=== PATIENT | male | born 1985 | race Caucasian/White ===

== ENCOUNTER 2020-10-11 13:57 | Outpatient (REF) | payer OTHER, SELFPAY ==
[2020-10-11 17:24] LABS: Alanine Aminotransferase 103 U/L (0-40); Albumin Level 4.8 g/dL (3.5-5.0); Alkaline Phosphatase 68 U/L (39-117); Anion Gap 14 (12-20); Aspartate Amino Transferase 51 U/L (5-37); Bilirubin Total 0.5 mg/dL (0.0-1.0); Blood Urea Nitrogen 13 mg/dL (9-16); Calcium 9.7 mg/dL (8.4-10.2); Carbon Dioxide 26 mmol/L (22-29); Chloride 103 mmol/L (96-108); Cholesterol 244 mg/dL; Estimated Glomerular Filt Rate > 60; Glucose Fasting 75 mg/dL (60-99); HDL Cholesterol 33 mg/dL; LDL Cholesterol Calculated 171 mg/dl; Potassium 4.4 mmol/l (3.3-5.1); Sodium 139 mmol/L (135-145); Total Protein 7.4 g/dL (6.5-8.0); Triglycerides 202 mg/dL
[2020-10-11 17:44] LABS: TSH reflex Free T4 0.74 mIU/mL (0.32-4.0)
[2020-10-12 08:07] LABS: HIV AB/AG Nonreactive (Nonreactive); HIV Num 1 0.36 S/CO (0.00-0.99)
== END 2020-10-11 13:58 | disposition home or self-care (01) ==
LOC: HO.HMGCLDS 13:57
PROVIDERS: PCP Nurse Practitioner Family; Visit Provider Nurse Practitioner Family
DX: Z00.00 Encounter for general adult medical examination without abnormal findings (principal); Z11.4 Encounter for screening for human immunodeficiency virus [HIV]; Z13.220 Encounter for screening for lipoid disorders; Z13.29 Encounter for screening for other suspected endocrine disorder; Z23 Encounter for immunization
CPT/HCPCS: 80053; 80061; 84443; 87389

== ENCOUNTER 2020-10-25 09:43 | Outpatient (REF) | payer OTHER, SELFPAY ==
[2020-10-25 11:08] LABS: MANUAL DIFF FLAG NO
[2020-10-25 11:31] LABS: Basophils Absolute Auto 0.1 X10*3/uL (0.0-0.2); Basophils Percent Auto 1.7 % (0-2); Eosinophils Absolute Auto 0.3 X10*3/uL (0.0-0.4); Eosinophils Percent Auto 6.6 % (0-4); Hematocrit 50.7 % (42-52); Hemoglobin 17.2 g/dl (14.0-18.0); Imm Gran Abs Auto 0.02 X10*3/uL (0.00-0.03); Imm Gran Pct Auto 0.4 % (0.0-0.4); Lymphocytes Absolute Auto 1.6 X10*3/uL (1.2-4.9); Mean Corpuscular HGB Conc 33.9 g/dl (31.0-36.0); Mean Corpuscular Hemoglobin 31.5 pg (27.0-33.0); Mean Corpuscular Volume 92.9 fL (80-98); Mean Platelet Volume 11.7 fL (9.4-12.4); Monocytes Absolute Auto 0.4 X10*3/uL (0.1-1.2); Monocytes Percent Auto 7.9 % (2-11); Neutrophils Absolute Auto 2.7 X10*3/uL (2.0-8.3); Neutrophils Percent Auto 52.4 % (45-73); Platelet Count 227 X10*3/uL (160-400); Red Blood Count 5.46 X10*6/uL (4.60-5.80); White Blood Count 5.2 X10*3/uL (4.8-10.8)
[2020-10-25 11:52] LABS: Alanine Aminotransferase 65 U/L (0-40); Albumin Level 4.6 g/dL (3.5-5.0); Alkaline Phosphatase 66 U/L (39-117); Aspartate Amino Transferase 31 U/L (5-37); Bilirubin Direct 0.2 mg/dL (0.0-0.5); Bilirubin Total 0.7 mg/dL (0.0-1.0)
[2020-10-25 12:02] LABS: Ferritin 107 ng/mL (20-250)
[2020-10-26 09:27] LABS: HBsAGNum1 0.19 S/CO (0.00-0.99); Hepatitis A Antibody IgM 0.12 Index (0-0.79); Hepatitis B Surface Antigen Negative (Negative); ~HepC Num1 0.31 S/CO (0.00-0.79); ~Hepatitis A Antibody IgM Nonreactive (Nonreactive); ~Hepatitis C Antibody Nonreactive (Nonreactive)
[2020-10-26 09:31] LABS: HBS Num1 3.53 mIU/mL (0-7.99); Hepatitis B Core Antibody Nonreactive (Nonreactive); ~Hepatitis B Surface Antibody NONREACTIVE (Nonreactive)
[2020-11-01 03:22] LABS: Lipoprotein A 23 nmol/L (<75)
== END 2020-10-25 09:44 | disposition home or self-care (01) ==
LOC: HO.HMGCLDS 09:43
PROVIDERS: PCP Nurse Practitioner Family; Visit Provider Nurse Practitioner Family
DX: R74.8 Abnormal levels of other serum enzymes (principal)
CPT/HCPCS: 36415; 80076; 82728; 83695; 85025; 86704; 86706; 86709; 86803; 87340

== ENCOUNTER 2021-10-11 06:03 | Outpatient (REF) | payer OTHER, SELFPAY ==
[2021-10-11 11:24] LABS: Appearance Urine CLEAR; Color Urine STRAW; Glucose Urine UA NEG (NEG); Leukocyte Esterase Urine NEG (NEG); Nitrite Urine NEG (NEG); PH 7.5 (5.0-8.0); Urine Blood NEG (NEG); Urine Ketones NEG (NEG); Urine Protein NEG (NEG-TRACE)
[2021-10-11 11:53] LABS: Alanine Aminotransferase 89 U/L (0-40); Albumin Level 4.5 g/dL (3.5-5.0); Alkaline Phosphatase 75 U/L (39-117); Anion Gap 13 (12-20); Aspartate Amino Transferase 37 U/L (5-37); Bilirubin Total 0.7 mg/dL (0.0-1.0); Blood Urea Nitrogen 12 mg/dL (9-16); Calcium 9.9 mg/dL (8.4-10.2); Carbon Dioxide 26 mmol/L (22-29); Chloride 107 mmol/L (96-108); Cholesterol 272 mg/dL; Estimated Glomerular Filt Rate > 60; Glucose Fasting 89 mg/dL (60-99); HDL Cholesterol 37 mg/dL; LDL Cholesterol Calculated 185 mg/dl; Potassium 4.4 mmol/L (3.3-5.1); Sodium 142 mmol/L (135-145); Total Protein 7.1 g/dL (6.5-8.0); Triglycerides 253 mg/dL
[2021-10-11 12:15] LABS: TSH reflex Free T4 1.79 uIU/mL (0.32-4.0)
== END 2021-10-11 06:04 | disposition home or self-care (01) ==
LOC: HO.HMGCLDS 06:03
PROVIDERS: PCP Nurse Practitioner Family; Visit Provider Nurse Practitioner Family
DX: Z00.00 Encounter for general adult medical examination without abnormal findings (principal)
CPT/HCPCS: 36415; 80053; 80061; 81003; 84443

== ENCOUNTER 2021-11-08 14:14 | Outpatient (REF) | payer OTHER, SELFPAY ==
[2021-11-08 15:09] LABS: Influenza A PCR NEGATIVE (Negative); Influenza B PCR NEGATIVE (Negative); Resp Syncy Virus RNA Qual PCR NEGATIVE (Negative); SARS COV2 PCR INHOUSE NEGATIVE (Negative)
== END 2021-11-08 14:15 | disposition home or self-care (01) ==
LOC: HO.LNP 14:14
PROVIDERS: Visit Provider Nurse Practitioner Family
DX: Z20.822 Contact with and (suspected) exposure to COVID-19 (principal)
CPT/HCPCS: 0241U

== ENCOUNTER 2022-08-13 07:15 | Outpatient (REF) | payer OTHER, SELFPAY ==
--- NOTE | ~2022-08-13 | XR_ITS ---
EXAMINATION: XR CHEST CLINICAL INFORMATION: Post Covid condition COMPARISON: None TECHNIQUE: 2 views of the chest were obtained. FINDINGS: No significant abnormality is noted involving the heart, lungs, mediastinum, bony thorax or soft tissues. XR/XR chest 2V IMPRESSION: Unremarkable examination.
[2022-08-13 11:16] LABS: MANUAL DIFF FLAG NO
[2022-08-13 11:26] LABS: Appearance Urine Clear; Color Urine Yellow; Glucose Urine UA Negative (Negative); Leukocyte Esterase Urine Negative (Negative); Nitrite Urine Negative (Negative); PH 6.5 (5.0-9.0); Specific Gravity - Urine <= 1.005 (1.005-1.025); Urine Blood Negative (Negative); Urine Ketones Negative (Negative); Urine Protein Negative (Neg-Trace)
[2022-08-13 11:26] LABS: Basophils Absolute Auto 0.1 X10*3/uL (0.0-0.2); Basophils Percent Auto 1.2 % (0-2); Eosinophils Absolute Auto 0.3 X10*3/uL (0.0-0.4); Eosinophils Percent Auto 4.5 % (0-4); Hematocrit 49.2 % (42.0-52.0); Imm Gran Abs Auto 0.02 X10*3/uL (0.00-0.03); Imm Gran Pct Auto 0.3 % (0.0-0.4); Lymphocytes Absolute Auto 1.9 X10*3/uL (1.2-4.9); Lymphocytes Percent Auto 32.1 % (20-40); Mean Corpuscular HGB Conc 34.6 g/dl (31.0-36.0); Mean Corpuscular Hemoglobin 31.8 pg (27.0-33.0); Mean Corpuscular Volume 92.1 fL (80.0-98.0); Mean Platelet Volume 11.5 fL (9.4-12.4); Monocytes Absolute Auto 0.6 X10*3/uL (0.1-1.2); Monocytes Percent Auto 10.2 % (2-11); Neutrophils Absolute Auto 3.1 x10*3/uL (2.0-8.3); Neutrophils Percent Auto 51.7 % (45-73); Platelet Count 287 X10*3/uL (160-400); Red Blood Count 5.34 X10*6/uL (4.60-5.80); Red Cell Distribution Width 12.2 % (11.0-16.0)
[2022-08-13 11:38] LABS: Alanine Aminotransferase 93 U/L (0-40); Albumin Level 4.6 g/dL (3.5-5.0); Alkaline Phosphatase 80 U/L (39-117); Anion Gap 15 (12-20); Aspartate Amino Transferase 45 U/L (5-37); Bilirubin Total 0.8 mg/dL (0.0-1.0); Blood Urea Nitrogen 13 mg/dL (9-16); Carbon Dioxide 29 mmol/L (22-29); Chloride 102 mmol/L (96-108); Cholesterol 265 mg/dL; Estimated Glomerular Filt Rate > 60; Glucose Fasting 95 mg/dL (60-99); HDL Cholesterol 36 mg/dL; Potassium 4.6 mmol/L (3.3-5.1); Sodium 141 mmol/L (135-145); Total Protein 7.1 g/dL (6.5-8.0); Triglycerides 463 mg/dL
[2022-08-13 11:59] LABS: TSH reflex Free T4 1.92 uIU/mL (0.32-4.0)
== END 2022-08-13 07:16 | disposition home or self-care (01) ==
LOC: HO.HMGCX 07:15
PROVIDERS: PCP Nurse Practitioner Family; Visit Provider Nurse Practitioner Family
DX: U09.9 Post COVID-19 condition, unspecified (principal); E78.5 Hyperlipidemia, unspecified
CPT/HCPCS: 36415; 71046; 80053; 80061; 81003; 84443; 85025

== ENCOUNTER 2022-10-10 08:20 | Outpatient (REF) | payer OTHER, SELFPAY ==
[2022-10-10 12:39] LABS: Alanine Aminotransferase 90 U/L (0-40); Albumin Level 4.5 g/dL (3.5-5.0); Alkaline Phosphatase 73 U/L (39-117); Anion Gap 10 (12-20); Aspartate Amino Transferase 40 U/L (5-37); Bilirubin Total 0.6 mg/dL (0.0-1.0); Blood Urea Nitrogen 13 mg/dL (9-16); Calcium 9.5 mg/dL (8.4-10.2); Carbon Dioxide 29 mmol/L (22-29); Chloride 106 mmol/L (96-108); Cholesterol 250 mg/dL; Estimated Glomerular Filt Rate > 60; Glucose Fasting 93 mg/dL (60-99); HDL Cholesterol 36 mg/dL; LDL Cholesterol Calculated 150 mg/dl; Potassium 4.7 mmol/L (3.3-5.1); Sodium 140 mmol/L (135-145); Total Protein 6.7 g/dL (6.5-8.0); Triglycerides 324 mg/dL
[2022-10-10 12:41] LABS: HIV AB/AG Nonreactive (Nonreactive); HIV Num 1 0.06 S/CO (0.00-0.99)
== END 2022-10-10 08:21 | disposition home or self-care (01) ==
LOC: HO.HMGCLDS 08:20
PROVIDERS: PCP Nurse Practitioner Family; Visit Provider Nurse Practitioner Family
DX: E78.5 Hyperlipidemia, unspecified (principal); Z11.4 Encounter for screening for human immunodeficiency virus [HIV]
CPT/HCPCS: 36415; 80053; 80061; 87389

== ENCOUNTER 2023-04-02 11:49 | Outpatient (REF) | payer OTHER, SELFPAY ==
--- NOTE | ~2023-04-02 | XR_ITS ---
EXAMINATION: XR CERVICAL SPINE CLINICAL INFORMATION: Cervical radiculopathy COMPARISON: None available. TECHNIQUE: AP and lateral views FINDINGS: There is straightening of cervical lordosis with well aligned vertebral bodies well maintained intervertebral disc spaces. Pedicles are preserved. There is no fracture or subluxation. Soft tissues are unremarkable. XR/XR cervical spine 2V IMPRESSION: Straightening of cervical lordosis may be result of muscle spasm.
== END 2023-04-02 11:50 | disposition home or self-care (01) ==
LOC: HO.HMGCX 11:49
PROVIDERS: PCP Nurse Practitioner Family; Visit Provider Nurse Practitioner Family
DX: M54.12 Radiculopathy, cervical region (principal)
CPT/HCPCS: 72040

== ENCOUNTER 2023-04-30 09:02 | Outpatient (REF) | payer OTHER, SELFPAY ==
[2023-04-30 11:27] LABS: MANUAL DIFF FLAG NO
[2023-04-30 11:36] LABS: Appearance Urine Clear; Basophils Absolute Auto 0.1 X10*3/uL (0.0-0.2); Basophils Percent Auto 1.1 % (0-2); Color Urine Yellow; Eosinophils Absolute Auto 0.2 X10*3/uL (0.0-0.4); Eosinophils Percent Auto 4.3 % (0-4); Glucose Urine UA Negative (Negative); Hematocrit 47.5 % (42.0-52.0); Hemoglobin 16.5 g/dl (14.0-18.0); Imm Gran Abs Auto 0.01 X10*3/uL (0.00-0.03); Imm Gran Pct Auto 0.2 % (0.0-0.4); Leukocyte Esterase Urine Negative (Negative); Lymphocytes Absolute Auto 1.7 X10*3/uL (1.2-4.9); Lymphocytes Percent Auto 31.2 % (20-40); Mean Corpuscular HGB Conc 34.7 g/dl (31.0-36.0); Mean Corpuscular Hemoglobin 32.4 pg (27.0-33.0); Mean Corpuscular Volume 93.1 fL (80.0-98.0); Mean Platelet Volume 11.4 fL (9.4-12.4); Monocytes Absolute Auto 0.5 X10*3/uL (0.1-1.2); Monocytes Percent Auto 8.7 % (2-11); Neutrophils Absolute Auto 2.9 x10*3/uL (2.0-8.3); Neutrophils Percent Auto 54.5 % (45-73); Nitrite Urine Negative (Negative); PH 6.5 (5.0-9.0); Platelet Count 260 X10*3/uL (160-400); Urine Blood Negative (Negative); Urine Ketones Negative (Negative); Urine Protein Negative (Neg-Trace); White Blood Count 5.3 X10*3/uL (4.8-10.8)
[2023-04-30 12:26] LABS: Alanine Aminotransferase 96 U/L (0-40); Albumin Level 4.5 g/dL (3.5-5.0); Alkaline Phosphatase 84 U/L (39-117); Anion Gap 14 (12-20); Aspartate Amino Transferase 41 U/L (5-37); Bilirubin Total 0.7 mg/dL (0.0-1.0); Blood Urea Nitrogen 13 mg/dL (9-16); Calcium 10.2 mg/dL (8.4-10.2); Carbon Dioxide 28 mmol/L (22-29); Chloride 104 mmol/L (96-108); Cholesterol 256 mg/dL; Estimated Glomerular Filt Rate > 60; Glucose Fasting 98 mg/dL (60-99); HDL Cholesterol 43 mg/dL; LDL Cholesterol Calculated 159 mg/dl; Sodium 142 mmol/L (135-145); Triglycerides 273 mg/dL
[2023-04-30 12:28] LABS: TSH reflex Free T4 1.56 uIU/mL (0.32-4.0)
== END 2023-04-30 09:03 | disposition home or self-care (01) ==
LOC: HO.HMGCLDS 09:02
PROVIDERS: PCP Nurse Practitioner Family; Visit Provider Nurse Practitioner Family
DX: Z00.00 Encounter for general adult medical examination without abnormal findings (principal); E78.5 Hyperlipidemia, unspecified; Z13.29 Encounter for screening for other suspected endocrine disorder
CPT/HCPCS: 36415; 80053; 80061; 81003; 84443; 85025

== ENCOUNTER 2023-05-11 14:08 | Outpatient (REF) | payer OTHER, SELFPAY ==
--- NOTE | ~2023-05-11 | MR_ITS ---
EXAMINATION: MR CERVICAL SPINE WITHOUT CONTRAST CLINICAL INFORMATION: Radiculopathy COMPARISON: Cervical spine radiographs 04/02/2023 TECHNIQUE: MRI of the cervical spine was obtained using routine sequences without contrast. FINDINGS: The craniocervical junction is intact. Straightening of the normal cervical lordosis. There is no significant spondylolisthesis. Vertebral body heights are normal without acute compression fracture. No suspicious osseous lesion. Multilevel disc desiccation with mild disc height loss. There are multilevel degenerative changes with level by level detail as follows: C2-C3: No spinal canal or neural foraminal stenosis. C3-C4: Bilateral uncovertebral spurring. No spinal canal or left neural foraminal stenosis. Minimal right neural foraminal encroachment. C4-C5: Shallow annular disc bulge with minor bilateral uncovertebral spurring. No spinal canal or neural foraminal stenosis. C5-C6: Disc osteophyte complex with right greater than left uncovertebral spurring. No spinal canal stenosis. Mild right without left neural foraminal narrowing. C6-C7: Annular disc bulge with paracentral annular fissure and bilateral uncovertebral spurring. No spinal canal stenosis. Mild bilateral neural foraminal narrowing. C7-T1: No spinal canal or neural foraminal stenosis. Short segment intramedullary T2 hyperintensity within the ventral cord at C1 measuring 1.7 mm in AP dimension (image 8, series 3) may reflect focal dilatation of the central canal, though excluded from the [id number] in the axial plane. No epidural fluid collection, mass, or hematoma. No significant abnormalities of the paraspinal musculature. The flow voids of the major cervical vessels are maintained. The visualized intracranial structures are normal. No demonstrated abnormalities in the visualized neck. MR/MR cervical spine wo con IMPRESSION: 1. Mild multilevel cervical spondylosis without significant spinal canal stenosis or high-grade neural foraminal stenosis. Mild right C5-C6 and bilateral C6-C7 neural foraminal narrowing. 2. Short segment intramedullary T2 hyperintensity within the ventral cord at C1 is excluded from the [id number] in the axial plane and may reflect focal prominence of the central canal without overt syrinx formation.
== END 2023-05-11 14:09 | disposition home or self-care (01) ==
LOC: HO.MRI 14:08
PROVIDERS: PCP Nurse Practitioner Family; Visit Provider Nurse Practitioner Family
DX: M54.12 Radiculopathy, cervical region (principal)
CPT/HCPCS: 72141

== ENCOUNTER 2023-05-30 08:03 | Outpatient (REF) | payer OTHER, SELFPAY ==
--- NOTE | 2023-05-30 08:06 | EMG_ITS ---
Left median and ulnar motor and sensory studies were performed. Left radial sensory study was performed. Left median and lateral antecubital sensory studies were performed and paraspinal muscles were tested with a needle. IMPRESSION: Mild left ulnar neuropathy across cubital tunnel. MD MATHIEU Woodall/MICHAEL / [phone]
== END 2023-05-30 08:04 | disposition home or self-care (01) ==
LOC: HO.NEURO 08:03
PROVIDERS: PCP Nurse Practitioner Family; Visit Provider Nurse Practitioner Family
DX: R20.0 Anesthesia of skin (principal)
CPT/HCPCS: 95886; 95910

== ENCOUNTER 2023-06-28 14:00 | Outpatient (RCR) | payer OTHER, SELFPAY ==
--- NOTE | 2023-05-20 11:25 | MHC.PT.EP ---
[facility] [place] Office [place] Office [place] Office [address] [phone] F: [phone] F: [phone] F: [phone] F: [phone] Physical Therapy Plan of Care Date of Evaluation: Date of Surgery: Diagnosis: Cervical Radiculopathy. Assessment: Pt is a 47 y/o RHD male referred to PT for eval and treat of L sided cervical radiculopathy resulting in decreased tolerance for driving, concentrating, lifting objects of weight from the floor, as well as performing recreational and fitness activities such as golf secondary to mild decreased cervical ROM, pain with end range cervical L rotation and flexion, mild decreased L UE strength, as well as L shoulder and arm pain. Pt is deemed an appropriate candidate to receive skilled PT services to address their physical impairments in order to improve their functional ability. Frequency and Duration: The patient will be seen 2 x/ wk x 4 wks. Short Term Goals: Initiate HEP. L shoulder referred ache abolished. L hand n/t improved 50%. Senior Systems Programmer Goals: I with home program. Cervical ROM full and painless. NDI improved by at least 9 points. B symmetrical MMT UE muscle testing. Treatment Plan: Modalities to reduce pain, spasms and effusion. Manual therapy to restore motion and function. Therapeutic exercise to improve strength and flexibility. Neuromuscular re-education for posture and balance. Therapeutic activities to return to functional activities of daily living. Electronically signed by: Umair Melgar PT. Please sign and return to therapist. Thank you for your referral.
--- NOTE | 2023-07-01 13:16 | MHC.PT.DC ---
[facility] [place] Office [place] Office [place] Office [address] [phone] F: [phone] F: [phone] F: [phone] F: [phone] Physical Therapy Discharge Report Diagnosis: Cervical Radiculopathy. Date of Surgery: Date of Evaluation: 05/20/23 Date of Discharge: 07/01/23 Treatments to Date: 7 Cancellations to Date: No Shows to Date: Discharge Status: Achieved Goals Improved Function Independent with HEP Discharge Summary: Lloyd has been an active participant in their therapy with good home program compliance. We are in agreement with DC today as he has met most of their therapeutic goals, are improved of his initial symptoms, and is independent with his home program for self management. Pt had a trip coming up and chose to discontinue care early. Electronically signed by: Umair Melgar PT Please sign and return to therapist. Thank you for your referral.
--- NOTE | 2023-08-19 14:50 | MHC.PT.DC ---
[facility] [place] Office [place] Office [place] Office [address] [phone] F: [phone] F: [phone] F: [phone] F: [phone] Physical Therapy Discharge Report Diagnosis: Cervical Radiculopathy. Date of Surgery: Date of Evaluation: 05/20/23 Date of Discharge: 07/01/23 Treatments to Date: 7 Cancellations to Date: No Shows to Date: Discharge Status: Achieved Goals Improved Function Independent with HEP Discharge Summary: Lloyd has been an active participant in their therapy with good home program compliance. We are in agreement with DC today as he has met most of their therapeutic goals, are improved of his initial symptoms, and is independent with his home program for self management. Pt had a trip coming up and chose to discontinue care early. Electronically signed by: Umair Melgar PT Please sign and return to therapist. Thank you for your referral.
== END 2023-08-19 14:48 | disposition home or self-care (01) ==
LOC: HO.PTCHIC 14:00
PROVIDERS: PCP Nurse Practitioner Family; Visit Provider Nurse Practitioner Family
DX: M54.12 Radiculopathy, cervical region (principal)
CPT/HCPCS: 97110; 97112; 97140; 97161

== ENCOUNTER 2023-07-05 10:42 | Outpatient (AMB) | payer OTHER, SELFPAY ==
--- NOTE | 2023-07-05 10:57 | A.SPINEOV_ITS ---
Intake Intake Visit Reasons: Neck pain Intake Note: Mr. Mendez is here today c/o neck pain. [place] [facility] [place] Required: No Allergies No Known Allergies Allergy (Verified 04/30/23 09:44) Assessment & Plan Assessment & Plan (1) Abnormal MRI, cervical spine: Code(s): R93.7 - Abnormal findings on diagnostic imaging of other parts of musculoskeletal system (2) Numbness of left hand: Code(s): R20.0 - Anesthesia of skin Plan Dear Rayray, Thank you for referring Mr Mendez to our office today. 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 He has said the symptoms started in his cervical spine about 4 months ago. The symptoms just slowly come on and start in his left subscapular area down across the top of his shoulder into his left arm ending at about the elbow. He will also get tingling of his fingertips at times. He will usually start the 4th and 5th digits and then encompass the whole hand. 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 Denies any problems with myelopathic symptoms such as gait imbalance, diffuse weakness, bladder incontinence etc.. He has an MRI showing some mild degenerative disc disease as well as and T2 signal change inside the spinal cord, and was sent today for evaluation. He also had an EMG showing a mild ulnar neuropathy as well. More recently had a trip to [place] were experienced pain in the middle of his back but that seems to be going away with some gentle conservative treatment. PMH: He is otherwise healthy, he had an ankle surgery, high cholesterol, shoulder repair, wisdom tooth surgery Social hx: He smokes about half a pack a day Medications: Pravastatin, cyclobenzaprine and Aleve Allergies: None Physical exam: Pleasant no acute distress, nerve examination reveals full strength bilateral upper extremities, reflexes normal, no Taryn sign, no c lonus, gait is normal. Positive Tinel sign in the left hand. Imaging review: Cervical MRI done at [place] shows mild degenerative disc disease at C5-6 and C6-7. There is some subtle foraminal narrowing but nothing significant. There is a hyperintense T2 signal and the upper cervical cord, no edema associated with it, no compression of the cord in this area. It does not seem to track down further into the cervical canal. There is no Chiari malformation associated with it. 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 He has some mild disc degeneration but nothing profound. 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 He can continue with physical therapy as long as he is tolerating an doing okay. With regard to the T2 cord signal change, this is a nonspecific finding is not associated with any specific other abnormality or compression. He has no symptoms of myelopathy nor any exam finding. He could be just an anatomical variant of the central canal the spinal cord. It does not appear to have any edema inside of it to suggest that it is an active MS lesion or tumor etc.. I will get a follow-up study in 6 months just as a precaution but I do not expect it to change at all. We also discussed that he has a mild ulnar neuropathy and although the EMG does not reported I suspect he also has carpal tunnel on the left hand given the positive Tinel sign in the tingling of the thumb index and middle finger as well. Again I reassured him that as long as things are not disabling, they are not dangerous and do not require surgery. If his symptoms change at all he will contact me. Thank you for allowing us to care for your patient. The total time spent with this visit with this patient was 45 minutes reviewing history, physical exam, cervical spine and EMG imaging review, and implementation of treatment plan or further diagnostic testing Xavi Christian MD,PhD [facility] Orders: Orders MR cervical spine wo/w con 6 Months R93.7 - Abnormal findings on diagnostic imaging of other parts of musculoskeletal system Coding Level of Care Code New Pt Level 4 (02738) Diagnoses Abnormal MRI, cervical spine R93.7 Numbness of left hand R20.0
== END 2023-07-05 11:50 | disposition home or self-care (01) ==
PROVIDERS: PCP Nurse Practitioner Family; Referring Provider Nurse Practitioner Family; Visit Provider Physician Assistant
DX: R93.7 Abnormal findings on diagnostic imaging of other parts of musculoskeletal system (principal); R20.0 Anesthesia of skin
CPT/HCPCS: 99204

== ENCOUNTER → 2023-07-05 10:42 | Outpatient (BNVA) | payer OTHER, SELFPAY | PROVIDERS: PCP Nurse Practitioner Family; Visit Provider Physician Assistant | DX: R93.7 Abnormal findings on diagnostic imaging of other parts of musculoskeletal system (principal); R20.0 Anesthesia of skin | CPT/HCPCS: 99202 ==

== ENCOUNTER 2023-08-07 14:31 | Outpatient (AMB) | payer OTHER, SELFPAY ==
--- NOTE | 2023-08-07 14:35 | MHC.OFFVIS ---
Intake Vital Signs 08/07/23 14:36 Height 6 ft 6 in Weight 218 lb 4.122 oz BMI 25.2 BP 123/87 Blood Pressure Location Lt brachial Position Sitting Pulse 95 Intake Visit Reasons: Fatty Liver, Elevated LFTs Intake Note: Lloyd presents in the office as a new patient for fatty liver and elevated lfts. CC: He states that he has elevated LFTs. He has irregular bowel movements - he states he takes imodium once a week. He states that he eats fairly healthy. Allergies No Known Allergies Allergy (Verified 08/07/23 14:37) HPI HPI Comments History of Present Illness Details This is a 37y.o M with PMH of HLD, etOH use disorder, and elevated LFTs who is here to establish care. Pt has had elevated LFTs since at least 2017 per chart review. Last US in 2018 showed liver steatosis. Hepatitis serologies from 2020 negative. Does not report any abd pain, N,V, changes in bowel habits, blood in stool. No fam hx of liver disease. Pt himself drinks 6 pack of beers 4-5 times a week x 20 years. During pandemic year in 2019 also switched to whiskey on a daily basis but quit hard liquor after a year. Also smokes 0.5 PPD. Takes NSAIDs 2-3 times a week due to pain in L ankle after an injury. No DM but does have hyperlipidemia and cholesterol control remains suboptimal with total cholesterol above 200 and LDL above 100 consistently since at least 2020. [facility] Medical History Cubital tunnel syndrome on left Fatty liver Dyslipidemia Surgical History History of ankle surgery History of wisdom tooth extraction History of shoulder surgery Family History Father Unknown family medical history Mother No problems noted. Paternal Uncle No problems noted. Social History Housing: House Alcohol intake: current Alcohol intake frequency: a few times a month Patient Tobacco Use Status: Current everyday Tobacco user Cigarettes Per Day: 10 Years Smoked: 15 years e-Cigarette/Vaping Use: Currently Using Second Hand Smoke Exposure: Yes service: Yes Current occupational status: employed Cognitive needs: No Hearing needs: No Vision needs: No Review of Systems Const All systems reviewed & are unremarkable except as noted in HPI and below Physical Exam Vital Signs: Last Vital Signs Pulse 95 08/07/23 14:36 BP 123/87 08/07/23 14:36 BMI result Body Mass Index 25.2 Gen appear: NAD HEENT: nonicteric, no cervical lymphadenopathy Chest: CTA CVS: Regular S1/S2 Abd: soft, nontender, nondistended, bowel sounds + Ext: no peripheral edema Neuro: A/Ox3, noted to move all extremities spontaneously Psych: interacting appropriately Assessment & Plan Assessment & Plan (1) Elevated LFTs: Code(s): R79.89 - Other specified abnormal findings of blood chemistry (2) Fatty liver: Code(s): K76.0 - Fatty (change of) liver, not elsewhere classified (3) Dyslipidemia: Code(s): E78.5 - Hyperlipidemia, unspecified (4) Alcohol use: Code(s): Z78.9 - Other specified health status Plan Elevated LFTs and steatosis of liver likely a combination and etOH and non-etOH fatty liver. He was counseled on strict abstinence from etOH as well as better control of hyperlipidemia. Will also complete work up for other causes of chronic liver disease as below. We will also complete non-invasive testing for liver fibrosis with Fib 4 and US abd. If Fib 4 high, low threshold to proceed with elastography. Plan: - Strict abstinence from etOH - Optimize lipid control with aim to keep total cholesterol 200 or less - Labs and US ordered as below - He was also advised to avoid NSAIDs. Tylenol is ok to take for pain control up to 2g/day - Follow up in 4 weeks Orders: Orders Liver Kidney Microsomal Ab Today - Other specified abnormal findings of blood chemistry IRON PROFILE Today - Other specified abnormal findings of blood chemistry Immunoglobulin A Today - Other specified abnormal findings of blood chemistry Ceruloplasmin Today - Other specified abnormal findings of blood chemistry Alpha 1 Anti-trypsin Today - Other specified abnormal findings of blood chemistry Mitochondrial Antibody Today . - Other specified abnormal findings of blood chemistry Smooth Muscle Antibody Today . - Other specified abnormal findings of blood chemistry Transglutaminase IgA Today - Other specified abnormal findings of blood chemistry Hepatitis B Surface Antigen Today - Other specified abnormal findings of blood chemistry Hepatitis C Antibody Today R7. - Other specified abnormal findings of blood chemistry Prothrombin Time INR Today R79.89 - Other specified abnormal findings of blood chemistry Ferritin Today R79. - Other specified abnormal findings of blood chemistry Immunoglobulin G Today R79. - Other specified abnormal findings of blood chemistry Lipid Panel Today R7. - Other specified abnormal findings of blood chemistry JEANA Reflex Titer and Pattern Today R7. - Other specified abnormal findings of blood chemistry Gamma Glutamyl Transpeptidase Today R79. - Other specified abnormal findings of blood chemistry Liver Panel Today R79. - Other specified abnormal findings of blood chemistry Phosphatidylethanol, Blood Today R79. - Other specified abnormal findings of blood chemistry Hepatitis A IgG Today R79. - Other specified abnormal findings of blood chemistry Hepatitis B Core Antibody Today R79. - Other specified abnormal findings of blood chemistry Hepatitis B Surface Antibody Today R79. - Other specified abnormal findings of blood chemistry US abdomen complete Today R79. - Other specified abnormal findings of blood chemistry Complete Blood Count no Diff Today R7 - Other specified abnormal findings of blood chemistry Coding Level of Care Code New Pt Level 4 (90203) Diagnoses Elevated LFTs Fatty liver K76.0 Dyslipidemia E78.5 Alcohol use Z78.9
[2023-08-07 14:36] VITALS: BP 123/87; PULSE 95; BMI 25.2
== END 2023-08-07 15:28 | disposition home or self-care (01) ==
PROVIDERS: PCP Nurse Practitioner Family; Visit Provider Internal Medicine
DX: R79.89 Other specified abnormal findings of blood chemistry (principal); K76.0 Fatty (change of) liver, not elsewhere classified; E78.5 Hyperlipidemia, unspecified; Z78.9 Other specified health status
CPT/HCPCS: 99204

== ENCOUNTER → 2023-08-07 14:31 | Outpatient (BNVA) | payer OTHER, SELFPAY | PROVIDERS: PCP Nurse Practitioner Family; Visit Provider Internal Medicine ==

== ENCOUNTER 2023-08-12 08:14 | Outpatient (REF) | payer OTHER, SELFPAY ==
[2023-08-12 11:37] LABS: Alanine Aminotransferase 111 U/L (0-40); Albumin Level 4.7 g/dL (3.5-5.0); Alkaline Phosphatase 76 U/L (39-117); Anion Gap 17 (12-20); Aspartate Amino Transferase 45 U/L (5-37); Bilirubin Direct 0.1 mg/dL (0.0-0.5); Bilirubin Total 0.5 mg/dL (0.0-1.0); Blood Urea Nitrogen 16 mg/dL (9-16); Calcium 10.2 mg/dL (8.4-10.2); Carbon Dioxide 21 mmol/L (22-29); Chloride 106 mmol/L (96-108); Cholesterol 342 mg/dL (<200); Estimated Glomerular Filt Rate > 60; Glucose Fasting 100 mg/dL (60-99); HDL Cholesterol 46 mg/dL (>40); Iron 111 mcg/dL (45-160); LDL Cholesterol Calculated 235 mg/dL (<100); Percent Iron Saturation 33 % (15-50); Potassium 4.4 mmol/L (3.3-5.1); Sodium 140 mmol/L (135-145); Total Iron Binding Capacity 336 mcg/dL (228-428); Total Protein 7.6 g/dL (6.5-8.0); Triglycerides 306 mg/dL (<150); Unsaturated Iron Binding 225 ug/dL
[2023-08-13 14:12] LABS: Transglutaminase IgA <1.0 U/mL
[2023-08-13 14:19] LABS: Alpha 1 Anti-trypsin 129 mg/dL (83-199); Ceruloplasmin 25 mg/dL (18-36); Immunoglobulin A 133 mg/dL (47-310); Immunoglobulin G 740 mg/dL (600-1640)
[2023-08-14 11:25] LABS: Mitochondrial Antibodies NEGATIVE (NEGATIVE)
[2023-08-16 23:19] LABS: Liver Kidney Microsomal Ab <=20.0 U (<=20.0)
[2023-08-17 12:13] LABS: Smooth Muscle Antibody <20 U (<20)
== END 2023-08-12 08:15 | disposition home or self-care (01) ==
LOC: HO.HMGCLDS 08:14
PROVIDERS: Absent Provider Internal Medicine; PCP Nurse Practitioner Family; Visit Provider Nurse Practitioner Family
DX: R79.89 Other specified abnormal findings of blood chemistry (principal); E78.5 Hyperlipidemia, unspecified
CPT/HCPCS: 36415; 80053; 80061; 80076; 80321; 82103; 82248; 82390; 82728; 82784; 82977; 83540; 85027; 85610; 86015; 86038; 86364; 86376; 86381; 86704; 86706; 86708; 86803; 87340

== ENCOUNTER 2023-08-21 08:26 | Outpatient (REF) | payer OTHER, SELFPAY ==
--- NOTE | ~2023-08-21 | US_ITS ---
EXAMINATION: US ABDOMEN COMPLETE CLINICAL INFORMATION: Other specified abnormal findings of blood chemistry. COMPARISON: Ultrasound abdomen 08/19/2018 and 03/18/2017. TECHNIQUE: Real-time imaging of the abdominal viscera. FINDINGS: PANCREAS: Normal. ABDOMINAL AORTA: The proximal, mid, and distal segments are normal in caliber. INFERIOR VENA CAVA: Visualized portions are normal. LIVER: The liver is normal in size. The liver contour is normal. There is diffuse increased liver parenchymal echogenicity. Within the anterior segment of the right hepatic lobe, a 2.3 cm maximal diameter simple cyst is redemonstrated, which requires no imaging follow-up. There is no intrahepatic biliary duct dilatation seen. GALLBLADDER: Normal. The gallbladder is physiologically distended without evidence of stones, sludge, polyps, wall thickening or pericholecystic fluid. COMMON BILE DUCT: Normal in caliber measuring 0.3 cm in diameter. RIGHT KIDNEY: Normal. No hydronephrosis. No renal calculi or focal parenchymal lesions. The kidney measures 11.4 cm in maximum dimension. LEFT KIDNEY: Normal. No hydronephrosis. No renal calculi or focal parenchymal lesions. The kidney measures 11.7 cm in maximum dimension. SPLEEN: Normal. The spleen measures 12.5 cm in maximum dimension. FREE FLUID: None. US/US abdomen complete IMPRESSION: There is generalized increase in hepatic echotexture, consistent with fatty infiltration or hepatocellular disease. Please correlate clinically. No focal hepatic mass or intrahepatic biliary dilatation is seen.
== END 2023-08-21 08:27 | disposition home or self-care (01) ==
LOC: HO.HMGCX 08:26
PROVIDERS: PCP Nurse Practitioner Family; Visit Provider Internal Medicine
DX: R79.89 Other specified abnormal findings of blood chemistry (principal)
CPT/HCPCS: 76700

== ENCOUNTER 2023-09-02 08:37 | Outpatient (REF) | payer OTHER, SELFPAY ==
--- NOTE | ~2023-09-02 | XR_ITS ---
EXAMINATION: XR HAND, RIGHT CLINICAL INFORMATION: Injury COMPARISON: None available. TECHNIQUE: PA, lateral, and oblique views of the right hand. FINDINGS: Mild soft tissue swelling distal fifth digit. No displaced fracture is seen. Distal tuft cortical lucency on lateral view at the level of the nailbed. XR/XR hand RT 2V IMPRESSION: No displaced fracture. Tiny nondisplaced fracture fifth distal tuft versus artifact from adjacent nailbed.
== END 2023-09-02 08:38 | disposition home or self-care (01) ==
LOC: HO.HMGCX 08:37
PROVIDERS: PCP Nurse Practitioner Family; Visit Provider Nurse Practitioner Family
DX: S69.91XA Unspecified injury of right wrist, hand and finger(s), initial encounter (principal); X58.XXXA Exposure to other specified factors, initial encounter; Y93.9 Activity, unspecified; Y92.9 Unspecified place or not applicable; Y99.9 Unspecified external cause status
CPT/HCPCS: 73120

== ENCOUNTER 2023-09-04 14:29 | Outpatient (AMB) | payer OTHER, SELFPAY ==
--- NOTE | 2023-09-04 14:34 | A.OFFVIS_ITS ---
Intake Vital Signs 09/04/23 14:35 Height 6 ft 6 in Weight 218 lb 4.122 oz BMI 25.2 BP 145/85 H Blood Pressure Location Lt brachial Position Sitting Pulse 77 Intake Visit Reasons: 4 week follow up Intake Note: Lloyd presents in the office as a 4 week follow up. CC: No concerns today! Allergies No Known Allergies Allergy (Verified 09/04/23 14:35) HPI HPI Comments History of Present Illness Details This is a 37y.o M with PMH of HLD, etOH use disorder, and elevated LFTs who is here for follow up. 08/07/23: Pt has had elevated LFTs since at least 2017 per chart review. Last US in 2018 showed liver steatosis. Hepatitis serologies from 2020 negative. Does not report any abd pain, N,V, changes in bowel habits, blood in stool. No fam hx of liver disease. Pt himself drinks 6 pack of beers 4-5 times a week x 20 years. During pandemic year in 2019 also switched to whiskey on a daily basis but quit hard liquor after a year. Also smokes 0.5 PPD. Takes NSAIDs 2-3 times a week due to pain in L ankle after an injury. No DM but does have hyperlipidemia and cholesterol control remains suboptimal with total cholesterol above 200 and LDL above 100 consistently since at least 2020. 09/04/23: Here for follow up after work up done for chronic liver disease. Labs and US results reviewed with the pt. Essentially has both SHASHANK and ADAMSON based on results. Remaining work up including chronic infectious hep, AIH, iron overload, wilsons, A1AT, biliary disease negative. He was also noted to have uncontrolled hyperlipidemia as well as possible prediabetes (FBG 100). BP also noted to be high today. [facility] Medical History Finger fracture, right Cubital tunnel syndrome on left Fatty liver Dyslipidemia Surgical History History of ankle surgery History of wisdom tooth extraction History of shoulder surgery Family History Father Unknown family medical history Mother No problems noted. Paternal Uncle No problems noted. Social History (Reviewed 09/04/23 @ 14:35 by RAYMOND Pineda Housing: House Alcohol intake: current Alcohol intake frequency: a few times a month Patient Tobacco Use Status: Current everyday Tobacco user Cigarettes Per Day: 10 Years Smoked: 15 years e-Cigarette/Vaping Use: Currently Using Second Hand Smoke Exposure: Yes service: Yes Current occupational status: employed Cognitive needs: No Hearing needs: No Vision needs: No Review of Systems Const All systems reviewed & are unremarkable except as noted in HPI and below Physical Exam Vital Signs: Last Vital Signs Pulse 77 09/04/23 14:35 BP 145/85 H 09/04/23 14:35 BMI result Body Mass Index 25.2 Gen appear: NAD HEENT: nonicteric, no cervical lymphadenopathy Chest: CTA CVS: Regular S1/S2 Abd: soft, nontender, nondistended, bowel sounds + Ext: Recently fractured 5th finger on R hand which is NOT in splint, no peripheral edema Neuro: A/Ox3, noted to move all extremities spontaneously Psych: interacting appropriately Assessment & Plan Assessment & Plan (1) Elevated LFTs: Code(s): R79.89 - Other specified abnormal findings of blood chemistry (2) Fatty liver: Code(s): K76.0 - Fatty (change of) liver, not elsewhere classified (3) Dyslipidemia: Code(s): E78.5 - Hyperlipidemia, unspecified (4) Alcohol use: Code(s): Z78.9 - Other specified health status Plan Reviewed with the pt that suspected clinically, work up remains suggestive of steatosis of liver likely a combination and etOH and non-etOH fatty liver. Based on NIT, no evidence of advanced fibrosis at this time which is reassuring. Fib 4 0.8. He was counseled on strict abstinence from etOH as well as better control of hyperlipidemia. Reports being on low dose of pravastatin 20 x 1 year which is very low dose for this level of dyslipidemia. He was encouraged to discuss an alternative therapy with his PCP, sent as well. Also should discuss ? prediabetes. Plan: - Strict abstinence from etOH. Pt admits will be challenging but also declines a comprehensive care referral at this time. - Optimize lipid control with aim to keep total cholesterol 200 or less. Consider high intensity statin such as Rosuvastatin. - Moderate intensity exercise of 150 mins/week - He was also advised to avoid NSAIDs. Tylenol is ok to take for pain control up to 2g/day - Follow up in 6 months. Will need labs before, which have been ordered. Orders: Orders Prothrombin Time INR 6 Months R7 - Other specified abnormal findings of blood chemistry Phosphatidylethanol, Blood 6 Months R7 - Other specified abnormal findings of blood chemistry Lipid Panel 6 Months R7. - Other specified abnormal findings of blood chemistry Complete Blood Count no Diff 6 Months . - Other specified abnormal findings of blood chemistry Liver Panel 6 Months . - Other specified abnormal findings of blood chemistry Hemoglobin A1c 6 Months R7. - Other specified abnormal findings of blood chemistry Coding Level of Care Code Est Pt Level 4 (49363) Diagnoses Elevated LFTs R7 Fatty liver K76.0 Dyslipidemia E78.5 Alcohol use Z78.9
[2023-09-04 14:35] VITALS: BP 145/85; PULSE 77; BMI 25.2
== END 2023-09-04 15:19 | disposition home or self-care (01) ==
PROVIDERS: PCP Nurse Practitioner Family; Visit Provider Internal Medicine
DX: R79.89 Other specified abnormal findings of blood chemistry (principal); K76.0 Fatty (change of) liver, not elsewhere classified; E78.5 Hyperlipidemia, unspecified; Z78.9 Other specified health status
CPT/HCPCS: 99214

== ENCOUNTER → 2023-09-04 14:29 | Outpatient (BNVA) | payer OTHER, SELFPAY | PROVIDERS: PCP Nurse Practitioner Family; Visit Provider Internal Medicine | DX: R79.89 Other specified abnormal findings of blood chemistry (principal); K76.0 Fatty (change of) liver, not elsewhere classified; E78.5 Hyperlipidemia, unspecified; F10.90 Alcohol use, unspecified, uncomplicated | CPT/HCPCS: 99212 ==

== ENCOUNTER 2023-09-12 08:55 | Outpatient (AMB) | payer OTHER, SELFPAY ==
--- NOTE | 2023-09-12 08:59 | MHC.OFFVIS ---
Intake Vital Signs 09/12/23 09:08 Height 6 ft 6 in Weight 218 lb BMI 25.2 Intake Visit Reasons: FC- FX unspecified phalanx of unspecified finger Intake Note: Lloyd a 38 year old right hand dominant male presents today as a new patient for a right fifth digit injury, DOI 08/29/23. Patient reports dropping a leave spring from a trailer on his hand. His PCP ordered xrays and patient was instructed to wear a finger splint until he follows up with orthopedics. Currently he has mild pain with pressure. Denies numbness or tingling. Allergies No Known Allergies Allergy (Verified 09/04/23 14:35) HPI FC- FX unspecified phalanx of unspecified finger HPI Details 38-year-old right hand dominant male who presents to the office today for right 5th metacarpal injury s/p dropping a leaf spring from a trailer on his hand, 08/29/23. He was seen by his PCP where x-rays were performed and he was instructed to wear a finger splint until his visit to our office. He currently states he has mild pain in his finger with pressure. He denies any numbness or tingling. [facility] Medical History Finger fracture, right Cubital tunnel syndrome on left Fatty liver Dyslipidemia Surgical History History of ankle surgery History of wisdom tooth extraction History of shoulder surgery Family History Father Unknown family medical history Mother No problems noted. Paternal Uncle No problems noted. Social History Housing: House Alcohol intake: current Alcohol intake frequency: a few times a month Patient Tobacco Use Status: Current everyday Tobacco user Cigarettes Per Day: 10 Years Smoked: 15 years e-Cigarette/Vaping Use: Currently Using Second Hand Smoke Exposure: Yes service: Yes Current occupational status: employed Current occupation: right hand dominant Cognitive needs: No Hearing needs: No Vision needs: No Review of Systems Const All systems reviewed & are unremarkable except as noted in HPI and below Physical Exam Vital Signs: BMI result Body Mass Index 25.2 Const General: cooperative, healthy appearing, comfortable, no acute distress, well developed and alert Orientation/consciousness: patient oriented x3 HEENT Head: Yes normal to inspection, Yes normocephalic and Yes atraumatic Eyes General: appearance normal, both eyes and all related structures Resp Effort & Inspection: normal respiratory effort and able to speak in complete sentences Cardio Rate: regular rate Peripheral pulses: Peripheral pulses 2+ throughout GI Palpation (GI): Soft to palpation Skin Lesions: no lesions Rashes: no rashes Neuro General: patient oriented x3 Extrem Other: Right small finger: Normal to inspection. No swelling, no bruising. There is no tenderness to palpation over distal aspect of the finger. He has full ROM and full extension. NVI. Office Procedures Fracture Care Fracture Billing Code: Fracture Billing Code Results Reviewed Results Reviewed: X-rays of the right hand obtained in the ED on September 02 show subtle lucency at the tuft of small finger which may represent a fracture. Assessment & Plan Assessment & Plan (1) Finger fracture, right: Code(s): S62.609A - Fracture of unspecified phalanx of unspecified finger, initial encounter for closed fracture Qualifiers: Encounter type: initial encounter Finger: little finger Fracture type: closed Phalanx: distal Fracture alignment: nondisplaced Qualified Code(s): S62.666A - Nondisplaced fracture of distal phalanx of right little finger, initial encounter for closed fracture Plan In the absence of pain, he will increase activity as tolerated. He has no limitations, If symptoms persist or worsens, patient will contact the office, otherwise follow-up as needed. Patient Instructions: Scribed for Jd Can PA-C, by Vladimir Cat medical insurance claims specialist, on 09/12/2023 at 9:15 AM EST. IJd PA-C, have personally reviewed and agree with the information entered by the scribe. Coding Level of Care Code New Pt Level 3 (00356) Diagnoses Closed nondisplaced fracture of distal phalanx of right little finger, initial encounter S62.666A Encounter type: initial encounter Finger: little finger Fracture type: closed Phalanx: distal Fracture alignment: nondisplaced CPT Codes Fracture Care - Fracture Billing Code: Fracture Billing Code ([id number])
[2023-09-12 09:08] VITALS: BMI 25.2
== END 2023-09-12 09:57 | disposition home or self-care (01) ==
PROVIDERS: PCP Nurse Practitioner Family; Visit Provider Physician Assistant
DX: S62.666A Nondisplaced fracture of distal phalanx of right little finger, initial encounter for closed fracture (principal)
CPT/HCPCS: 99203

== ENCOUNTER → 2023-09-12 08:55 | Outpatient (BNVA) | payer OTHER, SELFPAY | PROVIDERS: PCP Nurse Practitioner Family; Visit Provider Physician Assistant | DX: S62.666A Nondisplaced fracture of distal phalanx of right little finger, initial encounter for closed fracture (principal); W20.8XXA Other cause of strike by thrown, projected or falling object, initial encounter; Y93.89 Activity, other specified; Y92.89 Other specified places as the place of occurrence of the external cause; Y99.8 Other external cause status; G56.22 Lesion of ulnar nerve, left upper limb; Z56.82 Military deployment status | CPT/HCPCS: 99202 ==

== ENCOUNTER 2023-10-14 15:46 | Outpatient (AMB) | payer OTHER, SELFPAY ==
--- NOTE | 2023-10-14 16:08 | A.OFFPC_ITS ---
Vital Signs 10/14/23 16:09 Height 6 ft 6 in Weight 218 lb BMI 25.2 BP 124/80 Blood Pressure Location Rt brachial Position Sitting Pulse 78 Pulse Source Pulse Oximeter Pulse Oximetry (%) 98 Oxygen Delivery Method Room Air Intake Visit Reasons: Numbness Intake Note: Patient here for numbness in left arm, he states it starts in the neck and slowly goes down the arm and has pain in the elbow area and goes down to the finger tips. Allergies No Known Allergies Allergy (Verified 10/14/23 16:11) Tobacco use date assessed: 04/30/23 Dental Screening Dental Screen Date: 10/14/23 Did you have a dental visit in the last 12 months?: Yes Did you have a dental problem in the last 6 months where you did not have access to dental care?: No Was dental information given to patient?: Patient has dentist HPI Numbness HPI Details Pt reports ongoing tightness of his left cervical neck with numbness down his LUE. See MRI results. Pt reports that PT was helping but is no longer helping. He has an appointment with neurosurgery in a few months, will reach out to them. Will send gabapentin. Denies fever, chills, and dizziness. I do recommend pt not participate in physical fitness until further evaluated by neuro-spine [facility] Medical History Finger fracture, right Cubital tunnel syndrome on left Fatty liver Dyslipidemia Surgical History History of ankle surgery History of wisdom tooth extraction History of shoulder surgery Family History Father Unknown family medical history Mother No problems noted. Paternal Uncle No problems noted. Social History Housing: House Alcohol intake: current Alcohol intake frequency: a few times a month Patient Tobacco Use Status: Current everyday Tobacco user Cigarettes Per Day: 10 Years Smoked: 15 years Packs per year/per ci.00 e-Cigarette/Vaping Use: Currently Using Second Hand Smoke Exposure: Yes service: Yes Current occupational status: employed Current occupation: right hand dominant Cognitive needs: No Hearing needs: No Vision needs: No Questionnaire Thrive Questionnaire Date Thrive assessed: 10/12/21 BECCA-7 AMB Questionnaire BECCA-7 Date BECCA - 7 assessed: 10/12/21 Source: Developed by Drs. Rafael Kerr, Cassie Romano, Jass Haas and colleagues, with an educational trenton from [employer]. Review of Systems Const Reports as per HPI Physical exam (Primary Care) Vital Signs: Last Vital Signs Pulse 78 10/14/23 16:09 BP 124/80 10/14/23 16:09 Pulse Ox 98 10/14/23 16:09 Oxygen Delivery Method Room Air 10/14/23 16:09 BMI result Body Mass Index 25.2 Tobacco/Smoking Status: Tobacco use Status Tobacco use date assessed 04/30/23 10/14/23 16:13 Patient Tobacco Use Status Current everyday Tobacco 10/14/23 16:13 e-Cigarette/Vaping Use Currently Using 10/14/23 16:13 Thrive Assessment: Date of Thrive Assessment Date Thrive assessed 10/12/21 10/14/23 16:13 Const General: cooperative Orientation/consciousness: patient oriented x3 Resp Effort & Inspection: normal respiratory effort Auscultation: clear to auscultation bilaterally Cardio Rate: regular rate Rhythm: regular rhythm Heart sounds: S1 normal heart sound present and S2 normal heart sound present Neuro General: patient oriented x3 Psych Appearance: grossly normal Mental Status: mental status grossly normal Speech and movement: Normal speech and movement present Affect: normal affect Attitude: cooperative Thought process: Normal thought process present Thought content: Normal thought content present Insight: Good insight present (Psych) Judgement: Good judgement present (Psych) Office Procedures Flu Questionnaire Does the patient have a severe egg allergy?: No Does the patient have severe life threatening allergies?: No Does the patient have a fever or illness today?: No Has the patient ever had Guillain-Mellette Syndrome?: No Has the patient ever had any past reaction to a flu shot?: No Immunizations flu vacc [id number] 6mos up(PF) 60 mcg(15 mcgx4)/0.5 mL IM syringe Performing Provider: RILEY Dobbins Performing Location: [facility] Administered by: MELANIE Castro on 10/14/23 16:45 Dose Route Admin Location Dispensed Lot Number Expiration Date NDC [employer] Installer 0.5 mL IM Right Deltoid 0.5 mL [id number] 05/03/24 [id number] [employer] VIS Given Date VIS Provided VIS Publication Date 10/14/23 Single Vaccine 21 Eligibility Eligibility Date Funding Source Not [facility] Eligible 10/14/23 Private Assessment and Plan Assessment & Plan (1) Cervical radiculopathy: Code(s): M54.12 - Radiculopathy, cervical region Plan The patient agreed to the use of a medical care administrator for this encounter. Scribed for RILEY Diaz by Lenore Cifuentes medical care administrator, on 10/14/2023 at 16:20 EST. Orders: Orders Influenza [id number] Immunization Today Z23 - Encounter for immunization Medications: New gabapentin 100 mg PO TID 90 caps 0RF 30 days Coding Level of Care Code Est Pt Level 3 (86055) Diagnoses Cervical radiculopathy M54.12
[2023-10-14 16:09] VITALS: BP 124/80; PULSE 78; O2SAT 98; BMI 25.2
== END 2023-10-14 16:47 | disposition home or self-care (01) ==
PROVIDERS: PCP Nurse Practitioner Family; Visit Provider Nurse Practitioner Family
DX: Z23 Encounter for immunization (principal); M54.12 Radiculopathy, cervical region
CPT/HCPCS: 90471; 90686; 99213

== ENCOUNTER 2023-10-18 08:47 | Outpatient (AMB) | payer OTHER, SELFPAY ==
--- NOTE | 2023-10-18 09:11 | HO.SPINEOV ---
Intake Intake Visit Reasons: neck pain Intake Note: Mr. Mendez is here today c/o neck pain. Flight Service Specialist Required: No Allergies No Known Allergies Allergy (Verified 10/14/23 16:11) Assessment & Plan Assessment & Plan (1) Entrapment of left ulnar nerve at elbow: Code(s): G56.22 - Lesion of ulnar nerve, left upper limb Plan Lloyd is a 38-year-old male who comes in today for a follow-up appointment. He was previously seen in July by TINA Ray for cervical radiculopathy/ulnar nerve entrapment. He had previously complained of some radicular symptoms down his left deltoid, shooting across the left cubital tunnel. He also had numbness in his left 3rd-5th phalanges. He reports that his numbness in the left 3rd-5th phalanges has increased, and reports shooting/tingling pains originating on the lateral side of his wrist up to his elbow. He states that his finger numbness and shooting pains up to the elbow or significantly more noticeable / uncomfortable now, and reports only minimal discomfort in his left shoulder/deltoid. TINA Ray and I did review the patient's MRI of the cervical spine which TINA Ray had previously reviewed in office with Lloyd. The patient does have us signal change abnormality at C1/C2, which is longstanding. He has no evidence of anything surgical in the cervical spine at this time, however his last MRI was in May. On examination today the patient has full strength of his upper and lower extremities. His only sensational deficits are in the 3rd-5th phalanges on left side. His reflexes are 2+ and intact. He has a positive Tinel's at the elbow on the left side, and a weakly positive Tinel's at the wrist on left side. Tinel's negative on the right. Phalen's on the left is negative but does produce a burning pain over the lateral dorsal surface of his wrist. Phalen's negative on the right. (-) Lynn's, (-) clonus. He ambulates well and rises from seated position without difficulty. Lloyd has worsening symptoms of left-sided phalanx numbness in a classic a ulnar nerve distribution. He has a positive Tinel's at the elbow on the left side with shooting tingling/burning pains radiating from his elbow down to his left lateral wrist/ 4th-5th phalanges. He states that he has no new symptoms, and that all of his symptoms are the same but have just worsened. His EMG completed in May is significant for mild left ulnar neuropathy across cubital tunnel. I suspect that this has worsened over the last few months. We discussed the pros and cons of having surgery to alleviate the symptoms, and extensively discussed ulnar nerve entrapment. The patient has been tentatively scheduled for left-sided cubital tunnel release on 02/06/2024. We may or may not have his repeat cervical MRI completed before this date as it will be roughly 6 months out from when TINA Ray recommended a repeat cervical MRI to follow his cord signal change for any progression. I will discuss this case with Dr. Christian to see if he has any other recommendations / considerations / concerns. Ultimately he will make a final decision how to proceed. Total amount of time spent in this visit was 45 minutes in discussion of symptoms, MRI imaging results and subsequent plan of care Torres Christian MD,PhD [facility] Coding Level of Care Code Est Pt Level 5 (83267) Diagnoses Entrapment of left ulnar nerve at elbow G56.22
== END 2023-10-18 10:24 | disposition home or self-care (01) ==
PROVIDERS: PCP Nurse Practitioner Family; Visit Provider Physician Assistant
DX: G56.22 Lesion of ulnar nerve, left upper limb (principal)
CPT/HCPCS: 99215

== ENCOUNTER → 2023-10-18 08:47 | Outpatient (BNVA) | payer OTHER, SELFPAY | PROVIDERS: PCP Nurse Practitioner Family; Visit Provider Physician Assistant | DX: G56.22 Lesion of ulnar nerve, left upper limb (principal) | CPT/HCPCS: 99212 ==

== ENCOUNTER 2023-12-31 08:01 | Outpatient (REF) | payer OTHER, SELFPAY ==
--- NOTE | ~2023-12-31 | MR_ITS ---
EXAMINATION: MR CERVICAL SPINE WITHOUT AND WITH CONTRAST CLINICAL INFORMATION: Abnormal findings on diagnostic imaging of other parts of musculature. COMPARISON: MRI lumbar spine on 05/11/2023. TECHNIQUE: MRI of the cervical spine was obtained using routine sequences with and without contrast. Intravenous contrast: Gadavist 10 mL. FINDINGS: The visualized posterior fossa is unremarkable. Slight straightening of the normal cervical lordosis. Trace retrolisthesis at C6-C7. No acute bone marrow abnormality or abnormal enhancement. The vertebral body heights are preserved. Multilevel disc desiccation without significant disc height loss. The spinal cord is normal in caliber. There is a short T2 hyperintense linearity involving the ventral aspect of the cord at the level of C1 (dens), only seen on the sagittal sequences. This is unchanged from prior. No associated enhancement. No other site of abnormal cord signal or enhancement. C2-C3: No significant spinal canal or neural foraminal narrowing. C3-C4: No significant spinal canal or neural foraminal narrowing. C4-C5: Small disc osteophyte complex. No significant spinal canal or neural foraminal narrowing. C5-C6: Small disc osteophyte complex and bilateral uncovertebral hypertrophy. Mild right neural foraminal narrowing, unchanged. C6-C7: Disc osteophyte complex and bilateral uncovertebral hypertrophy. No significant spinal canal stenosis. Mild bilateral neural foraminal narrowing, unchanged. C7-T1: No significant spinal canal or neural foraminal narrowing. The paravertebral soft tissues are unremarkable. The visualized lung apices are clear. MR/MR cervical spine wo/w con IMPRESSION: -Unchanged short segment T2 hyperintense signal involving the ventral cord at the level of C1 without associated enhancement. -Mild cervical spondylosis without significant spinal canal stenosis or high-grade neural foraminal narrowing, unchanged compared to MRI from 05/11/2023.
[2023-12-31] MEDS: gadobutroL 10 ML VIAL IVPUSH (08:57)
== END 2023-12-31 08:02 | disposition home or self-care (01) ==
LOC: HO.MRI 08:01
PROVIDERS: PCP Nurse Practitioner Family; Visit Provider Physician Assistant
DX: R93.7 Abnormal findings on diagnostic imaging of other parts of musculoskeletal system (principal)
CPT/HCPCS: 72156; A9585

== ENCOUNTER 2024-02-06 08:43 | Day surgery (SDC) | payer OTHER, SELFPAY ==
[2024-02-04 08:25] VITALS: BMI 25.2
--- NOTE | 2024-02-04 14:13 | P.CONAN_ITS ---
Documented by User: Katya Adhikari NP 02/04/24 14:15 HPI - Anesthesia Eval Consult details Narrative: 38yo M for Left Ulna Nerve Decompression (Left Cubital release) [facility] Active Problems Active Problems: All Active Problems (Updated 02/04/24 @ 08:23 by Jeni Lacy RN) Entrapment of left ulnar nerve at elbow (Acute) Hand trauma (Acute) Alcohol use (Acute) Elevated LFTs (Acute) Abnormal MRI, cervical spine (Acute) Numbness of left hand (Acute) Cervical radiculopathy (Acute) Right foot injury (Acute) Sleep apnea (Acute) Post-COVID syndrome (Acute) Cellulitis (Acute) Encounter for screening for COVID-19 (Acute) Screening for viral disease (Acute) Physical exam (Acute) Insect bite (Acute) Right forearm injury (Acute) Elevated liver enzymes (Acute) Screening for HIV (human immunodeficiency virus) (Acute) Physical exam (Acute) Finger fracture, right (Acute) Fatty liver (Acute) Dyslipidemia (Acute) Past Medical History Medical History Sleep apnea Finger fracture, right Cubital tunnel syndrome on left Fatty liver Dyslipidemia Family History Family History Father Unknown family medical history Mother No problems noted. Paternal Uncle No problems noted. Surgical History Surgical History History of ankle surgery History of wisdom tooth extraction History of shoulder surgery Social History Social History Housing: House Alcohol intake: current Alcohol intake frequency: a few times a month Patient Tobacco Use Status: Current everyday Tobacco user Tobacco use type: Cigarette Cigarettes Per Day: 10 Years Smoked: 15 years e-Cigarette/Vaping Use: Currently Using Date Education Initiated: 02/06/24 Second Hand Smoke Exposure: Yes Use of substances other than those prescribed or required for medical reasons: No Are you DNR?: No Advance Directives: No Advance Directives Information Provided: Yes service: Yes Current occupational status: employed Current occupation: right hand dominant Cognitive needs: No Hearing needs: No Vision needs: No Meds Allergies Allergy/AdvReac Type Severity Reaction Status Date / Time No Known Allergies Allergy Verified 10/14/23 16:11 Exam Height,Weight and Vital Signs: Height 6 ft 6 in Weight 98.883 kg Pertinent Lab Results Pertinent Lab Results: Laboratory Tests 08/12/23 08:20 WBC 5.8 Hgb 18.0 Hct 52.5 H Plt Count 203 Sodium 140 Potassium 4.4 Chloride 106 Carbon Dioxide 21 L BUN 16 Creatinine 0.99 Assessment and Plan Assessment Anesthesia Assessment: Chart Reviewed Documented by User: Sri Magdaleno MD 02/06/24 11:29 [facility] Past Medical History Medical History Sleep apnea Finger fracture, right Cubital tunnel syndrome on left Fatty liver Dyslipidemia Functional capacity: independent ambulation Family History Family History Father Unknown family medical history Mother No problems noted. Paternal Uncle No problems noted. Surgical History Surgical History History of ankle surgery History of wisdom tooth extraction History of shoulder surgery History of Problems with Anesthesia: No Social History Social History Housing: House Alcohol intake: current Alcohol intake frequency: a few times a month Patient Tobacco Use Status: Current everyday Tobacco user Tobacco use type: Cigarette Cigarettes Per Day: 10 Years Smoked: 15 years e-Cigarette/Vaping Use: Currently Using Date Education Initiated: 02/06/24 Second Hand Smoke Exposure: Yes Use of substances other than those prescribed or required for medical reasons: No Are you DNR?: No Advance Directives: No Advance Directives Information Provided: Yes service: Yes Current occupational status: employed Current occupation: right hand dominant Cognitive needs: No Hearing needs: No Vision needs: No Meds Allergies Allergy/AdvReac Type Severity Reaction Status Date / Time No Known Allergies Allergy Verified 10/14/23 16:11 Exam Airway Mallampati Class: III TM Dist: >3cm Neck ROM: Full Loose/Missing/Broken Teeth: No Heart: RRR Lungs: CTA Assessment and Plan Assessment Anesthesia Assessment: Anesthesia Plan Discussed Final Anesthetic Review History of Problems with Anesthesia: No NPO: Yes ASA Class: II Final Preanesthetic Review: Meds/Allgs Chart Reviewed, Consent Obtained/Reviewed and Anes Risks/Benef Reviewed Patient Risk: Low Procedure Risk: Low Anesthetic Plan Anesthetic Plan: MAC: Disposition: Standard PACU
--- NOTE | 2024-02-06 07:07 | MHC.SHP ---
Pre-Procedural Eval Section A - 24 Hr Update-Section A only Date of Service: 02/06/24 The patient is an INPATIENT: No Changes since office visit: No Cold of Flu in the past 2 weeks, No New Medical Problems, No Changes in Medication and No Patient answered all questions The patient has been examined within 24 hours of the surgical procedure. The History & Physical has been completed within 30 days and I have reviewed it.: No Section B - Complete if H&P > 30 days Chief Complaint: Lesion of ulnar nerve, left upper limb Allergies: Allergies Allergy/AdvReac Type Severity Reaction Status Date / Time No Known Allergies Allergy Verified 10/14/23 16:11 Review of Systems Sugical H&P ROS: Negative: Constitution, Cardiovascular, Respiratory, Neurological, Psychiatric, Hem-Onc, Allergic/Immunologic, Gastrointestinal, Genitourinary, Musculoskeletal, Integumentary, Endocrine and Eyes/Ears/Nose/Throat Exam Surgical H&P Exam: Not Evaluated: HEENT, Not Evaluated: Heart, Not Evaluated: Lungs, Not Evaluated: Extremities, Not Evaluated: Abdomen, Not Evaluated: Skin and Not Evaluated: Neurological Plan Diagnosis/Plan: Unchanged left ulnar nerve release Time Spent With Patient Time: Total time managing care of this patient today __5__ minutes.
[2024-02-06 09:50] VITALS: BMI 25.4
[2024-02-06 09:55] VITALS: BP 120/72; PULSE 82; RESP 18; TEMP 36.3; O2SAT 98
--- NOTE | 2024-02-06 10:20 | PM.DS ---
DS: Providers Provider Date of Service: 02/06/24 Date of discharge: 02/06/24 Primary care physician: RILEY Lagunas Admitting clinician: Rebel Christian DS: Diagnosis Discharge Diagnosis (1) Entrapment of left ulnar nerve at elbow: Status: Acute DS: Summary Time Attestation Discharge Coordination Time (in mins): 7 Quality: Safe Use of Opioids Does Pt have an Active Cancer Diagnosis on the Problem List?: No Quality: Stroke Does the patient have a stroke diagnosis?: No Physical Exam Vital Signs: Vital Signs: Last Vital Signs Temp 97.3 F 02/06/24 09:55 Pulse 82 02/06/24 09:55 Resp 18 02/06/24 09:55 Pulse Ox 98 02/06/24 09:55 BMI result Body Mass Index 25.4 Discharge Plan Discharge Patient Disposition: Home, Self-Care Referrals: Rayray Luciano FNP-BC [Primary Care Provider] - 1 Week Discharge Medications: New tramadol 50 mg tablet 50 mg PO Q6H PRN (Reason: severe pain (scale score 7-10)) Qty: 30 0RF Continued rosuvastatin 20 mg tablet 20 mg PO DAILY Qty: 90 0RF gabapentin 100 mg capsule 100 mg PO TID 30 Days Qty: 90 0RF Discharge Orders: Discharge Order (Routine); Ordered 02/06/24 Ordered By: Torres Larry Diet: Advance to usual diet Activity on Discharge: As tolerated Activity Restrictions/Additional Instructions: After your cubital tunnel release: You may remove your cliff wrap on post op day 3, as well as the dressing underneath it Your wound is closed with internal stitches and glue on the outside. Please call the office to arrange this visit, You can use your hand as much as you like, however, please avoid straining or heavy lifting It will help swelling in your arm to keep it elevated when you are not using it. You can shower on post op day 1, but please keep wound dry You can drive when you feel comfortable and are off narcotics If you experience any signs of infection such as fever, chills or redness/discharge from your wound,please call office right away Print Language: Portuguese Discharge Date/Time: 02/06/24 13:40
[2024-02-06] MEDS: Lactated Ringers 1,000 ML 100 ML IVCONT (10:26)
[2024-02-06] MEDS: methocarbamoL 750 MG TABLET PO (10:36)
[2024-02-06] MEDS: Gabapentin 300 MG CAPSULE PO (10:36)
[2024-02-06 10:45] VITALS: BMI 26.1
--- NOTE | 2024-02-06 12:37 | P.DS_ITS ---
DS: Providers Provider Date of Service: 02/28/24 Primary care physician: RILEY Lagunas DS: Diagnosis Discharge Diagnosis (1) Entrapment of left ulnar nerve at elbow: Status: Acute DS: Summary Time Attestation Discharge Coordination Time (in mins): 14 Quality: Safe Use of Opioids Does Pt have an Active Cancer Diagnosis on the Problem List?: No Quality: Stroke Does the patient have a stroke diagnosis?: No Physical Exam Vital Signs: Vital Signs: Last Vital Signs Temp 97.3 F 02/06/24 09:55 Pulse 82 02/06/24 09:55 Resp 18 02/06/24 09:55 BP 120/72 02/06/24 09:55 Pulse Ox 98 02/06/24 09:55 BMI result Body Mass Index 26.1 Discharge Plan Discharge Patient Disposition: Home, Self-Care Referrals: Rayray Luciano FNP-BC [Primary Care Provider] - 1 Week Discharge Medications: New tramadol 50 mg tablet 50 mg PO Q6H PRN (Reason: severe pain (scale score 7-10)) Qty: 30 0RF Continued rosuvastatin 20 mg tablet 20 mg PO DAILY Qty: 90 0RF gabapentin 100 mg capsule 100 mg PO TID 30 Days Qty: 90 0RF Discharge Orders: Discharge Order (Routine); Ordered 02/06/24 Ordered By: Torres Larry Diet: Advance to usual diet Activity on Discharge: As tolerated Activity Restrictions/Additional Instructions: After your cubital tunnel release: You may remove your cliff wrap on post op day 3, as well as the dressing underneath it Your wound is closed with internal stitches and glue on the outside. Please call the office to arrange this visit, You can use your hand as much as you like, however, please avoid straining or heavy lifting It will help swelling in your arm to keep it elevated when you are not using it. You can shower on post op day 1, but please keep wound dry You can drive when you feel comfortable and are off narcotics If you experience any signs of infection such as fever, chills or redness/discharge from your wound,please call office right away Print Language: Jordanian Discharge Date/Time: 02/06/24 13:40
--- NOTE | 2024-02-06 12:49 | W.PM.OPN ---
Operative Note Operative Note Date of Service: 02/06/24 Narrative: Diagnosis: Left ulnar nerve compression Procedure: Left ulnar nerve release Surgeon: Rebel Christian MD PhD Description procedure: This patient is suffering from a left ulnar neuropathy.. The patient was offered a decompression of the ulnar nerve. The procedure complications were explained. The patient was consented. He was brought to the operating room, where moderate sedation was applied. Prepping and draping was done followed by time-out. Marcaine was injected. Semi circular incision was made in between the olecranon epicondylis medialis. The ligamentum bridging the ulnar nerve was was sharply until the ulnar nerve nerve became visible. A Metzenbaum scissor was used to decompress the ulnar nerve proximally and distally over its trajectory. Significant compression was present. Hemostasis was done. The incision was closed with 3 interrupted sutures. A compressive LIZZ wrap was used for hemostasis. All sponge and needle counts were correct. Patient was transported to the recovery room. Anesthesia: Moderate sedation and local anesthetic Blood loss: Minimal Complications: None Disposition: Discharge home
[2024-02-06 12:55] VITALS: BP 102/61; PULSE 78; RESP 16; TEMP 36.6; O2SAT 93
[2024-02-06 13:10] VITALS: BP 115/73; PULSE 65; RESP 16; TEMP 36.6; O2SAT 95
--- NOTE | 2024-02-06 13:47 | HO.ANESPROP2 ---
[facility] Active Problems Active Problems: All Active Problems Entrapment of left ulnar nerve at elbow (Acute) Hand trauma (Acute) Alcohol use (Acute) Elevated LFTs (Acute) Abnormal MRI, cervical spine (Acute) Numbness of left hand (Acute) Cervical radiculopathy (Acute) Right foot injury (Acute) Sleep apnea (Acute) Post-COVID syndrome (Acute) Cellulitis (Acute) Encounter for screening for COVID-19 (Acute) Screening for viral disease (Acute) Physical exam (Acute) Insect bite (Acute) Right forearm injury (Acute) Elevated liver enzymes (Acute) Screening for HIV (human immunodeficiency virus) (Acute) Physical exam (Acute) Finger fracture, right (Acute) Fatty liver (Acute) Dyslipidemia (Acute) Past Medical History Medical History Sleep apnea Finger fracture, right Cubital tunnel syndrome on left Fatty liver Dyslipidemia Functional capacity: independent ambulation Family History Family History Father Unknown family medical history Mother No problems noted. Paternal Uncle No problems noted. Surgical History Surgical History History of ankle surgery History of wisdom tooth extraction History of shoulder surgery History of Problems with Anesthesia: No Social History Social History Housing: House Alcohol intake: current Alcohol intake frequency: a few times a month Patient Tobacco Use Status: Current everyday Tobacco user Tobacco use type: Cigarette Cigarettes Per Day: 10 Years Smoked: 15 years e-Cigarette/Vaping Use: Currently Using Second Hand Smoke Exposure: Yes service: Yes Current occupational status: employed Current occupation: right hand dominant Cognitive needs: No Hearing needs: No Vision needs: No Meds Allergies Allergy/AdvReac Type Severity Reaction Status Date / Time No Known Allergies Allergy Verified 10/14/23 16:11 Active Medications: Current Medications Acetaminophen (Acetaminophen 325 Mg Tablet) 650 mg PO ONCE PRN PRN Reason: Pain, Mild (Pain Scale 1-3) Stop: 02/06/24 17:29 Albuterol Sulfate (Albuterol Sulfate (0.083%) 2.5 Mg/3 Ml Vial.Neb) 2.5 mg INHALE ONCE PRN PRN Reason: Wheezing Stop: 02/06/24 17:29 Fentanyl (Fentanyl Citrate/Pf 100 Mcg/2 Ml Vial) 25 mcg IVPUSH Q5M PRN; Protocol PRN Reason: Pain, Moderate(Pain Scale 4-6) Stop: 02/06/24 17:29 Lactated Ringer's (Lr) 1,000 mls @ 100 mls/hr IVCONT .Q10H EDMUND Last Admin: 02/06/24 10:26 Dose: 100 mls/hr Ondansetron HCl (Ondansetron Hcl 4 Mg/2 Ml Vial) 4 mg IVPUSH ONCE PRN PRN Reason: Nausea and Vomiting Stop: 02/06/24 17:29 Oxycodone HCl (Oxycodone Hcl Immed Release 5 Mg Tablet) 5 mg PO ONCE PRN PRN Reason: Pain, Severe (Pain Scale 7-10) Stop: 02/06/24 17:29 Exam Height,Weight and Vital Signs: Height 6 ft 6 in Weight 102.512 kg Last Vital Signs Temp 98 F 02/06/24 13:10 Pulse 65 02/06/24 13:10 Resp 16 02/06/24 13:10 BP 115/73 02/06/24 13:10 Pulse Ox 95 02/06/24 13:10 O2 Del Method Room Air 02/06/24 13:10 Airway Mallampati Class: III (protruding central incisors) TM Dist: >3cm Neck ROM: Full Loose/Missing/Broken Teeth: No Heart: RRR Lungs: CTA Assessment and Plan Assessment Anesthesia Assessment: Anesthesia Plan Discussed and Chart Reviewed Final Anesthetic Review History of Problems with Anesthesia: No NPO: Yes
== END 2024-02-06 13:40 | disposition home or self-care (01) ==
PROVIDERS: PCP Nurse Practitioner Family; Visit Provider Neurological Surgery
PROC: (CPT 64718; principal; 2024-02-06 11:30)
DX: G56.22 Lesion of ulnar nerve, left upper limb (principal); R20.0 Anesthesia of skin; R20.2 Paresthesia of skin
CPT/HCPCS: 64718; J0131; J0690; J2250; J2704; J3010

== ENCOUNTER → 2024-02-06 08:43 | Outpatient (BNV) | payer OTHER, SELFPAY | PROVIDERS: PCP Nurse Practitioner Family; Visit Provider Neurological Surgery | DX: G56.22 Lesion of ulnar nerve, left upper limb (principal) | CPT/HCPCS: 64718; 99499 ==

== ENCOUNTER 2024-02-26 09:07 | Outpatient (AMB) | payer OTHER, SELFPAY ==
--- NOTE | 2024-02-26 09:42 | HO.SPINEOV ---
Intake Visit Reasons: 1st post op Intake Note: Mr. Mendez is here today for his 1st post-op appointment. 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 He reports he is very satisfied with the surgery and feels much better than he did pre-operatively. The patient reports he is completing the majority of his ADLs. He reports that he no longer suffers from his left-sided elbow / forearm numbness and pain. Thus far he reports complete resolution of pain in his left arm. No new neurological deficits. Patient has 5/5 strength in his bilateral upper extremities. Incision site is closed, well healing, with no signs of drainage. We will follow-up with the patient in 6 weeks for his 2nd postoperative visit. Torres Christian MD,PhD [facility] Coding Level of Care Code Global (71618) Diagnoses S/P cubital tunnel release Z98.890
== END 2024-02-26 09:49 | disposition home or self-care (01) ==
PROVIDERS: PCP Nurse Practitioner Family; Visit Provider Physician Assistant
DX: Z98.890 Other specified postprocedural states (principal)
CPT/HCPCS: 99024

== ENCOUNTER → 2024-02-26 09:07 | Outpatient (BNVA) | payer OTHER, SELFPAY | PROVIDERS: PCP Nurse Practitioner Family; Visit Provider Physician Assistant | DX: Z48.89 Encounter for other specified surgical aftercare (principal); Z98.890 Other specified postprocedural states | CPT/HCPCS: 99212 ==

== ENCOUNTER 2024-02-27 08:09 | Outpatient (REF) | payer OTHER, SELFPAY ==
[2024-02-27 10:41] LABS: INTERNATIONAL NORM RATIO 0.9 (0.9-1.1); Prothrombin Time 11.5 SEC (11.1-13.3)
[2024-02-27 10:45] LABS: Estimated Average Glucose 100 mg/dL; Hemoglobin A1c % 5.1 % (<6.0)
[2024-02-27 10:47] LABS: Alanine Aminotransferase 190 U/L (0-40); Albumin Level 4.4 g/dL (3.5-5.0); Alkaline Phosphatase 80 U/L (39-117); Aspartate Amino Transferase 99 U/L (5-37); Bilirubin Direct 0.3 mg/dL (0.0-0.5); Bilirubin Total 0.9 mg/dL (0.0-1.0); Cholesterol 277 mg/dL (<200); HDL Cholesterol 35 mg/dL (>40); LDL Cholesterol Calculated 191 mg/dL (<100); Triglycerides 258 mg/dL (<150)
[2024-02-27 10:51] LABS: Hematocrit 49.2 % (42.0-52.0); Hemoglobin 17.4 g/dl (14.0-18.0); Mean Corpuscular HGB Conc 35.4 g/dl (31.0-36.0); Mean Corpuscular Hemoglobin 32.5 pg (27.0-33.0); Mean Platelet Volume 11.4 fL (9.4-12.4); Platelet Count 220 X10*3/uL (160-400); Red Blood Count 5.35 X10*6/uL (4.60-5.80); Red Cell Distribution Width 12.4 % (11.0-16.0); White Blood Count 5.5 X10*3/uL (4.8-10.8)
[2024-03-03 10:13] LABS: Phosphatidylethanol 16:0-18:1 123 (H)
== END 2024-02-27 08:10 | disposition home or self-care (01) ==
LOC: HO.HMGCLDS 08:09
PROVIDERS: PCP Nurse Practitioner Family; Visit Provider Internal Medicine
DX: R79.89 Other specified abnormal findings of blood chemistry (principal)
CPT/HCPCS: 36415; 80061; 80076; 80321; 83036; 85027; 85610

== ENCOUNTER 2024-03-04 08:33 | Outpatient (AMB) | payer OTHER, SELFPAY ==
--- NOTE | 2024-03-04 08:41 | A.OFFVIS_ITS ---
Vital Signs 03/04/24 08:43 Height 6 ft 6 in Weight 224 lb 6.889 oz BMI 25.9 BP 127/82 Blood Pressure Location Lt brachial Position Sitting Pulse 74 Intake Visit Reasons: 6 month follow up Elevated LFT Intake Note: Lloyd presents in the office as a 6 month follow up for elevated LFTs. CC: He states that he is not having any concerns at this time just a follow up. 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 08/07/23: Pt has had elevated LFTs since at least 2017 per chart review. Last US in 2018 showed liver steatosis. Hepatitis serologies from 2019 negative. Does not report any abd pain, N,V, changes in bowel habits, blood in stool. No fam hx of liver disease. Pt himself drinks 6 pack of beers 4-5 times a week x 20 years. During pandemic year in 2019 also switched to whiskey on a daily basis but quit hard liquor after a year. Also smokes 0.5 PPD. Takes NSAIDs 2-3 times a week due to pain in L ankle after an injury. No DM but does have hyperlipidemia and cholesterol control remains suboptimal with total cholesterol above 200 and LDL above 100 consistently since at least 2020. 09/04/23: Here for follow up after work up done for chronic liver disease. Labs and US results reviewed with the pt. Essentially has both SHASHANK and ADAMSON based on results. Remaining work up including chronic infectious hep, AIH, iron overload, wilsons, A1AT, biliary disease negative. He was also noted to have uncontrolled hyperlipidemia as well as possible prediabetes (FBG 100). BP also noted to be high today. 03/04/24: Here for 6 month follow up for metALD. Reports starting Rosuvastatin around 6 months ago but experienced significant abd discomfort and bowel changes and tehrefore self discontinued. Did increase activity levels over the winter - went skiing >20 times. Alc use decreased but persistent. Drink 4 times a week with 5 drinks per session. Labs reviewed. Elevated cholesterol and PETH. Not diabetic. Fib 4 1.25. [facility] Medical History Sleep apnea Finger fracture, right Cubital tunnel syndrome on left Fatty liver Dyslipidemia Surgical History S/P cubital tunnel release History of ankle surgery History of wisdom tooth extraction History of shoulder surgery Family History Father Unknown family medical history Mother No problems noted. Paternal Uncle No problems noted. Social History Housing: House Alcohol intake: current Alcohol intake frequency: a few times a month Patient Tobacco Use Status: Current everyday Tobacco user Tobacco use type: Cigarette Cigarettes Per Day: 10 Years Smoked: 15 years e-Cigarette/Vaping Use: Currently Using Second Hand Smoke Exposure: Yes service: Yes Current occupational status: employed Current occupation: right hand dominant Cognitive needs: No Hearing needs: No Vision needs: No Review of Systems Const All systems reviewed & are unremarkable except as noted in HPI and below Physical Exam Vital Signs: Last Vital Signs Pulse 74 03/04/24 08:43 BP 127/82 03/04/24 08:43 BMI result Body Mass Index 25.9 Gen appear: NAD HEENT: nonicteric, Chest: CTA Abd: soft, nondistended, bowel sounds + Ext: no peripheral edema Neuro: A/Ox3, noted to move all extremities spontaneously Psych: interacting appropriately Assessment & Plan Assessment & Plan (1) Elevated LFTs: Code(s): R79.89 - Other specified abnormal findings of blood chemistry Category: Medical (2) Fatty liver: Code(s): K76.0 - Fatty (change of) liver, not elsewhere classified Category: Medical (3) Dyslipidemia: Code(s): E78.5 - Hyperlipidemia, unspecified Category: Medical (4) Alcohol use: Code(s): Z78.9 - Other specified health status Category: Social Hx Plan Pt with metALD - reviewed with the pt that steatosis of liver likely a combination and etOH and non-etOH fatty liver. Based on NIT, no evidence of advanced fibrosis at this time which is reassuring but Fib 4 has PROGRESSED frm 0.8 to 1.25. He was counseled on strict abstinence from etOH as well as better control of hyperlipidemia. Was unable to tolerate crestor 20 - but willing to try crestor 10. Plan: - Strict abstinence from etOH. Pt admits will be challenging but also declines a comprehensive care referral at this time. - Optimize lipid control with aim to keep total cholesterol 200 or less. Crestor 10mg sent to pharmacy. Recheck lipids in 6 months. - Moderate intensity exercise of 150 mins/week - He was also advised to avoid NSAIDs. Tylenol is ok to take for pain control up to 2g/day - Follow up in 6 months. Will need labs before, which have been ordered. Orders: Orders Lipid Panel 6 Months R7 - Other specified abnormal findings of blood chemistry Complete Blood Count no Diff 6 Months R7 - Other specified abnormal findings of blood chemistry Liver Panel 6 Months R7. - Other specified abnormal findings of blood chemistry Phosphatidylethanol, Blood 6 Months R7. - Other specified abnormal findings of blood chemistry Medications: New rosuvastatin (Crestor) 10 mg PO DAILY 90 tabs 1RF Coding Level of Care Code Est Pt Level 4 (45938) Diagnoses Elevated LFTs R7. Fatty liver K76.0 Dyslipidemia E78.5 Alcohol use Z78.9
[2024-03-04 08:43] VITALS: BP 127/82; PULSE 74; BMI 25.9
== END 2024-03-04 09:13 | disposition home or self-care (01) ==
PROVIDERS: PCP Nurse Practitioner Family; Visit Provider Internal Medicine
DX: R79.89 Other specified abnormal findings of blood chemistry (principal); K76.0 Fatty (change of) liver, not elsewhere classified; E78.5 Hyperlipidemia, unspecified; Z78.9 Other specified health status
CPT/HCPCS: 99214

== ENCOUNTER → 2024-03-04 08:33 | Outpatient (BNVA) | payer OTHER, SELFPAY | PROVIDERS: PCP Nurse Practitioner Family; Visit Provider Internal Medicine | DX: R79.89 Other specified abnormal findings of blood chemistry (principal); K76.0 Fatty (change of) liver, not elsewhere classified; E78.5 Hyperlipidemia, unspecified; Z78.9 Other specified health status; Z56.82 Military deployment status | CPT/HCPCS: 99212 ==

== ENCOUNTER 2024-03-05 07:52 | Outpatient (AMB) | payer OTHER, SELFPAY ==
--- NOTE | 2024-03-05 08:00 | A.OFFPC_ITS ---
Vital Signs 03/05/24 08:02 Weight 225 lb BP 118/70 Blood Pressure Location Rt brachial Position Sitting Pulse 63 Pulse Source Pulse Oximeter Pulse Oximetry (%) 93 Oxygen Delivery Method Room Air Intake Visit Reasons: PE Intake Note: Patient here for physical exam. Allergies No Known Allergies Allergy (Verified 03/05/24 08:55) Medication List - Last Reconciled 03/05/24 by RILEY Dobbins rosuvastatin (Crestor) 10 mg PO DAILY tramadol 50 mg PO Q6H PRN Tobacco use date assessed: 03/05/24 Dental Screening Dental Screen Date: 03/05/24 Did you have a dental visit in the last 12 months?: Yes Did you have a dental problem in the last 6 months where you did not have access to dental care?: No Was dental information given to patient?: Patient has dentist HPI PE HPI Details Pt is here for a PE. Will order labs. Pt follows up with GI for elevated liver enzymes [facility] Medical History Sleep apnea Finger fracture, right Cubital tunnel syndrome on left Fatty liver Dyslipidemia Surgical History S/P cubital tunnel release History of ankle surgery History of wisdom tooth extraction History of shoulder surgery Family History Father Unknown family medical history Mother No problems noted. Paternal Uncle No problems noted. Social History Housing: House Alcohol intake: current Alcohol intake frequency: a few times a month Patient Tobacco Use Status: Current everyday Tobacco user Tobacco use type: Cigarette Cigarettes Per Day: 10 Years Smoked: 15 years e-Cigarette/Vaping Use: Currently Using Second Hand Smoke Exposure: Yes service: Yes Current occupational status: employed Current occupation: right hand dominant Cognitive needs: No Hearing needs: No Vision needs: No Questionnaire Thrive Questionnaire Date Thrive assessed: 10/12/21 BECCA-7 AMB Questionnaire BECCA-7 Date BECCA - 7 assessed: 03/05/24 Source: Developed by Drs. Rafael Kerr, Cassie Romano, Jass Haas and colleagues, with an educational trenton from [employer]. Review of Systems Const Denies chills and Denies fever(s) Eyes Denies blurry vision ENT Denies vertigo, Denies dizziness and Denies sore throat Card Denies chest pain at rest, Denies chest pain with activity, Denies diaphoresis, Denies dyspnea and Denies dyspnea on exertion Resp Denies cough, Denies dyspnea, Denies dyspnea on exertion and Denies wheezing GI Denies abdominal pain, Denies melena, Denies hematochezia, Denies constipation, Denies diarrhea and Denies loose stools Denies hematuria Musc Denies numbness and Denies tingling Skin/Breast Denies lesions Neuro Denies vertigo, Denies dizziness, Denies numbness and Denies tingling Psych Denies anxiety, Denies depression, Denies homicidal ideation, Denies suicidal ideation and Denies other (substance abuse) Aller/Immun Denies wheezing Physical exam (Primary Care) Vital Signs: Last Vital Signs Pulse 63 03/05/24 08:02 BP 118/70 03/05/24 08:02 Pulse Ox 93 03/05/24 08:02 Oxygen Delivery Method Room Air 03/05/24 08:02 Tobacco/Smoking Status: Tobacco use Status Tobacco use date assessed 03/05/24 03/05/24 08:05 Patient Tobacco Use Status Current everyday Tobacco 03/05/24 08:02 Tobacco use type Cigarette 03/05/24 08:02 e-Cigarette/Vaping Use Currently Using 03/05/24 08:02 Thrive Assessment: Date of Thrive Assessment Date Thrive assessed 10/12/21 03/05/24 08:02 Const General: cooperative Nutritional Appearance: well nourished Orientation/consciousness: patient oriented x3 HENMT Head: Yes normal to inspection, Yes normocephalic and Yes atraumatic Ears: TM's normal bilaterally Eyes General: appearance normal, both eyes and all related structures Alignment and Position: alignment normal and position normal Neck Neck: Yes normal visual inspection and Yes no lymphadenopathy Thyroid: Thyroid normal Resp Effort & Inspection: normal respiratory effort Auscultation: clear to auscultation bilaterally Cardio Rate: regular rate Rhythm: regular rhythm Heart sounds: S1 normal heart sound present, S2 normal heart sound present and no murmurs GI Palpation (GI): Soft to palpation and nontender Auscultation: normal bowel sounds Skin Other: left elbow medial aspect with well approximated incision, no signs of infection Rashes: no rashes Neuro General: patient oriented x3, moves all extremities, no focal motor deficits and deep tendon reflexes 2+ bilaterally Romberg Test: Negative Psych Appearance: grossly normal Mental Status: mental status grossly normal Speech and movement: Normal speech and movement present Affect: normal affect Attitude: cooperative Thought process: Normal thought process present Thought content: Normal thought content present Insight: Good insight present (Psych) Judgement: Good judgement present (Psych) Assessment and Plan Assessment & Plan (1) Physical exam: Code(s): Z00.00 - Encounter for general adult medical examination without abnormal findings Plan: Labs ordered Plan The patient agreed to the use of a medical records manager for this encounter. Scribed for RILEY Diaz by Lenore Cifuentes medical records manager, on 03/05/2024 at 08:05 EST. Orders: Orders Comprehensive [place]. Panel Fast Today Z00.00 - Encounter for general adult medical examination without abnormal findings TSH reflex Free T4 Today Z00.00 - Encounter for general adult medical examination without abnormal findings Complete Blood Count Auto Diff Today Z00.00 - Encounter for general adult medical examination without abnormal findings UA CC w/rflx Micro + Cult Today Z00.00 - Encounter for general adult medical examination without abnormal findings HIV Ab/Ag Today Coding Level of Care Code Est Pt Prev Care 18-39y(04366) Diagnoses Physical exam Z00.00
[2024-03-05 08:02] VITALS: BP 118/70; PULSE 63; O2SAT 93
== END 2024-03-05 09:13 | disposition home or self-care (01) ==
PROVIDERS: PCP Nurse Practitioner Family; Visit Provider Nurse Practitioner Family
DX: Z00.00 Encounter for general adult medical examination without abnormal findings (principal)
CPT/HCPCS: 99395

== ENCOUNTER 2024-04-06 08:46 | Outpatient (AMB) | payer OTHER, SELFPAY ==
--- NOTE | 2024-04-06 08:53 | HO.SPINEOV ---
Intake Visit Reasons: 2nd post op Intake Note: Mr. Mendez is here today for a 2nd post-op. Allergies No Known Allergies Allergy (Verified 04/06/24 08:53) Assessment & Plan Assessment & Plan (1) S/P cubital tunnel release: Code(s): Z98.890 - Other specified postprocedural states Category: Surgical Plan Lloyd comes in today for a subsequent follow-up visit after having a left ulnar nerve release completed. He states that he has felt very good since his surgery and has had full articulation of his left upper extremity. He does still report some superficial hypoesthesia near the incision site, but he was reassured this should resolve with time. He reports that most recently he has learned how to wake board and was extensively using his left arm with zero issues or complaints. No reported issues with heavy lifting or prolonged use. No new neurological deficits. The patient continues to have good articulation and movement with his left upper extremity. Incision site is fully healed and closed. There is no need for continued routine follow-up with Lloyd. He may be discharged as a patient. He is always welcome to make a follow-up appointment if needed to discuss any new neurological deficits. Torres Christian MD,PhD [facility] Coding Level of Care Code Global (13063) Diagnoses S/P cubital tunnel release Z98.890
== END 2024-04-06 09:13 | disposition home or self-care (01) ==
PROVIDERS: PCP Nurse Practitioner Family; Visit Provider Physician Assistant
DX: Z98.890 Other specified postprocedural states (principal)
CPT/HCPCS: 99024

== ENCOUNTER → 2024-04-06 08:46 | Outpatient (BNVA) | payer OTHER, SELFPAY | PROVIDERS: PCP Nurse Practitioner Family; Visit Provider Physician Assistant | DX: Z98.890 Other specified postprocedural states (principal) | CPT/HCPCS: 99212 ==

== ENCOUNTER 2024-04-06 11:20 | Outpatient (REF) | payer OTHER, SELFPAY ==
[2024-04-06 13:13] LABS: Appearance Urine Clear; Color Urine Yellow; Glucose Urine UA Negative (Negative); Leukocyte Esterase Urine Negative (Negative); Nitrite Urine Negative (Negative); Urine Blood Negative (Negative); Urine Ketones Negative (Negative); Urine Protein Negative (Neg-Trace)
[2024-04-06 13:27] LABS: MANUAL DIFF FLAG NO
[2024-04-06 13:47] LABS: Basophils Absolute Auto 0.1 X10*3/uL (0.0-0.2); Eosinophils Absolute Auto 0.3 X10*3/uL (0.0-0.4); Eosinophils Percent Auto 4.8 % (0-4); Hematocrit 48.2 % (42.0-52.0); Imm Gran Abs Auto 0.03 X10*3/uL (0.00-0.03); Imm Gran Pct Auto 0.5 % (0.0-0.4); Lymphocytes Absolute Auto 1.5 X10*3/uL (1.2-4.9); Lymphocytes Percent Auto 25.8 % (20-40); Mean Corpuscular HGB Conc 35.3 g/dl (31.0-36.0); Mean Corpuscular Hemoglobin 33.1 pg (27.0-33.0); Mean Corpuscular Volume 93.8 fL (80.0-98.0); Mean Platelet Volume 11.9 fL (9.4-12.4); Monocytes Absolute Auto 0.5 X10*3/uL (0.1-1.2); Neutrophils Absolute Auto 3.5 x10*3/uL (2.0-8.3); Neutrophils Percent Auto 59.9 % (45-73); Platelet Count 203 X10*3/uL (160-400); Red Blood Count 5.14 X10*6/uL (4.60-5.80); Red Cell Distribution Width 12.5 % (11.0-16.0); White Blood Count 5.9 X10*3/uL (4.8-10.8)
[2024-04-06 14:09] LABS: Alanine Aminotransferase 143 U/L (0-40); Albumin Level 4.5 g/dL (3.5-5.0); Alkaline Phosphatase 77 U/L (39-117); Anion Gap 13 (12-20); Aspartate Amino Transferase 63 U/L (5-37); Bilirubin Total 0.5 mg/dL (0.0-1.0); Blood Urea Nitrogen 14 mg/dL (9-16); Calcium 9.9 mg/dL (8.4-10.2); Carbon Dioxide 23 mmol/L (22-29); Chloride 109 mmol/L (96-108); Estimated Glomerular Filt Rate > 60; Glucose Fasting 98 mg/dL (60-99); Potassium 4.7 mmol/L (3.3-5.1); Sodium 140 mmol/L (135-145); Total Protein 7.1 g/dL (6.5-8.0)
[2024-04-06 14:27] LABS: TSH reflex Free T4 0.76 uIU/mL (0.32-4.0)
[2024-04-07 05:16] LABS: HIV AB/AG Nonreactive (Nonreactive); HIV Num 1 0.05 S/CO (0.00-0.99)
== END 2024-04-06 11:21 | disposition home or self-care (01) ==
LOC: HO.HMGCLDS 11:20
PROVIDERS: PCP Nurse Practitioner Family; Visit Provider Nurse Practitioner Family
DX: Z00.00 Encounter for general adult medical examination without abnormal findings (principal)
CPT/HCPCS: 36415; 80053; 81003; 84443; 85025; 87389

== ENCOUNTER 2024-06-04 09:11 | Outpatient (AMB) | payer OTHER, SELFPAY ==
--- NOTE | 2024-06-04 09:17 | MHC.PC.OV ---
Vital Signs 06/04/24 09:23 Height 6 ft 6 in Weight 222 lb BMI 25.7 BP 118/80 Blood Pressure Location Rt brachial Position Sitting Pulse 64 Pulse Source Pulse Oximeter Pulse Oximetry (%) 98 Oxygen Delivery Method Room Air Intake Visit Reasons: Fracture Intake Note: Patient here for 2nd great toe fracture, pt would also like to talk about left elbow procedure he had done. Allergies No Known Allergies Allergy (Verified 04/06/24 08:53) Tobacco use date assessed: 03/05/24 Dental Screening Dental Screen Date: 03/05/24 HPI Fracture HPI Details Pt reports stubbing his right 2nd toe last weekend. He reports pain to the toe and difficulty moving it. Will order XR. Pt also c/o right heel pain, with tightness to distal Achilles region. Will order XR. Denies fever, chills, and dizziness. PFS Medical History Sleep apnea Finger fracture, right Cubital tunnel syndrome on left Fatty liver Dyslipidemia Surgical History S/P cubital tunnel release History of ankle surgery History of wisdom tooth extraction History of shoulder surgery Family History Father Unknown family medical history Mother No problems noted. Paternal Uncle No problems noted. Social History Housing: House Alcohol intake: current Alcohol intake frequency: a few times a month Patient Tobacco Use Status: Current everyday Tobacco user Tobacco use type: Cigarette Cigarettes Per Day: 10 Years Smoked: 15 years e-Cigarette/Vaping Use: Currently Using Second Hand Smoke Exposure: Yes service: Yes Current occupational status: employed Current occupation: right hand dominant Cognitive needs: No Hearing needs: No Vision needs: No Questionnaire PHQ-9 Over the last 2 weeks, how often have you been bothered by any of the following problems? 1. Little interest or pleasure in doing things: not at all 2. Feeling down, depressed, or hopeless: not at all 3. Trouble falling or staying asleep, or sleeping too much: not at all 4. Feeling tired or having little energy: not at all 5. Poor appetite or overeating: not at all 6. Feeling bad about yourself - or that you are a failure or have let yourself or your family down: not at all 7. Trouble concentrating on things, such as reading the newspaper or watching television: not at all 8. Moving or speaking so slowly that other people could have noticed. Or the opposite - being so fidgety or restless that you have been moving around a lot more than usual: not at all 9. Thoughts that you would be better off or of hurting yourself in some way: not at all Total score: 0 Depression Screening Interpretation: Negative Depression Screening Done: Yes 42155 - PHQ-9 Billing: Yes Source: Developed by Drs. Rafael Kerr, Cassie Romano, Jass Haas and colleagues, with an educational trenton from [employer]. Thrive Questionnaire Date Thrive assessed: 06/04/24 I am a: Patient What is your living situation today?: I have a steady place to live Within the past 12 months, did the food you bought not last and you didn't have the money to get more?: Never true Within the past 12 months, did you worry whether your food would run out before you got money to buy more?: Never true Do you have trouble paying for medicines?: No Do you have trouble getting transportation to medical appointments?: No Do you have trouble paying your heating and electricity bill?: No Do you have trouble taking care of your child, family member or friend?: No Do you have trouble with day-to-day activities such as bathing, preparing meals, shopping, managing finances, etc.?: No Are you currently unemployed and looking for a job?: No Are you interested in more education?: No Please select the resources that you would like help with: Housing/Fdc Currently or been in a relationship where the following occur: No concerns reported THRIVE Score: 0 AUDIT C Alcohol Use Questionnaire (AUDIT-C) 1. How often do you have a drink containing alcohol?: Monthly or less 2. How many drinks containing alcohol do you have on a typical day when you are drinking?: 1 or 2 3. How often do you have six or more drinks on one occasion?: Never Total Score: 1 BECCA-7 AMB Questionnaire BECCA-7 Date BECCA - 7 assessed: 06/04/24 Feeling nervous, anxious, or on edge: 0 = Not at all Not being able to stop or control worryin = Not at all Worrying too much about different things: 0 = Not at all Trouble relaxin = Not at all Being so restless that it is hard to sit still: 0 = Not at all Becoming easily annoyed or irritable: 0 = Not at all Feeling afraid as if something awful might happen: 0 = Not at all Total BECCA-7 score (0-4 normal; 5-9 mild; 10-14 moderate; 15-21 severe): 0 Source: Developed by Drs. Rafael Kerr, Cassie Romano, Jass Haas and colleagues, with an educational trenton from [employer]. BECCA-7 Assessment Billing BECCA-7 Assessment Tool: BECCA-7 Assessment 22189 Review of Systems Const Reports as per HPI Physical exam (Primary Care) Vital Signs: Last Vital Signs Pulse 64 06/04/24 09:23 BP 118/80 06/04/24 09:23 Pulse Ox 98 06/04/24 09:23 Oxygen Delivery Method Room Air 06/04/24 09:23 BMI result Body Mass Index 25.7 Tobacco/Smoking Status: Tobacco use Status Tobacco use date assessed 03/05/24 06/04/24 09:18 Patient Tobacco Use Status Current everyday Tobacco 06/04/24 09:18 Tobacco use type Cigarette 06/04/24 09:18 e-Cigarette/Vaping Use Currently Using 06/04/24 09:18 PHQ-9: PHQ-9 Score PHQ-9: Total score 0 06/04/24 09:35 Depression Screening Interpretation: Negative Thrive Assessment: Date of Thrive Assessment Date Thrive assessed 06/04/24 06/04/24 09:25 Currently or been in a relationship where the following occur: No concerns reported Const General: cooperative Orientation/consciousness: patient oriented x3 Resp Effort & Inspection: normal respiratory effort Auscultation: clear to auscultation bilaterally Cardio Rate: regular rate Rhythm: regular rhythm Heart sounds: S1 normal heart sound present and S2 normal heart sound present Neuro General: patient oriented x3 Extrem Other: right 2nd toe with ecchymosis to distal aspect, tenderness with palpation of distal aspect, + dorsalis pedis pulse, + CMS, tenderness noted to distal achilles heel with dorsi flexion of right toes and palpation of heel Psych Appearance: grossly normal Mental Status: mental status grossly normal Speech and movement: Normal speech and movement present Affect: normal affect Attitude: cooperative Thought process: Normal thought process present Thought content: Normal thought content present Insight: Good insight present (Psych) Judgement: Good judgement present (Psych) Assessment and Plan Assessment & Plan (1) Toe pain, right: Code(s): M79.674 - Pain in right toe(s) Plan: XR ordered (2) Heel pain: Code(s): M79.673 - Pain in unspecified foot Plan: XR ordered (3) Achilles tendinitis: Code(s): M76.60 - Achilles tendinitis, unspecified leg Plan: XR ordered Plan The patient agreed to the use of a medical sales representative for this encounter. Scribed for RILEY Diaz by Lenore Cifuentes medical sales representative, on 06/04/2024 at 09:40 EST. Orders: Orders XR toe RT min 2V Today M79.674 - Pain in right toe(s) XR foot RT 2V Today M76.60 - Achilles tendinitis, unspecified leg, M79.673 - Pain in unspecified foot Coding Level of Care Code Est Pt Level 3 (62748) Diagnoses Toe pain, right M79.674 Heel pain M79.673 Achilles tendinitis M76.60 Additional Codes BECCA-7 Assessment Billing - BECCA-7 Assessment Tool: BECCA-7 Assessment 04151 ([id number])
[2024-06-04 09:23] VITALS: BP 118/80; PULSE 64; O2SAT 98; BMI 25.7
== END 2024-06-04 11:16 | disposition home or self-care (01) ==
PROVIDERS: PCP Nurse Practitioner Family; Visit Provider Nurse Practitioner Family
DX: M79.674 Pain in right toe(s) (principal); M79.671 Pain in right foot; M76.61 Achilles tendinitis, right leg
CPT/HCPCS: 99213

== ENCOUNTER 2024-06-04 09:48 | Outpatient (REF) | payer OTHER, SELFPAY ==
--- NOTE | ~2024-06-04 | XR_ITS ---
EXAMINATION: XR FOOT, RIGHT CLINICAL INFORMATION: Unspecified foot pain. COMPARISON: None available. TECHNIQUE: AP, lateral, and oblique views of the right foot. FINDINGS: Alignment is anatomic. Joint spaces are maintained. No displaced fracture or dislocation. No bony erosions. Small plantar calcaneal spur. XR/XR foot RT min 3V IMPRESSION: No acute abnormality.
== END 2024-06-04 09:49 | disposition home or self-care (01) ==
LOC: HO.HMGCX 09:48
PROVIDERS: PCP Nurse Practitioner Family; Visit Provider Nurse Practitioner Family
DX: M79.671 Pain in right foot (principal)
CPT/HCPCS: 73630

== ENCOUNTER 2024-07-21 08:01 | Outpatient (AMB) | payer OTHER, SELFPAY ==
[2024-07-21 08:02] VITALS: BP 116/68; PULSE 69; TEMP 36.8; O2SAT 98; BMI 26.2
--- NOTE | 2024-07-21 08:02 | MHC.OFFWIV ---
Intake Vital Signs 07/21/24 08:02 Height 6 ft 6 in Weight 227 lb BMI 26.2 BP 116/68 Blood Pressure Location Rt brachial Position Sitting Pulse 69 Pulse Source Pulse Oximeter Temp 98.2 F Temp Source Oral Pulse Oximetry (%) 98 Oxygen Delivery Method Room Air Intake Visit Reasons: EP Wasp sting on ear Intake Note: pt c/o wasp sting on RT ear. Happened Saturday Patient Tobacco Use Status: Current everyday Tobacco user Allergies No Known Allergies Allergy (Verified 07/21/24 08:03) Do you need a note to return to daycare/school/sports/work: No HPI HPI Comments History of Present Illness Details This is a 30-year-old male with past medical history of hyperlipidemia presenting for evaluation of pain and swelling on his right external ear following a bee sting on Saturday. Patient states he has use Tylenol and Benadryl both last night and this morning with only minimal relief of his symptoms. Patient denies any swelling of his tongue, lips, shortness of breath, cough or syncope. Patient also reports somewhat decreased hearing in his right ear. [facility] Medical History Sleep apnea Finger fracture, right Cubital tunnel syndrome on left Fatty liver Dyslipidemia Surgical History S/P cubital tunnel release History of ankle surgery History of wisdom tooth extraction History of shoulder surgery Family History Father Unknown family medical history Mother No problems noted. Paternal Uncle No problems noted. Social History Housing: House Alcohol intake: current Alcohol intake frequency: a few times a month Patient Tobacco Use Status: Current everyday Tobacco user Tobacco use type: Cigarette Cigarettes Per Day: 10 Years Smoked: 15 years e-Cigarette/Vaping Use: Currently Using Second Hand Smoke Exposure: Yes service: Yes Current occupational status: employed Current occupation: right hand dominant Cognitive needs: No Hearing needs: No Vision needs: No Review of Systems Const All systems reviewed & are unremarkable except as noted in HPI and below Reports no additional complaints, Denies chills and Denies fever(s) ENT Reports otalgia (right external ear) Card Denies dyspnea Resp Denies cough, Denies dyspnea, Denies stridor and Denies wheezing Musc Reports no additional complaints Skin/Breast Reports other (right external ear edema) Neuro Reports no additional complaints Psych Reports no additional complaints Aller/Immun Denies wheezing Physical Exam Vital Signs: BMI result Body Mass Index 26.2 Const General: cooperative, healthy appearing, comfortable, no acute distress, well developed, alert and awake Nutritional Appearance: average body habitus Orientation/consciousness: patient oriented x3 Limitations: no limitations HEENT Head: Yes normocephalic and Yes atraumatic Ears: hearing grossly normal bilaterally, external ears abnormal (Mild edema of the helix right ear with tenderness to touch; no erythema), TM's normal bilaterally and EAC's not normal (Mild edema of the right ear canal without exudates or erythema) General nose exam: Normal external nose present Face and sinus: No face symmetric (mild edema right restorationism, no fluctuance, no tenderness to palpation) Mouth: Normal oral and palatal mucosa present, lip normal and tongue normal Eyes General: appearance normal, both eyes and all related structures Alignment and Position: alignment normal Periorbital: periorbital findings normal Eyelids: Yes eyelids normal Conjunctivae: conjunctivae normal Pupils: Equal, round and reactive pupils present EOM: EOMs intact bilaterally Resp Effort & Inspection: normal respiratory effort, able to speak in complete sentences, no audible wheezes and no cough Auscultation: clear to auscultation bilaterally Skin General skin exam: no rashes or lesions noted Lesions: no lesions Rashes: no rashes Wounds: no wounds Neuro General: patient oriented x3 Cranial nerves: Yes Equal, round and reactive pupils present Psych Appearance: grossly normal Mental Status: mental status grossly normal Insight: Good insight present (Psych) Judgement: Good judgement present (Psych) Assessment & Plan Assessment & Plan (1) Bee sting reaction: Comment: There is no evidence of anaphylaxis or localized cellulitis. Patient will be managed with prednisone orally x5 days. Code(s): T63.441A - Toxic effect of venom of bees, accidental (unintentional), initial encounter Qualifiers: Encounter type: initial encounter Injury intent: accidental or unintentional Qualified Code(s): T63.441A - Toxic effect of venom of bees, accidental (unintentional), initial encounter Plan: Prednisone 40 mg daily x 5 days. Patient is instructed to follow up with his primary care provider if there is no improvement after 3 days. Patient will also continue taking Benadryl 25mg q8 hours throughout the day today. Medications: New prednisone 40 mg (2 x 20 mg) PO DAILY 10 tabs 0RF Coding Level of Care Code Est Pt Level 3 (81132) Diagnoses Bee sting reaction, accidental or unintentional, initial encounter T63.441A Encounter type: initial encounter Injury intent: accidental or unintentional Time Spent (min) 20
== END 2024-07-21 08:37 | disposition home or self-care (01) ==
PROVIDERS: PCP Nurse Practitioner Family; Visit Provider Physician Assistant
DX: T63.441A Toxic effect of venom of bees, accidental (unintentional), initial encounter (principal)

== ENCOUNTER → 2024-07-21 08:01 | Outpatient (BNVA) | payer OTHER, SELFPAY | PROVIDERS: PCP Nurse Practitioner Family | DX: T63.441A Toxic effect of venom of bees, accidental (unintentional), initial encounter (principal) | CPT/HCPCS: 99212 ==

== ENCOUNTER 2024-12-30 09:05 | Outpatient (AMB) | payer OTHER, SELFPAY ==
[2024-12-30 09:06] VITALS: BP 118/76; PULSE 60; RESP 18; TEMP 36.6; O2SAT 98; BMI 27.3
--- NOTE | 2024-12-30 09:06 | A.OFFPC_ITS ---
Vital Signs 12/30/24 09:06 Height 6 ft 6 in Weight 236 lb BMI 27.3 BP 118/76 Blood Pressure Location Rt brachial Position Sitting Respiration 18 Pulse 60 Pulse Source Pulse Oximeter Temp 98 F Temp Source Oral Pulse Oximetry (%) 98 Oxygen Delivery Method Room Air Intake Visit Reasons: profile paperwork Allergies No Known Allergies Allergy (Verified 12/30/24 09:49) Medication List - Last Reconciled 12/30/24 by WARNER Dobbins- meloxicam 15 mg PO DAILY PRN 30 days Tobacco use date assessed: 12/30/24 Dental Screening Dental Screen Date: 12/30/24 Did you have a dental visit in the last 12 months?: Yes Did you have a dental problem in the last 6 months where you did not have access to dental care?: No Was dental information given to patient?: Patient has dentist HPI profile paperwork HPI Details Chief Complaint The patient reports worsening bilateral foot pain and new left shoulder pain. History of Present Illness The patient is a 39-year-old male presenting with progressively worsening bilateral plantar foot pain, lasting for one year, alongside a new occurrence of left anterior shoulder pain. The foot pain has escalated in severity, described as soreness with intermittent sharp episodes, responsive to pressure with hypersensitivity noted on monofilament testing. The patient requires padded footwear for alleviation and reports the pain intensifies by the end of the day. The patient also has a history of extensive left ankle surgery with ongoing medial ankle discomfort. Additionally, he reports his left shoulder pain emerged after shoveling snow, indicating possible rotator cuff injury as suggested by a positive Matty's test. Social History - No social determinants discussed. Health Maintenance Review of Systems - Musculoskeletal: Reports worsening pino ateral plantar foot pain and new onset left shoulder pain. Physical Exam General: Cooperative, healthy appearing, comfortable, no acute distress and well developed Orientation: Patient oriented x3 Limitations: No limitations Head: Normal to inspection Ears: Hearing grossly normal bilaterally Nose: Normal external nose present Face and sinus: Normal facial exam Eyes: Appearance normal, both eyes and all related structures Neck: Normal visual inspection and Yes full ROM Respiratory: Normal respiratory effort and able to speak in complete sentences. Clear to auscultation bilaterally Cardiovascular: Regular rate and rhythm. Normal S1 and S2 GI: Normal to inspection. Soft to palpation and nontender Skin: No rashes or lesions noted Neuro: Patient oriented x3 Extremities: Hypersensitive bilateral plantar aspect with tenderness noted with monofilament. With dorsiflexion of toes and palpation of bilateral heels tenderness noted. Dorsalis pedis pulse somewhat difficult to find but present bilaterally. History of extensive left ankle surgery with ongoing left medial ankle pain. Reports left shoulder pain, anterior aspect, with negative Hylton, negative neers, and positive Jobes test. Results Plan The patient exhibits symptoms indicative of potential nerve involvement affecting the feet; thus, x-rays are necessary for comprehensive assessment. The left shoulder pain, with a positive Matty's test suggesting possible rotator cuff tendonitis, will be managed with a shoulder x-ray and physical therapy referral. Meloxicam is prescribed for symptomatic relief. Discussion Notes I discussed with the patient the potential for nerve involvement concerning his bilateral foot pain and the importance of obtaining x-rays for further evaluation. For the left shoulder pain, the positive Matty's test result pointed towards possible rotator cuff tendonitis, and I recommended commencing physical therapy alongside obtaining a shoulder x-ray for further insight into the condition. The patient was informed about starting meloxicam to mitigate pain and inflammation and agreed to the proposed management strategies. Follow-up was advised based on diagnostic outcomes. Patient Instructions - Wear prescribed padded shoes to help a lleviate foot pain. - Start taking meloxicam as prescribed t o manage pain and inflammation. - Attend physical therapy sessions as di roselyn for shoulder rehabilitation. - Schedule x-rays for both feet and left shoulder. - Follow up for further evaluation after x-ray results are available. -EMG/nerve conduction testing ordered [facility] Medical History Sleep apnea Finger fracture, right Cubital tunnel syndrome on left Fatty liver Dyslipidemia Surgical History S/P cubital tunnel release History of ankle surgery History of wisdom tooth extraction History of shoulder surgery Family History Father Unknown family medical history Mother No problems noted. Paternal Uncle No problems noted. Social History Housing: House Alcohol intake: current Alcohol intake frequency: a few times a month Patient Tobacco Use Status: Current everyday Tobacco user Tobacco use type: Cigarette Cigarettes Per Day: 10 Years Smoked: 15 years e-Cigarette/Vaping Use: Currently Using Second Hand Smoke Exposure: Yes service: Yes Current occupational status: employed Current occupation: right hand dominant Cognitive needs: No Hearing needs: No Vision needs: No Questionnaire PHQ-9 Over the last 2 weeks, how often have you been bothered by any of the following problems? 1. Little interest or pleasure in doing things: not at all 2. Feeling down, depressed, or hopeless: not at all 3. Trouble falling or staying asleep, or sleeping too much: not at all 4. Feeling tired or having little energy: not at all 5. Poor appetite or overeating: not at all 6. Feeling bad about yourself - or that you are a failure or have let yourself or your family down: not at all 7. Trouble concentrating on things, such as reading the newspaper or watching television: not at all 8. Moving or speaking so slowly that other people could have noticed. Or the opposite - being so fidgety or restless that you have been moving around a lot more than usual: not at all 9. Thoughts that you would be better off or of hurting yourself in some way: not at all Total score: 0 Depression Screening Interpretation: Negative Depression Screening Done: Yes 22044 - PHQ-9 Billing: Yes Source: Developed by Drs. Rafael Kerr, Cassie Romano, Jass Haas and colleagues, with an educational trenton from [employer]. Thrive Questionnaire Date Thrive assessed: 12/30/24 I am a: Patient What is your living situation today?: I have a steady place to live Within the past 12 months, did the food you bought not last and you didn't have the money to get more?: Never true Within the past 12 months, did you worry whether your food would run out before you got money to buy more?: Never true Do you have trouble paying for medicines?: No Do you have trouble getting transportation to medical appointments?: No Do you have trouble paying your heating and electricity bill?: No Do you have trouble taking care of your child, family member or friend?: No Do you have trouble with day-to-day activities such as bathing, preparing meals, shopping, managing finances, etc.?: No Are you currently unemployed and looking for a job?: No Are you interested in more education?: No Please select the resources that you would like help with: None Currently or been in a relationship where the following occur: No concerns reported THRIVE Score: 0 AUDIT C Alcohol Use Questionnaire (AUDIT-C) 1. How often do you have a drink containing alcohol?: Monthly or less 2. How many drinks containing alcohol do you have on a typical day when you are drinking?: 1 or 2 3. How often do you have six or more drinks on one occasion?: Never Total Score: 1 Score Reviewed/Action Taken: Yes BECCA-7 AMB Questionnaire BECCA-7 Date BECCA - 7 assessed: 12/30/24 Feeling nervous, anxious, or on edge: 0 = Not at all Not being able to stop or control worryin = Not at all Worrying too much about different things: 0 = Not at all Trouble relaxin = Not at all Being so restless that it is hard to sit still: 0 = Not at all Becoming easily annoyed or irritable: 0 = Not at all Feeling afraid as if something awful might happen: 0 = Not at all Total BECCA-7 score (0-4 normal; 5-9 mild; 10-14 moderate; 15-21 severe): 0 Source: Developed by Drs. Rafael Kerr, Cassie Romano, Jass Haas and colleagues, with an educational trenton from [employer]. BECCA-7 Assessment Billing BECCA-7 Assessment Tool: BECCA-7 Assessment 39709 Physical exam (Primary Care) Vital Signs: Last Vital Signs Temp 98 F 12/30/24 09:06 Pulse 60 12/30/24 09:06 Resp 18 12/30/24 09:06 BP 118/76 12/30/24 09:06 Pulse Ox 98 12/30/24 09:06 Oxygen Delivery Method Room Air 12/30/24 09:06 BMI result Body Mass Index 27.3 Tobacco/Smoking Status: Tobacco use Status Tobacco use date assessed 12/30/24 12/30/24 09:10 Patient Tobacco Use Status Current everyday Tobacco 12/30/24 09:10 Tobacco use type Cigarette 12/30/24 09:10 e-Cigarette/Vaping Use Currently Using 12/30/24 09:10 PHQ-9: PHQ-9 Score PHQ-9: Total score 0 12/30/24 09:50 Depression Screening Interpretation: Negative Thrive Assessment: Date of Thrive Assessment Date Thrive assessed 12/30/24 12/30/24 09:10 Currently or been in a relationship where the following occur: No concerns reported Coding Level of Care Code Est Pt Level 3 (91185) Diagnoses Left ankle pain M25.572 Bilateral foot pain M79.671; M79.672 Left shoulder pain M25.512 Screening for HIV (human immunodeficiency virus) Z11.4 Additional Codes BECCA-7 Assessment Billing - BECCA-7 Assessment Tool: BECCA-7 Assessment 67989 ([id number]) PHQ-9 - 82036 - PHQ-9 Billing: Yes ([id number]) Assessment & Plan Assessment & Plan (1) Left ankle pain: Code(s): M25.572 - Pain in left ankle and joints of left foot Category: Medical (2) Bilateral foot pain: Code(s): M79.671 - Pain in right foot; M79.672 - Pain in left foot Category: Medical (3) Left shoulder pain: Code(s): M25.512 - Pain in left shoulder Category: Medical (4) Screening for HIV (human immunodeficiency virus): Code(s): Z11.4 - Encounter for screening for human immunodeficiency virus [HIV] Category: Medical Plan . Orders: Orders XR foot RT 2V Today M25.572 - Pain in left ankle and joints of left foot, M79.671 - Pain in right foot, M79.672 - Pain in left foot NE nerve conduction velocity Today M79.671 - Pain in right foot, M79.672 - Pain in left foot HIV Ab/Ag Today Z11.4 - Encounter for screening for human immunodeficiency virus [HIV] XR ankle LT 2V Today M25.572 - Pain in left ankle and joints of left foot XR foot LT 2V Today M25.572 - Pain in left ankle and joints of left foot, M79.671 - Pain in right foot, M79.672 - Pain in left foot NE electromyogram (EMG) Today M79.671 - Pain in right foot, M79.672 - Pain in left foot PT Evaluation and Treatment Today M25.512 - Pain in left shoulder Referrals Podiatry Referral M25.572 - Pain in left ankle and joints of left foot, M79.671 - Pain in right foot, M79.672 - Pain in left foot Medications: New meloxicam 15 mg PO DAILY PRN 30 tabs 2RF pain 30 days
--- OUTSIDE RECORDS SUMMARY | 2024-12-30 09:59 | XMS_ITS | Continuity of Care Document ---
Author Name [facility] Organization [facility] Care Team Providers Care Ancillary Services Manager Name Role Phone DOD-AR Unavailable Unavailable Problems Combined list of problems from Department of Defense and Veterans Affairs facilities. It does not include entries that were removed or entered in error. Problem Status Onset Date Problem Type Date of Resolution Comments Source Obstructive sleep apnea (adult) (pediatric) Active 05/02/20 16 Condition DoD Dorsalgia, unspecified Active 11/01/18 99 Condition DoD Dyslipidemia Active Condition 309C-AF- [facility] [employer] History of deployment Active Condition 0C-AF- [facility] [employer] Neck pain Active Condition 0C-AF- [facility] Nicotine dependence Active Condition 0C-AF- [facility] Obstructive sleep apnea Active Condition 0310C-AF- [facility] [employer] visit for: administrative purpose Active Condition [facility] Outpatient Physician Consultation Active Condition DoD tick bites Inactive Condition [facility] Guidance: Concerns About Exercise Active Condition DoD premature ejaculation Active Condition DoD Patient Education Active Condition DoD joint pain, localized in the left shoulder Active Condition DoD otitis externa acute Inactive Condition DoD sinusitis Active Condition DoD routine examination Inactive Condition [facility] Laboratory Studies Inactive Condition Do D vomiting Inactive Condition DoD diarrhea Active Condition [facility] visit for: refer patient without exam or treatment Inactive Condition DoD Aftercare Following Surgery Of Musculoskeletal System Inactive Condition DoD nicotine-related disorders Active Condition DoD asthmatic bronchitis Active Condition DoD Need For Vaccination Typhoid Inactive Condition DoD Anthrax Vaccine, For Subcutaneous Use Inactive Condition DoD Need For Prophylactic Antibiotics Inactive Condition DoD nicotine dependence Active Condition DoD headache syndromes Active Condition DoD Orthopedic Aftercare For Healing Traumatic Fracture Leg Inactive Condition DoD ankle joint pain Active Condition DoD Orthopedic Aftercare For Healing Traumatic Fx Lower Leg Inactive Condition DoD closed fracture of calcaneus Active Condition DoD cervicalgia Active Condition DoD headache Inactive Condition DoD dermatitis Inactive Condition See CHCS1 for Hydrocortisone Cream 1%.Hygiene discussed - follow up with PCM recommeneded if no improvement in 1 week. [facility] visit for: services physical Active Condition Web Based LEAL no t available. Reviewed SF507. DoD Other Physical Therapy Inactive Condition DoD lower back pain Active Condition DoD numbness (hypesthesia) Active Condition at former site of lump, expalined that numbness may resolve in another 4-6 mo, or coul be perm, meds for above may help with numbness. DoD lumbago Active Condition Conservati ve Treatment discussed to include stretches. No red flgs in this otherwise health AD member.OTC Motrin prn - follow up with PCM if symptoms worsen. DoD joint pain, localized in the shoulder Active Condition DoD limb pain Active Condition DoD lump in / on the skin Active Condition with bruising from fall. no s/s of infection. gave patient warning sxs such as fever, increasing pain, decreased ability to do normal activities, increased swelling warmth - rtc for re-eval. otherwise, expect bruise to heal over next 4-6 weeks - may have various color changes in meantime. continue regular activities, may decrease intensity if painful. DoD Patient Counseling: Inquiry & Counseling Active Condition DoD backache Inactive Condition no further workup initiated, pt will do no situps or pushups for 3 days to rest back, will follow up as needed. DoD bursitis trochanteric Active Condition Reassurance.Nap r osyn 500 mg po bid # [id number] prn concerns. DoD Corneal Opacity - Peripheral Active Condition DoD Conjunctival Hyperemia Active Condition DoD superficial injury - abrasion of cornea Inactive Condition DoD superficial injury abrasion of left cornea Inactive Condition topical tetracaine and flourescien applied bilat, blanca lamp reveals 3mm round corneal abrasion. Immediate consult to optometry. P2 Handwashing DoD red eyes Inactive Condition DoD Guidance: Concerns About Inadequate Physical Activity Inactive Condition DoD allergic rhinitis Active Condition DoD sinusitis acute Inactive Condition DoD joint pain, localized in the knee Inactive Condition Given an cliff wrap knee sleeve DoD Medications Combined list of outpatient medications from Department of Defense and Veterans Affairs facilities.Medications provided include 1) outpatient medications from the last 15 months, and 2) patient-reported medications. Medication Details Route Status Patient Instructions Prescription Expires Prescription Number Last Dispense Date Ordering Provider Order Date Order Qty Source Aleve 220 mg, Oral, every 12 hr, 0 total refill(s ), Maintena nce Oral (given by mouth) Ordered 2023 0310C-A [facility] C-PAP # 1 EA, 0 total refill(s ), Acute Not Applic able Ordered 2022 1.0 0310C-A [facility] [employer] DIAZEPAM (DIAZEPAM), 5MG, TABLET, ORAL, IVAX PHARMACEUT, 500 ea. BOTTLE Active [id number] 2023 6 Pharmac y Data Transac tion Service Facilit y ezetimibe 10 mg oral tablet 1 tab(s), Oral, Daily, 0 total refill(s ), Maintena nce Oral (given by mouth) Discont inued 01/07/20242023 0310C-A F-C-[facility] [employer] GABAPENTIN (GABAPENTIN ), 100 MG, CAPSULE, ORAL, ACTAVIS PHARMA,, 500 ea. BOTTLE Active [id number] 2023 90 Pharmac y Data Transac tion Service Facilit y gabapentin 100 mg oral capsule 1 cap(s), Oral, TID, 0 total refill(s ), Maintena nce Oral (given by mouth) Ordered 20230C-A F-C-[facility] [employer] IBUPROFEN (ibuprofen) , 600 MG, TABLET, ORAL, AUROBINDO PHARM, 500 ea. BOTTLE Active [id number] 2023 30 Pharmac y Data Transac tion Service Facilit y LIDOCAINE (LIDOCAINE) , 5%(700MG), ADH. PATCH, TOPICAL, ACTAVIS PHARMA,, 30 ea. BOX Active [id number] 4 2023 30 Pharmac y Data Transac tion Service Facilit y OXYCODONE HCL (OXYCODONE HCL), 5MG, TABLET, ORAL, MALLINKRT PHARM, 100 ea. BOTTLE Active [id number] 4 2023 6 Pharmac y Data Transac tion Service Facilit y rosuvastati n 20 mg oral tablet 1 tab(s), Oral, Daily, for choleste rol, # 90 tab(s), 3 total refill(s ), Maintena nce Oral (given by mouth) Ordered 2023 90.0 0310C-A F-C-[facility] ROSUVASTATI N CALCIUM (rosuvastat in calcium), 10 MG, TABLET, ORAL, GLENMARK PHARMA, 90 ea. BOTTLE Cancele d [id number] : 2023 0 Pharmac y Data Transac tion Service Facilit y ROSUVASTATI N CALCIUM (rosuvastat in calcium), 10 MG, TABLET, ORAL, GLENMARK PHARMA, 90 ea. BOTTLE Cancele d [id number] : 2023 0 Pharmac y Data Transac tion Service Facilit y ROSUVASTATI N CALCIUM (rosuvastat in calcium), 20 MG, TABLET, ORAL, GLENMARK PHARMA, 90 ea. BOTTLE Active [id number] 4 2023 90 Pharmac y Data Transac tion Service Facilit y TRAMADOL HCL (tramadol HCl), 50 MG, TABLET, ORAL, AMNEAL PHARMACE, 500 ea. BOTTLE Active [id number] 2023 30 Pharmac y Data Transac tion Service Facilit y Allergies, Adverse Reactions, Alerts Combined list of allergies from Department of Defense and Veterans Affairs facilities. It does not include entries that were removed or entered in error. Substance Category Reaction Severity Reaction type Status Date Reported Comments Source No Known Allergies Drug allergy (disorder) active 02/26/2022 [place] [address] Immunizations Combined list of available immunizations from the Department of Defense and Veterans Affairs facilities. Immunization Series Date Given Administered By Site Reaction Lot Number CVX Code Drug Radiologic Technologist Status Comments Source influenza virus vaccine, unspecified 2022 JOSE Staton [id number] complet ed influenza virus vaccine, unspecifi ed 10/14/23 Recorded 0C-A F-C-[facility] [employer] influenza, injectable, quadrivalent- pf 2021 MARQUEZ [id number] comple t ed Result Comment: Route: Unknown Manufactu rer: OT ([facility]) 0C-A F-C-66t h [employer] tetanus, diphtheria, acellular pertu is 2021 TRANSCR IBED 115 Unknown complet ed tetanus, diphtheri a, acellular pertussis 07/18/22 Given Ambulat ory Pharmac y tetanus toxoid, reduced diphtheria toxoid, and acellular pertu is vaccine, adsorbed 2 2021 115 Unknown (UNK) comple t ed tetanus toxoid, reduced diphtheri a toxoid, and acellular pertussis vaccine, adsorbed DoD typhoid Vi capsular polysaccharid e vac 2020 [id number] 101 sanofi pasteur complet ed typhoid Vi capsular polysacch aride vac 09/15/21 Given Ambulat ory Pharmac y measles virus vaccine 0 2020 05 () Not Given measles virus vaccine DoD rubella virus vaccine 0 2020 06 () Not Given rubella virus vaccine DoD mumps virus vaccine 0 2020 07 () Not Given mumps virus vaccine DoD varicella virus vaccine 0 2020 21 () Not Given varicella virus vaccine DoD typhoid Vi capsular polysaccharid e vaccine 2 2020 [id number] Sanofi Pasteur (PMC) complet ed typhoid Vi capsular polysacch aride vaccine DoD Influenza, inj, MDCK, quadrivalent- pf 2020 171 Seqirus complet ed Influenza , inj, MDCK, quadrival ent-pf 08/10/21 Given Ambulat ory Pharmac y Influenza, injectable, MDCK, preservative free, quadrivalent 2020 GRISEL, () Not Given Influenza , injectabl e, MDCK, preservat nallely free, quadrival ent DoD Influenza, injectable, Madin Meredith Canine Kidney, preservative free, quadrivalent 0 2020 171 Seqirus (SEQ) comple t ed Influenza , injectabl e, Madin Meredith Canine Kidney, preservat nallely free, quadrival ent DoD COVID Vaccine Moderna 2020 [id number] complet ed COVID Vaccine Moderna 02/24/21 Given Ambulat ory Pharmac y SARS-COV-2 (COVID-19) vaccine, mRNA, spike protein, LNP, preservative free, 100 mcg or 50 mcg dose 2 2020 [id number] 207 Moderna [employer] (MOD) complet ed SARS-COV- 2 (COVID-19 ) vaccine, mRNA, spike protein, LNP, preservat nallely free, 100 mcg or 50 mcg dose DoD COVID Vaccine Moderna 2020 [id number] complet ed COVID Vaccine Moderna 01/20/21 Given Ambulat ory Pharmac y SARS-COV-2 (COVID-19) vaccine, mRNA, spike protein, LNP, preservative free, 100 mcg or 50 mcg dose 1 2020 [id number] 207 Moderna [employer] (MOD) complet ed SARS-COV- 2 (COVID-19 ) vaccine, mRNA, spike protein, LNP, preservat nallely free, 100 mcg or 50 mcg dose DoD influenza, injectable, quadrivalent 2019 TRANSCR [id number] 158 complet ed influenza , injectabl e, quadrival ent 10/11/20 Given Ambulat ory Pharmac y influenza, injectable, quadrivalent, contains preservative 1 2019 158 Transcribed (TRS) complet ed influenza , injectabl e, quadrival ent, contains preservat nallely DoD influenza, seasonal, injectable 2018 [id number] 141 sanofi pasteur complet ed influenza , seasonal, injectabl e 09/02/19 Given Ambulat ory Pharmac y Influenza, seasonal, injectable 1 2018 [id number] 141 Sanofi Pasteur (PMC) complet ed Influenza , seasonal, injectabl e DoD influenza, injectable, quadrivalent- pf 2017 [id number] 150 sanofi pasteur complet ed influenza , injectabl e, quadrival ent-pf 08/21/18 Given Ambulat ory Pharmac y Influenza, injectable, quadrivalent, preservative free 1 2017 [id number] 150 Sanofi Pasteur (PMC) complet ed Influenza , injectabl e, quadrival ent, preservat nallely free DoD influenza virus vaccine, unspecified 2016 [id number] 88 sanofi pasteur complet ed influenza virus vaccine, unspecifi ed 07/24/17 Given Ambulat ory Pharmac y influenza virus vaccine, unspecified formulation 1 2016 [id number] 88 Sanofi Pasteur (PMC) complet ed influenza virus vaccine, unspecifi ed formulati on DoD influenza, seasonal, injectable-pf 2015 [id number] 140 Seqirus complet ed influenza , seasonal, injectabl e-pf 08/29/16 Given Ambulat ory Pharmac y Influenza, seasonal, injectable, preservative free 11 2015 [id number] 140 Seqirus (SEQ) comple t ed Influenza , seasonal, injectabl e, preservat nallely free DoD influenza, live, intranasal,qu adrivalent 2014 [id number] 149 Mediune Inc [place] t ed influenza , live, intranasa l,quadriv alent 08/08/15 Given Ambulat ory Pharmac y influenza, live, intranasal, quadrivalent 10 2014 [id number] 149 MedImmune, Inc. (MED) complet ed influenza , live, intranasa l, quadrival ent DoD influenza, live, intranasal,qu adrivalent 2013 [id number] 149 Mediune Inc comple t ed influenza , live, intranasa l,quadriv alent 08/23/14 Given Ambulat ory Pharmac y influenza, live, intranasal, quadrivalent 9 2013 [id number] 149 MedImmune, Inc. (MED) complet ed influenza , live, intranasa l, quadrival ent DoD influenza, live, intranasal,qu adrivalent 2012 [id number] 149 [employer] Inc [place] t ed influenza , live, intranasa l,quadriv alent 08/11/13 Given Ambulat ory Pharmac y influenza, live, intranasal, quadrivalent 8 2012 [id number] 149 MedImmune, Inc. (MED) complet ed influenza , live, intranasa l, quadrival ent DoD influenza virus vaccine, live 2011 [id number] 111 [employer] Inc [place] t ed influenza virus vaccine, live 07/24/12 Given Ambulat ory Pharmac y influenza virus vaccine, live, attenuated, for intranasal use 7 2011 [id number] 111 MedImmune, Inc. (MED) complet ed influenza virus vaccine, live, attenuate d, for intranasa l use DoD tetanus, diphtheria, acellular pertu is 2011 [id number] 6AA 115 [facility] complet ed tetanus, diphtheri a, acellular pertussis 04/29/12 Given Ambulat ory Pharmac y tetanus toxoid, reduced diphtheria toxoid, and acellular pertu is vaccine, adsorbed 0 2011 [id number] [id number] 115 [facility] (SKB) complet ed tetanus toxoid, reduced diphtheri a toxoid, and acellular pertussis vaccine, adsorbed DoD influenza virus vaccine, live 2010 [id number] 111 Collections[employer] Inc comple t ed influenza virus vaccine, live 09/07/11 Given Ambulat ory Pharmac y influenza virus vaccine, live, attenuated, for intranasal use 1 2010 [id number] 111 MedIValuNet, Inc. (MED) complet ed influenza virus vaccine, live, attenuate d, for intranasa l use DoD influenza virus vaccine,split 2009 [id number] 15 CSL Behring complet ed influenza virus vaccine,s plit 09/11/10 Given Ambulat ory Pharmac y influenza virus vaccine, split virus (incl. purified surface antigen)-reti red CODE 1 2009 [id number] 15 [employer]Le[employer] Inc. (CSL) complet ed influenza virus vaccine, split virus (incl. purified surface antigen)- retired CODE DoD typhoid Vi capsular polysaccharid e vac 2009 [id number] 101 Unknown complet ed typhoid Vi capsular polysacch aride vac 02/10/10 Given Ambulat ory Pharmac y anthrax vaccine 2009 [id number] 24 Emergent [employer] complet ed anthrax vaccine 02/10/10 Given Ambulat ory Pharmac y anthrax vaccine 1 2009 [id number] [employer] [place] (MIP) complet ed anthrax vaccine DoD typhoid Vi capsular polysaccharid e vaccine 1 2009 [id number] 101 Unknown (UNK) comple t ed typhoid Vi capsular polysacch aride vaccine DoD Novel influenza-H1N 1-09,pf,injec table 2009 [id number] 1 126 Novartis Pharmaceutica ls complet ed Novel influenza -K6M9-87, pf,inject able 11/28/09 Given Ambulat ory Pharmac y Novel influenza-H1N 1-09, preservative- free, injectable 1 2009 [id number] 1 126 Novartis Pharmaceutica l Genna. (NOV) complet ed Novel influenza -I7P3-95, preservat nallely-free, injectabl e DoD influenza virus vaccine, live 2008 [id number] 111 [employer]al Games Inc comple t ed influenza virus vaccine, live 08/25/09 Given Ambulat ory Pharmac y influenza virus vaccine, live, attenuated, for intranasal use 1 2008 [id number] 111 InSeT Systems, Inc. (MED) complet ed influenza virus vaccine, live, attenuate d, for intranasa l use DoD influenza virus vaccine, live 2007 [id number] 111 [employer] comple t ed influenza virus vaccine, live 08/18/08 Given Ambulat ory Pharmac y influenza virus vaccine, live, attenuated, for intranasal use 1 2007 [id number] 111 InSeT Systems, Inc. (MED) complet ed influenza virus vaccine, live, attenuate d, for intranasa l use DoD influenza virus vaccine, live 2006 [id number] 111 [employer] [facility] comple t ed influenza virus vaccine, live 09/18/07 Given Ambulat ory Pharmac y hepatitis A adult vaccine 2006 [id number] [id number] 52 GlaxoSmithKli ne complet ed hepatitis A adult vaccine 09/18/07 Given Ambulat ory Pharmac y hepatitis A vaccine, adult dosage 2 2006 [id number] 52 SmithKline (SKB) complet ed hepatitis A vaccine, adult dosage DoD influenza virus vaccine, live, attenuated, for intranasal use 1 2006 [id number] 111 InSeT Systems, Inc. (MED) complet ed influenza virus vaccine, live, attenuate d, for intranasa l use DoD hepatitis A adult vaccine 2005 [id number] [id number] 52 GlaxoSmithKli ne complet ed hepatitis A adult vaccine 09/11/06 Given Ambulat ory Pharmac y measles, mumps and rubella virus vaccine 1 2005 03 () Not Given measles, mumps and rubella virus vaccine DoD varicella virus vaccine 1 2005 21 () Not Given varicella virus vaccine DoD hepatitis B vaccine, adult dosage 1 2005 43 () Not Given hepatitis B vaccine, adult dosage DoD hepatitis A vaccine, adult dosage 1 2005 [id number] [id number] 52 SmithKline (SKB) complet ed hepatitis A vaccine, adult dosage DoD meningococcal A,C,Y,W-135 (MCV4P) 2005 [id number] 114 sanofi pasteur complet ed meningoco ccal A,C,Y,W-1 35 (MCV4P) 09/06/06 Given Ambulat ory Pharmac y influenza virus vaccine,split 2005 [id number] 9BA 15 GlaxoSmithKli ne complet ed influenza virus vaccine,s plit 09/06/06 Given Ambulat ory Pharmac y poliovirus vaccine, inactivated 2005 G7591-5 10 sanofi pasteur complet ed polioviru s vaccine, inactivat ed 09/06/06 Given Ambulat ory Pharmac y tetanus-dipht h toxoids (Td) adult/adol 2005 [id number] 09 sanofi pasteur complet ed tetanus-d iphth toxoids (Td) adult/ado l 09/06/06 Given Ambulat ory Pharmac y influenza virus vaccine, whole virus 2005 NATASHABRMARBINKS [id number] 9BA 16 complet ed Result Comment: Route: Unknown Manufactu rer: John coronado ([facility]) 0310C-A F-C-66t h [employer] tuberculin purified protein derivative 2005 NATCAROLEE [id number] 96 comple t ed Result Comment: Route: Unknown Manufactu rer: [facility] ([facility]) 0310C-A F-C-66t h [employer] tetanus and diphtheria toxoids, adsorbed, preservative free, for adult use (2 Lf of tetanus toxoid and 2 Lf of diphtheria toxoid) 1 2005 [id number] 09 Sanofi Pasteur ([facility]) complet ed tetanus and diphtheri a toxoids, adsorbed, preservat nallely free, for adult use (2 Lf of tetanus toxoid and 2 Lf of diphtheri a toxoid) DoD poliovirus vaccine, inactivated 1 2005 Z0860-7 10 Sanofi Pasteur ([facility]) complet ed polioviru s vaccine, inactivat ed DoD influenza virus vaccine, split virus (incl. purified surface antigen)-reti red CODE 1 2005 [id number] 15 [facility] ([facility]) complet ed influenza virus vaccine, split virus (incl. purified surface antigen)- retired CODE DoD influenza virus vaccine, whole virus 0 2005 [id number] 9BA 16 [place] ([facility]) complet ed influenza virus vaccine, whole virus DoD meningococcal polysaccharid e (groups A, C, Y and W-135) diphtheria toxoid conjugate vaccine (MCV4P) 1 2005 [id number] 114 Sanofi Pasteur (PMC) complet ed meningoco ccal polysacch aride (groups A, C, Y and W-135) diphtheri a toxoid conjugate vaccine (MCV4P) DoD Encounters Combined list of: 1) Encounters from Department of Veterans Affairs facilities going backup to the last 18 months, not all VA inpatient encounters are included; 2) Encounters from the Department of Defense facilities going backup to 280 months. Location Location Details Encounter Type Encounter Number Reason For Visit Attending Provider ADM Date DC Date Status Disposition [place] [address]([facility], Juan) OUTPATIENT [id number] knee pain QUANG MORGAN Ran 09/17 Released with Work/Duty Limitations [facility] [place] [address]([facility], Juan) [place] [address]([facility], Juan) OUTPATIENT [id number] [facility] ADIS ROUSSEAU 09/20 Released with Work/Duty Limitations [facility] [place] [address]([facility], [place]) [place] [address]([facility], Juan) OUTPATIENT [id number] lt eye red burning ONESIMO URIBE 10/08 Released w/o Limitations [facility] [place] [address]([facility], [place]) [place] [address](ZZO ptometry, Juan (inactive )) OUTPATIENT [id number] corneal abrasio TEOFILO Palafox 10/08 Released w/o Limitations [facility] [place] [address](Z ZOptome try, Juan (inacti ve)) [place] [address](ZZO ptometry, Juan (inactive )) OUTPATIENT [id number] Red Eye Follow Up From TEOFILO Pineda 10/09 Released w/o Limitations [facility] [place] [address](Z ZOptome try, Juan (inacti ve)) [place] [address](ZZO ptometry, Juan (inactive )) OUTPATIENT [id number] Red Eye Follow Up DOROTHY SIERRA 10/10 [facility]ased w[facility] Limitations [facility] [place] [place] [address](Z ZOptome try, Juan (inacti ve)) [place] [address](ZZO ptometry, Juan (inactive )) OUTPATIENT [id number] Red Eye Follow Up BRAIN TEOFILO R M 10/11 Released w/o Limitations [facility] [place] [place] [address](Z ZOptome try, Juan (inacti ve)) [place] [address](Tra inee [facility], Juan) OUTPATIENT [id number] FLOYD_ESTRADA POWELL 10/12 Released with Work/Duty Limitations [place] [address]([facility], Jaun) [place] [address](ZZO ptometry, Juan (inactive )) OUTPATIENT [id number] Follow up for corneal abrasio n from last week BRAIN TEOFILO R M 10/16 Released w/o Limitations [facility] [place] [place] [address](Z ZOptome try, Juan (inacti ve)) [place] [address](Tra inee [facility], Juan) OUTPATIENT [id number] lower back pain ALISHA WOLFF 10/16 Released with Work/Duty Limitations [place] [address]([facility], Juan) [employer]([facility]am [facility]ung [facility] Blue) TELE CONSULT [id number] leg pain during running , and when pt sits or stands; after that its fine GIAN JOY 04/16 [employer](F amily Practic e Blue) [facility](Fam kyung Practice Blue) OUTPATIENT [id number] RT hip pain/in DIPAK Allen 04/16 Released w/o Limitations [employer](F amily Practic e Blue) [employer](PHA Cell) OUTPATIENT [id number] pha DIAZKAREN VAZQUEZ D 11/07 Released w/o Limitations [employer](P LEAL Cell) [employer]([facility] Practice Blue) TELE CONSULT [id number] pt had pha on 11/07 told to schedul e physica l therapy appt,no referra l in system JAMILA CASTANEDA E 11/11 [employer](F amily Practic e Blue) [employer]([facility]) OUTPATIENT [id number] Numb left leg and low back pain ELISABETHRob GINA M 11/20 Released w/o Limitations [employer](F amily Practic e Blue) [employer]([facility]my [facility] eletal Screening ) OUTPATIENT [id number] LUMBAGO GEORGIE ROWE 12/09 Released w/o Limitations [employer](N euromus coskele maggie Screeni ng) [employer]([facility]my [facility] eletal Screening ) OUTPATIENT [id number] joint pain, localiz ed in the shoulde r GEORGIE ROWE 12/16 Released w/o Limitations [employer](N euromus coskele maggie Screeni ng) [employer]([facility]) OUTPATIENT [id number] SIVAKUMAR MCHUGH 12/17 Released w/o Limitations [employer](P hysical Therapy Clinic) [employer]([facility] s[facility] Therapy [facility]) OUTPATIENT [id number] DEANN LAW 12/18 Released w/o Limitations [employer](P hysical Therapy Clinic) [employer]([facility]my [facility] eletal Screening ) OUTPATIENT [id number] GEORGIE ROWE 01/06 Released w/o Limitations [employer](N euromus [employer] Screeni ng) [employer]([facility]) OUTPATIENT [id number] SIVAKUMAR MCHUGH 01/11 Released w/o Limitations [employer]([facility]ysical Therapy [facility]) [employer]) OUTPATIENT [id number] SIVAKUMAR MCHUGH 01/13 Released w/o Limitations [employer]([facility]) [employer]) OUTPATIENT [id number] JEISON SIVAKUMAR TITA 01/19 Released w/o Limitations [employer]) [employer]) OUTPATIENT [id number] DEANN LAW 01/21 Released w/o Limitations [employer]) [employer]) OUTPATIENT [id number] DEANN LAW 01/26 Released w/o Limitations [employer](P [facility]ysical Therapy Clinic) [facility]am [facility] Practice Blue) TELE CONSULT [id number] no appts; head pressur e, sore throat, hot and cold flashes GINA JOY 03/16 [employer]([facility] Practic e Blue) [facility]) TELE CONSULT [id number] pt went to ER last night; pt broke both feet and need referra l to ortho GINA JOY 07/23 [employer](F [facility] Practic e Blue) [facility]) TELE CONSULT [id number] Pt fractur ed both feet JAMILA CASTANEDA 07/23 [employer]([facility] Practic e Blue) [facility]) OUTPATIENT [id number] Update CRUZITO from ANDREI García i 08/03 Released w/o Limitations [employer](F am[facility] Practic e Blue) [facility](Tommy [employer] eletal Screening ) OUTPATIENT [id number] DENNIS VARGAS 09/07 Released w/o Limitations [employer](N euromus barry serrano Screeni sina) [employer]([facility]) OUTPATIENT [id number] ROSALIA COTTON 09/09 Released w/o Limitations [employer](P [facility]ysical Therapy Clinic) [facility]hy [facility]ical Therapy [facility]) OUTPATIENT [id number] ROSALIA COTTON 09/13 Released w/o Limitations [employer]([facility]ysical Therapy [facility]) [facility](Phy sical Therapy Clinic) OUTPATIENT [id number] DEANN ALW 09/15 Released w/o Limitations [employer] Therapy [facility]) [employer]) OUTPATIENT [id number] ROSALIA COTTON 09/20 Released w/o Limitations [employer]([facility] Therapy [facility]) [employer]([facility]) OUTPATIENT [id number] ROSALIA COTTON 09/22 Released w/o Limitations [employer]([facility]ysical Therapy Clinic) [employer]([facility]) OUTPATIENT [id number] DEANN LAW 10/04 Released w/o Limitations [employer]([facility]ys[facility] Therapy Clinic) [employer]([facility] [employer] eletal Screening ) OUTPATIENT [id number] DENNIS VARGAS 10/21 Released w/o Limitations [employer](N euromus barry serrano Screeni sina) [employer]([facility]) OUTPATIENT [id number] Headach e over 24 hours and sharp pains in upper back. ELAINA HAMILTON 11/26 Sick at Home/Quarter s [employer](F amily Practic e Blue) [facility] Practice Blue) TELE CONSULT [id number] mauricio hassan referra GINA JOY 11/29 [employer]([facility] Practic e Blue) [facility]) OUTPATIENT [id number] f/u on LEAL and pinched nerve GINA JOY M 11/30 Released w/o Limitations [employer]([facility] Practic e Blue) [employer]([facility]) TELE CONSULT [id number] need referra l to neurolo gy GINA JOY M 11/30 [employer](F amily Practic e Blue) [employer]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) OUTPATIENT [id number] pha GINA JOY M 12/07 Released w/o Limitations [employer](P LEAL Cell) [employer]([facility]) DENTAL [id number] exam OSCAR BRAN 03/18 Released w/o Limitations [employer](D ental Clinic) [employer]([facility]) DENTAL [id number] Pro HOSSEIN HAYS Steven 03/18 [employer](D ental Clinic) [employer]([facility]) TELE CONSULT [id number] CRUZITO placed GINA JOY 06/08 [employer]([facility] Practic e Blue) [employer]([facility]) OUTPATIENT [id number] malaria meds LENYELICEO LIGIA Brionna 01/05 Released w/o Limitations [employer](F [facility]ily Practic e Blue) [employer]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) OUTPATIENT [id number] pha SINAI Jackson 01/05 Released w/o Limitations [employer](P LEAL Cell) [facility] OUTPATIENT [id number] 02/10 Released w/o Limitations Theater Facilit y [employer]([facility]) OUTPATIENT [id number] post-de ploymen GINA JOY 04/25 Released w/o Limitations [employer](F amily Practic e Blue) [employer]([facility]) TELE CONSULT [id number] mri results IRAIS REINA Rob 05/02 [employer]([facility] Practic e Blue) [employer]([facility]) OUTPATIENT [id number] cough, congest ion- dischar ge ELAINA HAMILTON 06/27 Sick at Home/Quarter s [employer]([facility] Practic e Blue) [employer]([facility]) OUTPATIENT [id number] Positiv e PDHRA GINA JOY 10/23 Released w/o Limitations [employer](F [facility] Practic e Blue) [employer]([facility]) TELE CONSULT [id number] appt line- pt needs to get his profile started plus have not receive d BHAVIK Hernández 11/10 Referred for Appointment [employer]([facility] Practic e Blue) [employer]([facility]) TELE CONSULT [id number] Still experie ncing shoulde r pain GINA JOY 11/21 [employer]([facility] Practic [facility] Blue) [employer]([facility]) TELE CONSULT [id number] problem s schedul ing BHAVIK REAGAN M 11/21 Referred for Appointment [employer]([facility] Practic [facility] Blue) [employer]([facility]) OUTPATIENT [id number] Pt wishes to stop smoking GINA JOY M 11/28 Released w/o Limitations [employer](F [facility]ily Practic e Red) [employer]([facility]) TELE CONSULT [id number] CRUZITO GINA JOY M 12/05 [employer]([facility] Pract[facility] Blue) [employer]([facility]) TELE CONSULT [id number] Con Leave JAYDEN GRANDE F 02/05 [employer]([facility] Pract[facility]) [employer]([facility]) TELE CONSULT [id number] con leave MIKO GARCÍA 02/07 Released to Self Care [employer]([facility] Practic [facility] Blue) [employer]([facility]) TELE CONSULT [id number] inform pt that CRUZITO if done JAYDEN GRANDE F 02/22 [employer](F amily Practic e Red) [employer]([facility]ical Therapy Clinic) OUTPATIENT [id number] NAYELI Olvera 03/14 Released with Work/Duty Limitations [employer](P [facility]ysical Therapy Clinic) [employer]([facility] Therapy [facility]) OUTPATIENT [id number] WARREN DOZIER 03/15 Released w/o Limitations [employer]([facility] Therapy [facility]) [employer]([facility]) OUTPATIENT [id number] PORTILLO SHARPE 03/19 Released w/o Limitations [employer]([facility] Therapy [facility]) [employer]([facility]) OUTPATIENT [id number] PORTILLO SHARPE 03/22 Released w/o Limitations [employer]([facility]ical Therapy [facility]) [employer]([facility]) OUTPATIENT [id number] PORTILLO SHARPE Violet 03/23 Released w/o Limitations [employer]([facility]ical Therapy Clinic) [employer]([facility]) OUTPATIENT [id number] PORTILLO SHARPE S 03/27 Released w/o Limitations [employer]([facility] Therapy [facility]) [employer]([facility] Therapy [facility]) OUTPATIENT [id number] PORTILLO SHARPE S 03/28 Released w/o Limitations [employer]([facility]ical Therapy [facility]) [employer]([facility]) OUTPATIENT [id number] PORTILLO SHARPE Violet 03/29 Released w/o Limitations [employer]([facility]ysical Therapy Clinic) [employer]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) [employer]([facility] Team [employer]) TELE CONSULT [id number] Need updated referra l for JAYDEN Levine 11/20 [employer](D over [facility] Team Hercule s) [employer]([facility] Team [employer]) TELE CONSULT [id number] Need CRUZITO - paperwo rk at first front ventilator JAYDEN GRANDE 11/21 [employer](D over [facility] Team Hercule s) [employer]([facility] Team [employer]) TELE CONSULT [id number] Dr. Ne marrero referHOSSEIN Jimenez 11/23 Referred for Appointment [employer](D over [facility] Team Hercule s) [employer]([facility] Team [employer]) TELE CONSULT [id number] appt line - AD pt dorothea murillo since last night FLORINDAALFONZO JAYDEN Chew 12/19 [employer](D over [facility] Team Hercule s) [employer]([facility] Team [place]) TELE CONSULT [id number] Notes Entered by: JULES LANDON 06 Mar 2012 1449 ------- ------- ------- ------- -- Appt line- pt wants to be tested for Lyme Disease JOAN STEPHEN 03/06 [employer](D over [facility] Team Hercule s) [employer](PHA Cell) OUTPATIENT [id number] PHA JEFFRY GRANDEN F 04/17 Released w/o Limitations [employer]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) [employer]([facility] Team [employer]) TELE CONSULT [id number] Notes Entered by: JULES LANDON 09 Jun 2012 1526 ------- ------- ------- ------- -- Appt line-AD pt need a f/u appt for his L shoulde r MITA Soni 06/09 Referred for Appointment [employer](D over [facility] Team Hercule s) [employer]([facility] Team [employer]) TELE CONSULT [id number] Notes Entered by: AMANDEEP MARES RD 23 Jun 2012 1252 ------- ------- ------- ------- -- CRUZITO request ZAHRA HUDSON 06/23 Referred for Appointment [employer](D over [facility] Team Hercule s) [facility] Team [place]) TELE CONSULT [id number] Notes Entered by: JULES LANDON 27 Jun 2012 1126 ------- ------- ------- ------- -- Appt line- pt was in the [facility] and has several ticks all over his body- lyme test JOAN STEPHEN 06/27 [employer](D over [facility] Team Hercule s) [employer](Shakeel er [facility] Team [employer]) OUTPATIENT [id number] oversea s sukumar jaeger ce and annual physica l ZAHRA WOLF 07/17 Released w/o Limitations [employer](D over [facility] Team Hercule s) [employer]([facility] er [facility] Team [employer]) TELE CONSULT [id number] Notes Entered by: Ran WOLF 24 Jul 2012 0916 ------- ------- ------- ------- -- 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 MITA KINSEY 07/24 Referred for Appointment [employer](D over [facility] Team Hercule s) [employer]([facility] er [facility] Team [employer]) TELE CONSULT [id number] Notes Entered by: Keily HERNANDEZ 25 Jul 2012 1250 ------- ------- ------- ------- -- Referra l Request JOAN STEPHEN 07/25 [employer](D over [facility] Team Hercule s) [employer]([facility] er [facility] Team [employer]) TELE CONSULT [id number] Notes Entered by: Steven STEPHEN 27 Jul 2012 2105 ------- ------- ------- ------- -- Lab result ZAHRA HUDSON 07/28 Referred for Appointment [employer](D over [facility] Team Hercule s) [employer]([place]el er [facility] Team [employer]) OUTPATIENT [id number] fever and ear infecti on ZAHRA WOLF 10/08 Sick at Home/Quarter s [employer](D over [facility] Team Hercule s) [facility] Clinic Team C) OUTPATIENT [id number] ear pain ANNA MALLOYMarilynn Tavarez 12/29 Released w/o Limitations [facility] Clinic Team C) [facility] Team C) OUTPATIENT [id number] left shoulde r FILOMENA Rodriguez Corby 01/08 Released with Work/Duty Limitations [facility] Team C) [facility] Team C) OUTPATIENT [id number] Notes Entered by: Rob DICKSON 05 Feb 2013 1538 ------- ------- ------- ------- -- Medical Right Start SREE DICKSON 02/05 Released w/o Limitations [facility] Team C) [facility]( Public Health) OUTPATIENT [id number] Notes Entered by: SARAH PALACIOS 16 Feb 2013 0930 ------- ------- ------- ------- -- [facility] SARAH PEREZ 02/16 Released w/o Limitations [facility]( Public Health) [facility]( Physical Therapy) OUTPATIENT [id number] SHMUEL SANCHEZ 03/11 Released w/o Limitations [facility]( Physica l Therapy ) [facility]( Physical Therapy) OUTPATIENT [id number] ESTRADA MCNAMARA 03/20 Released w/o Limitations [facility]( Physica l Therapy ) [facility]( Physical Therapy) OUTPATIENT [id number] LOGAN GARCIA 03/25 Released w/o Limitations [facility]( Physica l Therapy ) [facility] L_FH_Clin ic_Team_B ) TELE CONSULT [id number] Notes Entered by: SARAH PALACIOS 27 Apr 2013 0950 ------- ------- ------- ------- -- KATHARINE GERARDO 04/27 [facility](ZZZ __ Clinic_ Team_B) [facility]( Public Health) OUTPATIENT [id number] Notes Entered by: SARAH PALACIOS 13 May 2013 1156 ------- ------- ------- ------- -- SARAH ESPINAL 05/13 Released w/o Limitations [facility]( Public Health) [facility] Team C) OUTPATIENT [id number] reprodu ctive organs questio FILOMENA Bernal 05/18 Released w/o Limitations [facility] Team C) [facility]( Health Promotion ) OUTPATIENT [id number] Notes Entered by: RADHIKA MCKEON 18 Jun 2013 1453 ------- ------- ------- ------- -- RADHIKA Marinelli 06/18 Released w/o Limitations [facility]( Health Promoti on) [facility] Clinic Team C) TELE CONSULT [id number] Notes Entered by: Ran MARTELL 10 Aug 2013 1254 ------- ------- ------- ------- -- DM followi ng for hyperli pidemia . Due labs. AMPARO VU 08/10 [facility] Team [facility]) [facility] Team C) TELE CONSULT [id number] Notes Entered by: Benjamin COTTON 08 Sep 2013 1027 ------- ------- ------- ------- -- ER visit tick removal AMPARO VU 09/08 [facility] Team [facility]) [facility] L_FH_Clin ic_Team_B ) TELE CONSULT [id number] Notes Entered by: RAJEEV SOW 09 Dec 2013 1018 ------- ------- ------- ------- -- Network results -[facility] [place]- 09/17 FILOMENA MALLOY 12/09 [facility] __ Clinic_ Team_B) [facility] Clinic Team C) OUTPATIENT [id number] analisa harris FILOMENA Rodriguez 12/31 Released w/o Limitations [facility] Team C) [facility] Team C) TELE CONSULT [id number] Notes Entered by: Keily MURGUIA 22 Jan 2014 0741 ------- ------- ------- ------- -- F/u AMPARO Dickerson 01/22 [facility] Team C) [facility]) OUTPATIENT [id number] f/u FILOMENA Us 01/22 Released w/o Limitations [facility] Team C) [facility]( Physical Therapy) OUTPATIENT [id number] Joint pain, localiz ed in the analisa CECILIA Ortiz 01/25 Released w/o Limitations [facility]( Physica l Therapy ) [facility] Team C) TELE CONSULT [id number] Notes Entered by: Keily MURGUIA 27 Jan 2014 0946 ------- ------- ------- ------- -- Profile wording FILOMENA MALLOY 01/27 [facility] Clinic Team C) [facility] Team C) TELE CONSULT [id number] Notes Entered by: Keily MURGUIA 01 Feb 2014 1325 ------- ------- ------- ------- -- Profile status - pt testing tomorro w FILOMENA MALLOY 02/01 [facility] Clinic Team C) [facility](SD Physical Therapy) OUTPATIENT [id number] JAKUBSUSANMarilynn Harris 02/04 Released w/o Limitations [facility](SDL Physica l Therapy ) [facility](SD Physical Therapy) OUTPATIENT [id number] ESTRADA MCNAMARA 02/09 Released w/o Limitations [facility](SDL Physica l Therapy ) [facility](SDL Physical Therapy) OUTPATIENT [id number] JAKUB ABDIRAHMAN Harris 02/18 Released w/o Limitations [facility](SDL Physica l Therapy ) [facility](SDL Physical Therapy) OUTPATIENT [id number] CECILIA PIZARRO 03/11 Released w/o Limitations [facility](SD Physica l Therapy ) [facility] _FH_Clin ic_Team_B ) TELE CONSULT [id number] Notes Entered by: FABIO RUBI 23 Mar 2014 0804 ------- ------- ------- ------- -- Network Results -[facility] rge-01/02 4 FILOMENA MALLOY 03/23 [facility](ZZZ __ Clinic_ Team_B) [facility]( Optometry ) OUTPATIENT [id number] Notes Entered by: FRANKI DEAL 23 Apr 2014 1332 ------- ------- ------- ------- -- CADENCE MULLIGAN 04/23 Released w/o Limitations [facility]( Optomet ry) [facility]( Public Health) OUTPATIENT [id number] Notes Entered by: GISELL LEGGETT 24 May 2014 1617 ------- ------- ------- ------- -- PHA- ANNUAL VERONICA LEGGETT 05/24 Released w/o Limitations [facility]( Public Health) [facility] Team C) OUTPATIENT [id number] meb BRIGIDA Kay 09/28 Released w/o Limitations [facility] Team C) [facility] Team C) OUTPATIENT [id number] inferti BRIGIDA Casper 02/18 Released w/o Limitations [facility] Team C) [facility]) OUTPATIENT [id number] Notes Entered by: Ángel CUELLAR 23 Jun 2015 0927 ------- ------- ------- ------- -- ANNUAL PAUL PARKINSON 06/23 Released w/o Limitations [facility]( Public Health) [facility] Clinic Team C) OUTPATIENT [id number] neck pain BRIGIDA DONATO 08/23 Released w/o Limitations [facility] Team C) [facility] Team C) OUTPATIENT [id number] Notes Entered by: ROBYN WINTER I 06 Jan 2016 1318 ------- ------- ------- ------- -- strep test WYATT HYMAN 01/05 Released w/o Limitations [facility] Team C) [facility] __Clin ic_Team_B ) OUTPATIENT [id number] right eye cloudy/ swollen outside of eye MING LEONARD 01/29 Released w/o Limitations [facility]_ Clinic_ Team_B) [facility] Team C[facility] OUTPATIENT [id number] Sleep apnea discuss ion initial /PT Q coded BRIGIDA DONATO 02/08 Released w/o Limitations [facility] Clinic Team C) [facility] Sleep Clinic) OUTPATIENT [id number] Has appoint ment ZENIA ABDALLA 02/28 Released w/o Limitations [facility] Sleep Clinic) [facility] Sleep Clinic) OUTPATIENT [id number] sleep group ELAINE SMITH 04/10 Released w/o Limitations [facility] Sleep Clinic) [facility] Sleep Clinic) OUTPATIENT [id number] split night KEN ALONSO 04/10 Released w/o Limitations [facility] Sleep Clinic) [facility] Sleep Clinic) OUTPATIENT [id number] Provide r only psg interp YAEL LAUREANO 04/24 Released w/o Limitations [facility] Sleep Clinic) [facility] Sleep Clinic) OUTPATIENT [id number] PSG results ABILIO GAMINO 05/02 Released w/o Limitations [facility] Sleep Clinic) [facility] Clinic Team C) TELE CONSULT [id number] Notes Entered by: Benjamin COTTON 03 May 2016 0832 ------- ------- ------- ------- -- Pass on info MELANY RADER 05/03 [facility] Clinic Team C) [facility] Clinic Team C) TELE CONSULT [id number] Notes Entered by: LIGIA DIAZ 18 Jun 2016 1433 ------- ------- ------- ------- -- RESULTS OF Annual/ Initial JASVIR FOSTER 06/18 [facility] Clinic Team C) [facility] Sleep Clinic) OUTPATIENT [id number] cpap initial follow up ABILIO GAMINO 06/21 Released w/o Limitations [facility] Sleep Clinic) [facility]( Public Health) OUTPATIENT [id number] Notes Entered by: SAMMI LÓPEZ 03 Jul 2016 1621 ------- ------- ------- ------- -- Annual PHA JESUS LÓPEZ 07/03 Released w/o Limitations [facility]( Public Health) [facility]( Hearing Conservat ion) OUTPATIENT [id number] Notes Entered by: WAYNE KINGSTON 20 Jul 2016 1049 ------- ------- ------- ------- -- Annual Audiogr am VERONICA LEGGETT 07/20 Released w/o Limitations [facility]( Hearing Conserv ation) [facility] Clinic Team C) TELE CONSULT [id number] Notes Entered by: CRISTINA RASMUSSEN 24 Sep 2016 1051 ------- ------- ------- ------- -- SAIGE Menjivar 09/24 [facility] Clinic Team C) [facility](SDL In and Out Processin g) TELE CONSULT [id number] Notes Entered by: SARAH MENG 15 Nov 2016 1030 ------- ------- ------- ------- -- Medical Out Process ing SARAH MENG 11/15 [facility](SDL In and Out Process ing) [employer]([facility] Team A) TELE CONSULT [id number] Notes Entered by: MELANY TORREZ 10 May 2017 0829 ------- ------- ------- ------- -- Profile KRISILANABrionna Rivas 05/10 [facility](H anscom [facility] Team A) [facility](Bas e Ops Med Clinic) OUTPATIENT [id number] [facility]# [phone] GIANCARLO MERA 08/26 Released w/o Limitations [facility](B ase Ops Med Clinic) [facility](PHA Cell) OUTPATIENT [id number] Notes Entered by: ROSI FONTANA 04 Sep 2017 0918 ------- ------- ------- ------- -- [facility] GIANCARLO MAURER 09/04 Released w/o Limitations [facility](P LEAL Cell) [facility] Team A) TELE CONSULT [id number] Notes Entered by: Marilynn PASTOR 23 Sep 2017 0935 ------- ------- ------- ------- -- Pt MATTHEW Vázquez 09/23 Referred for Appointment [facility](H anscom [facility] Team A) [facility] Team A) TELE CONSULT [id number] Notes Entered by: JORDON VELA 12 Dec 2017 1458 ------- ------- ------- ------- -- Sleep Study CAROLYN Coreas 12/12 [facility](H anscom C Team A) [facility] Team A) TELE CONSULT [id number] Notes Entered by: Marilynn PASTOR 19 Dec 2017 1139 ------- ------- ------- ------- -- MATTHEW Wallace 12/19 Referred for Appointment [facility](H anscom [facility] Team A) [facility]([place] [facility] Team A) TELE CONSULT [id number] Notes Entered by: LEELA NIELSEN 27 Dec 2017 1050 ------- ------- ------- ------- -- MATTHEW Bullock 12/27 Referred for Appointment [facility] Team A) OUTPATIENT [id number] Paperwo for Sleep study JIMWHITNEY MCPHERSON Keily 12/31 Released w/o Limitations [facility] Team A) TELE CONSULT [id number] Notes Entered by: TAAY AGUIRRE 07 Apr 2018 0924 ------- ------- ------- ------- -- [facility] SINAI AGUIRRE 04/07 Referred for Appointment [facility] Team A) [facility](Fli ght Med Leal) TELE CONSULT [id number] Notes Entered by: CLARE COVINGTON 28 Apr 2018 0718 ------- ------- ------- ------- -- CA 4 ROWAN COSTA 04/28 Other Not Elsewhere Classified [facility](F light Med Leal) [facility]) OUTPATIENT [id number] 9 [facility] [phone] RICHAR DE DIOS 09/30 Released with Work/Duty Limitations [facility]) [facility] Team A) TELE CONSULT [id number] Notes Entered by: LASHONDA BADILLO 27 Nov 2018 1701 ------- ------- ------- ------- -- GSU- Profile request //BORIS Del Valle 11/27 Other Not Elsewhere Classified [facility]( [facility] Team A) TELE CONSULT [id number] Notes Entered by: BONILLA IRENE 09 Dec 2018 0826 ------- ------- ------- ------- -- [facility]/ /Profil e Update Request BONILLA SHIN 12/09 Other Not Elsewhere Classified [facility] Team A) [facility] Team A) TELE CONSULT [id number] Notes Entered by: MJ BENJAMIN 22 Jan 2019 1210 ------- ------- ------- ------- -- [facility] - Con- Leave Wilma vivas and Request ORIANA WOLF 01/22 Referred for Appointment [facility] Team A) [facility] ght Med Leal) TELE CONSULT [id number] Notes Entered by: ANDREW ALBARADO 21 May 2019 1012 ------- ------- ------- ------- -- FL-4. ROWAN Bhatti 05/21 Other Not Elsewhere Classified [facility](F light Med Leal) [facility] Medical [facility](Fli ght Med Leal) TELE CONSULT [id number] Notes Entered by: NEAL CASTILLO 16 Jun 2019 1623 ------- ------- ------- ------- -- [facility]: CLAUU Profile request RODNEY LACY 06/16 [facility](F light Med Leal) [facility]) TELE CONSULT [id number] Notes Entered by: Brionna COSTA 18 Jun 2019 0959 ------- ------- ------- ------- -- [facility] [place] GEORGIE SRIVASTAVA 06/18 [facility](B [facility]ps [facility]) [facility](BHO P Clinic) OUTPATIENT [id number] [facility] PHA Priorit y SHINE COBBINDIO Rivas 09/11 Released w/o Limitations [employer](B HOP [facility]) [employer]([facility]) OUTPATIENT [id number] Notes Entered by: NEAL CASTILLO 05 Oct 2019 1432 ------- ------- ------- ------- -- AF [facility] )([facility] ed) RODNEY LACY 10/05 Released w/o Limitations [employer](B [facility]ps Med [facility]) [facility](Fli ght Med Leal) TELE CONSULT [id number] Notes Entered by: NEAL CASTILLO 10 Dec 2019 1330 ------- ------- ------- ------- -- [facility]: [facility] 72hour quarter s request EDITH MONGE 12/10 Other Not Elsewhere Classified [facility](F light Med Leal) [facility](Fli ght Med Leal) TELE CONSULT [id number] Notes Entered by: JEWEL LACY 04 Apr 2020 1241 ------- ------- ------- ------- -- KOSTA George 04/04 Other Not Elsewhere Classified [facility](F light Med Leal) [facility](Fli ght Med Leal) TELE CONSULT [id number] Notes Entered by: JEWEL LACY 04 Aug 2020 1927 ------- ------- ------- ------- -- REQUEST KEYLA CUMMINGS/REJI Tavarez NOTES JOSHUA CASTILLO 08/04 Other Not Elsewhere Classified [facility](F light Med Leal) [facility]) TELE CONSULT [id number] Notes Entered by: EDITH MONGE 17 Aug 2020 1239 ------- ------- ------- ------- -- MEB WorkshRODNEY Adams 08/17 [facility](B ase Ops Med Clinic) [facility] Team A) TELE CONSULT [id number] Notes Entered by: WAYNE CARPENTER 11 Oct 2020 1431 ------- ------- ------- ------- -- GSU PHA JOSHUA CASTILLO 10/11 Other Not Elsewhere Classified [facility]( anscom [facility] Team A) [facility](Fli ght Med Leal) TELE CONSULT [id number] Notes Entered by: NEAL CASTILLO 11 Oct 2020 1550 ------- ------- ------- ------- -- AMRO follow up JOSHUA CASTILLO 10/11 Other Not Elsewhere Classified [facility](F light Med Leal) [facility]) OUTPATIENT [id number] A -l RICHAR DE DIOS 10/21 Released w/o Limitations [facility](B ase Ops Med Clinic) [facility]ps [facility]) OUTPATIENT [id number] [facility] PHA(A [facility] ed)(GSU ) RICHAR DE DIOS 11/15 Released w/o Limitations [facility](B ase Ops Med Clinic) [facility](Bas [facility] Ops Med Clinic) OUTPATIENT [id number] 1 DR1 RICHAR DE DIOS 10/23 Released w/o Limitations [facility](B ase Ops Med Clinic) [facility](Fli ght Med Leal) TELE CONSULT [id number] Notes Entered by: TYSON DE DIOS 24 Oct 2021 1521 ------- ------- ------- ------- -- GSU Remote Form JOSHUA CASTILLO 10/24 Other Not Elsewhere Classified [facility](F light Med Leal) [facility]) TELE CONSULT [id number] Notes Entered by: NEAL CASTILLO 07 Nov 2021 1627 ------- ------- ------- ------- -- ZAYRA/RICHAR Rodgers 11/07 [employer](B [facility]se [facility]ps Med [facility]) [employer](a ring Conservat ion Clinic) OUTPATIENT [id number] 2 EARS ANNUAL [facility]IN [place] FLAKITA 12/28 Released w/o Limitations [employer](H earing Conserv ation Clinic) [employer](39 ABW Clinic) OUTPATIENT [id number] Notes Entered by: Brionna BUTTERFIELD 25 Jan 2022 1029 ------- ------- ------- ------- -- ELAINE Bansal 01/25 Released w/o Limitations [employer](3 9 ABW Clinic) [employer]([facility] Med Team A) OUTPATIENT [id number] Notes Entered by: KISHOR KIM ON 26 Feb 2022 1145 ------- ------- ------- ------- -- BECCA Rogers 02/26 Released w/o Limitations [employer](I [facility] Med Team A) [employer]([facility] Team A) TELE CONSULT [id number] Notes Entered by: HAROON PHILIPPE 19 Jul 2022 1244 ------- ------- ------- ------- -- IMR Update MARTY COPELAND 07/19 Other Not Elsewhere Classified [employer]( anscom [facility] Team A) [employer]([facility]) TELE CONSULT [id number] Notes Entered by: HAROON PHILIPPE 21 Aug 2022 1427 ------- ------- ------- ------- -- ROWAN Manley 08/21 Other Not Elsewhere Classified [employer](F light Med Leal) [employer](Bas [facility] Ops Med Clinic) TELE CONSULT [id number] Notes Entered by: TOSHIA DUNN 19 Sep 2022 1331 ------- ------- ------- ------- -- JOSHUA FRASER 09/19 Other Not Elsewhere Classified [employer](B ase Ops Med Clinic) [facility](Bas [facility]ps Med Clinic) OUTPATIENT [id number] 3 VALERI RICHAR DE DIOS 09/20 Released w/o Limitations [facility](B ase Ops Med Clinic) [facility](Bas [facility]ps Med Clinic) OUTPATIENT [id number] AF PHA CBN:[id number] RICHAR DE DIOS 10/14 Released w/o Limitations [facility](B ase Ops Med Clinic) 0310C-AF- C-[facility] [employer] Between Visit [id number] 01/01 Discharge Disposition: Home or Self Care 0310C-A F-C-[facility] [employer] 0310C-AF- C-[facility] [employer] Between Visit [id number] 02/02 Discharge Disposition: Home or Self Care 0310C-A F-C-[facility] [employer] 0310C-AF- C-[facility] [employer] Between Visit [id number] 03/19 Discharge Disposition: Home or Self Care 0310C-A F-C-[facility] [employer] 0310A-AF- C-[facility] [employer] Between Visit [id number] 04/13 Discharge Disposition: Home or Self Care 0310A-A F-C-[facility] [employer] 0310C-AF- C-[facility] [employer] Between Visit [id number] 06/04 Discharge Disposition: Home or Self Care 0310C-A F-C-[facility] [employer] Procedures Combined list of: 1) Procedures from Department of Veterans Affairs facilities going back up to thelast 18 months, not all VA non-surgical procedures are included; 2) All procedures 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 Procedure Procedure Type Code Date Perfomer Comments Laura e L Ankle surgery for pin/screw removal January 2019-A [facility] [employer] HEART CATH THROUGH FEMORAL ARTERY February 2014 C [facility] Left Shoulder Laberal Tear February 2011 [facility] Left ankle surgery fracture repair March 2018 [facility] [employer] [id number] [facility] [employer] PURE TONE AUDIOMTRY THRESHOLD COMPUTER DEV AIR PURE TONE AUDIOMTRY THRESHOLD COMPUTER DEV AIR [id number] [facility] VIS FUNCT SCREEN,AUTOMAT/SEMI -AUTOMAT BILAT QUANT DETERM VISUAL ACUITY,OCULAR ALIGN,COLOR VISION,PSEUDOISOCHR OMAT PLATES,& FIELD VIS (MAY INC ALL/SOME SCRN DETERM FOR CONTRAST SENSITIV,VIS UND GLARE) [facility] VIS FUNCT SCREEN,AUTOMAT/SEMI -AUTOMAT BILAT QUANT DETERM VISUAL ACUITY,OCULAR ALIGN,COLOR VISION,PSEUDOISOCHR OMAT PLATES,& FIELD VIS (MAY INC ALL/SOME SCRN DETERM FOR CONTRAST SENSITIV,VIS UND GLARE) [facility] OPHTHALMOLOGICAL SERVICES: MEDICAL EXAMINATION AND EVALUATION, WITH INITIATION OR CONTINUATION OF DIAGNOSTIC AND TREATMENT PROGRAM; INTERMEDIATE, ESTABLISHED PATIENT [facility] VIS FUNCT SCREEN,AUTOMAT/SEMI -AUTOMAT BILAT QUANT DETERM VISUAL ACUITY,OCULAR ALIGN,COLOR VISION,PSEUDOISOCHR OMAT PLATES,& FIELD VIS (MAY INC ALL/SOME SCRN DETERM FOR CONTRAST SENSITIV,VIS UND GLARE) [facility] VIS FUNCT SCREEN,AUTOMAT/SEMI -AUTOMAT BILAT QUANT DETERM VISUAL ACUITY,OCULAR ALIGN,COLOR VISION,PSEUDOISOCHR OMAT PLATES,& FIELD VIS (MAY INC ALL/SOME SCRN DETERM FOR CONTRAST SENSITIV,VIS UND GLARE) [facility] AZITHROMYCIN DIHYDRATE, ORAL, CAPSULES/POWDER, 1 GRAM [facility] BRIEF COMM TECH-BASE SERV,E.G. VIRT CHK-IN,BY PHYS/OTH QUAL HCP,RPT E&M SERV,PROV TO EST PT,NOT ORIG FRM REL E/M SERV PROV W/IN PREV 7DAY NOR LEAD TO E/M SRV/PX W/IN NEXT 24HR/SOON KARISHMA; 5-10 MIN DISC DoD ADMINISTRATION OF PATIENT-FOCUSED HEALTH RISK ASSESSMENT INSTRUMENT (EG, HEALTH HAZARD APPRAISAL) WITH SCORING AND DOCUMENTATION, PER STANDARDIZED INSTRUMENT DoD ADMINISTRATION OF PATIENT-FOCUSED HEALTH RISK ASSESSMENT INSTRUMENT (EG, HEALTH HAZARD APPRAISAL) WITH SCORING AND DOCUMENTATION, PER STANDARDIZED INSTRUMENT DoD NEUROBEHAV STATUS EXAM (CLIN ASSES THINK,REAS&JUDG,[EG ,ACQUIR KNOW,ATTEN,LANG,MEM ,PLAN&PROB SOLV&VIS SPATIAL ABIL]),PHYS/OTH QUAL HCP,BOTH [id number] TIME W PT &TIME INTERP TST RES &PREP RPT;1ST HR [facility] ADMINISTRATION OF PATIENT-FOCUSED HEALTH RISK ASSESSMENT INSTRUMENT (EG, HEALTH HAZARD APPRAISAL) WITH SCORING AND DOCUMENTATION, PER STANDARDIZED INSTRUMENT DoD BRIEF COMM TECH-BASE SERV,E.G. VIRT CHK-IN,BY PHYS/OTH QUAL HCP,RPT E&M SERV,PROV TO EST PT,NOT ORIG FRM REL E/M SERV PROV W/IN PREV 7DAY NOR LEAD TO E/M SRV/PX W/IN NEXT 24HR/SOON KARISHMA; 5-10 MIN DISC DoD ONLINE ASSESS &MANAG SERV PROVIDE,A QUAL NONPHYS HCP TO AN ESTABLISHED PAT/GUARDIAN,NOT ORIGINAT FRM RELAT ASSESS &MANAG SERV PROVIDE W/IN THE PREV 7 DAYS,USE THE [employer] NETWORK DoD BRIEF EMOTIONAL/BEHAVIORA L ASSESSMENT (EG, DEPRESSION INVENTORY, ATTENTION-DEFICIT/H YPERACTIVITY DISORDER [ADHD] SCALE), WITH SCORING AND DOCUMENTATION, PER STANDARDIZED INSTRUMENT DoD ONLINE ASSESS &MANAG SERV PROVIDE,A QUAL NONPHYS HCP TO AN ESTABLISHED PAT/GUARDIAN,NOT ORIGINAT FRM RELAT ASSESS &MANAG SERV PROVIDE W/IN THE PREV 7 DAYS,USE THE [employer] COMM NETWORK DoD ONLINE ASSESS &MANAG SERV PROVIDE,A QUAL NONPHYS HCP TO AN ESTABLISHED PAT/GUARDIAN,NOT ORIGINAT FRM RELAT ASSESS &MANAG SERV PROVIDE W/IN THE PREV 7 DAYS,USE THE INTERNET/SIMILAR [employer] NETWORK [facility] ONLINE ASSESS &MANAG SERV PROVIDE,A QUAL NONPHYS HCP TO AN ESTABLISHED PAT/GUARDIAN,NOT ORIGINAT FRM RELAT ASSESS &MANAG SERV PROVIDE W/IN THE PREV 7 DAYS,USE THE [employer] NETWORK [facility] ADMINISTRATION OF PATIENT-FOCUSED HEALTH RISK ASSESSMENT INSTRUMENT (EG, HEALTH HAZARD APPRAISAL) WITH SCORING AND DOCUMENTATION, PER STANDARDIZED INSTRUMENT [facility] ADMINISTRATION OF PATIENT-FOCUSED HEALTH RISK ASSESSMENT INSTRUMENT (EG, HEALTH HAZARD APPRAISAL) WITH SCORING AND DOCUMENTATION, PER STANDARDIZED INSTRUMENT [facility] MANUAL THERAPY TECHNIQUES (EG, MOBILIZATION/ MANIPULATION, MANUAL LYMPHATIC DRAINAGE, MANUAL TRACTION), 1 OR MORE REGIONS, EACH 15 MINUTES [facility] MANUAL THERAPY TECHNIQUES (EG, MOBILIZATION/ MANIPULATION, MANUAL LYMPHATIC DRAINAGE, MANUAL TRACTION), 1 OR MORE REGIONS, EACH 15 MINUTES [facility] APPLICATION OF A MODALITY TO 1 OR MORE AREAS; HOT OR COLD PACKS [facility] THERAPEUTIC PROCEDURE, 1 OR MORE AREAS, EACH 15 MINUTES; THERAPEUTIC EXERCISES TO DEVELOP STRENGTH AND ENDURANCE, RANGE OF MOTION AND FLEXIBILITY [facility] MANUAL THERAPY TECHNIQUES (EG, MOBILIZATION/ MANIPULATION, MANUAL LYMPHATIC DRAINAGE, MANUAL TRACTION), 1 OR MORE REGIONS, EACH 15 MINUTES [facility] MANUAL THERAPY TECHNIQUES (EG, MOBILIZATION/ MANIPULATION, MANUAL LYMPHATIC DRAINAGE, MANUAL TRACTION), 1 OR MORE REGIONS, EACH 15 MINUTES [facility] APPLICATION OF A MODALITY TO 1 OR MORE AREAS; HOT OR COLD PACKS [facility] EXERCISE EQUIPMENT [facility] NONINVASIVE EAR OR PULSE OXIMETRY FOR OXYGEN SATURATION; SINGLE DETERMINATION [facility] PHYSICAL THERAPY RE-EVALUATION [facility] THERAPEUTIC PROCEDURE,1 OR MORE AREAS,EACH 15 MINUTES;NEUROMUSCUL AR REEDUCATION OF MOVEMENT,BALANCE,CO ORDINATION,KINESTHE TIC SENSE,POSTURE,AND/O R PROPRIOCEPTION FOR SITTING AND/OR STANDING ACTIVITIES [facility] APPLICATION OF A MODALITY TO 1 OR MORE AREAS; ULTRASOUND, EACH 15 MINUTES [facility] THERAPEUTIC PROCEDURE, 1 OR MORE AREAS, EACH 15 MINUTES; THERAPEUTIC EXERCISES TO DEVELOP STRENGTH AND ENDURANCE, RANGE OF MOTION AND FLEXIBILITY DoD APPLICATION OF A MODALITY TO 1 OR MORE AREAS; ULTRASOUND, EACH 15 MINUTES DoD APPLICATION OF A MODALITY TO 1 OR MORE AREAS; ULTRASOUND, EACH 15 MINUTES 008 DoD APPLICATION OF A MODALITY TO 1 OR MORE AREAS; ULTRASOUND, EACH 15 MINUTES DoD THERAPEUTIC PROCEDURE, 1 OR MORE AREAS, EACH 15 MINUTES; THERAPEUTIC EXERCISES TO DEVELOP STRENGTH AND ENDURANCE, RANGE OF MOTION AND FLEXIBILITY DoD APPLICATION OF A MODALITY TO 1 OR MORE AREAS; HOT OR COLD PACKS DoD APPLICATION OF A MODALITY TO 1 OR MORE AREAS; HOT OR COLD PACKS DoD APPLICATION OF A MODALITY TO 1 OR MORE AREAS; HOT OR COLD PACKS 008 DoD APPLICATION OF A MODALITY TO 1 OR MORE AREAS; HOT OR COLD PACKS DoD THERAPEUTIC PROCEDURE, 1 OR MORE AREAS, EACH 15 MINUTES; THERAPEUTIC EXERCISES TO DEVELOP STRENGTH AND ENDURANCE, RANGE OF MOTION AND FLEXIBILITY [facility] PHYSICAL THERAPY RE-EVALUATION 008 DoD THERAPEUTIC PROCEDURE, 1 OR MORE AREAS, EACH 15 MINUTES; THERAPEUTIC EXERCISES TO DEVELOP STRENGTH AND ENDURANCE, RANGE OF MOTION AND FLEXIBILITY DoD THERAPEUTIC PROCEDURE, 1 OR MORE AREAS, EACH 15 MINUTES; THERAPEUTIC EXERCISES TO DEVELOP STRENGTH AND ENDURANCE, RANGE OF MOTION AND FLEXIBILITY DoD THERAPEUTIC PROCEDURE, 1 OR MORE AREAS, EACH 15 MINUTES; THERAPEUTIC EXERCISES TO DEVELOP STRENGTH AND ENDURANCE, RANGE OF MOTION AND FLEXIBILITY DoD THERAPEUTIC PROCEDURE, 1 OR MORE AREAS, EACH 15 MINUTES; THERAPEUTIC EXERCISES TO DEVELOP STRENGTH AND ENDURANCE, RANGE OF MOTION AND FLEXIBILITY [facility] TELE ASSESS & MGT SRV PROV QUAL NONPHYS HLTH CARE PRO TO EST PAT,PARENT,GUARD NOT ORIG REL ASSESS & MGT SRV PROV W/IN PREV 7 DAYS NOR LEAD ASSESS & MGT SRV/PX W/IN NXT 24 HR/SOON APT;5-10 MIN MED DIS [facility] PURE TONE AUDIOMETRY (THRESHOLD), AUTOMATED; AIR ONLY [facility] POLYSOMNOGRAPHY; AGE 6 YEARS OR OLDER, SLEEP STAGING WITH 4 OR MORE ADDITIONAL PARAMETERS OF SLEEP, ATTENDED BY A TECHNOLOGIST [facility] POLYSOMNOGRAPHY; AGE 6 YEARS OR OLDER, SLEEP STAGING WITH 4 OR MORE ADDITIONAL PARAMETERS OF SLEEP, ATTENDED BY A TECHNOLOGIST [facility] OSTEOPATHIC MANIPULATIVE TREATMENT (OMT); 1-2 BODY REGIONS INVOLVED [facility] VIS FUNCT SCREEN,AUTOMAT/SEMI -AUTOMAT BILAT QUANT DETERM VISUAL ACUITY,OCULAR ALIGN,COLOR VISION,PSEUDOISOCHR OMAT PLATES,& FIELD VIS (MAY INC ALL/SOME SCRN DETERM FOR CONTRAST SENSITIV,VIS UND GLARE) 014 [facility] PHYSICAL THERAPY RE-EVALUATION [facility] THERAPEUTIC PROCEDURE, 1 OR MORE AREAS, EACH 15 MINUTES; THERAPEUTIC EXERCISES TO DEVELOP STRENGTH AND ENDURANCE, RANGE OF MOTION AND FLEXIBILITY [facility] THERAPEUTIC PROCEDURE, 1 OR MORE AREAS, EACH 15 MINUTES; THERAPEUTIC EXERCISES TO DEVELOP STRENGTH AND ENDURANCE, RANGE OF MOTION AND FLEXIBILITY [facility] THERAPEUTIC PROCEDURE,1 OR MORE AREAS,EACH 15 MINUTES;NEUROMUSCUL AR REEDUCATION OF MOVEMENT,BALANCE,CO ORDINATION,KINESTHE TIC SENSE,POSTURE,AND/O R PROPRIOCEPTION FOR SITTING AND/OR STANDING ACTIVITIES 014 [facility] THERAPEUTIC PROCEDURE, 1 OR MORE AREAS, EACH 15 MINUTES; THERAPEUTIC EXERCISES TO DEVELOP STRENGTH AND ENDURANCE, RANGE OF MOTION AND FLEXIBILITY 014 [facility] APPLICATION OF A MODALITY TO 1 OR MORE AREAS; IONTOPHORESIS, EACH 15 MINUTES [facility] APPLICATION OF A MODALITY TO 1 OR MORE AREAS; IONTOPHORESIS, EACH 15 MINUTES 013 [facility] PHYSICAL THERAPY EVALUATION [facility] THERAPEUTIC PROCEDURE, 1 OR MORE AREAS, EACH 15 MINUTES; THERAPEUTIC EXERCISES TO DEVELOP STRENGTH AND ENDURANCE, RANGE OF MOTION AND FLEXIBILITY 022 [facility] Modalities Cryotherapy Cold Packs Modalities Cryotherapy Cold Packs [id number] SIVAKUMAR MCHUGH [facility] Physical Therapy Neuromuscular Re-education Physical Therapy Neuromuscular Re-education [id number] SIVAKUMAR MCHUGH [facility] Physical Therapy: ___ Se ion Segments, 15 Minutes Each Physical Therapy: ___ Session Segments, 15 Minutes Each [id number] SIVAKUMAR MCHUGH [facility] Physical Therapy Service Re-Evaluation Physical Therapy Service Re-Evaluation [id number] GEORGIE ROWE [facility] Physical Therapy: ___ Se ion Segments, 15 Minutes Each Physical Therapy: ___ Session Segments, 15 Minutes Each [id number] DEANN LAW [facility] Physical Therapy: ___ Se ion Segments, 15 Minutes Each Physical Therapy: ___ Session Segments, 15 Minutes Each [id number] SIVAKUMAR MCHUGH [facility] Physical Therapy: ___ Se ion Segments, 15 Minutes Each Physical Therapy: ___ Session Segments, 15 Minutes Each [id number] GEORGIE ROWE [facility] Physical Therapy Service Evaluation Physical Therapy Service Evaluation [id number] GEORGIE ROWE [facility] Physical Therapy: ___ Se ion Segments, 15 Minutes Each Physical Therapy: ___ Session Segments, 15 Minutes Each [id number] GEORGIE ROWE [facility] Physical Therapy Service Evaluation Physical Therapy Service Evaluation [id number] GEORGIE ROWE [facility] Visual Function Screening Visual Function Screening [id number] RAUL DE LA PAZ [facility] Screening Test Of Visual Acuity, Quantitative, Bilateral Screening Test Of Visual Acuity, Quantitative, Bilateral [id number] RAUL DE LA PAZ [facility] Visual Function Screening Visual Function Screening 42101 006 RAUL DE LA PAZ [facility] Screening Test Of Visual Acuity, Quantitative, Bilateral Screening Test Of Visual Acuity, Quantitative, Bilateral [id number] RAUL DE LA PAZ [facility] Ophthalmological Prior Patient Start Intermediate Level Care Ophthalmological Prior Patient Start Intermediate Level Care [id number] DOROTHY SIERRA [facility] Visual Function Screening Visual Function Screening 41641 006 RAUL DE LA PAZ [facility] Screening Test Of Visual Acuity, Quantitative, Bilateral Screening Test Of Visual Acuity, Quantitative, Bilateral 13010 006 RAUL DE LA PAZ [facility] Visual Function Screening Visual Function Screening [id number] RAUL DE LA PAZ [facility] Screening Test Of Visual Acuity, Quantitative, Bilateral Screening Test Of Visual Acuity, Quantitative, Bilateral [id number] RAUL DE LA PAZ [facility] Internet Med Svc Qual Nonphys Healthcare Prof Up To 7 Days Estab Patient Internet Med Svc Qual Nonphys Healthcare Prof Up To 7 Days Estab Patient [id number] GEORGIE SIMON [facility] Internet Med Svc Qual Nonphys Healthcare Prof Up To 7 Days Estab Patient Internet Med Svc Qual Nonphys Healthcare Prof Up To 7 Days Estab Patient [id number] BONILLA SHIN [facility] Non-Physician Phone Call To Patient/Provider Brief (5-10min) Non-Physician Phone Call To Patient/Provider Brief (5-10min) [id number] BONILLA SHIN [facility] Preventive Medicine Administration Of Health Risk Questionnaire Patient-Focused Preventive Medicine Administration Of Health Risk Questionnaire Patient-Focused [id number] [place] [facility] Internet Med Svc Qual Nonphys Healthcare Prof Up To 7 Days Estab Patient Internet Med Svc Qual Nonphys Healthcare Prof Up To 7 Days Estab Patient [id number] [facility] Preventive Medicine Administration Of Health Risk Questionnaire Patient-Focused Preventive Medicine Administration Of Health Risk Questionnaire Patient-Focused [id number] [facility] Internet Med Svc Qual Nonphys Healthcare Prof Up To 7 Days Estab Patient Internet Med Svc Qual Nonphys Healthcare Prof Up To 7 Days Estab Patient [id number] [facility] Preventive Medicine Administration Of Health Risk Questionnaire Patient-Focused Preventive Medicine Administration Of Health Risk Questionnaire Patient-Focused [id number] GIANCARLO MERA [facility] Preventive Medicine Administration Of Health Risk Questionnaire Patient-Focused Preventive Medicine Administration Of Health Risk Questionnaire Patient-Focused [id number] GIANCARLO MERA [facility] Internet Med Svc Qual Nonphys Healthcare Prof Up To 7 Days Estab Patient Internet Med Svc Qual Nonphys Healthcare Prof Up To 7 Days Estab Patient [id number] GIANCARLO MERA [facility] Non-Physician Phone Call To Patient/Provider Brief (5-10min) Non-Physician Phone Call To Patient/Provider Brief (5-10min) [id number] SAIGE RASHEED [facility] Threshold Audiogram (Pure Tone) Automated Threshold Audiogram (Pure Tone) Automated 0208T 016 VERONICA LEGGETT [facility] Polysomnography With 4+ Add'l Sleep Parameters Age 6 Years Or Older Polysomnography With 4+ Add'l Sleep Parameters Age 6 Years Or Older [id number] YAEL LAUREANO [facility] Patient Counseling Medical Management Five To Eight Patients Patient Counseling Medical Management Five To Eight Patients [id number] ELAINE SMITH [facility] Polysomnography With 4+ Add'l Sleep Parameters Age 6 Years Or Older Polysomnography With 4+ Add'l Sleep Parameters Age 6 Years Or Older [id number] FREDA PAL [facility] Osteopathic Manip Treatment (OMT) 1-2 Body Regions Involved Osteopathic Manip Treatment (OMT) 1-2 Body Regions Involved [id number] 015 BRIGIDA DONATO [facility] Visual Function Screening Visual Function Screening [phone] CADENCE COSTA [facility] A isted Exercises For ROM Assisted Exercises For ROM 85742 014 CECILIA PIZARRO Physical Therapy Service Re-Evaluation Physical Therapy Service Re-Evaluation 88724 014 CECILIA PIZARRO Physical Therapy: ___ Se ion Segments, 15 Minutes Each Physical Therapy: ___ Session Segments, 15 Minutes Each [id number] 014 ABDIRAHMAN CALL [facility] Physical Therapy: ___ Se ion Segments, 15 Minutes Each Physical Therapy: ___ Session Segments, 15 Minutes Each 08953 014 ESTRADA MCNAMARA [facility] Physical Therapy Neuromuscular Re-education Physical Therapy Neuromuscular Re-education 00393 014 ABDIRAHMAN CALL Physical Therapy: ___ Se ion Segments, 15 Minutes Each Physical Therapy: ___ Session Segments, 15 Minutes Each 07191 014 ABDIRAHMAN CALL [facility] A isted Exercises For ROM Assisted Exercises For ROM 15333 014 CECILIA PIZARRO Physical Therapy Service Evaluation Physical Therapy Service Evaluation 58325 014 CECILIA PIZARRO Modalities Iontophoresis Modalities Iontophoresis 07753 013 LOGAN GARCIA Modalities Iontophoresis Modalities Iontophoresis 26829 013 ESTRADA MCNAMARA Physical Therapy: ___ Se ion Segments, 15 Minutes Each Physical Therapy: ___ Session Segments, 15 Minutes Each 47079 013 ESTRADA MCNAMARA [facility] Physical Therapy Service Evaluation Physical Therapy Service Evaluation 06457 013 SMHUEL SANCHEZ [facility] Modalities Cryotherapy Cold Packs Modalities Cryotherapy Cold Packs 64993 011 PORTILLO SHARPE [facility] A isted Exercises For ROM Assisted Exercises For ROM 05142 011 PORTILLO SHARPE [facility] Physical Therapy Mobilization Joint Physical Therapy Mobilization Joint 43170 011 PORTILLO SHARPE [facility] Physical Therapy Mobilization Joint Physical Therapy Mobilization Joint 39250 011 PORTILLO SHARPE DoD A isted Exercises For ROM Assisted Exercises For ROM 87609 011 PORTILLO SHARPE [facility] Modalities Cryotherapy Cold Packs Modalities Cryotherapy Cold Packs 49459 011 PORTILLO SHARPE [facility] Modalities Cryotherapy Cold Packs Modalities Cryotherapy Cold Packs 39527 011 JUN PA [facility] Physical Therapy Mobilization Joint Physical Therapy Mobilization Joint 08515 011 JUN PA A isted Exercises For ROM Assisted Exercises For ROM 02340 011 JUN PA [facility] Physical Therapy Mobilization Joint Physical Therapy Mobilization Joint 23381 011 PORTILLO SHARPE [facility] Modalities Cryotherapy Cold Packs Modalities Cryotherapy Cold Packs 40749 011 PORTILLO SHARPE A isted Exercises For ROM Assisted Exercises For ROM 78917 011 PORTILLO SHARPE [facility] Modalities Cryotherapy Cold Packs Modalities Cryotherapy Cold Packs 21654 011 PORTILLO SHARPE [facility] Physical Therapy Mobilization Joint Physical Therapy Mobilization Joint 17861 011 PORTILLO SHARPE [facility] A isted Exercises For ROM Assisted Exercises [place] ROM 84289 011 PORTILLO SHARPE A isted Exercises For ROM Assisted [place]ises [place] 93613 011 PORTILLO SHARPE [facility] Physical Therapy Mobilization Joint Physical Therapy Mobilization Joint 11868 011 PORTILLO SHARPE [facility] Modalities Cryotherapy Cold Packs Modalities Cryotherapy Cold Packs 00886 011 PORTILLO SHARPE [facility] Modalities Cryotherapy Cold Packs Modalities Cryotherapy Cold Packs 31810 011 WARREN DOZIER Physical Therapy Mobilization Joint Physical Therapy Mobilization Joint 12326 011 WARREN DOZIER A isted Exercises For ROM Assisted Exercises For ROM 14991 011 WARREN DOZIER Exercise equipment 011 NAYELI ANN Physical Therapy: ___ Se ion Segments, 15 Minutes Each Physical Therapy: ___ Session Segments, 15 Minutes Each 55525 011 NAYELI ANN Physical Therapy Service Evaluation Physical Therapy Service Evaluation 26772 011 NAYELI ANN Pulse Oximetry Pulse Oximetry 17510 010 ELAINA HAMILTON Albuterol, inhalation solution, FDA-approved final product, non-compounded, administered through DME, concentrated form, 1 mg 010 ELAINA HAMILTON Physical Therapy Service Re-Evaluation Physical Therapy Service Re-Evaluation 05733 008 DENNIS VARGAS Physical Therapy Neuromuscular Re-education Physical Therapy Neuromuscular Re-education 29468 008 DEANN LAW Physical Therapy: ___ Se ion Segments, 15 Minutes Each Physical Therapy: ___ Session Segments, 15 Minutes Each 87758 008 DEANN LAW Modalities Ultrasound Modalities Ultrasound 47488 008 ROSALIA COTTON Physical Therapy: ___ Se ion Segments, 15 Minutes Each Physical Therapy: ___ Session Segments, 15 Minutes Each 70055 008 ROSALIA COTTON Physical Therapy: ___ Se ion Segments, 15 Minutes Each Physical Therapy: ___ Session Segments, 15 Minutes Each 72536 008 ROSALIA COTTON Modalities Ultrasound Modalities Ultrasound 51604 008 DEANN LAW Modalities Ultrasound Modalities Ultrasound 61762 008 ROSALIA COTTON Physical Therapy: ___ Se ion Segments, 15 Minutes Each Physical Therapy: ___ Session Segments, 15 Minutes Each 26585 008 ROSALIA COTTON Modalities Ultrasound Modalities Ultrasound 23116 008 ROSALIA COTTON Physical Therapy: ___ Se ion Segments, 15 Minutes Each Physical Therapy: ___ Session Segments, 15 Minutes Each 03704 008 KENIA COTTONBY L NMR x 4min [facility] Physical Therapy: ___ Se ion Segments, 15 Minutes Each Physical Therapy: ___ Session Segments, 15 Minutes Each 56788 008 RAFI VARGASLO Corby [facility] Physical Therapy Service Evaluation Physical Therapy Service Evaluation 97924 008 RAFI VARGASLO Corby [facility] Modalities Cryotherapy Cold Packs Modalities Cryotherapy Cold Packs 73706 008 DEANN LAW [facility] Physical Therapy Neuromuscular Re-education Physical Therapy Neuromuscular Re-education 41570 008 DEANN LAW [facility] Physical Therapy: ___ Se ion Segments, 15 Minutes Each Physical Therapy: ___ Session Segments, 15 Minutes Each 78632 008 DEANN LAW [facility] Physical Therapy Neuromuscular Re-education Physical Therapy Neuromuscular Re-education 35019 008 DEANN LAW [facility] Modalities Cryotherapy Cold Packs Modalities Cryotherapy Cold Packs 40354 008 DEANN LAW [facility] Physical Therapy: ___ Se ion Segments, 15 Minutes Each Physical Therapy: ___ Session Segments, 15 Minutes Each 69147 008 DEANN LAW [facility] Modalities Cryotherapy Cold Packs Modalities Cryotherapy Cold Packs 73848 008 SIVAKUMAR MCHUGH [facility] Physical Therapy Neuromuscular Re-education Physical Therapy Neuromuscular Re-education 35857 008 SIVAKUMAR MCHUGH [facility] Physical Therapy: ___ Se ion Segments, 15 Minutes Each Physical Therapy: ___ Session Segments, 15 Minutes Each 79314 008 SIVAKUMAR MCHUGH [facility] Modalities Cryotherapy Cold Packs Modalities Cryotherapy Cold Packs 08778 008 SIVAKUMAR MCHUGH [facility] Physical Therapy Neuromuscular Re-education Physical Therapy Neuromuscular Re-education 61841 008 SIVAKUMAR MCHUGH [facility] Physical Therapy: ___ Se ion Segments, 15 Minutes Each Physical Therapy: ___ Session Segments, 15 Minutes Each 66314 008 SIVAKUMAR MCHUGH [facility] Internet Med Svc [facility] Prof Up To 7 Days Estab Patient Internet Med Svc Qual Nonphys Healthcare Prof Up To 7 Days Estab Patient [id number] TANIKA COBB [facility] Preventive Medicine Administration Of Health Risk Questionnaire Patient-Focused Preventive Medicine Administration Of Health Risk Questionnaire Patient-Focused 78130 TANIKA COBB [facility] Psychometric Emotional / Behavioral A e ment Psychometric Emotional / Behavioral Assessment 91580 TANIKA COBB Brief communication technology-based service, e.g. virtual check-in, by a physician or other qualified health care papi brooke who can report evaluation and management services, provided to an established patient, not originating from a related E/M service provided within the previous 7 days nor leading to an E/M service or procedure within the next 24 hours or soonest available appointment; 5-10 minutes of medical discu ion JOSHUA CASTILLO [facility] Brief communication technology-based service, e.g. virtual check-in, by a physician or other qualified health care papi brooke who can report evaluation and management services, provided to an established patient, not originating from a related E/M service provided within the previous 7 days nor leading to an E/M service or procedure within the next 24 hours or soonest available appointment; 5-10 minutes of medical discu ion RICHAR DE DIOS MHA Only telephonic assessment; visit lasted 20 minutes. [facility] Psychometric Neuropsych Testing Battery Admin By Computer Psychometric Neuropsych Testing Battery Admin By Computer [id number] SISSY BLAS [facility] Cognitive Functions Mini-Mental Status Exam Cognitive Functions Mini-Mental Status Exam 74978 SISSY BLAS [facility] Physical Therapy Service Evaluation Low Complexity Physical Therapy Service Evaluation Low Complexity 47097 ELAINE BUTTERFIELD Osteopathic Manip Treatment (OMT) 1-2 Body Regions Involved Osteopathic Manip Treatment (OMT) 1-2 Body Regions Involved 69152 ELAINE BUTTERFIELD Physical Therapy: ___ Se ion Segments, 15 Minutes Each Physical Therapy: ___ Session Segments, 15 Minutes Each 92567 ELAINE BUTTERFIELD Social History Combined list of available smoking, tobacco, and other social history from [facility] and [facility] facilities. Social History Type Response Date Comment [facility] e Sex Representation Male 09/21/2022 Unknow n Organization Tobacco Cigarette use: Yes-current everyday cigarette user. Average PACKS per day: (10 cigarettes = 0.5 packs) 0.5. Total years of smoking cigarettes: 17. Other Tobacco use: Never-other tobacco user (not cigarettes). Ambulatory Pharmacy Sexual Orientation [facility] Gender identity [facility] This section is an empty social history section. DoD Assessment and Plan Combined list of future care activities from [facility] of Defense and Veterans Affairs facilities (e.g., assessment and plan notes, appointments, orders, and referrals). Additional future care activities may be listed in the Plan of Care section. Result Assessment and Plan Date Source Assessment and Plan Extracted from:Title : Annual DoD MHA/PHA Author: RICHAR DE DIOS NP Date: 01/07/24 1.?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, 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, EVENTS AND PROMOTIONS ASSISTANT PERIODIC HEALTH ASSESSMENT (PHA) This encounter contains a review of the SM's chronic and active medical conditions since the date of the last PHA on file. SM present for virtual encounter. All age/gender specific CPS IAW USPSTF are up to date. ? IMR-?Red for profile. Profile-? Yes, MR/FR for Radiculopathy expires 14 Mar 2024. ? Mild ARLEN AHI- 1; tx with C-PAP. No DW profile required. ? NOT -WWQ. ? This MHA/PHA is for screening purposes only, and is Not to replace a face to face appointment with PCM or other specialty care?if needed. SM was informed that?if there are any?health concerns,?it is the SM's responsibility to schedule an appointment with PCM or specialty?care for evaluation and management. ? 2.?Neck pain Continue F/U with PCM and Ortho for management. 3.?Dyslipidemia Continue Rosuvastatin as prescribed, and follow a healthy diet limiting saturated fats (red meats, processed meats, full fat dairy), regular exercise, and maintaining a healthy weight; continue F/U with PCM for lipid panel monitoring and HLP management. 4.?Obstructive sleep apnea Continue C-PAP as prescribed, continue weight reduction achieving a healthy weight/BMI, and continue F/U with sleep clinic for management. 5.?History of deployment F/U with PCM as needed for any medical issues related to exposure.? Richar De Dios CTR?[employer] [facility] [place] Medicine? [employer] [place]??[id number] [facility] [phone] ? Extracted from:Title: DoD DRHA4 Author: RICHAR DE DIOS NP Date: 02/01/23 1.?ASSESSMENT, POST DEPLOYMENT, DOCUMENTED ON CT0662 (A) This encounter contains a review of the SM's chronic and active medical conditions since the date of the last deployment on file. SM present for virtual encounter. ? DRHA4- Deployed to [employer] [place] with forward deploying to [place] 21 Nov 2021 to 21 May 2022. SM denies any deployment related concerns. ? No profiles, no DLCs. IMR Green. ? ? 2.?Nicotine dependence Tobacco cessation highly encouraged/advised; F/U with PCM/BHOP?as needed. Extracted from:Title: Annual DoD PHA ONLY Author: RICHAR DE DIOS NP Date: 01/22/23 1.?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, 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, EVENTS AND PROMOTIONS ASSISTANT PERIODIC HEALTH ASSESSMENT (PHA) This encounter contains a review of the SM's chronic and active medical conditions since the date of the last PHA on file. SM Not present for admin encounter. All age/gender specific CPS IAW USPSTF are up to date. ? IMR-?Green. Profile- None Active. M ild ARLEN AHI- 1; tx with C-PAP. No DW profile required. ? +WWQ. ? ? 2.?Nicotine dependence Tobacco cessation highly encouraged/advised; F/U with PCM/BHOP?as needed. 3.?Obstructive sleep apnea Continue C-PAP as prescribed, continue weight reduction achieving a healthy weight/BMI, and continue F/U with sleep clinic for management. 4.?Dyslipidemia Continue Ezetimibe as prescribed,?and follow a healthy diet limiting saturated fats (red meats, processed meats, full fat dairy), regular exercise, and maintaining a healthy weight; continue F/U with PCM for lipid panel monitoring and HLP management.? 12/30/2024 [id number] [facility] Functional Status Combined list of recent functional and cognitive assessments recorded at [facility] and [facility] ([facility] Functional Barber Measurement (FIM) Scale: 1 = Total Assistance (Subject = 0% +), 2 = Maximal Assistance (Subject = 25% +), 3 = Moderate Assistance (Subject = 50% +), 4 = Minimal Assistance (Subject = 75% +), 5 = Supervision, 6 = Modified Barber (Device), 7 = Complete Barber (Timely, Safely). Assessment Date/Time Source Assessment Type Assessment Skill Assessment Score Assessment Details No data available for this section
== END 2024-12-30 10:03 | disposition home or self-care (01) ==
PROVIDERS: PCP Nurse Practitioner Family; Visit Provider Nurse Practitioner Family
DX: M25.572 Pain in left ankle and joints of left foot (principal); M79.671 Pain in right foot; M79.672 Pain in left foot; M25.512 Pain in left shoulder; Z11.4 Encounter for screening for human immunodeficiency virus [HIV]

== ENCOUNTER 2024-12-30 09:05 | Outpatient (REF) | payer OTHER, SELFPAY ==
--- NOTE | ~2024-12-30 | XR_ITS ---
EXAMINATION: XR FOOT, RIGHT CLINICAL INFORMATION: M79.671 - Pain in right foot COMPARISON: 06/04/2024. TECHNIQUE: AP, lateral, and oblique views of the right foot. FINDINGS: No fracture, dislocation, or suspicious bone lesion. Normal bone mineralization. Normal alignment. Joint spaces are preserved. No significant arthropathy. Normal plantar arch. Soft tissues appear normal. XR/XR foot RT 2V IMPRESSION: Normal right foot. Electronically signed by: Carlos Owusu MD 12/30/2024 02:26 PM ENRIQUE
--- NOTE | ~2024-12-30 | XR_ITS ---
EXAMINATION: XR ANKLE, LEFT CLINICAL INFORMATION: M25.572 - Pain in left ankle and joints of left foot COMPARISON: None available. TECHNIQUE: AP, lateral, and mortise views of the left ankle. FINDINGS: No fracture, dislocation, or suspicious bone lesion. Normal bone mineralization. Bone island of the talar dome. Talar dome otherwise normal. Normal alignment. Intact mortise. Joint spaces are preserved. No significant arthropathy. Soft tissues appear normal. XR/XR ankle LT 2V IMPRESSION: Normal left ankle. Electronically signed by: Carlos Owusu MD 12/30/2024 02:28 PM ENRIQUE
--- NOTE | ~2024-12-30 | XR_ITS ---
EXAMINATION: XR FOOT, LEFT CLINICAL INFORMATION: M79.671 - Pain in right foot COMPARISON: None available. TECHNIQUE: AP, lateral, and oblique views of the left foot. FINDINGS: No fracture, dislocation, or suspicious bone lesion. Normal bone mineralization. Normal alignment. Joint spaces are preserved. No significant arthropathy. Normal plantar arch. Tiny plantar calcaneal spur. Soft tissues appear normal. XR/XR foot LT 2V IMPRESSION: Essentially normal left foot. Electronically signed by: Carlos Owusu MD 12/30/2024 02:29 PM ENRIQUE
--- OUTSIDE RECORDS SUMMARY | 2024-12-30 11:56 | XMS_ITS | Continuity of Care Document ---
Author Name [facility] Organization [facility] Care Team Providers Care Reporting Lead Name Role Phone [facility] Unavailable Unavailable Problems Combined list of problems from Department of Defense and Veterans Affairs facilities. It does not include entries that were removed or entered in error. Problem Status Onset Date Problem Type Date of Resolution Comments Source Obstructive sleep apnea (adult) (pediatric) Active 05/02/20 16 Condition DoD Dorsalgia, unspecified Active 11/01/18 99 Condition [facility] visit for: administrative purpose Active Condition [facility] Outpatient Physician Consultation Active Condition DoD tick bites Inactive Condition [facility] Guidance: Concerns About Exercise Active Condition DoD premature ejaculation Active Condition [facility] Patient Education Active Condition DoD joint pain, localized in the left shoulder Active Condition [facility] otitis externa acute Inactive Condition DoD sinusitis Active Condition [facility] routine examination Inactive Condition [facility] Laboratory Studies Inactive Condition Do D vomiting Inactive Condition DoD diarrhea Active Condition [facility] visit for: refer patient without exam or treatment Inactive Condition [facility] Aftercare Following Surgery Of Musculoskeletal System Inactive Condition DoD nicotine-related disorders Active Condition DoD asthmatic bronchitis Active Condition DoD Need For Vaccination Typhoid Inactive Condition [facility] Anthrax Vaccine, For Subcutaneous Use Inactive Condition DoD Need For Prophylactic Antibiotics Inactive Condition DoD nicotine dependence Active Condition DoD headache syndromes Active Condition DoD Orthopedic Aftercare For Healing Traumatic Fracture Leg Inactive Condition DoD ankle joint pain Active Condition [facility] Orthopedic Aftercare For Healing Traumatic Fx Lower Leg Inactive Condition DoD closed fracture of calcaneus Active Condition DoD cervicalgia Active Condition DoD headache Inactive Condition DoD dermatitis Inactive Condition See [facility]1 for Hydrocortisone Cream 1%.Hygiene discussed - follow up with PCM recommeneded if no improvement in 1 week. [facility] visit for: services physical Active Condition Web Based LEAL no t available. Reviewed SF507. [facility] Other Physical Therapy Inactive Condition DoD lower [...] Given an cliff wrap knee sleeve DoD Dyslipidemia Active Condition [facility] History of deployment [facility] Neck pain Active Condition [facility] Nicotine dependence Active Condition [facility] Obstructive sleep apnea Active Condition [facility] Medications Combined list of outpatient medications from [...] by mouth) Ordered 20230C-A F-C-66t h [facility] [employer] C-PAP # 1 EA, 0 total refill(s ), Acute Not Applic able Ordered 2022 1.0 0310C-A F-C-66t h [facility] DIAZEPAM (DIAZEPAM), 5MG, TABLET, ORAL, IVAX PHARMACEUT, 500 ea. BOTTLE Active [id number] 2023 6 Pharmac y [facility] Service [facility]ilit y ezetimibe 10 mg oral tablet 1 tab(s), Oral, Daily, 0 total refill(s ), Maintena nce Oral (given by mouth) Discont inued 01/07/20242023 0310C-A F-C-66t h [facility] GABAPENTIN (GABAPENTIN ), 100 MG, CAPSULE, ORAL, ACTAVIS PHARMA,, 500 ea. BOTTLE Active [id number] 2023 90 Pharmac y Data Trans[facility] t[facility] Service Facilit y gabapentin 100 mg oral capsule 1 cap(s), Oral, TID, 0 total refill(s ), Maintena nce Oral (given by mouth) Ordered 20230C-A F-C-66t h [facility] IBUPROFEN (ibuprofen) , 600 MG, TABLET, ORAL, AUROBINDO PHARM, 500 ea. BOTTLE Active [id number] 2023 30 Pharmac y Data Transac tion Service Facilit y LIDOCAINE (LIDOCAINE) , 5%(700MG), ADH. PATCH, TOPICAL, ACTAVIS PHARMA,, 30 ea. BOX Active [id number] 2023 30 Pharmac y Data Transac tion Service Facilit y OXYCODONE HCL (OXYCODONE HCL), 5MG, TABLET, ORAL, MALLINKRT PHARM, 100 ea. BOTTLE Active [id number] 4 2023 6 Pharmac y Data Transac tion Service Facilit y rosuvastati n 20 mg oral tablet 1 tab(s), Oral, Daily, for choleste rol, # 90 tab(s), 3 total refill(s ), Maintena nce Oral (given by mouth) Ordered 2023 90.0 0310C-A F-C-66t h [facility] [employer] ROSUVASTATI N CALCIUM (rosuvastat in calcium), 10 MG, TABLET, ORAL, GLENMARK PHARMA, 90 ea. BOTTLE Cancele d [id number] : 2023 0 Pharmac y Data Transac tion Service Facilit y ROSUVASTATI N CALCIUM (rosuvastat in calcium), 10 MG, TABLET, ORAL, GLENMARK PHARMA, 90 ea. BOTTLE Cancele d [id number] : 2023 0 Pharmac y Data Transac tion Service Facilit y ROSUVASTATI N CALCIUM (rosuvastat in calcium), 20 MG, TABLET, ORAL, GLENMARK PHARMA, 90 ea. BOTTLE Active [id number] 2023 90 Pharmac y Data Transac tion Service Facilit y TRAMADOL HCL (tramadol HCl), 50 MG, TABLET, ORAL, AMNEAL PHARMACE, 500 ea. BOTTLE Active [id number] 4 2023 30 Pharmac y Data Transac tion Service Facilit y Allergies, Adverse Reactions, Alerts Combined list of allergies from Department of Defense and Veterans Affairs facilities. It does not include entries that were removed or entered in error. Substance Category Reaction Severity Reaction type Status Date Reported Comments Source No Known Allergies Drug allergy (disorder) active 02/26/2022 [place] [address] Immunizations Combined list of available immunizations from the Department of Defense and Veterans Affairs facilities. Immunization Series Date Given Administered By Site Reaction Lot Number CVX Code Drug Tallier Status Comments Source influenza virus vaccine, unspecified 2022 JOSE Staton [id number] complet ed influenza virus vaccine, unspecifi ed 10/14/23 Recorded 0C-A F-C-66t h [facility] Odimaxcom influenza, injectable, quadrivalent- pf 2021 MARQUEZ [id number] comple t ed Result Comment: Route: Unknown Manufactu rer: OT ([facility]) 0C-A F-C-66t h [facility] Odimaxcom tetanus, diphtheria, acellular pertu is 2021 [id number] 115 Unknown complet ed tetanus, diphtheri a, acellular pertussis 07/18/22 Given Ambulat ory Pharmac y tetanus toxoid, reduced diphtheria toxoid, and acellular pertu is vaccine, adsorbed 2 2021 115 Unknown (UNK) comple t ed tetanus toxoid, reduced diphtheri a toxoid, and acellular pertussis vaccine, adsorbed DoD typhoid Vi capsular polysaccharid e vac 2020 [id number] sanofi pasteur complet ed typhoid Vi [...] Vi capsular polysaccharid e vaccine 2 2020 [id number] Sanofi Pasteur (PMC) complet ed typhoid [...] quadrival ent DoD COVID Vaccine Moderna 2020 [id number] complet ed COVID Vaccine Moderna 02/24/21 Given Ambulat ory Pharmac y SARS-COV-2 (COVID-19) vaccine, mRNA, spike protein, LNP, preservative free, 100 mcg or 50 mcg dose 2 2020 [id number] 207 Moderna VivoText, Inc. (MOD) complet ed SARS-COV- 2 (COVID-19 ) vaccine, mRNA, spike protein, LNP, preservat nallely free, 100 mcg or 50 mcg dose DoD COVID Vaccine Moderna 2020 [id number] 207 complet ed COVID Vaccine Moderna 01/20/21 Given Ambulat ory Pharmac y SARS-COV-2 (COVID-19) vaccine, mRNA, spike protein, LNP, preservative free, 100 mcg or 50 mcg dose 1 2020 [id number] 207 Moderna VivoText, Inc. (MOD) complet ed SARS-COV- 2 (COVID-19 [...] preservat nallely DoD influenza, seasonal, injectable 2018 [id number] 141 sanofi pasteur complet ed influenza , seasonal, injectabl e 09/02/19 Given Ambulat ory Pharmac y Influenza, seasonal, injectable 1 2018 [id number] 141 Sanofi Pasteur (PMC) complet ed Influenza , seasonal, injectabl e DoD influenza, injectable, quadrivalent- pf 2017 [id number] 150 sanofi pasteur complet ed influenza , injectabl e, quadrival ent-pf 08/21/18 Given Ambulat ory Pharmac y Influenza, injectable, quadrivalent, preservative free 1 2017 [id number] 150 Sanofi Pasteur (PMC) complet ed Influenza , injectabl e, quadrival ent, preservat nallely free DoD influenza virus vaccine, unspecified 2016 [id number] 88 sanofi pasteur complet ed influenza virus vaccine, unspecifi ed 07/24/17 Given Ambulat ory Pharmac y influenza virus vaccine, unspecified formulation 1 2016 [id number] 88 Sanofi Pasteur (PMC) complet ed influenza virus vaccine, unspecifi ed formulati on DoD influenza, seasonal, injectable-pf 2015 [id number] 140 Seqirus complet ed influenza , seasonal, injectabl e-pf 08/29/16 Given Ambulat ory Pharmac y Influenza, seasonal, injectable, preservative free 11 2015 [id number] 140 Seqirus (SEQ) comple t ed Influenza , seasonal, injectabl e, preservat nallely free DoD influenza, live, intranasal,qu adrivalent 2014 [id number] 149 Mediune Inc [facility] t ed influenza , live, intranasa l,quadriv alent 08/08/15 Given Ambulat ory Pharmac y influenza, live, intranasal, quadrivalent 10 2014 [id number] 149 MedImmune, Inc. (MED) complet ed influenza , live, intranasa l, quadrival ent DoD influenza, live, intranasal,qu adrivalent 2013 [id number] 149 Mediune Inc comple t ed influenza , live, intranasa l,quadriv alent 08/23/14 Given Ambulat ory Pharmac y influenza, live, intranasal, quadrivalent 9 2013 [id number] 149 MedImmune, Inc. (MED) complet ed influenza , live, intranasa l, quadrival ent DoD influenza, live, intranasal,qu adrivalent 2012 [id number] 149 Mediune Inc [facility] t ed influenza , live, intranasa l,quadriv alent 08/11/13 Given Ambulat ory Pharmac y influenza, live, intranasal, quadrivalent 8 2012 [id number] 149 MedImmune, Inc. (MED) complet ed influenza , live, intranasa l, quadrival ent DoD influenza virus vaccine, live 2011 [id number] 111 Mediune Inc [facility] t ed influenza virus vaccine, live 07/24/12 Given Ambulat ory Pharmac y influenza virus vaccine, live, attenuated, for intranasal use 7 2011 [id number] 111 MedImmune, Inc. (MED) complet ed influenza virus vaccine, live, attenuate d, for intranasa l use DoD tetanus, diphtheria, acellular pertu is 2011 [id number] 115 [facility] complet ed tetanus, diphtheri a, acellular pertussis 04/29/12 Given Ambulat ory Pharmac y tetanus toxoid, reduced diphtheria toxoid, and acellular pertu is vaccine, adsorbed 0 2011 [id number] 115 [facility] (SKB) complet ed tetanus toxoid, reduced diphtheri a toxoid, and acellular pertussis vaccine, adsorbed DoD influenza virus vaccine, live 2010 [id number] 111 Microlight Sensorsune Inc comple t ed influenza virus vaccine, live 09/07/11 Given Ambulat ory Pharmac y influenza virus vaccine, live, attenuated, for intranasal use 1 2010 [id number] 111 MedIPurplle, Inc. (MED) complet ed influenza virus vaccine, live, attenuate d, for intranasa l use DoD influenza virus vaccine,split 2009 [id number] 15 CSL Behring complet ed influenza virus vaccine,s plit 09/11/10 Given Ambulat ory Pharmac y influenza virus vaccine, split virus (incl. purified surface antigen)-reti red CODE 1 2009 [id number] 15 Adify, Inc. (CSL) complet ed influenza virus vaccine, split virus (incl. purified surface antigen)- retired CODE DoD typhoid Vi capsular polysaccharid e vac 2009 [id number] 101 Unknown complet ed typhoid Vi capsular polysacch aride vac 02/10/10 Given Ambulat ory Pharmac y anthrax vaccine 2009 [id number] 24 Emergent Biosolutions complet ed anthrax vaccine 02/10/10 Given Ambulat ory Pharmac y anthrax vaccine 1 2009 [id number] 24 Emergent [employer] [place] (MIP) complet ed anthrax vaccine DoD typhoid Vi capsular polysaccharid e vaccine 1 2009 [id number] 101 Unknown (UNK) comple t ed typhoid Vi capsular polysacch aride vaccine DoD Novel influenza-H1N 1-09,pf,injec table 2009 [id number] 1 126 Novartis Pharmaceutica ls complet ed Novel influenza -G7W4-94, pf,inject able 11/28/09 Given Ambulat ory Pharmac y Novel influenza-H1N 1-09, preservative- free, injectable 1 2009 [id number] 1 126 Novartis Pharmaceutica l Genna. (NOV) complet ed Novel influenza -J0H7-79, preservat nallely-free, injectabl e DoD influenza virus vaccine, live 2008 [id number] 111 Picatcha Inc comple t ed influenza virus vaccine, live 08/25/09 Given Ambulat ory Pharmac y influenza virus vaccine, live, attenuated, for intranasal use 1 2008 [id number] 111 CloudFloor, Inc. (MED) complet ed influenza virus vaccine, live, attenuate d, for intranasa l use DoD influenza virus vaccine, live 2007 [id number] 111 NetAmerica AllianceAxceler Inc comple t ed influenza virus vaccine, live 08/18/08 Given Ambulat ory Pharmac y influenza virus vaccine, live, attenuated, for intranasal use 1 2007 [id number] 111 CloudFloor, Inc. (MED) complet ed influenza virus vaccine, live, attenuate d, for intranasa l use DoD influenza virus vaccine, live 2006 [id number] 111 [employer]America AllianceAxceler [facility] comple t ed influenza virus vaccine, live [...] live, attenuated, for intranasal use 1 2006 [id number] 111 CloudFloor, Inc. (MED) complet ed influenza virus vaccine, [...] adult dosage DoD meningococcal A,C,Y,W-135 (MCV4P) 2005 [id number] 114 sanofi pasteur complet ed meningoco ccal A,C,Y,W-1 35 (MCV4P) 09/06/06 Given Ambulat ory Pharmac y influenza virus vaccine,split 2005 [id number] 15 GlaxoSmithKli ne complet ed influenza virus vaccine,s plit 09/06/06 Given Ambulat ory Pharmac y poliovirus vaccine, inactivated 2005 W6196-8 10 sanofi pasteur complet ed polioviru s vaccine, inactivat ed 09/06/06 Given Ambulat ory Pharmac y tetanus-dipht h toxoids (Td) adult/adol 2005 [id number] 09 sanofi pasteur complet ed tetanus-d iphth toxoids (Td) adult/ado l 09/06/06 Given Ambulat ory Pharmac y tetanus and diphtheria toxoids, adsorbed, preservative free, for adult use (2 Lf of tetanus toxoid and 2 Lf of diphtheria toxoid) 1 2005 [id number] 09 Sanofi Pasteur ([facility]) complet ed tetanus and diphtheri a toxoids, adsorbed, preservat nallely free, for adult use (2 Lf of tetanus toxoid and 2 Lf of diphtheri a toxoid) DoD poliovirus vaccine, inactivated 1 2005 [id number] 10 Sanofi Pasteur ([facility]) complet ed polioviru s vaccine, inactivat ed DoD influenza virus vaccine, split virus (incl. purified surface antigen)-reti red CODE 1 2005 [id number] 15 Josep ([facility]) complet ed influenza virus vaccine, split virus (incl. purified surface antigen)- retired CODE DoD influenza virus vaccine, whole virus 0 2005 [id number] 16 EKOS CorporationValentino ([facility]) complet ed influenza virus vaccine, whole virus DoD meningococcal polysaccharid e (groups A, C, Y and W-135) diphtheria toxoid conjugate vaccine (MCV4P) 1 2005 [id number] 114 Sanofi Pasteur ([facility]) complet ed meningoco ccal polysacch aride (groups A, C, Y and W-135) diphtheri a toxoid conjugate vaccine (MCV4P) DoD influenza virus vaccine, whole virus 2005 NATASHFELIX AFLUA21 9BA 16 complet ed Result Comment: Route: Unknown Manufactu rer: John coronado ([employer]) 0310C-A F-C-66t h [facility] protein derivative 2005 MARQUEZ [id number] 96 comple t ed Result Comment: Route: Unknown Manufactu rer: OTH ([facility]) 0310C-A F-C-66t h [employer] Encounters Combined list of: 1) Encounters from Department of Veterans Affairs facilities going backup to the last 18 months, not all VA inpatient encounters are included; 2) Encounters from the Department of Defense facilities going backup to 280 months. Location Location Details Encounter Type Encounter Number Reason For Visit Attending Provider ADM Date DC Date Status Disposition [place] [address]([facility], Juan) OUTPATIENT [id number] knee pain QUANG MORGAN Ran 09/17 Released with Work/Duty Limitations [facility] [place] [address]([facility]) [place] [address]([facility], Juan) OUTPATIENT [id number] [facility] ADIS ROUSSEAU 09/20 Released with Work/Duty Limitations [facility] [place] [address]([facility]) [place] [address]([facility], Juan) OUTPATIENT [id number] lt eye red burning ONESIMO URIBE 10/08 Released w/o Limitations [facility] [place] [address]([facility]) [place] [address](ZZO ptometry, Juan (inactive )) OUTPATIENT [id number] corneal abrasio TEOFILO Palafox 10/08 Released w/o Limitations [facility] [place] [address](Z ZOptome try, Juan (inacti ve)) [place] [address](ZZO ptometry, Juan (inactive )) OUTPATIENT [id number] [facility] Follow Up From TEOFILO Pineda 10/09 Released w/o Limitations [facility] [place] [address](Z ZOptome try, Juan (inacti ve)) [place] [address](ZZO ptometry, Juan (inactive )) OUTPATIENT [id number] [facility] Follow Up DOROTHY SIERRA 10/10 [facility] w[facility] Limitations [facility] [place] [address](Z ZOptome try, Juan (inacti ve)) [place] [address](ZZO ptometry, Juan (inactive )) OUTPATIENT [id number] [facility] Follow Up BRAIN TEOFILO R M 10/11 [facility]ased w/o Limitations [facility] [place] [address](Z ZOptome try, Juan (inacti ve)) [place] [address](Tra inee [facility], Juan) OUTPATIENT [id number] FLOYD_ESTRADA POWELL 10/12 Released with Work/Duty Limitations [place] [address]([facility], Juan) [place] [address](ZZO ptometry, Juan (inactive )) OUTPATIENT [id number] Follow up for corneal abrasio n from last week BRAIN TEOFILO R M 10/16 [facility]ased w/o Limitations [facility] [place] [address](Z ZOptome try, Juan (inacti ve)) [place] [address](Tra inee [facility], Juan) OUTPATIENT [id number] lower back pain ALISHA WOLFF 10/16 Released with Work/Duty Limitations [place] [address]([facility], Juan) [employer](Fam kyung Practice Blue) TELE CONSULT [id number] leg pain during running , and when pt sits or stands; after that its fine GINA JOY 04/16 [employer](F amily Practic e Blue) [facility](Fam kyung Practice Blue) OUTPATIENT [id number] RT hip pain/in DIPAK Allen 04/16 Released w/o Limitations [employer](F amily Practic e Blue) [employer](PHA Cell) OUTPATIENT [id number] pha DIAZKAREN VAZQUEZ D 11/07 Released w/o Limitations [employer](P LEAL Cell) [employer]([facility] Practice Blue) TELE CONSULT [id number] pt had pha on 11/07 told to schedul e physica l therapy appt,no referra l in system JAMILA CASTANEDA E 11/11 [employer](F amily Practic e Blue) [employer]([facility] Practice [facility]) OUTPATIENT [id number] Numb left leg and low back pain ELISABETHRob GINA M 11/20 Released w/o Limitations [employer](F amily Practic e Blue) [employer]([facility]my [facility] eletal Screening ) OUTPATIENT [id number] LUMBAGO GEORGIE ROWE 12/09 Released w/o Limitations [employer](N euromus coskele maggie Screeni ng) [employer]([facility] eletal Screening ) OUTPATIENT [id number] joint pain, localiz ed in the shoulde r GEORGIE ROWE 12/16 Released w/o Limitations [employer](N euromus coskele maggie Screeni ng) [employer](Phy sical Therapy Clinic) OUTPATIENT [id number] SIVAKUMAR MCHUGH 12/17 Released w/o Limitations [employer](P hysical Therapy Clinic) [employer](Phy [facility]ical Therapy [facility]) OUTPATIENT [id number] DEANN LAW 12/18 Released w/o Limitations [employer] [facility](P hysical Therapy Clinic) [employer]([facility] eletal Screening ) OUTPATIENT [id number] GEORGIE ROWE 01/06 Released w/o Limitations [employer](N euromus coskele maggie Screeni ng) [employer](Phy sical Therapy Clinic) OUTPATIENT [id number] SIVAKUMAR MCHUGH 01/11 Released w/o Limitations [employer](P hysical Therapy Clinic) [employer] [facility](Phy [facility]ical Therapy [facility]) OUTPATIENT [id number] SIVAKUMAR MCHUGH 01/13 Released w/o Limitations [employer] [facility](P hysical Therapy Clinic) [employer] [facility](Phy [facility]ical Therapy Clinic) OUTPATIENT [id number] JEISON SIVAKUMAR TITA 01/19 Released w/o Limitations [employer](P hysical Therapy Clinic) [employer](Phy [facility]ical Therapy [facility]) OUTPATIENT [id number] DENAN LAW 01/21 Released w/o Limitations [employer](P hysical Therapy Clinic) [employer](Phy sical Therapy Clinic) OUTPATIENT [id number] DEANN LAW 01/26 Released w/o Limitations [employer](P hysical Therapy Clinic) [facility](Fam kyung Practice Blue) TELE CONSULT [id number] no appts; head pressur e, sore throat, hot and cold flashes GINA JOY 03/16 [employer](F amily Practic e Blue) [facility](Fam kyung Practice Blue) TELE CONSULT [id number] pt went to ER last night; pt broke both feet and need referra l to ortho GINA JOY 07/23 [employer](F amily Practic e Blue) [facility](Fam kyung Practice Blue) TELE CONSULT [id number] Pt fractur ed both feet JAMILA CASTANEDA 07/23 [employer](F amily Practic e Blue) [facility](Fam kyung Practice Blue) OUTPATIENT [id number] Update CRUZITO from ANDREI García i 08/03 Released w/o Limitations [employer](F amily Practic e Blue) [facility](Tommy [facility] eletal Screening ) OUTPATIENT [id number] DENNIS VARGAS 09/07 Released w/o Limitations [employer](N euromus barry serrano Screeni sina) [employer](Phy sical Therapy Clinic) OUTPATIENT [id number] ROSALIA COTTON 09/09 Released w/o Limitations [employer](P hysical Therapy Clinic) [facility](Phy sical Therapy Clinic) OUTPATIENT [id number] ROSALIA COTTON 09/13 Released w/o Limitations [employer](P hysical Therapy Clinic) [facility](Phy sical Therapy Clinic) OUTPATIENT [id number] DEANN LAW 09/15 Released w/o Limitations [employer](P hysical Therapy Clinic) [employer](Phy sical Therapy Clinic) OUTPATIENT [id number] ROSALIA COTTON 09/20 Released w/o Limitations [employer](P hysical Therapy Clinic) [employer](Phy sical Therapy Clinic) OUTPATIENT [id number] ROSALIA COTTON 09/22 Released w/o Limitations [employer](P hysical Therapy Clinic) [employer](Phy sical Therapy Clinic) OUTPATIENT [id number] DEANN LAW 10/04 Released w/o Limitations [employer](P hysical Therapy Clinic) [employer](Tommy [facility] eletal Screening ) OUTPATIENT [id number] DENNIS VARGAS 10/21 Released w/o Limitations [employer](N euromus barry serrano Screeni sina) [employer](Fam [facility]ung Practice Blue) OUTPATIENT [id number] Headach e over 24 hours and sharp pains in upper back. ELAINA HAMILTON 11/26 Sick at Home/Quarter s [employer](F amily Practic e Blue) [facility](Fam kyung Practice Blue) TELE CONSULT [id number] mauricio hassan referra GINA JOY 11/29 [employer](F amily Practic e Blue) [facility](Fam kyung Practice Blue) OUTPATIENT [id number] f/u on LEAL and pinched nerve GINA JOY M 11/30 Released w/o Limitations [employer](F amily Practic e Blue) [employer](Fam kyung Practice Blue) TELE CONSULT [id number] need referra l to neurolo gy GINA JOY M 11/30 [employer](F amily Practic e Blue) [employer](PHA Cell) OUTPATIENT [id number] pha GINA JOY M 12/07 Released w/o Limitations [employer](P LEAL Cell) [employer]([facility]) DENTAL [id number] exam OSCAR BRAN 03/18 Released w/o Limitations [employer]([facility]) [employer]) DENTAL [id number] Pro HOSSEIN HAYS Steven 03/18 [employer](D [facility]al [facility]) [employer]([facility]am [facility] Blue) TELE CONSULT [id number] CRUZITO placed GINA JOY 06/08 [employer]([facility] amily Practic e Blue) [employer]([facility]) OUTPATIENT [id number] malaria meds LENYELICEO LIGIA Brionna 01/05 Released w/o Limitations [employer](F amily Practic e Blue) [employer](PHA Cell) OUTPATIENT [id number] pha SINAI Jackson 01/05 Released w/o Limitations [employer](P LEAL Cell) Theater Facility OUTPATIENT [id number] 02/10 Released w/o Limitations Theater Facilit y [employer]([facility]) OUTPATIENT [id number] post-de ploymen GINA JOY 04/25 Released w/o Limitations [employer]([facility] amily Practic e Blue) [employer]([facility]) TELE CONSULT [id number] mri results IRAIS REINA Rob 05/02 [employer]([facility] Pract[facility] Blue) [employer]([facility]) OUTPATIENT [id number] cough, congest ion- dischar ge ELAINA HAMILTON 06/27 Sick at Home/Quarter s [employer]([facility] Practic e Blue) [employer]([facility]) OUTPATIENT [id number] Positiv e PDHRA GINA JOY 10/23 Released w/o Limitations [employer]([facility] Pract[facility] Blue) [employer]([facility]) TELE CONSULT [id number] appt line- pt needs to get his profile started plus have not receive d BHAVIK Hernández 11/10 Referred for Appointment [employer]([facility] Pract[facility] Blue) [employer]([facility]) TELE CONSULT [id number] Still experie ncing shoulde r pain GINA JOY 11/21 [employer]([facility] Pract[facility]) [employer]([facility]) TELE CONSULT [id number] problem s schedul ing BHAVIK REAGAN M 11/21 Referred for Appointment [employer]([facility] Pract[facility]) [employer]([facility] Red) OUTPATIENT [id number] Pt wishes to stop smoking GINA JOY M 11/28 Released w/o Limitations [employer]([facility]ily Practic e Red) [employer]([facility]) TELE CONSULT [id number] CRUZITO GINA JOY M 12/05 [employer]([facility] Pract[facility]) [employer]([facility]) TELE CONSULT [id number] Con Leave JAYDEN GRANDE F 02/05 [employer]([facility] Pract[facility] Blue) [employer]([facility]) TELE CONSULT [id number] con leave MIKO GARCÍA 02/07 Released to Self Care [employer]([facility] Pract[facility] Blue) [employer]([facility]) TELE CONSULT [id number] inform pt that CRUZITO if done JAYDEN GRANDE F 02/22 [employer](F amily Practic e Red) [employer](Phy sical Therapy Clinic) OUTPATIENT [id number] NAYELI Olvera 03/14 Released with Work/Duty Limitations [employer](P hysical Therapy Clinic) [employer]([facility]hy [facility] Therapy Clinic) OUTPATIENT [id number] WARREN DOZIER 03/15 Released w/o Limitations [employer](P hysical Therapy Clinic) [employer]([facility] Therapy [facility]) OUTPATIENT [id number] PORTILLO SHARPE 03/19 Released w/o Limitations [employer](P hysical Therapy Clinic) [employer]([facility] Therapy [facility]) OUTPATIENT [id number] PORTILLO SHARPE 03/22 Released w/o Limitations [employer](P hysical Therapy Clinic) [employer]([facility] Therapy [facility]) OUTPATIENT [id number] PORTILLO SHARPE Violet 03/23 Released w/o Limitations [employer](P hysical Therapy Clinic) [employer](Phy [facility]ical Therapy Clinic) OUTPATIENT [id number] PORTILLO SHARPE S 03/27 Released w/o Limitations [employer](P hysical Therapy Clinic) [employer](Phy [facility]ical Therapy [facility]) OUTPATIENT [id number] PORTILLO SHARPE S 03/28 Released w/o Limitations [employer](P hysical Therapy Clinic) [employer](Phy [facility]ical Therapy Clinic) OUTPATIENT [id number] PORTILLO SHARPE Violet 03/29 Released w/o Limitations [employer](P hysical Therapy Clinic) [employer]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) OUTPATIENT [id number] pha-amx s JAYDEN GRANDE 05/02 Released w/o Limitations [employer](P LAEL Cell) [employer]([facility]) TELE CONSULT [id number] Apt Line - updated referra l for dr ansari- FANNIE TODAY -06/11 JAYDEN GRANDE 06/11 [employer]([facility]) [employer]([facility] [place]) TELE CONSULT [id number] Need updated referra l for JAYDEN Levine 11/20 [employer](D over [facility] Team Hercule s) [employer]([facility] [place]) TELE CONSULT [id number] Need CRUZITO - 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 Ne marrero referHOSSEIN Jimenez 11/23 Referred for Appointment [employer](D over [facility] Team Hercule s) [employer]([facility] [place]) TELE CONSULT [id number] appt line - AD pt dorothea murillo since last night FLORINDAALFONZO JAYDEN Chew 12/19 [employer](D over [facility] Team Hercule s) [employer]([facility] [place]) TELE CONSULT [id number] Notes Entered by: JULES LNADON 06 Mar 2012 1449 ------- ------- ------- ------- -- Appt line- pt wants to be tested for Lyme Disease JOAN STEPHEN 03/06 [employer](D over [facility] Team [facility]ercule s) [employer]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) OUTPATIENT [id number] PHA JEFFRY GRANDEN F 04/17 Released w/o Limitations [employer](P LEAL Cell) [facility] Medical Group([facility]) TELE CONSULT [id number] Notes Entered by: Steven STEPHEN 28 Apr 2012 1651 ------- ------- ------- ------- -- Lab result MITA KINSEY 04/28 Referred for Appointment [facility] Medical Group([facility]) [employer]([facility] [place]) TELE CONSULT [id number] Notes Entered by: JULES LANDON 09 Jun 2012 1526 ------- ------- ------- ------- -- Appt line-AD pt need a f/u appt for his L shoulde r MITA Soni 06/09 Referred for Appointment [employer](D over [facility] Team [facility]erc[facility] s) [employer]([facility] [place]) TELE CONSULT [id number] Notes Entered by: AMANDEEP MARES RD 23 Jun 2012 1252 ------- ------- ------- ------- -- CRUZITO request ZAHRA HUDSON 06/23 Referred for Appointment [employer](D over [facility] Team Herc[place] s) [facility] Medical Group([facility] [place]) TELE CONSULT [id number] Notes Entered by: JULES LANDON 27 Jun 2012 1126 ------- ------- ------- ------- -- Appt line- pt was in the [facility] and has several ticks all over his body- lyme test JOAN STEPHEN 06/27 [employer](D over [facility] Team [facility]ercule s) [employer]([place]akeel er [facility] [place]) OUTPATIENT [id number] oversea s sukumar jaeger ce and annual physica l ZAHRA WOLF 07/17 Released w/o Limitations [employer](D over [facility] Team Hercule s) [employer]([facility] er [facility] [place]) TELE CONSULT [id number] Notes Entered by: Ran WOLF 24 Jul 2012 0916 ------- ------- ------- ------- -- 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 PCS form MITA KINSEY 07/24 Referred for Appointment [employer](D over [facility] Team [place] s) [employer]([facility] er [facility] [place]) TELE CONSULT [id number] Notes Entered by: Keily HERNANDEZ 25 Jul 2012 1250 ------- ------- ------- ------- -- Referra l Request JOAN STEPHEN 07/25 [employer](D over [facility] Team Hercule s) [employer]([facility] er [facility] [place]) TELE CONSULT [id number] Notes Entered by: Steven STEPHEN 27 Jul 2012 2105 ------- ------- ------- ------- -- Lab result ZAHRA HUDSON 07/28 Referred for Appointment [employer](D over [facility] Team Hercule s) [employer]([place] [facility] [place]) OUTPATIENT [id number] fever and ear infecti on ZAHRA WOLF 10/08 Sick at Home/Quarter s [employer](D over [facility] Team Hercule s) [facility] Clinic Team C) OUTPATIENT [id number] ear pain ANNA MALLOYMarilynn Tavarez 12/29 Released w/o Limitations [facility] Team [facility]) [facility] Clinic Team C) OUTPATIENT [id number] left shoulde r FILOMENA Rodriguez Corby 01/08 Released with Work/Duty Limitations [facility] Clinic Team C) [facility] Clinic Team C) OUTPATIENT [id number] Notes Entered by: Rob DICKSON 05 Feb 2013 1538 ------- ------- ------- ------- -- Medical Right Start SREE DICKSON 02/05 Released w/o Limitations [facility] Clinic Team C) [facility] Public Health) OUTPATIENT [id number] Notes Entered by: SARAH PALACIOS 16 Feb 2013 0930 ------- ------- ------- ------- -- [facility] SARAH PEREZ 02/16 Released w/o Limitations [facility] Public Health) [facility] Physical Therapy) OUTPATIENT [id number] SHMUEL SANCHEZ 03/11 Released w/o Limitations [facility] Physica l Therapy ) [facility] Physical Therapy) OUTPATIENT [id number] ESTRADA MCNAMARA 03/20 Released w/o Limitations [facility] Physica l Therapy ) [facility] Physical Therapy) OUTPATIENT [id number] LOGAN GARCIA 03/25 Released w/o Limitations [facility] Physica l Therapy ) [facility]_Clin ic_Team_B ) TELE CONSULT [id number] Notes Entered by: SARAH PALACIOS 27 Apr 2013 0950 ------- ------- ------- ------- -- KATHARINE GERARDO 04/27 [facility]__ Clinic_ Team_B) [facility] Public Health) OUTPATIENT [id number] Notes Entered by: ASRAH PALACIOS 13 May 2013 1156 ------- ------- ------- ------- -- SARAH ESPINAL 05/13 Released w/o Limitations [facility] Public Health) [facility] Clinic Team C) OUTPATIENT [id number] reprodu ctive organs questio FILOMENA Bernal 05/18 Released w/o Limitations [facility] Clinic Team [facility]) [facility] Health Promotion ) OUTPATIENT [id number] Notes Entered by: RADHIKA MCKEON 18 Jun 2013 1453 ------- ------- ------- ------- -- RADHIKA Marinelli 06/18 Released w/o Limitations [facility] Health Promoti on) [facility] Clinic Team C) TELE CONSULT [id number] Notes Entered by: Ran MARTELL 10 Aug 2013 1254 ------- ------- ------- ------- -- DM followi ng for hyperli pidemia . Due labs. AMPARO VU 08/10 [facility]) [facility] Clinic Team C) TELE CONSULT [id number] Notes Entered by: Benjamin COTTON 08 Sep 2013 1027 ------- ------- ------- ------- -- ER visit tick removal AMPARO VU 09/08 [facility]) [facility] L_FH_Clin ic_Team_B ) TELE CONSULT [id number] Notes Entered by: RAJEEV SOW 09 Dec 2013 1018 ------- ------- ------- ------- -- Network results -[facility]- 09/17 FILOMENA MALLOY 12/09 [facility]__ Clinic_ Team_B) [facility] Clinic Team C) OUTPATIENT [id number] analisa harris FILOMENA Rodriguez 12/31 Released w/o Limitations [facility] Clinic Team [facility]) [facility] Clinic Team C) TELE CONSULT [id number] Notes Entered by: Keily MURGUIA 22 Jan 2014 0741 ------- ------- ------- ------- -- F/u AMPARO Dickerson 01/22 [facility] Clinic Team [facility]) [facility] Clinic Team C) OUTPATIENT [id number] f/u FILOMENA Us 01/22 Released w/o Limitations [facility] Clinic Team C) [facility] Physical Therapy) OUTPATIENT [id number] Joint pain, localiz ed in the analisa CECILIA Ortiz 01/25 Released w/o Limitations [facility] Physica l Therapy ) [facility] Clinic Team C) TELE CONSULT [id number] Notes Entered by: Keily MURGUIA 27 Jan 2014 0946 ------- ------- ------- ------- -- Profile wording FILOMENA MALLOY 01/27 [facility] Clinic Team C) [facility] Team [facility]) TELE CONSULT [id number] Notes Entered by: Keily MURGUIA 01 Feb 2014 1325 ------- ------- ------- ------- -- Profile status - pt testing tomorro w FILOMENA MALLOY 02/01 [facility] Clinic Team C) [facility] Physical Therapy) OUTPATIENT [id number] JAKUBSUSANMarilynn Harris 02/04 Released w/o Limitations [facility](SDL Physica l Therapy ) [facility] Physical Therapy) OUTPATIENT [id number] ESTRADA MCNAMARA 02/09 Released w/o Limitations [facility](SDL Physica l Therapy ) [facility] Physical Therapy) OUTPATIENT [id number] JAKUB ABDIRAHMAN Harris 02/18 Released w/o Limitations [facility] Physica l Therapy ) [facility] Physical Therapy) OUTPATIENT [id number] CECILIA PIZARRO 03/11 Released w/o Limitations [facility](SD Physica l Therapy ) [facility] _FH_Clin ic_Team_B ) TELE CONSULT [id number] Notes Entered by: FABIO RUBI 23 Mar 2014 0804 ------- ------- ------- ------- -- Network Results -[facility] rge-01/02 4 FILOMENA MALLOY 03/23 [facility]__ Clinic_ Team_B) [facility] Optometry ) OUTPATIENT [id number] Notes Entered by: FRANKI DEAL 23 Apr 2014 1332 ------- ------- ------- ------- -- CADENCE MULLIGAN 04/23 Released w/o Limitations [facility] Optomet ry) [facility] Public Health) OUTPATIENT [id number] Notes Entered by: GISELL LEGGETT 24 May 2014 1617 ------- ------- ------- ------- -- PHA- ANNUAL VERONICA LEGGETT 05/24 Released w/o Limitations [facility] Public Health) [facility] Clinic Team C) OUTPATIENT [id number] meb BRIGIDA Kay 09/28 Released w/o Limitations [facility] Clinic Team [facility]) [facility] Clinic Team C) OUTPATIENT [id number] inferti BRIGIDA Casper 02/18 Released w/o Limitations [facility] Clinic Team [facility]) [facility]) OUTPATIENT [id number] Notes Entered by: Ángel CUELLAR 23 Jun 2015 0927 ------- ------- ------- ------- -- ANNUAL PAUL PARKINSON 06/23 Released w/o Limitations [facility] Public Health) [facility] Clinic Team C) OUTPATIENT [id number] neck pain BRIGIDA DONATO 08/23 Released w/o Limitations [facility] Clinic Team C) [facility] Clinic Team C) OUTPATIENT [id number] Notes Entered by: ROBYN WINTER I 06 Jan 2016 1318 ------- ------- ------- ------- -- strep test WYATT HYMAN 01/05 Released w/o Limitations [facility] Clinic Team [facility]) [facility] __Clin ic_Team_B ) OUTPATIENT [id number] right eye cloudy/ swollen outside of eye MING LEONARD 01/29 Released w/o Limitations [facility]_ Clinic_ Team_B) [facility] Clinic Team C) OUTPATIENT [id number] Sleep apnea discuss ion initial /PT Q coded BRIGIDA DONATO 02/08 Released w/o Limitations [facility] Clinic Team C) [facility] Sleep Clinic) OUTPATIENT [id number] Has appoint ment ZENIA ABDALLA 02/28 Released w/o Limitations [facility] Sleep Clinic) [facility] Sleep Clinic) OUTPATIENT [id number] sleep group ELAINE SMITH 04/10 Released w/o Limitations [facility] Sleep Clinic) [facility] Sleep Clinic) OUTPATIENT [id number] split night KEN ALONSO 04/10 Released w/o Limitations [facility] Sleep Clinic) [facility] Sleep Clinic) OUTPATIENT [id number] Provide r only psg interp YAEL LAUREANO 04/24 Released w/o Limitations [facility] Sleep Clinic) [facility] Sleep Clinic) OUTPATIENT [id number] PSG results ABILIO GAMINO 05/02 Released w/o Limitations [facility] Sleep Clinic) [facility] Clinic Team C) TELE CONSULT [id number] Notes Entered by: Benjamin COTTON 03 May 2016 0832 ------- ------- ------- ------- -- Pass on info MELANY RADER 05/03 [facility] Clinic Team C) [facility] Clinic Team C) TELE CONSULT [id number] Notes Entered by: LIGIA DIAZ 18 Jun 2016 1433 ------- ------- ------- ------- -- RESULTS OF Annual/ Initial JASVIR FOSTER 06/18 [facility] Clinic Team C) [facility] Sleep Clinic) OUTPATIENT [id number] cpap initial follow up ABILIO GAMINO 06/21 Released w/o Limitations [facility] Sleep Clinic) [facility] Public Health) OUTPATIENT [id number] Notes Entered by: SAMMI LÓPEZ 03 Jul 2016 1621 ------- ------- ------- ------- -- Annual PHA JESUS LÓPEZ 07/03 Released w/o Limitations [facility] Public Health) [facility] Hearing Conservat ion) OUTPATIENT [id number] Notes Entered by: WAYNE KINGSTON 20 Jul 2016 1049 ------- ------- ------- ------- -- Annual Audiogr am VERONICA LEGGETT 07/20 Released w/o Limitations [facility] Hearing Conserv ation) [facility] Clinic Team C) TELE CONSULT [id number] Notes Entered by: CRISTINA RASMUSSEN 24 Sep 2016 1051 ------- ------- ------- ------- -- SAIGE Menjivar 09/24 [facility] Clinic Team C) [facility](SDL In and Out Processin g) TELE CONSULT [id number] Notes Entered by: SARAH MENG 15 Nov 2016 1030 ------- ------- ------- ------- -- Medical Out Process ing SARAH MENG 11/15 [facility](SDL In and Out Process ing) [employer]([facility] Team A) TELE CONSULT [id number] Notes Entered by: MELANY TORREZ 10 May 2017 0829 ------- ------- ------- ------- -- Profile KRISILANABrionna Rivas 05/10 [facility] Group(H anscom [facility] Team A) [facility] Group(Bas e Ops Med Clinic) OUTPATIENT [id number] [facility]# [phone] GIANCARLO MERA 08/26 Released w/o Limitations [facility] Group(B ase Ops Med Clinic) [facility](PHA Cell) OUTPATIENT [id number] Notes Entered by: ROSI FONTANA 04 Sep 2017 0918 ------- ------- ------- ------- -- [facility] GIANCARLO MAURER 09/04 Released w/o Limitations [facility] Medical Group(P LEAL Cell) [facility] Team A) TELE CONSULT [id number] Notes Entered by: Marilynn PASTOR 23 Sep 2017 0935 ------- ------- ------- ------- -- Pt MATTHEW Vázquez 09/23 Referred for Appointment [facility] Group(H anscom [facility] Team A) [facility] Team A) TELE CONSULT [id number] Notes Entered by: JORDON VELA 12 Dec 2017 1458 ------- ------- ------- ------- -- Sleep Study CAROLYN Coreas 12/12 [facility] Group(H anscom C Team A) [facility] Team A) TELE CONSULT [id number] Notes Entered by: Marilynn PASTOR 19 Dec 2017 1139 ------- ------- ------- ------- -- MATTHEW Wallace 12/19 Referred for Appointment [facility] Group(H anscom [facility] Team A) [facility] Team A) TELE CONSULT [id number] Notes Entered by: LEELA NIELSEN 27 Dec 2017 1050 ------- ------- ------- ------- -- MATTHEW Bullock 12/27 Referred for Appointment [facility] Team A) OUTPATIENT [id number] Paperwo for Sleep study JIMWHITNEY MCPHERSON Keily 12/31 Released w/o Limitations [facility] Team A) TELE CONSULT [id number] Notes Entered by: TAYA AGUIRRE 07 Apr 2018 0924 ------- ------- ------- ------- -- [facility] SINAI AGUIRRE 04/07 Referred for Appointment [facility] Group([facility] Team A) [facility](Fli ght Med Leal) TELE CONSULT [id number] Notes Entered by: CLARE COVINGTON 28 Apr 2018 0718 ------- ------- ------- ------- -- LA 4 ROWAN COSTA 04/28 Other Not Elsewhere Classified [facility] Group(F light Med Leal) [facility](Bas [facility] Med [facility]) OUTPATIENT [id number] 9 [facility] [phone] RICHAR DE DIOS 09/30 Released with Work/Duty Limitations [facility](B ase Ops Med Clinic) [facility] Team A) TELE CONSULT [id number] Notes Entered by: LASHONDA BADILLO 27 Nov 2018 1701 ------- ------- ------- ------- -- GSU- Profile request //BORIS Del Valle 11/27 Other Not Elsewhere Classified [facility] Team A) TELE CONSULT [id number] Notes Entered by: BONILLA IRENE 09 Dec 2018 0826 ------- ------- ------- ------- -- [facility]/ /Profil e Update Request BONILLA SHIN 12/09 Other Not Elsewhere Classified [facility] Group([facility] Team A) [facility] Team A) TELE CONSULT [id number] Notes Entered by: MJ BENJAMIN 22 Jan 2019 1210 ------- ------- ------- ------- -- [facility] - Con- Leave Wilma vivas and Request ORIANA WOLF 01/22 Referred for Appointment [facility] Group([facility] Team A) [facility] ght Med Leal) TELE CONSULT [id number] Notes Entered by: ANDREW ALBARADO 21 May 2019 1012 ------- ------- ------- ------- -- FL-4. ROWAN Bhatti 05/21 Other Not Elsewhere Classified [facility] Group(F light Med Leal) [facility] Medical [facility](Fli ght Med Leal) TELE CONSULT [id number] Notes Entered by: NEAL CASTILLO 16 Jun 2019 1623 ------- ------- ------- ------- -- [facility]: CLAUU Profile request RODNEY LACY 06/16 [facility] Group(F light Med Leal) [facility]ps [facility]) TELE CONSULT [id number] Notes Entered by: Brionna COSTA 18 Jun 2019 0959 ------- ------- ------- ------- -- [facility] REQUEST GEORGIE SRIVASTAVA 06/18 [facility](B ase Ops Med Clinic) [facility](BHO P Clinic) OUTPATIENT [id number] AF [facility] PHA Priorit y SHINE COBBINDIO Rivas 09/11 Released w/o Limitations [employer](B HOP Clinic) [employer]([facility]ps [facility]) OUTPATIENT [id number] Notes Entered by: NEAL CASTILLO 05 Oct 2019 1432 ------- ------- ------- ------- -- AF [facility] )([facility] ed) RODNEY LACY 10/05 Released w/o Limitations [employer](B ase Ops Med Clinic) [facility](Fli ght Med Leal) TELE CONSULT [id number] 6 Notes Entered by: NEAL CASTILLO 10 Dec 2019 1330 ------- ------- ------- ------- -- [facility]: [facility] 72hour quarter s request EDITH MONGE 12/10 Other Not Elsewhere Classified [facility](F light Med Leal) [facility](Fli ght Med Leal) TELE CONSULT [id number] Notes Entered by: JEWEL LACY 04 Apr 2020 1241 ------- ------- ------- ------- -- KOSTA George 04/04 Other Not Elsewhere Classified [facility](F light Med Leal) [facility](Fli ght Med Leal) TELE CONSULT [id number] 7 Notes Entered by: JEWEL LACY 04 Aug 2020 1927 ------- ------- ------- ------- -- REQUEST KEYLA CUMMINGS/REJI Tavarez NOTES JOSHUA CASTILLO 08/04 Other Not Elsewhere Classified [facility](F light Med Leal) [facility]ps [facility]) TELE CONSULT [id number] Notes Entered by: EDITH MONGE 17 Aug 2020 1239 ------- ------- ------- ------- -- MEB WorkshRODNEY Adams 08/17 [facility](B ase Ops Med Clinic) [facility] Team A) TELE CONSULT [id number] Notes Entered by: WAYNE CARPENTER 11 Oct 2020 1431 ------- ------- ------- ------- -- GSU PHA JOSHUA CASTILLO 10/11 Other Not Elsewhere Classified [facility]( anscom [facility] Team A) [facility](Fli ght Med Leal) TELE CONSULT [id number] Notes Entered by: NEAL CASTILLO 11 Oct 2020 1550 ------- ------- ------- ------- -- AMRO follow up JOSHUA CASTILLO 10/11 Other Not Elsewhere Classified [facility](F light Med Leal) [facility]) OUTPATIENT [id number] A -l RICHAR DE DIOS 10/21 Released w/o Limitations [facility](B ase Ops Med Clinic) [facility]ps Med [facility]) OUTPATIENT [id number] 2 [facility] PHA(A [facility] ed)(GSU ) RICHAR DE DIOS 11/15 Released w/o Limitations [facility](B ase Ops Med Clinic) [facility]ps Med Clinic) OUTPATIENT [id number] 1 DR1 RICHAR DE DIOS 10/23 Released w/o Limitations [facility](B [facility]se [facility]ps Med Clinic) [facility](Fli ght Med Leal) TELE CONSULT [id number] 7 Notes Entered by: TYSON DE DIOS 24 Oct 2021 1521 ------- ------- ------- ------- -- GSU Remote Form JOSHUA CASTILLO 10/24 Other Not Elsewhere Classified [facility](F light Med Leal) [facility]ps Med Clinic) TELE CONSULT [id number] 6 Notes Entered by: NEAL CASTILLO 07 Nov 2021 1627 ------- ------- ------- ------- -- ZAYRA/RICHAR Rodgers 11/07 [employer](B [facility]se [facility]ps Med Clinic) [employer](a ring Conservat ion Clinic) OUTPATIENT [id number] 2 EARS ANNUAL [place] FLAKITA 12/28 Released w/o Limitations [employer](H earing Conserv ation Clinic) [employer](39 ABW Clinic) OUTPATIENT [id number] 5 Notes Entered by: Brionna BUTTERFIELD 25 Jan 2022 1029 ------- ------- ------- ------- -- ELAINE Bansal 01/25 Released w/o Limitations [employer](3 9 ABW Clinic) [employer] [facility] Team A) OUTPATIENT [id number] Notes Entered by: KISHOR KIM ON 26 Feb 2022 1145 ------- ------- ------- ------- -- BECCA Rogers 02/26 Released w/o Limitations [employer]([facility] Team [facility]) [employer]([facility] Team A) TELE CONSULT [id number] Notes Entered by: HAROON PHILIPPE 19 Jul 2022 1244 ------- ------- ------- ------- -- IMR Update MARTY COPELAND 07/19 Other Not Elsewhere Classified [employer]( anscom [facility] Team A) [employer]([facility]) TELE CONSULT [id number] Notes Entered by: HAROON PHILIPPE 21 Aug 2022 1427 ------- ------- ------- ------- -- ROWAN Manley 08/21 Other Not Elsewhere Classified [employer](F light Med Leal) [employer](Bas [facility]ps Med Clinic) TELE CONSULT [id number] 3 Notes Entered by: TOSHIA DUNN 19 Sep 2022 1331 ------- ------- ------- ------- -- JOSHUA FRASER 09/19 Other Not Elsewhere Classified [employer](B ase Ops Med Clinic) [facility](Bas [facility]ps Med Clinic) OUTPATIENT [id number] 3 VALERI [phone] RICHAR DE DIOS 09/20 Released w/o Limitations [facility](B ase Ops Med Clinic) [facility]ps Med Clinic) OUTPATIENT [id number] 2 AF PHA [phone] RICHAR DE DIOS 10/14 Released w/o Limitations [facility](B ase Ops Med Clinic) 0310C-AF- [facility] [employer] [employer] Between Visit [id number] 01/01 Discharge Disposition: Home or Self Care 0310C-A F-C-[facility] [employer] [employer] 0310C-AF- [facility] [employer] Between Visit [id number] 02/02 Discharge Disposition: Home or Self Care 0310C-A F[facility] [employer] [employer] 0310C-AF- [facility] [employer] Between Visit [id number] 03/19 Discharge Disposition: Home or Self Care 0310C-A [facility] [employer] [employer] 0310A-AF- [facility] Between Visit [id number] 04/13 Discharge Disposition: Home or Self Care 0310A-A [facility] [employer] [employer] 0310C-AF- [facility] [employer] Between Visit [id number] 06/04 Discharge Disposition: Home or Self Care 0310C-A [facility] [employer] [employer] Procedures Combined list of: 1) Procedures from Department of Veterans Affairs facilities going back up to thelast 18 months, not all VA non-surgical procedures are included; 2) All procedures 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 Procedure Procedure Type Code Date Perfomer Comments Sourc e VIS FUNCT SCREEN,AUTOMAT/SEMI -AUTOMAT BILAT QUANT DETERM VISUAL ACUITY,OCULAR ALIGN,COLOR VISION,PSEUDOISOCHR OMAT PLATES,& FIELD VIS (MAY INC ALL/SOME SCRN DETERM FOR CONTRAST SENSITIV,VIS UND GLARE) [facility] VIS FUNCT SCREEN,AUTOMAT/SEMI -AUTOMAT BILAT QUANT DETERM VISUAL ACUITY,OCULAR ALIGN,COLOR VISION,PSEUDOISOCHR OMAT PLATES,& FIELD VIS (MAY INC ALL/SOME SCRN DETERM FOR CONTRAST SENSITIV,VIS UND GLARE) [facility] OPHTHALMOLOGICAL SERVICES: MEDICAL EXAMINATION AND EVALUATION, WITH INITIATION OR CONTINUATION OF DIAGNOSTIC AND TREATMENT PROGRAM; INTERMEDIATE, ESTABLISHED PATIENT [facility] VIS FUNCT SCREEN,AUTOMAT/SEMI -AUTOMAT BILAT QUANT DETERM VISUAL ACUITY,OCULAR ALIGN,COLOR VISION,PSEUDOISOCHR OMAT PLATES,& FIELD VIS (MAY INC ALL/SOME SCRN DETERM FOR CONTRAST SENSITIV,VIS UND GLARE) [facility] VIS FUNCT SCREEN,AUTOMAT/SEMI -AUTOMAT BILAT QUANT DETERM VISUAL ACUITY,OCULAR ALIGN,COLOR VISION,PSEUDOISOCHR OMAT PLATES,& FIELD VIS (MAY INC ALL/SOME SCRN DETERM FOR CONTRAST SENSITIV,VIS UND GLARE) [facility] AZITHROMYCIN DIHYDRATE, ORAL, CAPSULES/POWDER, 1 GRAM [facility] BRIEF COMM TECH-BASE SERV,E.G. VIRT CHK-IN,BY [...] KNOW,ATTEN,LANG,MEM ,PLAN&PROB SOLV&VIS SPATIAL ABIL]),PHYS/OTH QUAL HCP,BOTH [id number] TIME W PT &TIME INTERP TST RES &PREP RPT;1ST HR [facility] ADMINISTRATION OF PATIENT-FOCUSED HEALTH RISK ASSESSMENT INSTRUMENT (EG, HEALTH HAZARD APPRAISAL) WITH SCORING AND DOCUMENTATION, PER STANDARDIZED INSTRUMENT [facility] BRIEF COMM TECH-BASE SERV,E.G. VIRT CHK-IN,BY PHYS/OTH QUAL HCP,RPT E&M SERV,PROV TO EST PT,NOT ORIG FRM REL E/M SERV PROV W/IN PREV 7DAY NOR LEAD TO E/M SRV/PX W/IN NEXT 24HR/SOON KARISHMA; 5-10 MIN DISC DoD ONLINE ASSESS &MANAG SERV PROVIDE,A QUAL NONPHYS HCP TO AN ESTABLISHED PAT/GUARDIAN,NOT ORIGINAT FRM RELAT ASSESS &MANAG SERV PROVIDE W/IN THE PREV 7 DAYS,USE THE [facility] [facility] COMM NETWORK DoD BRIEF EMOTIONAL/BEHAVIORA L ASSESSMENT (EG, DEPRESSION INVENTORY, ATTENTION-DEFICIT/H YPERACTIVITY DISORDER [ADHD] SCALE), WITH SCORING AND DOCUMENTATION, PER STANDARDIZED INSTRUMENT DoD ONLINE ASSESS &MANAG SERV PROVIDE,A QUAL NONPHYS HCP TO AN ESTABLISHED PAT/GUARDIAN,NOT ORIGINAT FRM RELAT ASSESS &MANAG SERV PROVIDE W/IN THE PREV 7 DAYS,USE THE [employer] [place] COMM NETWORK DoD ONLINE ASSESS &MANAG SERV PROVIDE,A QUAL NONPHYS HCP TO AN ESTABLISHED PAT/GUARDIAN,NOT ORIGINAT FRM RELAT ASSESS &MANAG SERV PROVIDE W/IN THE PREV 7 DAYS,USE THE [employer] COMM NETWORK DoD ONLINE ASSESS &MANAG SERV PROVIDE,A QUAL NONPHYS HCP TO AN ESTABLISHED PAT/GUARDIAN,NOT ORIGINAT FRM RELAT ASSESS &MANAG SERV PROVIDE W/IN THE PREV 7 DAYS,USE THE [employer] COMM NETWORK DoD ADMINISTRATION OF PATIENT-FOCUSED HEALTH RISK ASSESSMENT INSTRUMENT (EG, HEALTH HAZARD APPRAISAL) WITH SCORING AND DOCUMENTATION, PER STANDARDIZED INSTRUMENT DoD ADMINISTRATION OF PATIENT-FOCUSED HEALTH RISK ASSESSMENT INSTRUMENT (EG, HEALTH HAZARD APPRAISAL) WITH SCORING AND DOCUMENTATION, PER STANDARDIZED INSTRUMENT DoD MANUAL THERAPY TECHNIQUES (EG, MOBILIZATION/ MANIPULATION, MANUAL LYMPHATIC DRAINAGE, MANUAL TRACTION), 1 OR MORE REGIONS, EACH 15 MINUTES 011 DoD MANUAL THERAPY TECHNIQUES (EG, MOBILIZATION/ MANIPULATION, MANUAL LYMPHATIC DRAINAGE, MANUAL TRACTION), 1 OR MORE REGIONS, EACH 15 MINUTES DoD APPLICATION OF A MODALITY TO 1 OR MORE AREAS; HOT OR COLD PACKS DoD THERAPEUTIC PROCEDURE, 1 OR MORE AREAS, EACH 15 MINUTES; THERAPEUTIC EXERCISES TO DEVELOP STRENGTH AND ENDURANCE, RANGE OF MOTION AND FLEXIBILITY DoD MANUAL THERAPY TECHNIQUES (EG, MOBILIZATION/ MANIPULATION, MANUAL LYMPHATIC DRAINAGE, MANUAL TRACTION), 1 OR MORE REGIONS, EACH 15 MINUTES DoD MANUAL THERAPY TECHNIQUES (EG, MOBILIZATION/ MANIPULATION, MANUAL LYMPHATIC DRAINAGE, MANUAL TRACTION), 1 OR MORE REGIONS, EACH 15 MINUTES DoD APPLICATION OF A MODALITY TO 1 OR MORE AREAS; HOT OR COLD PACKS [facility] EXERCISE EQUIPMENT DoD NONINVASIVE EAR OR PULSE OXIMETRY FOR OXYGEN SATURATION; SINGLE DETERMINATION [facility] PHYSICAL THERAPY RE-EVALUATION DoD THERAPEUTIC PROCEDURE,1 OR MORE AREAS,EACH 15 MINUTES;NEUROMUSCUL AR REEDUCATION OF MOVEMENT,BALANCE,CO ORDINATION,KINESTHE TIC SENSE,POSTURE,AND/O R PROPRIOCEPTION FOR SITTING AND/OR STANDING ACTIVITIES DoD APPLICATION OF A MODALITY TO 1 [...] OR MORE AREAS; HOT OR COLD PACKS [facility] APPLICATION OF A MODALITY TO 1 OR MORE AREAS; HOT OR COLD PACKS [facility] APPLICATION OF A MODALITY TO 1 OR MORE AREAS; HOT OR COLD PACKS [facility] THERAPEUTIC PROCEDURE, 1 OR MORE AREAS, EACH 15 MINUTES; THERAPEUTIC EXERCISES TO DEVELOP STRENGTH AND ENDURANCE, RANGE OF MOTION AND FLEXIBILITY [facility] PHYSICAL THERAPY RE-EVALUATION [facility] THERAPEUTIC PROCEDURE, 1 OR MORE AREAS, EACH 15 MINUTES; THERAPEUTIC EXERCISES TO DEVELOP STRENGTH AND ENDURANCE, RANGE OF MOTION AND FLEXIBILITY [facility] THERAPEUTIC PROCEDURE, 1 OR MORE AREAS, EACH 15 MINUTES; THERAPEUTIC EXERCISES TO DEVELOP STRENGTH AND ENDURANCE, RANGE OF MOTION AND FLEXIBILITY [facility] THERAPEUTIC PROCEDURE, 1 OR MORE AREAS, EACH 15 MINUTES; THERAPEUTIC EXERCISES TO DEVELOP STRENGTH AND ENDURANCE, RANGE OF MOTION AND FLEXIBILITY [facility] THERAPEUTIC PROCEDURE, 1 OR MORE AREAS, EACH 15 MINUTES; THERAPEUTIC EXERCISES TO DEVELOP STRENGTH AND ENDURANCE, RANGE OF MOTION AND FLEXIBILITY [facility] TELE ASSESS & MGT SRV PROV QUAL NONPHYS HLTH CARE PRO TO EST PAT,PARENT,GUARD NOT ORIG REL ASSESS & MGT SRV PROV W/IN PREV 7 DAYS NOR LEAD ASSESS & MGT SRV/PX W/IN NXT 24 HR/SOON APT;5-10 MIN MED DIS [facility] PURE TONE AUDIOMETRY (THRESHOLD), AUTOMATED; AIR ONLY [facility] POLYSOMNOGRAPHY; AGE 6 YEARS OR OLDER, SLEEP STAGING WITH 4 OR MORE ADDITIONAL PARAMETERS OF SLEEP, ATTENDED BY A TECHNOLOGIST [facility] POLYSOMNOGRAPHY; AGE 6 YEARS OR OLDER, SLEEP STAGING WITH 4 OR MORE ADDITIONAL PARAMETERS OF SLEEP, ATTENDED BY A TECHNOLOGIST [facility] OSTEOPATHIC MANIPULATIVE TREATMENT (OMT); 1-2 BODY REGIONS INVOLVED [facility] VIS FUNCT SCREEN,AUTOMAT/SEMI -AUTOMAT BILAT QUANT DETERM VISUAL ACUITY,OCULAR ALIGN,COLOR VISION,PSEUDOISOCHR OMAT PLATES,& FIELD VIS ([employer] INC ALL/SOME SCRN DETERM FOR CONTRAST SENSITIV,VIS UND GLARE) [facility] PHYSICAL THERAPY RE-EVALUATION [facility] THERAPEUTIC PROCEDURE, 1 OR MORE AREAS, EACH 15 MINUTES; THERAPEUTIC EXERCISES TO DEVELOP STRENGTH AND ENDURANCE, RANGE OF MOTION AND FLEXIBILITY 014 [facility] THERAPEUTIC PROCEDURE, 1 OR MORE AREAS, EACH 15 MINUTES; THERAPEUTIC EXERCISES TO DEVELOP STRENGTH AND ENDURANCE, RANGE OF MOTION AND FLEXIBILITY 014 [facility] THERAPEUTIC PROCEDURE,1 OR MORE AREAS,EACH 15 MINUTES;NEUROMUSCUL AR REEDUCATION OF MOVEMENT,BALANCE,CO ORDINATION,KINESTHE TIC SENSE,POSTURE,AND/O R PROPRIOCEPTION FOR SITTING AND/OR STANDING ACTIVITIES 014 [facility] THERAPEUTIC PROCEDURE, 1 OR MORE AREAS, EACH 15 MINUTES; THERAPEUTIC EXERCISES TO DEVELOP STRENGTH AND ENDURANCE, RANGE OF MOTION AND FLEXIBILITY 014 [facility] APPLICATION OF A MODALITY TO 1 OR MORE AREAS; IONTOPHORESIS, EACH 15 MINUTES 013 [facility] APPLICATION OF A MODALITY TO 1 OR MORE AREAS; IONTOPHORESIS, EACH 15 MINUTES 013 [facility] PHYSICAL THERAPY EVALUATION 013 [facility] THERAPEUTIC PROCEDURE, 1 OR MORE AREAS, EACH 15 MINUTES; THERAPEUTIC EXERCISES TO DEVELOP STRENGTH AND ENDURANCE, RANGE OF MOTION AND FLEXIBILITY 022 [facility] Modalities Cryotherapy Cold Packs Modalities Cryotherapy Cold Packs [id number] SIVAKUMAR MCHUGH [facility] Physical Therapy Neuromuscular Re-education Physical Therapy Neuromuscular Re-education [id number] SIVAKUMAR MCHUGH [facility] Physical Therapy: ___ Se ion Segments, 15 Minutes Each Physical Therapy: ___ Session Segments, 15 Minutes Each [id number] SIVAKUMAR MCHUGH [facility] Physical Therapy Service Re-Evaluation Physical Therapy Service Re-Evaluation [id number] [id number] GEORGIE ROWE [facility] Physical Therapy: ___ Se ion Segments, 15 Minutes Each Physical Therapy: ___ Session Segments, 15 Minutes Each [id number] DEANN LAW [facility] Physical Therapy: ___ Se ion Segments, 15 Minutes Each Physical Therapy: ___ Session Segments, 15 Minutes Each 03198 008 SIVAKUMAR MCHUGH [facility] Physical Therapy: ___ Se ion Segments, 15 Minutes Each Physical Therapy: ___ Session Segments, 15 Minutes Each [id number] GEORGIE ROWE [facility] Physical Therapy Service Evaluation Physical Therapy Service Evaluation [id number] GEORGIE ROWE [facility] Physical Therapy: ___ Se ion Segments, 15 Minutes Each Physical Therapy: ___ Session Segments, 15 Minutes Each [id number] GEORGIE ROWE [facility] Physical Therapy Service Evaluation Physical Therapy Service Evaluation [id number] GEORGIE ROWE [facility] Visual Function Screening Visual Function Screening [id number] [id number] RAUL DE LA PAZ [facility] Screening Test Of Visual Acuity, Quantitative, Bilateral Screening Test Of Visual Acuity, Quantitative, Bilateral 20770 [id number] RAUL DE LA PAZ [facility] Visual Function Screening Visual Function Screening 93214 [id number] RAUL DE LA PAZ [facility] Screening Test Of Visual Acuity, Quantitative, Bilateral Screening Test Of Visual Acuity, Quantitative, Bilateral 71724 [id number] RAUL DE LA PAZ [facility] Ophthalmological Prior Patient Start Intermediate Level Care Ophthalmological Prior Patient Start Intermediate Level Care [id number] HAYDENDOROTHY SOSA [facility] Visual Function Screening Visual Function Screening 70948 [id number] ARUL DE LA PAZ [facility] Screening Test Of Visual Acuity, Quantitative, Bilateral Screening Test Of Visual Acuity, Quantitative, Bilateral 30057 006 RAUL DE LA PAZ [facility] Visual Function Screening Visual Function Screening 29752 [id number] RAUL DE LA PAZ [facility] Screening Test Of Visual Acuity, Quantitative, Bilateral Screening Test Of Visual Acuity, Quantitative, Bilateral 55773 006 RAUL DE LA PAZ [facility] Internet Med Svc Qual Nonphys Healthcare Prof Up To 7 Days Estab Patient Internet Med Svc Qual Nonphys Healthcare Prof Up To 7 Days Estab Patient [phone] GEORGIE SIMON [facility] Internet Med Svc Qual Nonphys Healthcare Prof Up To 7 Days Estab Patient Internet Med Svc Qual Nonphys Healthcare Prof Up To 7 Days Estab Patient [id number] BONILLA SHIN [facility] Non-Physician Phone Call To Patient/Provider Brief (5-10min) Non-Physician Phone Call To Patient/Provider Brief (5-10min) [id number] BONILLA SHIN [facility] Preventive Medicine Administration Of Health Risk Questionnaire Patient-Focused Preventive Medicine Administration Of Health Risk Questionnaire Patient-Focused [id number] RICHAR DE DIOS [facility] Internet Med Svc Qual Nonphys Healthcare Prof Up To 7 Days Estab Patient Internet Med Svc Qual Nonphys Healthcare Prof Up To 7 Days Estab Patient [id number] PAULA RICHAR [facility] Preventive Medicine Administration Of Health Risk Questionnaire Patient-Focused Preventive Medicine Administration Of Health Risk Questionnaire Patient-Focused [id number] [facility] Internet Med Svc Qual Nonphys Healthcare Prof Up To 7 Days Estab Patient Internet Med Svc Qual Nonphys Healthcare Prof Up To 7 Days Estab Patient [id number] [facility] Preventive Medicine Administration Of Health Risk Questionnaire Patient-Focused Preventive Medicine Administration Of Health Risk Questionnaire Patient-Focused [phone] GIANCARLO MERA [facility] Preventive Medicine Administration Of Health Risk Questionnaire Patient-Focused Preventive Medicine Administration Of Health Risk Questionnaire Patient-Focused [id number] GIANCARLO MERA [facility] Internet Med Svc Qual Nonphys Healthcare Prof Up To 7 Days Estab Patient Internet Med Svc Qual Nonphys Healthcare Prof Up To 7 Days Estab Patient [id number] GIANCARLO MERA [facility] Non-Physician Phone Call To Patient/Provider Brief (5-10min) Non-Physician Phone Call To Patient/Provider Brief (5-10min) [id number] SAIGE RASHEED [facility] Threshold Audiogram (Pure Tone) Automated Threshold Audiogram (Pure Tone) Automated [id number] 016 VERONICA LEGGETT [facility] Polysomnography With 4+ Add'l Sleep Parameters Age 6 Years Or Older Polysomnography With 4+ Add'l Sleep Parameters Age 6 Years Or Older [id number] YAEL LAUREANO [facility] Patient Counseling Medical Management Five To Eight Patients Patient Counseling Medical Management Five To Eight Patients [id number] ELAINE SMITH [facility] Polysomnography With 4+ Add'l Sleep Parameters Age 6 Years Or Older Polysomnography With 4+ Add'l Sleep Parameters Age 6 Years Or Older [id number] 016 FREDA PAL [facility] Osteopathic Manip Treatment (OMT) 1-2 Body Regions Involved Osteopathic Manip Treatment (OMT) 1-2 Body Regions Involved 74131 015 BRIGIDA DONATO [facility] Visual Function Screening Visual Function Screening 19047 014 CADENCE COSTA [facility] A isted Exercises For ROM Assisted Exercises For ROM 36339 014 CECILIA PIZARRO [facility] Physical Therapy Service Re-Evaluation Physical Therapy Service Re-Evaluation 80358 014 CECILIA PIZARRO [facility] Physical Therapy: ___ Se ion Segments, 15 Minutes Each Physical Therapy: ___ Session Segments, 15 Minutes Each 71542 014 ABDIRAHMAN CALL Physical Therapy: ___ Se ion Segments, 15 Minutes Each Physical Therapy: ___ Session Segments, 15 Minutes Each 06197 014 ESTRADA MCNAMARA [facility] Physical Therapy Neuromuscular Re-education Physical Therapy Neuromuscular Re-education 72626 014 ABDIRAHMAN CALL Physical Therapy: ___ Se ion Segments, 15 Minutes Each Physical Therapy: ___ Session Segments, 15 Minutes Each 24140 014 ABDIRAHMAN CALL [facility] A isted Exercises For ROM Assisted Exercises For ROM 21012 014 CECILIA PIZARRO [facility] Physical Therapy Service Evaluation Physical Therapy Service Evaluation 22713 014 CECILIA PIZARRO [facility] Modalities Iontophoresis Modalities Iontophoresis 64770 013 LOGAN GARCIA [facility] Modalities Iontophoresis Modalities Iontophoresis 67018 013 ESTRADA MCNAMARA Physical Therapy: ___ Se ion Segments, 15 Minutes Each Physical Therapy: ___ Session Segments, 15 Minutes Each 77308 013 ESTRADA MCNAMARA [facility] Physical Therapy Service Evaluation Physical Therapy Service Evaluation 76269 013 SHMUEL SANCHEZ [facility] Modalities Cryotherapy Cold Packs Modalities Cryotherapy Cold Packs 75425 011 PORTILLO SHARPE [facility] A isted Exercises For ROM Assisted Exercises For ROM 97020 011 PORTILLO SHARPE Physical Therapy Mobilization Joint Physical Therapy Mobilization Joint 64962 011 PORTILLO SHARPE Physical Therapy Mobilization Joint Physical Therapy Mobilization Joint 48909 011 PORTILLO SHARPE A isted Exercises For ROM Assisted Exercises For ROM 72519 011 PORTILLO SHARPE Modalities Cryotherapy Cold Packs Modalities Cryotherapy Cold Packs [phone] PORTILLO SHARPE [facility] Modalities Cryotherapy Cold Packs Modalities Cryotherapy Cold Packs [phone] JUN PA [facility] Physical Therapy Mobilization Joint Physical Therapy Mobilization Joint 07765 011 JUN PA [facility] A isted Exercises For ROM Assisted Exercises For ROM 80599 011 JUN PA [facility] Physical Therapy Mobilization Joint Physical Therapy Mobilization Joint 50432 011 ANNEMARIE PORTILLO Lazo [facility] Modalities Cryotherapy Cold Packs Modalities Cryotherapy Cold Packs 07828 011 ANNEMARIE PORTILLO Violet [facility] A isted Exercises For ROM Assisted Exercises For ROM 00008 011 ANNEMRAIE PORTILLO Lazo [facility] Modalities Cryotherapy Cold Packs Modalities Cryotherapy Cold Packs 70295 011 ANNEMARIEPORTILLO [facility] Physical Therapy Mobilization Joint Physical Therapy Mobilization Joint 85761 011 ANNEMARIE PORTILLO Violet [facility] A isted Exercises For ROM Assisted Exercises For ROM 74821 011 PORTILLO SHARPE [facility] A isted Exercises For ROM Assisted Exercises For ROM 61067 011 ANNEMARIEPORTILLO [facility] Physical Therapy Mobilization Joint Physical Therapy Mobilization Joint 74467 011 ANNEMARIE PORTILLO Violet [facility] Modalities Cryotherapy Cold Packs Modalities Cryotherapy Cold Packs 84869 011 ANNEMARIE PORTILLO S [facility] Modalities Cryotherapy Cold Packs Modalities Cryotherapy Cold Packs 34911 011 WARREN DOZIER [facility] Physical Therapy Mobilization Joint Physical Therapy Mobilization Joint 34035 011 WARREN DOZIER [facility] A isted Exercises For ROM Assisted Exercises For ROM 44318 011 WARREN DOZIER Exercise equipment 011 NAYELI ANN Physical Therapy: ___ Se ion Segments, 15 Minutes Each Physical Therapy: ___ Session Segments, 15 Minutes Each [id number] 011 NAYELI ANN Physical Therapy Service Evaluation Physical Therapy Service Evaluation [id number] 011 NAYELI ANN Pulse Oximetry Pulse Oximetry 13916 010 ELAINA HAMILTON [facility] Albuterol, inhalation solution, FDA-approved final product, non-compounded, administered through DME, concentrated form, 1 mg 010 ELAINA HAMILTON [facility] Physical Therapy Service Re-Evaluation Physical Therapy Service Re-Evaluation 33990 008 DENNIS VARGAS [facility] Physical Therapy Neuromuscular Re-education Physical Therapy Neuromuscular Re-education 20554 008 DEANN LAW Physical Therapy: ___ Se ion Segments, 15 Minutes Each Physical Therapy: ___ Session Segments, 15 Minutes Each 37868 008 DEANN LAW [facility] Modalities Ultrasound Modalities Ultrasound 80771 008 ROSALIA COTTON Physical Therapy: ___ Se ion Segments, 15 Minutes Each Physical Therapy: ___ Session Segments, 15 Minutes Each 07014 008 ROSALIA COTTON Physical Therapy: ___ Se ion Segments, 15 Minutes Each Physical Therapy: ___ Session Segments, 15 Minutes Each 45518 008 ROSALIA COTTON [facility] Modalities Ultrasound Modalities Ultrasound 49436 008 DEANN LAW [facility] Modalities Ultrasound Modalities Ultrasound 49889 008 ROSALIA COTTON Physical Therapy: ___ Se ion Segments, 15 Minutes Each Physical Therapy: ___ Session Segments, 15 Minutes Each 13353 008 ROSALIA COTTON Modalities Ultrasound Modalities Ultrasound 04127 008 ROSALIA COTTON [facility] Physical Therapy: ___ Se ion Segments, 15 Minutes Each Physical Therapy: ___ Session Segments, 15 Minutes Each 06656 008 ROSALIA COTTON NMR x 4min [facility] Physical Therapy: ___ Se ion Segments, 15 Minutes Each Physical Therapy: ___ Session Segments, 15 Minutes Each 76819 008 DENNIS VARGAS [facility] Physical Therapy Service Evaluation Physical Therapy Service Evaluation 57811 008 DENNIS VARGAS [facility] Modalities Cryotherapy Cold Packs Modalities Cryotherapy [place] 02791 008 DEANN LAW [facility] Physical Therapy Neuromuscular Re-education Physical Therapy Neuromuscular Re-education 54116 008 DEANN LAW [facility] Physical Therapy: ___ Se ion Segments, 15 Minutes Each Physical Therapy: ___ Session Segments, 15 Minutes Each 71088 008 DEANN LAW [facility] Physical Therapy Neuromuscular Re-education Physical Therapy Neuromuscular Re-education 82064 008 DEANN LAW [facility] Modalities Cryotherapy Cold Packs Modalities Cryotherapy [place]acks 46947 008 DEANN LAW [facility] Physical Therapy: ___ Se ion Segments, 15 Minutes Each Physical Therapy: ___ Session Segments, 15 Minutes Each 12583 008 DEANN LAW [facility] Modalities Cryotherapy Cold Packs Modalities Cryotherapy [place]acks 35824 008 SIVAKUMAR MCHUGH [facility] Physical Therapy Neuromuscular Re-education Physical Therapy Neuromuscular Re-education 46546 008 SIVAKUMAR MCHUGH [facility] Physical Therapy: ___ Se ion Segments, 15 Minutes Each Physical Therapy: ___ Session Segments, 15 Minutes Each 46832 008 SIVAKUMAR MCHUGH [facility] Modalities Cryotherapy Cold Packs Modalities Cryotherapy [place] 79081 008 MCHUGHSIVAKUMAR [facility] Physical Therapy Neuromuscular Re-education Physical Therapy Neuromuscular Re-education 37327 008 MCHUGHSIVAKUMAR [facility] Physical Therapy: ___ Se ion Segments, 15 Minutes Each Physical Therapy: ___ Session Segments, 15 Minutes Each 89466 008 SIVAKUMAR MCHUGH [facility] Internet Med Svc Qual Nonps Healthcare Prof Up To 7 Days Estab Patient Internet Med Svc Qual Nonps Healthcare Prof Up To 7 Days Estab Patient 06026 TANIKA COBB [facility] Preventive Medicine Administration Of Health Risk Questionnaire Patient-Focused Preventive Medicine Administration Of Health Risk Questionnaire Patient-Focused [id number] TANIKA COBB Psychometric Emotional / Behavioral A e ment Psychometric Emotional / Behavioral Assessment 90801 TANIKA COBB Brief communication technology-based service, e.g. [...] appointment; 5-10 minutes of medical discu ion JEAN CLAUDEJOSSELYNOJSHUA [facility] Brief communication technology-based service, e.g. virtual check-in, by a physician or other qualified health care profelvin brooke who can report evaluation and management services, provided to an established patient, not originating from a related E/M service provided within the previous 7 days nor leading to an E/M service or procedure within the next 24 hours or soonest available appointment; 5-10 minutes of medical discu ion RICHAR DE DIOS A Only telephonic assessment; visit lasted 20 minutes. [facility] Psychometric Neuropsych Testing Battery Admin By Computer Psychometric Neuropsych Testing Battery Admin By Computer 56552 SISSY BLAS [facility] Cognitive Functions Mini-Mental Status Exam Cognitive Functions Mini-Mental Status Exam 15935 SISSY BLAS [facility] Physical Therapy Service Evaluation Low Complexity Physical Therapy Service Evaluation Low Complexity 14805 ELAINE BUTTERFIELD [facility] Osteopathic Manip Treatment (OMT) 1-2 Body Regions Involved Osteopathic Manip Treatment (OMT) 1-2 Body Regions Involved 57406 ELAINE BUTTERFIELD [facility] Physical Therapy: ___ Se ion Segments, 15 Minutes Each Physical Therapy: ___ Session Segments, 15 Minutes Each 39697 ELAINE BUTTERFIELD [facility] L Ankle surgery for pin/screw removal January [id number] HEART CATH THROUGH FEMORAL ARTERY February 2014- C [facility] [employer] Left Shoulder Laberal Tear February 2011- C [facility] Left ankle surgery fracture repair March 2018- C [facility] [employer] WTEx4 2001- [facility] [employer] PURE TONE AUDIOMTRY THRESHOLD COMPUTER DEV AIR PURE TONE AUDIOMTRY THRESHOLD COMPUTER DEV AIR [id number] 309 C [facility] [employer] Social History Combined list of available smoking, tobacco, and other social history from [facility] of Defense and Veterans Affairs facilities. Social History Type Response Date Comment [facility] e Sex Representation Male 09/21/2022 Unknow n Organization This section is an empty social history section. [facility] Tobacco Cigarette use: Yes-current everyday cigarette user. Average PACKS per day: (10 cigarettes = 0.5 packs) 0.5. Total years of smoking cigarettes: 17. Other Tobacco use: Never-other tobacco user (not cigarettes). [facility] Sexual Orientation [facility] Gender identity [facility] Assessment and Plan Combined list of future care activities from Department of Defense and Veterans Affairs facilities (e.g., assessment and plan notes, appointments, orders, and referrals). Additional future care activities may be listed in the Plan of Care section. 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 Richar De Dios CTR?FINISHING INSPECTOR-C [facility] [place] Provider Flight Medicine? [address]??[address] [facility] [phone] ? Extracted from:Title: DoD DRHA4 Author: RICHAR DE DIOS NP Date: 02/01/23 1.?ASSESSMENT, POST DEPLOYMENT, DOCUMENTED ON [id number] (A) This encounter contains a review of the SM's chronic and active medical conditions since the date of the last deployment on file. SM present for virtual encounter. ? DRHA4- Deployed to [place] with forward deploying to [place] 21 Nov 2021 to 21 May 2022. SM denies any deployment related concerns. ? No profiles, no DLCs. [employer] Green. ? ? 2.?Nicotine dependence Tobacco cessation highly encouraged/advised; F/U with PCM/BHOP?as needed. 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 12/30/2024 [id number] [facility] Functional Status Combined list of recent functional and cognitive assessments recorded at [facility] and [facility] ([facility] Functional Norton Measurement (FIM) Scale: 1 = Total Assistance (Subject = 0% +), 2 = Maximal Assistance (Subject = 25% +), 3 = Moderate Assistance (Subject = 50% +), 4 = Minimal Assistance (Subject = 75% +), 5 = Supervision, 6 = Modified Norton (Device), 7 = Complete Norton (Timely, Safely). Assessment Date/Time Source Assessment Type Assessment Skill Assessment Score Assessment Details No data available for this section
== END 2024-12-30 09:06 | disposition home or self-care (01) ==
LOC: HO.HMGCX 09:05
PROVIDERS: PCP Nurse Practitioner Family; Visit Provider Nurse Practitioner Family
DX: M25.572 Pain in left ankle and joints of left foot (principal); M79.671 Pain in right foot; M79.672 Pain in left foot; M25.512 Pain in left shoulder
CPT/HCPCS: 73600; 73620; 96127; 99212

== ENCOUNTER → 2024-12-30 10:03 | Outpatient (BNV) | payer OTHER, SELFPAY | PROVIDERS: PCP Nurse Practitioner Family; Visit Provider Radiology Diagnostic Radiology | DX: M25.572 Pain in left ankle and joints of left foot (principal); M79.671 Pain in right foot; M79.672 Pain in left foot | CPT/HCPCS: 73600; 73620 ==

== ENCOUNTER 2025-01-26 07:45 | Outpatient (REF) | payer OTHER, SELFPAY ==
--- NOTE | 2025-01-26 07:47 | EMG_ITS ---
Bilateral tibial and peroneal motor studies were performed. Bilateral superficial peroneal and sural sensory studies were performed. Tibial H reflexes were obtained, and paraspinal muscles were tested with a needle. 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 MD MATHIEU Woodall/MICHAEL / [id number]
--- OUTSIDE RECORDS SUMMARY | 2025-01-26 07:51 | XMS_ITS | Continuity of Care Document ---
Author Name [facility] Organization [facility] Care Team Providers Care Rn Burn Name Role Phone [facility] Unavailable Unavailable Problems Combined list of problems from Department of Defense and Veterans Affairs facilities. It does not include entries that were removed or entered in error. Problem Status Onset Date Problem Type Date of Resolution Comments Source Stress at work Active 01/13/2025 Diagnosis 0310 C-AF-C-6 6th [facility] Dyslipidemia Active 01/13/2025 Diagnosis 0310C- AF-C-6 6th [facility] Pain of left ankle joint Active 01/13/2025 Diagnosis 4323A-XY-C-6 6th [facility] Plantar fasciitis Active 01/13/2025 Diagnosis 0 310C-AF-C-6 6th [facility] Left shoulder pain Active 01/13/2025 Diagnosis 0207H-KY-Z-6 6th [facility] Obstructive sleep apnea Active 01/13/2025 Diagnosis 6845D-QZ-T-6 6th [facility] Nicotine dependence Active 01/13/2025 Diagnosis 7316A-LP-U-6 6th [facility] 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, 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, 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) Active 01/13/2025 Diagnosis 0310C-AF -C-6 6th [facility] Administrative reason for encounter Active 01/04/2025 Diagnosis 0110N-DP-K-6 6th [facility] Dyslipidemia Active Condition 0310C-AF- C-6 6th [facility] History of deployment Active Condition 0697W-UV-S-6 6th [facility] Left shoulder pain Active Condition 031 0C-AF-C-6 6th [facility] Neck pain Active Condition 9737K-AK-N-6 6th [facility] Nicotine dependence Active Condition 03 10C-AF-C-6 6th [facility] Obstructive sleep apnea Active Condition 4093E-SE-T-6 6th [facility] Pain of left ankle joint Active Condition 4937G-DK-V-6 6th [facility] Plantar fasciitis Active Condition 0310 C-AF-C-6 6th [facility] Stress at work Active Condition 0310C-A F-C-6 6th [facility] Medications Combined list of outpatient medications from [...] nce Oral (given by mouth) Discont inued 01/13/202520240C-A F-C-66t h [facility] C-PAP # 1 EA, 0 total refill(s ), Acute Not Applic able Ordered 2022 1.0 0310C-A F-C-66t h [facility] ezetimibe 10 mg oral tablet 1 tab(s), Oral, Daily, 0 total refill(s ), Maintena nce Oral (given by mouth) Discont inued 01/07/20242023-A F-C-66t h [facility] gabapentin 100 mg oral capsule 1 cap(s), Oral, TID, 0 total refill(s ), Maintena nce Oral (given by mouth) Discont inued 01/13/202520240-A F-C-66t h [facility] meloxicam 15 mg oral tablet 1 tab(s), Oral, Daily, # 30 tab(s), 0 total refill(s ), Maintena nce Oral (given by mouth) Ordered 2024 30.0 0310C-A F-C-66t h [facility] rosuvastati n 20 mg oral tablet 1 tab(s), Oral, Daily, for choleste rol, # 90 tab(s), 3 total refill(s ), Maintena nce Oral (given by mouth) Discont inued 01/13/20252024 90.0 0310C-A F-C-66t h [facility] Tylenol Oral, 0 total refill(s ), Maintena nce Oral (given by mouth) Ordered 2024C-A F-C-66t h [facility] [employer] Immunizations Combined list of available immunizations from the Department of Defense and Veterans Affairs facilities. Immunization Series Date Given Administered By Site Reaction Lot Number CVX Code Drug Laundry Technician Status Comments Source influenza virus vaccine, unspecified 2022 [id number] D [id number] complet ed influenza virus vaccine, unspecifi ed 10/14/23 Recorded 309C-A F-C-66t h [facility] influenza, injectable, quadrivalent- pf 2021 NATASHABROOKS [id number] 150 comple t ed Result Comment: Route: Unknown Manufactu rer: OT ([facility]) 309C-A F-C-66t h [facility] tetanus, diphtheria, acellular pertu is 2021 TRANSCR IBED 115 Unknown complet ed tetanus, diphtheri a, acellular pertussis 07/18/22 Given Ambulat ory Pharmac y typhoid Vi capsular polysaccharid e vac 2020 [id number] sanofi pasteur complet ed typhoid Vi capsular polysacch aride vac 09/15/21 Given Ambulat ory Pharmac y Influenza, inj, MDCK, quadrivalent- pf 2020 171 Seq[employer] complet ed Influenza , inj, MDCK, quadrival ent-pf 08/10/21 Given Ambulat ory Pharmac y COVID Vaccine Moderna 2020 [id number] 207 complet ed COVID Vaccine Moderna 02/24/21 Given Ambulat ory Pharmac y COVID Vaccine Moderna 2020 [id number] 207 complet ed COVID Vaccine Moderna 01/20/21 Given Ambulat ory Pharmac y influenza, injectable, quadrivalent 2019 TRANSCR IBED 158 complet ed influenza , injectabl e, quadrival ent 10/11/20 Given Ambulat ory Pharmac y influenza, seasonal, injectable 2018 [id number] 141 sanofi pasteur complet ed influenza , seasonal, injectabl e 09/02/19 Given Ambulat ory Pharmac y influenza, injectable, quadrivalent- pf 2017 [id number] 150 sanofi pasteur complet ed influenza , injectabl e, quadrival ent-pf 08/21/18 Given Ambulat ory Pharmac y influenza virus vaccine, unspecified 2016 [id number] 88 sanofi pasteur complet ed influenza virus vaccine, unspecifi ed 07/24/17 Given Ambulat ory Pharmac y influenza, seasonal, injectable-pf 2015 [id number] 140 Se[employer] complet ed influenza , seasonal, injectabl e-pf 08/29/16 Given Ambulat ory Pharmac y influenza, live, intranasal,qu adrivalent 2014 [id number] [facility] t ed influenza , live, intranasa l,quadriv alent 08/08/15 Given Ambulat ory Pharmac y influenza, live, intranasal,qu adrivalent 2013 [id number] [facility] t ed influenza , live, intranasa l,quadriv alent 08/23/14 Given Ambulat ory Pharmac y influenza, live, intranasal,qu adrivalent 2012 [id number] 149 [facility] t ed influenza , live, intranasa l,quadriv alent 08/11/13 Given Ambulat ory Pharmac y influenza virus vaccine, live 2011 [id number] 111 [facility] t ed influenza virus vaccine, live 07/24/12 Given Ambulat ory Pharmac y tetanus, diphtheria, acellular pertu is 2011 [id number] 115 [employer] complet ed tetanus, diphtheri a, acellular pertussis 04/29/12 Given Ambulat ory Pharmac y influenza virus vaccine, live 2010 [id number] 111 [facility] t ed influenza virus vaccine, live 09/07/11 Given Ambulat ory Pharmac y influenza virus vaccine,split 2009 [id number] 15 [employer]SL [employer]ring complet ed influenza virus vaccine,s plit 09/11/10 Given Ambulat ory Pharmac y typhoid Vi capsular polysaccharid e vac 2009 [id number] Unknown complet ed typhoid Vi capsular polysacch aride vac 02/10/10 Given Ambulat ory Pharmac y anthrax vaccine 2009 [id number] [employer] complet ed anthrax vaccine 02/10/10 Given Ambulat ory Pharmac y Novel influenza-H1N 1-09,pf,injec table 2009 [id number] 126 [employer] ls complet ed Novel influenza -W8H2-42, pf,inject able 11/28/09 Given Ambulat ory Pharmac y influenza virus vaccine, live 2008 [id number] 111 [employer] Inc comple t ed influenza virus vaccine, live 08/25/09 Given Ambulat ory Pharmac y influenza virus vaccine, live 2007 [id number] 111 [employer] Inc comple t ed influenza virus vaccine, live 08/18/08 Given Ambulat ory Pharmac y influenza virus vaccine, live 2006 [id number] 111 [employer] Inc comple t ed influenza virus vaccine, live 09/18/07 Given Ambulat ory Pharmac y hepatitis A adult vaccine 2006 [id number] 52 GlaxoSmithKli ne complet ed hepatitis A adult vaccine 09/18/07 Given Ambulat ory Pharmac y hepatitis A adult vaccine 2005 [id number] 52 GlaxoSmithKli ne complet ed hepatitis A adult vaccine 09/11/06 Given Ambulat ory Pharmac y meningococcal A,C,Y,W-135 (MCV4P) 2005 [id number] 114 sanofi pasteur complet ed meningoco ccal A,C,Y,W-1 35 (MCV4P) 09/06/06 Given Ambulat ory Pharmac y influenza virus vaccine,split 2005 [id number] [id number] 15 GlaxoSmithKli ne complet ed influenza virus vaccine,s plit 09/06/06 Given Ambulat ory Pharmac y poliovirus vaccine, inactivated 2005 [id number] 10 sanofi pasteur complet ed polioviru s vaccine, inactivat ed 09/06/06 Given Ambulat ory Pharmac y tetanus-dipht h toxoids (Td) adult/adol 2005 [id number] 09 sanofi pasteur complet ed tetanus-d iphth toxoids (Td) adult/ado l 09/06/06 Given Ambulat ory Pharmac y influenza virus vaccine, whole virus 2005 NATASHABROOKS AFLUA21 9BA 16 complet ed Result Comment: Route: Unknown Manufactu rer: SmithJaycee coronado ([employer]) 0310C-A F-C-66t h [facility] tuberculin purified protein derivative 2005 MARQUEZ [id number] 96 comple t ed Result Comment: Route: Unknown Manufactu rer: OTH ([facility]) 0310C-A F-C-66t h [facility] Encounters Combined list of: 1) Encounters from Department of Veterans Affairs facilities going backup to the last 18 months, not all VA inpatient encounters are included; 2) Encounters from the Department of Defense facilities going backup to 280 months. Location Location Details Encounter Type Encounter Number Reason For Visit Attending Provider ADM Date DC Date Status Disposition Source 0310-AF- C-66th [facility] Visit [id number] 06/04 Discharge Disposition: Home or Self Care 0310C-A F-C-66t h [facility] 0310-AF- C-66th [facility] Between Visit [id number] 12/31 Discharge Disposition: Home or Self Care 0310C-A F-C-66t h [facility] 031-AF- C-66th [facility] Clinic [id number] [facility] er for adminis trative examina tions, unspeci fied MANUEL REED 01/04 Discharge Disposition: Home or Self Care 0310C-A F-C-66t h [facility] 0310-AF- C-66th [facility] Between Visit [id number] 01/05 Discharge Disposition: Home or Self Care 0310C-A F-C-66t h [facility] 0310-AF- C-66th [facility] [id number] 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, 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, 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 Procedure Procedure Type Code Date Perfomer Comments Justine e L Ankle surgery for pin/screw removal January 2019309C-A F-C [facility] HEART CATH THROUGH FEMORAL ARTERY February 2014AF-C -66 [facility] Left Shoulder Laberal Tear February 20113070Q-DO-C-04 09 [facility] Left ankle surgery fracture repair March 2018AF- C [facility] WTEx2001AF-C [facility] PURE TONE AUDIOMTRY THRESHOLD COMPUTER DEV AIR PURE TONE AUDIOMTRY THRESHOLD COMPUTER DEV AIR 0208T 7362W-WG-Z [facility] Social History Combined list of available smoking, tobacco, and other social history from Department of Defense and Veterans Affairs facilities. 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 SM present for virtual encounter. All age/gender specific CPS IAW USPSTF are up to date;? SM was educated about the USPSTF recommended Hep C Ab screening, and was instructed to F/U?with PCM if SM desires to complete.?? ? Medication reconciled?and allergies verified today during this virtual encounter. ? IMR- Red for HIV test and yellow for?dental; SM informed.? Profile- ?Yes, MR/FR for L ankle/foot pain expires 03 Apr 2025.? NOT?-WWQ.? ? This MHA/PHA is for screening purposes only, and is Not to replace a face to face appointment with PCM or other specialty care?if needed. ? SM was informed that?if there are any?health concerns,?it is the SM's responsibility to schedule an appointment with PCM or specialty?care for evaluation and management. ? 2.?Nicotine dependence Tobacco cessation highly encouraged/advised; F/U with PCM/ care as needed. 3.?Dyslipidemia Follow a healthy diet limiting saturated fats (red meats, processed meats, full fat dairy), regular exercise, and acheving/maintaining a healthy weight; continue F/U with PCM for lipid panel monitoring and HLD management. 4.?Obstructive sleep apnea Continue C-PAP as prescribed, continue weight reduction achieving a healthy weight/BMI, and continue F/U with sleep clinic for management.? 5.?Left shoulder pain Continue F/U with PCM for management.? 6.?Pain of left ankle joint Continue F/U with PCM for management.? 7.?Plantar fasciitis F/U with Podiatry referral for management.? 8.?Stress at work F/U with [facility]care, [facility], [facility], or [facility] for counseling.?SM?provided with?[facility] [place]?phone number and?address.? SM instructed to report to ER or call suicide Hot line immediately for any thoughts or plans of harming self or others.? ? Richar Mitchell CTR?[employer] [facility] Provider Flight Medicine? ?[facility] [employer] [place]??[id number] [facility] [phone] ? Extracted from:Title: 469 Author: MANUEL MONCADA PA Date: 01/04/25 1.?Administrative reason for encounter 469 only given for 89 days (until the end of march) to allow for follow up w/specialists?and a more deceive?POC created.?? Major C. Bruno Moncada,?APA-C ? Aerospace Medicine Physician Expense Clerk/[facility] ? [facility] [employer] ? [place] ? ? ? 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 Richar Mitchell CTR?[employer] [facility] Provider Flight Medicine? ?[employer] [place]??[id number] [facility] [phone] ? Extracted from:Title: DoD DRHA4 Author: RICHAR MITCHELL NP Date: 02/01/23 1.?ASSESSMENT, POST DEPLOYMENT, DOCUMENTED ON [id number] (A) This encounter contains a review of the SM's chronic and active medical conditions since the date of the last deployment on file. SM present for virtual encounter. ? DRHA4- Deployed to [place] with forward deploying to [place] 21 Nov 2021 to 21 May 2022. SM denies any deployment related concerns. ? No profiles, no DLCs. IMR Green. ? ? 2.?Nicotine dependence Tobacco cessation highly encouraged/advised; F/U with PCM/BHOP?as needed. 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 01/26/2025 8868E-YT-Z-66th [facility] Functional Status Combined list of recent functional and cognitive assessments recorded at Department of Defense and Veterans Affairs (VA).VA Functional [place] Measurement (FIM) Scale: 1 = Total Assistance (Subject = 0% +), 2 = Maximal Assistance (Subject = 25% +), 3 = Moderate Assistance (Subject = 50% +), 4 = Minimal Assistance (Subject = 75% +), 5 = Supervision, 6 = Modified [place] (Device), 7 = Complete [place] (Timely, Safely). Assessment Date/Time Source Assessment Type Assessment Skill Assessment Score Assessment Details No data available for this section
--- OUTSIDE RECORDS SUMMARY | 2025-01-26 07:51 | XMS_ITS | Patient Health Record ---
Author Organization [facility] Address [address] [place] [address] Care Team Providers Care Acoustical Engineer Name Role Phone Rayray Allen Primary Care Provider Unav ailable Carline Mohan Unavailable [phone] Reason For Referral No Information Encounters Encounter Location Date Provider Diagnosis [facility] [address] [place] [address] 01/20/2025 Carline Mohan Plan Of Treatment Next Appt Details Provider Name:Carline pino, 04/01/2025 09:30:00 AM, [address] [place], [address], Insurance Providers Payer Name Payer Address Payer Phone Subscriber Number Group Number Insured Name Patient Relationship to Insured Coverage Start Date Coverage End Date [employer] Remote [address] [place] [address] [phone] [id number] Lloyd Mendez Self - patient is the insured
--- OUTSIDE RECORDS SUMMARY | 2025-01-26 07:51 | XMS_ITS ---
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 Generated for Luuli sina/Eva/eTransmitting on:?01/26/2025 07:51 AM EDT
== END 2025-01-26 07:46 | disposition home or self-care (01) ==
LOC: HO.NEURO 07:45
PROVIDERS: PCP Nurse Practitioner Family; Visit Provider Nurse Practitioner Family
DX: M79.671 Pain in right foot (principal); M79.672 Pain in left foot
CPT/HCPCS: 95886; 95911

== ENCOUNTER 2025-02-05 09:01 | Outpatient (REF) | payer OTHER, SELFPAY ==
--- OUTSIDE RECORDS SUMMARY | 2025-02-05 09:40 | XMS_ITS ---
Author Organization 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 Generated for Lului sina/Eva/eTransmitting on:?02/05/2025 09:40 AM EDT
--- OUTSIDE RECORDS SUMMARY | 2025-02-05 09:40 | XMS_ITS | Patient Health Record ---
Author Organization [facility] gabriela Brock Address [address] [place] [address] Care Team Providers Care Zanjero Name Role Phone Ankita BOLIVAR-Rayray RICHARDSON Primary Care Provider Unav ailable Carline Mohan Unavailable [phone] Reason For Referral Reason Pain in foot Diagnosis 1 Pain of foot, unspec ified laterality (M79.673) Referring Provider First Name Rayray Referring Provider Last Name Ankita [facility] Referred Provider Carline Mohan Referred Address [address] [place], [place],[address], Referred Provider Specialty Podiatry Referral Priority Routine Encounters Encounter Location Date Provider Diagnosis [facility] [address] [place] [address] 01/20/2025 Carline Mohan Plan Of Treatment Next Appt Details Provider Name:Carline pino, 04/01/2025 09:30:00 AM, [address] [place], [address], Insurance Providers Payer Name Payer Address Payer Phone Subscriber Number Group Number Insured Name Patient Relationship to Insured Coverage Start Date Coverage End Date [employer] [address] [place] [address] [id number] Lloyd Mendez Self - patient is the insured
--- OUTSIDE RECORDS SUMMARY | 2025-02-05 09:40 | XMS_ITS | Continuity of Care Document ---
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 Role Phone [facility] Unavailable Unavailable Problems Combined list of problems [...] of left ankle joint Active 01/13/2025 Diagnosis 4298L-AG-A-6 6th [facility] Plantar fasciitis Active 01/13/2025 Diagnosis 0 310C-AF-C-6 6th [facility] Left shoulder pain Active 01/13/2025 Diagnosis 2706Q-LJ-W-6 6th [facility] Obstructive sleep apnea Active 01/13/2025 Diagnosis 6114Q-XX-I-6 6th [facility] Nicotine dependence Active 01/13/2025 Diagnosis 3901B-MQ-X-6 6th [facility] 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, 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, 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 PERIODIC HEALTH ASSESSMENT (PHA) Active 01/13/2025 Diagnosis 0310C-AF -C-6 6th [facility] Administrative reason for encounter Active 01/04/2025 Diagnosis 1987Z-SF-O-6 6th [facility] Dyslipidemia Active Condition 0310C-AF- C-6 6th [facility] History of deployment Active Condition 5878S-OX-L-6 6th [facility] Left shoulder pain Active Condition 031 0C-AF-C-6 6th [facility] Neck pain Active Condition 5881U-QQ-P-6 6th [facility] Nicotine dependence Active Condition 03 10C-AF-C-6 6th [facility] Obstructive sleep apnea Active Condition 7023A-LW-N-6 6th [facility] Pain of left ankle joint Active Condition 8286F-RF-I-6 6th [facility] Plantar fasciitis Active Condition 0310 C-AF-C-6 6th [facility] Stress at work Active Condition 0310C-A F-C-6 6th [facility] Medications Combined list of outpatient medications from [...] by mouth) Discont inued 01/13/202520240C-A F-C-66t h [facility] C-PAP # 1 EA, 0 total refill(s ), Acute Not Applic able Ordered 2022 1.0 0310C-A F-C-66t h [facility] ezetimibe 10 mg oral tablet 1 tab(s), Oral, Daily, 0 total refill(s ), Maintena nce Oral (given by mouth) Discont inued 01/07/20242023-A F-C-66t h [facility] gabapentin 100 mg oral capsule 1 cap(s), Oral, TID, 0 total refill(s ), Maintena nce Oral (given by mouth) Discont inued 01/13/202520240-A F-C-66t h [facility] meloxicam 15 mg oral tablet 1 tab(s), Oral, Daily, # 30 tab(s), 0 total refill(s ), Maintena nce Oral (given by mouth) Ordered 2024 30.0 0310C-A F-C-66t h [facility] rosuvastati n 20 mg oral tablet 1 tab(s), Oral, Daily, for choleste rol, # 90 tab(s), 3 total refill(s ), Maintena nce Oral (given by mouth) Discont inued 01/13/20252024 90.0 0310C-A F-C-66t h [facility] Tylenol Oral, 0 total refill(s ), Maintena nce Oral (given by mouth) Ordered 2024C-A [facility]t h [facility] [employer] Immunizations Combined list of available immunizations from the Department of Defense and Veterans Affairs facilities. Immunization Series Date Given Administered By Site Reaction Lot Number CVX Code Drug Residential Concierge Status Comments Source influenza virus vaccine, unspecified 2022 [id number] complet ed influenza virus vaccine, unspecifi ed 10/14/23 Recorded 309C-A F-C-66t h [facility] influenza, injectable, quadrivalent- pf 2021 NATASHABROOKS [id number] 150 comple t ed Result Comment: Route: Unknown Manufactu rer: OT ([facility]) 309C-A F-C-66t h [facility] tetanus, diphtheria, acellular pertu is 2021 TRANSCR IBED 115 Unknown complet ed tetanus, diphtheri a, acellular pertussis 07/18/22 Given Ambulat ory Pharmac y typhoid Vi capsular polysaccharid e vac 2020 [id number] 101 sanofi pasteur complet ed typhoid Vi capsular polysacch aride vac 09/15/21 Given Ambulat ory Pharmac y Influenza, inj, MDCK, quadrivalent- pf 2020 171 Se[employer] complet ed Influenza , inj, MDCK, quadrival ent-pf 08/10/21 Given Ambulat ory Pharmac y COVID Vaccine Moderna 2020 [id number] 207 complet ed COVID Vaccine Moderna 02/24/21 Given Ambulat ory Pharmac y COVID Vaccine Moderna 2020 [id number] 207 complet ed COVID Vaccine Moderna 01/20/21 Given Ambulat ory Pharmac y influenza, injectable, quadrivalent 2019 TRANSCR IBED 158 complet ed influenza , injectabl e, quadrival ent 10/11/20 Given Ambulat ory Pharmac y influenza, seasonal, injectable 2018 [id number] 141 sanofi pasteur complet ed influenza , seasonal, injectabl e 09/02/19 Given Ambulat ory Pharmac y influenza, injectable, quadrivalent- pf 2017 [id number] 150 sanofi pasteur complet ed influenza , injectabl e, quadrival ent-pf 08/21/18 Given Ambulat ory Pharmac y influenza virus vaccine, unspecified 2016 [id number] 88 sanofi pasteur complet ed influenza virus vaccine, unspecifi ed 07/24/17 Given Ambulat ory Pharmac y influenza, seasonal, injectable-pf 2015 [id number] 140 Seqirus complet ed influenza , seasonal, injectabl e-pf 08/29/16 Given Ambulat ory Pharmac y influenza, live, intranasal,qu adrivalent 2014 [id number] [facility] t ed influenza , live, intranasa l,quadriv alent 08/08/15 Given Ambulat ory Pharmac y influenza, live, intranasal,qu adrivalent 2013 [id number] 149 [facility] t ed influenza , live, intranasa l,quadriv alent 08/23/14 Given Ambulat ory Pharmac y influenza, live, intranasal,qu adrivalent 2012 [id number] 149 [facility] t ed influenza , live, intranasa l,quadriv alent 08/11/13 Given Ambulat ory Pharmac y influenza virus vaccine, live 2011 [id number] 111 [facility] t ed influenza virus vaccine, live 07/24/12 Given Ambulat ory Pharmac y tetanus, diphtheria, acellular pertu is 2011 [id number] 115 [employer] [facility] complet ed tetanus, diphtheri a, acellular pertussis 04/29/12 Given Ambulat ory Pharmac y influenza virus vaccine, live 2010 [id number] 111 [facility] t ed influenza virus vaccine, live 09/07/11 Given Ambulat ory Pharmac y influenza virus vaccine,split 2009 [id number] 15 [employer]ring complet ed influenza virus vaccine,s plit 09/11/10 Given Ambulat ory Pharmac y typhoid Vi capsular polysaccharid e vac 2009 [id number] Unknown complet ed typhoid Vi capsular polysacch aride vac 02/10/10 Given Ambulat ory Pharmac y anthrax vaccine 2009 [id number] 24 [employer] complet ed anthrax vaccine 02/10/10 Given Ambulat ory Pharmac y Novel influenza-H1N 1-09,pf,injec table 2009 [id number] 1 126 Novartis Pharmaceutica ls complet ed Novel influenza -Q4P2-35, pf,inject able 11/28/09 Given Ambulat ory Pharmac y influenza virus vaccine, live 2008 [id number] 111 Medimmune Inc comple t ed influenza virus vaccine, live 08/25/09 Given Ambulat ory Pharmac y influenza virus vaccine, live 2007 [id number] 111 Med[employer] Inc comple t ed influenza virus vaccine, live 08/18/08 Given Ambulat ory Pharmac y influenza virus vaccine, live 2006 [id number] 111 Med[employer] Inc comple t ed influenza [...] ory Pharmac y meningococcal A,C,Y,W-135 (MCV4P) 2005 [id number] 114 sanofi pasteur complet ed meningoco ccal A,C,Y,W-1 35 (MCV4P) 09/06/06 Given Ambulat ory Pharmac y influenza virus vaccine,split 2005 [id number] 15 GlaxoSmithKli ne complet ed influenza virus vaccine,s plit 09/06/06 Given Ambulat ory Pharmac y poliovirus vaccine, inactivated 2005 [id number] 10 sanofi pasteur complet ed polioviru s vaccine, inactivat ed 09/06/06 Given Ambulat ory Pharmac y tetanus-dipht h toxoids (Td) adult/adol 2005 [id number] 09 sanofi pasteur complet ed tetanus-d iphth toxoids (Td) adult/ado l 09/06/06 Given Ambulat ory Pharmac y influenza virus vaccine, whole virus 2005 NATASHABROOKS [id number] 9BA 16 complet ed Result Comment: Route: Unknown Manufactu rer: SmithJaycee coronado ([employer]) 0310C-A F-C-66t h [facility] tuberculin purified protein derivative 2005 MARQUEZ [id number] 96 comple t ed Result Comment: Route: Unknown Manufactu rer: OTH ([facility]) 0310C-A F-C-66t h [facility] Encounters [...] Date Status Disposition Source 0310-AF- C-66th [facility] Between Visit [id number] 06/04 Discharge Disposition: Home or Self Care 0310C-A F-C-66t h [facility] 0310-AF- C-66th [facility] Between Visit [id number] 12/31 Discharge Disposition: Home or Self Care 0310C-A [facility]t [facility] 031-AF- C-66th [facility] [id number] [facility] er for adminis trative examina tions, unspeci fied MANUEL REED 01/04 Discharge Disposition: Home or Self Care 0310C-A F-C-66t h [facility] 0310-AF- C-66th [facility] Between Visit [id number] 01/05 Discharge Disposition: Home or Self Care 0310C-A F-C-66t h [facility] 0310-AF- C-66th [facility] [id number] 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, 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, 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 PERIODI C HEALTH ASSESSM ENT (PHA),O bstruct nallely sleep apnea (adult) (pediat sandra),Ni cotine depende nce, unspeci fied, uncompl icated, Hyperli pidemia , unspeci fied,Pa in in left shoulde r,Pain in left ankle,P lantar fascial fibroma tosis,O ther physica l and mental strain related to work RONEL SWAIN 01/13 Discharge Disposition: Home or Self Care 309C-A F-C66t h [facility] [employer] Procedures Combined list of: 1) Procedures from [...] [facility] Left Shoulder Laberal Tear February [id number]-RV-H-04 09 [facility] Left ankle surgery fracture repair March 2018AF- C66 [facility] WTEx2001-AF-C [facility] 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 8.?Stress at work F/U with [facility]care, [facility], or [facility] for counseling.?SM?provided with[facility] [place]phone number and?address.? SM instructed to report to ER or call suicide Hot line immediately for any thoughts or plans of harming self or others.? ? Richar Mitchell CTR?ZIPPER SETTER CHAINSTITCH-[place] [facility] [place]? ?[employer] S[place]q [place]??[address] [facility] [phone] ? Extracted from:Title: 469 Author: MANUEL MONCADA PA Date: 01/04/25 1.?Administrative reason for encounter 469 only given for 89 days (until the end of march) to allow for follow up w/specialists?and a more deceive?POC created.?? Major C. Bruno Moncada,?APA-C ? 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 [employer] ? Mara K[place] ? ? ? 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 Richar Mitchell CTR?ZIPPER SETTER CHAINSTITCH-[place] [facility] [place] Medicine? ?[employer] [place]??[address] [facility] [phone] ? Extracted from:Title: DoD DRHA4 Author: RICHAR MITCHELL NP Date: 02/01/23 1.?ASSESSMENT, POST DEPLOYMENT, DOCUMENTED ON XC6139 (MHA) This encounter contains a review of the SM's chronic and active medical conditions since the date of the last deployment on file. SM present for virtual encounter. ? DRHA4- Deployed to [place] with forward deploying to [place] 21 Nov 2021 to 21 May 2022. SM denies any deployment related concerns. ? No profiles, no DLCs. IMR Green. ? ? 2.?Nicotine dependence Tobacco cessation highly encouraged/advised; F/U with PCM/BHOP?as needed. 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 02/05/2025 1028H-VJ-Q-66th [facility] Functional Status Combined list of recent functional and cognitive assessments recorded at Department of Defense and Veterans Affairs (VA).VA Functional [place] Measurement (FIM) Scale: 1 = Total Assistance (Subject = 0% +), 2 = Maximal Assistance (Subject = 25% +), 3 = Moderate Assistance (Subject = 50% +), 4 = Minimal Assistance (Subject = 75% +), 5 = Supervision, 6 = Modified Clifton (Device), 7 = Complete [place] (Timely, Safely). Assessment Date/Time Source Assessment Type Assessment Skill Assessment Score Assessment Details No data available for this section
[2025-02-05 11:15] LABS: HIV AB/AG Nonreactive (Nonreactive); HIV Num 1 0.05 S/CO (0.00-0.99)
== END 2025-02-05 09:02 | disposition home or self-care (01) ==
LOC: HO.HMGCLDS 09:01
PROVIDERS: PCP Nurse Practitioner Family; Visit Provider Nurse Practitioner Family
DX: Z11.4 Encounter for screening for human immunodeficiency virus [HIV] (principal)
CPT/HCPCS: 36415; 87389

== ENCOUNTER 2025-03-09 07:51 | Outpatient (AMB) | payer OTHER, SELFPAY ==
--- OUTSIDE RECORDS SUMMARY | 2025-03-09 07:53 | XMS_ITS | Patient Health Record ---
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 Name Role Phone Rayray Allen Primary Care Provider Unav ailable Carline Mohan Unavailable [phone] Reason For Referral Reason Pain in foot Diagnosis 1 Pain of foot, unspec ified laterality (M79.673) Referring Provider First Name Rayray Referring Provider Last Name Ankita Referred Organization [facility] Juan Manuel Referred Provider Carline Mohan Referred Address [address] [place], [place],[address], Referred Provider Specialty Podiatry Referral Priority Routine Social History Tobacco Use: Social History Observation Description Date Details (start date - stop date) Current Smoker NA - NA Tobacco use other than smoking: Question Answer Notes Are you an other tobacco user? Yes Tobacco Control (Standard) Question Answer Notes Tobacco use: Current smoker AUDIT-C (Standard) Question Answer Notes Did you have a drink contain ing alcohol in the past year? Yes How often did you have a dri nk containing alcohol in the past year? Never (0 point) How many drinks did you have on a typical day when you were drinking in the past year? 1 or 2 drinks (0 point) How often did you have six o r more drinks on one occasion in the past year? Never (0 point) Points 0 Interpretation Negative Encounters Encounter Location Date Provider Diagnosis [facility] [address] [place] [address] 01/20/2025 Carline Mohan [facility] [address] [place] [address] 03/03/2025 Carline Mohan Plan Of Treatment Next Appt Details Provider Name:Carline Perales alvarez, 04/01/2025 09:30:00 AM, [address] [facility], [place], [address], Insurance Providers Payer Name Payer Address Payer Phone Subscriber Number Group Number Insured Name Patient Relationship to Insured Coverage Start Date Coverage End Date [employer] [address] [place] [address] [id number] Lloyd Mendez Self - patient is the insured Medical (General) History Medical History History ICD Code Anxiety Back,Hip,and Knee pain Broken bones covid-19 Depression Headaches/Migraines Numbness Poor circulation Stomach ulcer Chicken pox Surgical History Surgery Date(Month/Year) left shoulder 2009 left ulnar nerve 2023 left heel x2 2017,2019 wisdom tooth 2003
--- OUTSIDE RECORDS SUMMARY | 2025-03-09 07:54 | XMS_ITS | Continuity of Care Document ---
Author Name [facility] Organization [facility] Care Team Providers Care Beef Specialist Name Role Phone [facility] Unavailable Unavailable Problems Combined list of problems from Department of Defense and Veterans Affairs facilities. It does not include entries that were removed or entered in error. Problem Status Onset Date Problem Type Date of Resolution Comments Source Stress at work Active 01/14/20 25 Diagnosis 0310C-AF- [facility] Dyslipidemia Active 01/14/20 25 Diagnosis 0310C-AF- [facility] Pain of left ankle joint Active 01/14/20 25 Diagnosis 0310C-AF- [facility] Plantar fasciitis Active 01/14/20 25 Diagnosis 0310C-AF- [facility] Left shoulder pain Active 01/14/20 25 Diagnosis 0310C-AF- [facility] Obstructive sleep apnea Active 01/14/20 25 Diagnosis 0310C-AF- [facility] Nicotine dependence Active 01/14/20 25 Diagnosis 0310C-AF- [facility] 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, 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, 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) Active 01/14/20 25 Diagnosis 0310C-[facility]- [facility] Administrative reason for encounter Active 01/05/20 25 Diagnosis 0310C-AF- [facility] Obstructive sleep apnea (adult) (pediatric) Active 05/02/20 16 Condition DoD Dorsalgia, unspecified Active 11/01/18 99 Condition DoD Dyslipidemia Active Condition 0310C-[facility]- [facility] History of deployment Active Condition 0310C-AF- [facility] Left shoulder pain Active Condition 031 0C-AF- [facility] Neck pain Active Condition 0310C-AF- [facility] Nicotine dependence Active Condition 0310C-AF- [facility] Obstructive sleep apnea Active Condition 0310C-AF- [facility] Pain of left ankle joint Active Condition 309C-AF- [facility] Plantar fasciitis Active Condition 309 C-AF- [facility] Stress at work Active Condition 309C-A F- [facility] visit for: administrative purpose Active Condition DoD Outpatient Physician Consultation Active Condition DoD tick bites Inactive Condition DoD Anticipatory Guidance: Concerns About Exercise Active Condition DoD PREMATURE EJACULATION Active Condition DoD Patient Education Active Condition DoD joint pain, localized in the left shoulder Active Condition DoD OTITIS EXTERNA ACUTE Inactive Condition DoD SINUSITIS Active Condition DoD NORMAL EXAMINATION Inactive Condition Do D Laboratory Studies Inactive Condition Do D vomiting Inactive Condition DoD diarrhea Active Condition DoD visit for: refer patient without exam or treatment Inactive Condition DoD Aftercare Following Surgery Of Musculoskeletal System Inactive Condition DoD NICOTINE-RELATED DISORDERS Active Condition DoD ASTHMATIC BRONCHITIS Active Condition DoD Need For Vaccination Typhoid Inactive Condition DoD Anthrax Vaccine, For Subcutaneous Use Inactive Condition DoD Need For Prophylactic Antibiotics Inactive Condition DoD NICOTINE DEPENDENCE Active Condition DoD HEADACHE SYNDROMES Active Condition DoD Orthopedic Aftercare For Healing Traumatic Fracture Leg Inactive Condition DoD ankle joint pain Active Condition DoD Orthopedic Aftercare For Healing Traumatic Fx Lower Leg Inactive Condition DoD CLOSED FRACTURE OF HEEL Active Condition DoD CERVICALGIA Active Condition DoD headache Inactive Condition DoD DERMATITIS Inactive Condition See CHCS1 for Hydrocortisone Cream 1%.Hygiene discussed - follow up with PCM recommeneded if no improvement in 1 week. DoD visit for: services physical Active Condition Web Based LEAL no t available. Reviewed SF507. [facility] Other Physical Therapy Inactive Condition DoD lower back pain Active Condition DoD numbness (hypesthesia) Active Condition at former site of lump, expalined that numbness may resolve in another 4-6 mo, or coul be perm, meds for above may help with numbness. DoD LUMBAGO Active Condition Conservati ve Treatment discussed to [...] Counseling: Inquiry & Counseling Active Condition DoD BACKACHE Inactive Condition no further workup initiated, pt will do no situps or pushups for 3 days to rest back, will follow up as needed. DoD BURSITIS TROCHANTERIC Active Condition Reassurance.Nap r osyn 500 mg po bid # 8RTC prn concerns. DoD Corneal Opacity - Peripheral Active Condition DoD Conjunctival Hyperemia Active Condition DoD SUPERFICIAL INJURY - ABRASION OF CORNEA Inactive Condition DoD SUPERFICIAL INJURY - ABRASION OF LEFT CORNEA Inactive Condition topical tetracaine and flourescien applied bilat, blanca lamp reveals 3mm round corneal abrasion. Immediate consult to optometry. P2 Handwashing DoD red eyes Inactive Condition DoD Anticipatory Guidance: Inadequate Physical Activity Inactive Condition DoD ALLERGIC RHINITIS Active Condition DoD SINUSITIS ACUTE Inactive Condition DoD joint pain, localized in [...] Oral (given by mouth) Discont inued 01/13/20252024 0310C-A [facility] C-PAP # 1 EA, 0 total refill(s ), Acute Not Applic able Ordered 2022 1.0 0310C-A [facility] ezetimibe 10 mg oral tablet 1 tab(s), Oral, Daily, 0 total refill(s ), Maintena nce Oral (given by mouth) Discont inued 01/07/20242023 0310C-A [facility] gabapentin 100 mg oral capsule 1 cap(s), Oral, TID, 0 total refill(s ), Maintena nce Oral (given by mouth) Discont inued 01/13/20252024 0310C-A [facility] meloxicam 15 mg oral tablet 1 tab(s), Oral, Daily, # 30 tab(s), 0 total refill(s ), Maintena nce Oral (given by mouth) Ordered 2024 30.0 0310C-A F[facility] rosuvastati n 20 mg oral tablet 1 tab(s), Oral, Daily, for choleste rol, # 90 tab(s), 3 total refill(s ), Maintena nce Oral (given by mouth) Discont inued 01/13/20252024 90.0 0310C-A F-C-[facility] ROSUVASTATI N CALCIUM (rosuvastat in calcium), 10 MG, TABLET, ORAL, GLENMARK PHARMA, 90 ea. BOTTLE Cancele d [id number] : 2023 0 Pharmac y Data Transac tion Service Facilit y ROSUVASTATI N CALCIUM (rosuvastat in calcium), 10 MG, TABLET, ORAL, GLENMARK PHARMA, 90 ea. BOTTLE Cancele d [id number] : 2023 0 Pharmac y Data Transac tion Service Facilit y ROSUVASTATI N CALCIUM (rosuvastat in calcium), 20 MG, TABLET, ORAL, Tidalwave TraderARK PHARMA, 90 ea. BOTTLE Active [id number] 2023 90 Pharmac y Data Transac tion Service Facilit y TRAMADOL HCL (tramadol HCl), 50 MG, TABLET, ORAL, AMNEAL PHARMACE, 500 ea. BOTTLE Active [id number] 2023 30 Pharmac y Data Transac tion Service Facilit y Tylenol Oral, 0 total refill(s ), Maintena nce Oral (given by mouth) Ordered 20240C-A F-C-66t h [employer] Allergies, Adverse Reactions, Alerts Combined list of allergies from Department of Defense and Veterans Affairs facilities. It does not include entries that were removed or entered in error. Substance Category Reaction Severity Reaction type Status Date Reported Comments Source No Known Allergies Drug allergy (disorder) active 02/26/2022 [place] [address] Immunizations Combined list of available immunizations from the Department of Defense and Veterans Affairs facilities. Immunization Series Date Given Administered By Site Reaction Lot Number CVX Code Drug Security Guard Status Comments Source influenza virus vaccine, unspecified 2022 LEANDROCHRISTA D [id number] complet ed influenza virus vaccine, unspecifi ed 10/14/23 Recorded 0310C-A [facility] influenza, injectable, quadrivalent- pf 2021 MARQUEZ [id number] comple t ed Result Comment: Route: Unknown Manufactu rer: OT ([facility]) 0310C-A F-C-[facility] tetanus, diphtheria, acellular pertu is 2021 TRANSCR [id number] 115 Unknown complet ed tetanus, diphtheri a, acellular pertussis 07/18/22 Given Ambulat ory Pharmac y tetanus toxoid, reduced diphtheria toxoid, and acellular pertu is vaccine, adsorbed 2 2021 115 Unknown (UNK) comple t ed tetanus toxoid, reduced diphtheri a toxoid, and acellular pertussis vaccine, adsorbed DoD typhoid Vi capsular polysaccharid e vac 2020 [id number] sanofi pasteur complet ed typhoid Vi [...] Vi capsular polysaccharid e vaccine 2 2020 [id number] 101 Sanofi Pasteur (PMC) complet ed typhoid Vi capsular polysacch aride vaccine DoD Influenza, inj, MDCK, quadrivalent- pf 2020 171 Seqirus complet ed Influenza , inj, MDCK, quadrival ent-pf 08/10/21 Given Ambulat ory Pharmac y Influenza, injectable, MDCK, preservative free, quadrivalent 2020 GRISEL, () Not Given Influenza , injectabl e, MDCK, preservat nallely free, quadrival ent DoD Influenza, injectable, Madin [place] Canine Kidney, preservative free, quadrivalent 0 2020 171 Seqirus (SEQ) comple t ed Influenza , injectabl e, Madin Meredith Canine Kidney, preservat nallely free, quadrival ent DoD COVID Vaccine Moderna 2020 [id number] complet ed COVID Vaccine Moderna 02/24/21 Given Ambulat ory Pharmac y SARS-COV-2 (COVID-19) vaccine, mRNA, spike protein, LNP, preservative free, 100 mcg or 50 mcg dose 2 2020 [id number] 207 Moderna Diavibe, Inc. (MOD) complet ed SARS-COV- 2 (COVID-19 ) vaccine, mRNA, spike protein, LNP, preservat nallely free, 100 mcg or 50 mcg dose DoD COVID Vaccine Moderna 2020 [id number] complet ed COVID Vaccine Moderna 01/20/21 Given Ambulat ory Pharmac y SARS-COV-2 (COVID-19) vaccine, mRNA, spike protein, LNP, preservative free, 100 mcg or 50 mcg dose 1 2020 [id number] 207 Moderna Diavibe, Inc. (MOD) complet ed SARS-COV- 2 (COVID-19 [...] preservat nallely DoD influenza, seasonal, injectable 2018 [id number] 141 sanofi pasteur complet ed influenza , seasonal, injectabl e 09/02/19 Given Ambulat ory Pharmac y Influenza, seasonal, injectable 1 2018 [id number] 141 Sanofi Pasteur (PMC) complet ed Influenza , seasonal, injectabl e DoD influenza, injectable, quadrivalent- pf 2017 [id number] 150 sanofi pasteur complet ed influenza , injectabl e, quadrival ent-pf 08/21/18 Given Ambulat ory Pharmac y Influenza, injectable, quadrivalent, preservative free 1 2017 [id number] 150 Sanofi Pasteur ([facility]) complet ed Influenza , injectabl e, quadrival ent, preservat nallely free DoD influenza virus vaccine, unspecified 2016 [id number] 88 sanofi pasteur complet ed influenza virus vaccine, unspecifi ed 07/24/17 Given Ambulat ory Pharmac y influenza virus vaccine, unspecified formulation 1 2016 [id number] 88 Sanofi Pasteur ([facility]) complet ed influenza virus vaccine, unspecifi ed formulati on DoD influenza, seasonal, injectable-pf 2015 [id number] 140 Seqirus complet ed influenza , seasonal, injectabl e-pf 08/29/16 Given Ambulat ory Pharmac y Influenza, seasonal, injectable, preservative free 11 2015 [id number] 140 Seqirus (SEQ) comple t ed Influenza , seasonal, injectabl e, preservat nallely free DoD influenza, live, intranasal,qu adrivalent 2014 [id number] 149 Medimmune Inc [facility] t ed influenza , live, intranasa l,quadriv alent 08/08/15 Given Ambulat ory Pharmac y influenza, live, intranasal, quadrivalent 10 2014 [id number] 149 MedImmune, Inc. (MED) complet ed influenza , live, intranasa l, quadrival ent DoD influenza, live, intranasal,qu adrivalent 2013 [id number] 149 Medimmune Inc [facility] t ed influenza , live, intranasa l,quadriv alent 08/23/14 Given Ambulat ory Pharmac y influenza, live, intranasal, quadrivalent 9 2013 [id number] 149 MedImmune, Inc. (MED) complet ed influenza , live, intranasa l, quadrival ent DoD influenza, live, intranasal,qu adrivalent 2012 [id number] 149 Medimmune Inc comple t ed influenza , live, intranasa l,quadriv alent 08/11/13 Given Ambulat ory Pharmac y influenza, live, intranasal, quadrivalent 8 2012 [id number] 149 MedImmune, Inc. (MED) complet ed influenza , live, intranasa l, quadrival ent DoD influenza virus vaccine, live 2011 [id number] 111 Medimmune Inc comple t ed influenza virus vaccine, live 07/24/12 Given Ambulat ory Pharmac y influenza virus vaccine, live, attenuated, for intranasal use 7 2011 [id number] 111 MedImmune, Inc. (MED) complet ed influenza virus vaccine, live, attenuate d, for intranasa l use DoD tetanus, diphtheria, acellular pertu is 2011 [id number] 115 [facility] complet ed tetanus, diphtheri a, acellular pertussis 04/29/12 Given Ambulat ory Pharmac y tetanus toxoid, reduced diphtheria toxoid, and acellular pertu is vaccine, adsorbed 0 2011 [id number] 115 [facility] (SKB) complet ed tetanus toxoid, reduced diphtheri a toxoid, and acellular pertussis vaccine, adsorbed DoD influenza virus vaccine, live 2010 [id number] 111 The[employer]ine [employer] Inc [facility] t ed influenza virus vaccine, live 09/07/11 Given Ambulat ory Pharmac y influenza virus vaccine, live, attenuated, for intranasal use 1 2010 [id number] 111 Esp[employer]o [employer], Inc. (MED) complet ed influenza virus vaccine, live, attenuate d, for intranasa l use DoD influenza virus vaccine,split 2009 [id number] 15 CSL Behring complet ed influenza virus vaccine,s plit 09/11/10 Given Ambulat ory Pharmac y influenza virus vaccine, split virus (incl. purified surface antigen)-reti red CODE 1 2009 [id number] 15 CSL [employer], Inc. (CSL) complet ed influenza virus vaccine, split virus (incl. purified surface antigen)- retired CODE DoD typhoid Vi capsular polysaccharid e vac 2009 [id number] 101 Unknown complet ed typhoid Vi capsular polysacch aride vac 02/10/10 Given Ambulat ory Pharmac y anthrax vaccine 2009 [id number] 24 Emergent [employer] complet ed anthrax vaccine 02/10/10 Given Ambulat ory Pharmac y anthrax vaccine 1 2009 [id number] 24 [employer]gent [employer] [place] ([facility]) complet ed anthrax vaccine DoD typhoid Vi capsular polysaccharid e vaccine 1 2009 [id number] 101 Unknown (UNK) comple t ed typhoid Vi capsular polysacch aride vaccine DoD Novel influenza-H1N 1-09,pf,injec table 2009 [id number] 1 126 Novartis Pharmaceutica ls complet ed Novel influenza -H7L2-78, pf,inject able 11/28/09 Given Ambulat ory Pharmac y Novel influenza-H1N 1-09, preservative- free, injectable 1 2009 [id number] 1 126 Novartis Pharmaceutica l Genna. (NOV) complet ed Novel influenza -W5C9-34, preservat nallely-free, injectabl e DoD influenza virus vaccine, live 2008 [id number] 111 MediVengo [employer] Inc comple t ed influenza virus vaccine, live 08/25/09 Given Ambulat ory Pharmac y influenza virus vaccine, live, attenuated, for intranasal use 1 2008 [id number] 111 Esp[employer]o [employer], Inc. (MED) complet ed influenza virus vaccine, live, attenuate d, for intranasa l use DoD influenza virus vaccine, live 2007 [id number] 111 Medimmune Inc comple t ed influenza virus vaccine, live 08/18/08 Given Ambulat ory Pharmac y influenza virus vaccine, live, attenuated, for intranasal use 1 2007 [id number] 111 MedImmune, Inc. (MED) complet ed influenza virus vaccine, live, attenuate d, for intranasa l use DoD influenza virus vaccine, live 2006 [id number] 111 Medimmune Inc comple t ed influenza virus vaccine, live 09/18/07 Given Ambulat ory Pharmac y hepatitis A adult vaccine 2006 [id number] 52 GlaxoSmithKli ne complet ed hepatitis A adult vaccine 09/18/07 Given Ambulat ory Pharmac y hepatitis A vaccine, adult dosage 2 2006 [id number] 52 [facility] (SKB) complet ed hepatitis A vaccine, adult dosage DoD influenza virus vaccine, live, attenuated, for intranasal use 1 2006 [id number] 111 MedImmune, Inc. (MED) complet ed influenza [...] adult dosage DoD meningococcal A,C,Y,W-135 (MCV4P) 2005 [id number] 114 sanofi pasteur complet ed meningoco ccal A,C,Y,W-1 35 (MCV4P) 09/06/06 Given Ambulat ory Pharmac y influenza virus vaccine,split 2005 [id number] [id number] 15 GlaxoSmithKli ne complet ed influenza virus vaccine,s plit 09/06/06 Given Ambulat ory Pharmac y poliovirus vaccine, inactivated 2005 [id number] 10 sanofi pasteur complet ed polioviru s vaccine, inactivat ed 09/06/06 Given Ambulat ory Pharmac y tetanus-dipht h toxoids (Td) adult/adol 2005 [id number] 09 sanofi pasteur complet ed tetanus-d iphth toxoids (Td) adult/ado l 09/06/06 Given Ambulat ory Pharmac y influenza virus vaccine, whole virus 2005 MARQUEZ [id number] 9BA 16 complet ed Result Comment: Route: Unknown Manufactu rer: John oconnor (SKB) 0310C-A F-C-[facility]t [facility] tuberculin purified protein derivative 2005 MARQUEZ [id number] 96 comple t ed Result Comment: Route: Unknown Manufactu rer: OT ([facility]) 0310C-A F-C-66t [facility] [employer] tetanus and diphtheria toxoids, adsorbed, preservative free, for adult use (2 Lf of tetanus toxoid and 2 Lf of diphtheria toxoid) 1 2005 [id number] 09 Sanofi Pasteur ([facility]) complet ed tetanus and diphtheri a toxoids, adsorbed, preservat nallely free, for adult use (2 Lf of tetanus toxoid and 2 Lf of diphtheri a toxoid) [facility] poliovirus vaccine, inactivated 1 2005 [id number] 10 Sanofi Pasteur ([facility]) complet ed polioviru s vaccine, inactivat ed [facility] influenza virus vaccine, split virus (incl. purified surface antigen)-reti red CODE 1 2005 [id number] 15 SmithKline (SKB) complet ed influenza virus vaccine, split virus (incl. purified surface antigen)- retired CODE DoD influenza virus vaccine, whole virus 0 2005 [id number] 16 [employer]line (SKB) complet ed influenza virus vaccine, whole virus DoD meningococcal polysaccharid e (groups A, C, Y and W-135) diphtheria toxoid conjugate vaccine (MCV4P) 1 2005 [id number] 114 Sanofi Pasteur (PMC) complet ed meningoco [...] ADM Date DC Date Status Disposition Source [place] [address]([facility], [place]) OUTPATIENT [id number] knee pain QUANG MORGAN 09/17 Released with Work/Duty Limitations [facility] [place] [place] [address]([facility], [place]) [place] [address] [place] OUTPATIENT [id number] [facility] ADIS ROUSSEAU 09/20 Released with Work/Duty Limitations [facility] [place] [address]([facility] [place] [place] [address] [place] OUTPATIENT [id number] lt eye red burning ONESIMO URIBE 10/08 Released w/o Limitations [facility] [place] [address]([facility], [place]) [place] [address]([facility] ptometry, [place] (inactive )) OUTPATIENT [id number] corneal abrasio n TEOFILO DE LA PAZ M 10/08 Released w/o Limitations [facility] [place] [address](Z [facility] try, [place] (inacti ve)) [place] [address]([facility] ptometry, [place] (inactive )) OUTPATIENT [id number] Red Eye Follow Up From Yesterd ay TEOFILO DE LA PAZ R M 10/09 Released w/o Limitations [facility] [place] [address](Z [facility] try, [place] (inacti ve)) [place] [address]([facility] ptometry, [place] (inactive )) OUTPATIENT [id number] Red Eye Follow Up DOROTHY SIERRA 10/10 Released w/o Limitations [facility] [place] [address](Z [facility] try, [place] (inacti ve)) [place] [address]([facility] ptometry, [place] (inactive )) OUTPATIENT [id number] Red Eye Follow Up TEOFILO DE LA PAZ 10/11 Released w/o Limitations [facility] [place] [address](Z [facility] try, [place] (inacti ve)) [place] [address]([facility], [place]) OUTPATIENT [id number] FLOYDCristalDILIA BRAUNESTRADA [place] 10/12 Released with Work/Duty Limitations [facility] [place] [address]([facility], [place]) [place] [address]([facility] ptometry, [place] (inactive )) OUTPATIENT [id number] Follow up for corneal abrasio n from last week TEOFILO DE LA PAZ R M 10/16 Released w/o Limitations [facility] [place] [address](Z [facility] try, [place] (inacti ve)) SHLOMO [facility] [place] [address]([facility], [place]) OUTPATIENT [id number] lower back pain ALISHA WOFLF 10/16 [facility] Work/Duty Limitations [facility] [place] [address]([facility], [place]) [employer]([facility] Blue) TELE CONSULT [id number] leg pain during running , and when pt sits or stands; after that its fine GINA JOY 04/16 [employer](F amily Practic e Blue) [employer](Fam kyung [facility]) OUTPATIENT [id number] RT hip pain/in DIPAK Allen 04/16 Released w/o Limitations [employer](F amily Practic e Blue) [employer](PHA Cell) OUTPATIENT [id number] pha KAREN DIAZ 11/07 Released w/o Limitations [employer](P LEAL Cell) [employer](Fam kyung Practice Blue) TELE CONSULT [id number] pt had pha on 11/07 told to schedul e physica l therapy appt,no referra l in system JAMILA CASTANEDA 11/11 [employer](F amily Practic e Blue) [employer](Fam kyung Practice [facility]) OUTPATIENT [id number] Numb left leg and low back pain GINA JOY 11/20 Released w/o Limitations [employer](F amily Practic e Blue) [employer](Tommy [facility] eletal Screening ) OUTPATIENT [id number] LUMBAGO GEORGIE ROWE 12/09 Released w/o Limitations [employer](N euromus coskele maggie Screeni ng) [employer]([facility]my [facility] eletal Screening ) OUTPATIENT [id number] joint pain, localiz ed in the shoulde r GEORGIE ROWE 12/16 Released w/o Limitations [employer](N euromus coskele maggie Screeni ng) [employer](y sical [facility]) OUTPATIENT [id number] SIVAKUMAR MCHUGH 12/17 Released w/o Limitations [employer](P hysical Therapy Clinic) [employer](Phy sical Therapy [facility]) OUTPATIENT [id number] DEANN LAW 12/18 Released w/o Limitations [employer](P hysical Therapy Clinic) [employer](Tommy [facility] eletal Screening ) OUTPATIENT [id number] GEORGIE ROWE 01/06 Released w/o Limitations [employer](N euromus coskele maggie Screeni ng) [employer](Phy sical Therapy Clinic) OUTPATIENT [id number] SIVAKUMAR MCHUGH 01/11 Released w/o Limitations [employer](P hysical Therapy Clinic) [employer](Phy [facility]ical Therapy [facility]) OUTPATIENT [id number] SIVAKUMAR MCHUGH 01/13 Released w/o Limitations [employer](P hysical Therapy Clinic) [employer](Phy [facility]ical Therapy [facility]) OUTPATIENT [id number] SIVAKUMAR MCHUGH 01/19 Released w/o Limitations [employer](P hysical Therapy Clinic) [employer](Phy sical Therapy [facility]) OUTPATIENT [id number] DEANN LAW 01/21 Released w/o Limitations [employer](P [facility]ysical Therapy [facility]) [employer](Phy sical Therapy [facility]) OUTPATIENT [id number] DEANN LAW 01/26 Released w/o Limitations [employer](P hysical Therapy Clinic) [employer]([facility]) TELE CONSULT [id number] no appts; head pressur e, sore throat, hot and cold flashes GINA JOY 03/16 [employer](F amily Practic e Blue) [facility](Fam kyung Practice Blue) TELE CONSULT [id number] pt went to ER last night; pt broke both feet and need referra l to ortho GINA JOY 07/23 [employer](F amily Practic e Blue) [facility](Fam kyung Practice Blue) TELE CONSULT [id number] Pt fractur ed both feet JAMILA CASTANEDA 07/23 [employer](F amily Practic e Blue) [employer](Fam kyung Practice [facility]) OUTPATIENT [id number] Update CRUZITO from ANDREI García i 08/03 Released w/o Limitations [employer](F amily Practic e Blue) [employer](Tommy [facility] eletal Screening ) OUTPATIENT [id number] DENNIS VARGAS 09/07 Released w/o Limitations [employer](Perez andino) [employer](Phy sical Therapy Clinic) OUTPATIENT [id number] ROSALIA COTTON 09/09 Released w/o Limitations [employer](P hysical Therapy Clinic) [employer](Phy sical Therapy Clinic) OUTPATIENT [id number] ROSALIA COTTON 09/13 Released w/o Limitations [employer](P hysical Therapy Clinic) [employer](Phy sical Therapy Clinic) OUTPATIENT [id number] DEANN LAW 09/15 Released w/o Limitations [employer]) [employer]) OUTPATIENT [id number] ROSALIA COTTON 09/20 Released w/o Limitations [employer]) [employer]([facility]) OUTPATIENT [id number] ROSALIA COTTON 09/22 Released w/o Limitations [employer]) [employer]([facility]) OUTPATIENT [id number] DEANN LAW 10/04 Released w/o Limitations [employer]) [employer](Tommy [employer] eletal Screening ) OUTPATIENT [id number] DENNIS VARGAS 10/21 Released w/o Limitations [employer](Perez andino) [employer] OUTPATIENT [id number] Headach e over 24 hours and sharp pains in upper back. ELAINA HAMILTON 11/26 Sick at Home/Quarter s [employer](F amily Practic e Blue) [employer]([facility] TELE CONSULT [id number] mauricio hassan referra ll GINA JOY M 11/29 [employer]([facility] Practic e Blue) [employer]([facility] Blue) OUTPATIENT [id number] f/u on LEAL and pinched nerve GINA JOY M 11/30 Released w/o Limitations [employer]([facility] Practic e Blue) [employer]([facility]) TELE CONSULT [id number] need referra l to neurolo gy GINA JOY M 11/30 [employer]([facility]ily Practic e Blue) [employer](PHA Cell) OUTPATIENT [id number] pha GINA JYO M 12/07 Released w/o Limitations [employer](P LEAL Cell) [employer]([facility]) DENTAL [id number] exam OSCAR RBAN 03/18 Released w/o Limitations [employer](D ental Clinic) [employer]([facility]) DENTAL [id number] Pro HOSSEIN HAYS 03/18 [employer](D ental Clinic) [employer]([facility] Practice Blue) TELE CONSULT [id number] CRUZITO placed GINA JOY M 06/08 [employer]([facility] Practic e Blue) [employer]([facility]) OUTPATIENT [id number] malaria meds LIGIA DUNCAN 01/05 Released w/o Limitations [employer]([facility] Practic e Blue) [employer](PHA Cell) OUTPATIENT [id number] pha SINAI Jackson 01/05 Released w/o Limitations [employer](P LEAL Cell) [facility] OUTPATIENT [id number] 02/10 Released w/o Limitations Theater [facility] [employer]([facility]) OUTPATIENT [id number] post-de ploymen GINA JOY M 04/25 Released w/o Limitations [employer]([facility] amily Practic e Blue) [employer]([facility]) TELE CONSULT [id number] mri results IRAIS REINA 05/02 [employer]([facility] Pract[facility] Blue) [employer]([facility]) OUTPATIENT [id number] cough, congest ion- dischar ge ELAINA HAMILTON 06/27 Sick at Home/Quarter s [employer]([facility] Pract[facility] Blue) [employer]([facility]) OUTPATIENT [id number] Positiv e PDHRA GINA JOY 10/23 Released w/o Limitations [employer]([facility] Pract[facility]) [employer]([facility] Blue) TELE CONSULT [id number] appt line- pt needs to get his profile started plus have not receive d referBHAVIK Avila 11/10 Referred for Appointment [employer]([facility]ily Practic e Blue) [facility]am kyung Practice Blue) TELE CONSULT [id number] Still experie ncing shoulde r pain GINA JOY 11/21 [employer]([facility] amily Practic e Blue) [facility]am kyung Practice Blue) TELE CONSULT [id number] problem s schedul ing MRI BHAVIK SULLIVAN 11/21 Referred for Appointment [facility](F amily Practic e Blue) [facility](Fam kyung Practice Red) OUTPATIENT [id number] Pt wishes to stop smoking GINA JOY 11/28 Released w/o Limitations [employer](F amily Practic e Red) [facility] Practice Blue) TELE CONSULT [id number] CRUZITO GINA JOY 12/05 [employer]([facility] amily Practic e Blue) [facility] Practice Blue) TELE CONSULT [id number] Con Leave JAYDEN GRANDE 02/05 [employer]([facility] amily Practic e Blue) [facility] Practice Blue) TELE CONSULT [id number] con leave MIKO GARCÍA 02/07 Released to Self Care [employer](F amily Practic e Blue) [facility]am kyung Practice Red) TELE CONSULT [id number] inform pt that CRUZITO if done JAYDEN GRANDE F 02/22 [employer](F amily Practic e Red) [employer](Phy [facility]ical Therapy Clinic) OUTPATIENT [id number] kody williamcarson NAYELI Ruffin Steven 03/14 Released with Work/Duty Limitations [employer]([facility]) [employer]([facility]) OUTPATIENT [id number] WARREN DOZIER 03/15 Released w/o Limitations [employer]([facility]) [employer]([facility]) OUTPATIENT [id number] PORTILLO SHARPE 03/19 Released w/o Limitations [employer]([facility]) [employer]([facility] Therapy [facility]) OUTPATIENT [id number] PORTILLO SHARPE 03/22 Released w/o Limitations [employer]([facility]) [employer]([facility] Therapy [facility]) OUTPATIENT [id number] PORTILLO SHARPE 03/23 Released w/o Limitations [employer]([facility]) [employer]([facility]) OUTPATIENT [id number] PORTILLO SHARPE 03/27 Released w/o Limitations [employer]([facility]) [employer]([facility]) OUTPATIENT [id number] PORTILLO SHARPE 03/28 Released w/o Limitations [employer]([facility]) [employer]([facility] Therapy [facility]) OUTPATIENT [id number] PORTILLO SHARPE 03/29 Released w/o Limitations [employer]([facility]) [employer](PHA Cell) OUTPATIENT [id number] pha-amx JAYDEN Almaraz 05/02 Released w/o Limitations [employer](P LEAL Cell) [employer]([facility]) TELE CONSULT [id number] Apt Line - updated referra l for dr ansari- APT TODAY -06/11 JAYDEN GRANDE F 06/11 [employer]([facility]) [employer]([facility] Team [place]) TELE CONSULT [id number] Need updated referra l for JAYDEN Levine 11/20 [employer](D over [facility] Team [place] s) [employer]([facility] Team [place]) TELE CONSULT [id number] 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 Ne marrero refer l HOSSEIN Castro 11/23 Referred for Appointment [employer](D over [facility] Team [place]) [employer]([facility] Team [place]) TELE CONSULT [id number] appt line - AD pt dorothea murillo since last night JAYDEN GRANDE 12/19 [employer](D over [facility] Team [place] s) [employer]([facility] Team [place]) TELE CONSULT [id number] Notes Entered by: JULES LANDON 06 Mar 2012 1449 ------- ------- ------- ------- -- Appt line- pt wants to be tested for Lyme Disease JOAN STEPHEN 03/06 [employer](D over [facility] Team [place]) [employer](PHA Cell) OUTPATIENT [id number] PHA JAYDEN GRANDE F 04/17 Released w/o Limitations [employer](P LEAL Cell) [employer]([facility]) TELE CONSULT [id number] Notes Entered by: Steven STEPHEN 28 Apr 2012 1651 ------- ------- ------- ------- -- Lab result MITA KINSEY 04/28 Referred for Appointment [employer]([facility]) [employer]([facility] Team [place]) TELE CONSULT [id number] Notes Entered by: JULES LANDON 09 Jun 2012 1526 ------- ------- ------- ------- -- Appt line-AD pt need a f/u appt for his L shoulde MITA Eng 06/09 Referred for Appointment [employer](D over [facility] Team [place]) [employer]([facility] Team [place]) TELE CONSULT [id number] Notes Entered by: AMANDEEP MARES RD 23 Jun 2012 1252 ------- ------- ------- ------- -- CRUZITO request ZAHRA HUDSON 06/23 Referred for Appointment [employer](D over [facility] Team [place]) [employer]([facility] er [facility] Team [place]) TELE CONSULT [id number] Notes Entered by: JULES LANDON 27 Jun 2012 1126 ------- ------- ------- ------- -- Appt line- pt was in [place] and has several ticks all over his body- lyme test JOAN STEPHEN 06/27 [employer](D over [facility] Team [place]) [employer]([facility] Team [place]) OUTPATIENT [id number] oversea s sukumar jaeger ce and annual physica l ZAHRA WOLF 07/17 Released w/o Limitations [employer](D over [facility] Team [place]) [employer]([facility] Team [place]) TELE CONSULT [id number] Notes Entered by: Ran WOLF 24 Jul 2012 0916 ------- ------- ------- ------- -- 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 complet ed PCS form MITA KINSEY 07/24 Referred for Appointment [employer](D over [facility] Team [place]) [employer]([facility] Team [place]) TELE CONSULT [id number] Notes Entered by: Keily HERNANDEZ 25 Jul 2012 1250 ------- ------- ------- ------- -- JOAN Walter 07/25 [employer](D over [facility] Team [place]) [employer]([facility] Team [place]) TELE CONSULT [id number] Notes Entered by: Steven STEPHEN 27 Jul 2012 2105 ------- ------- ------- ------- -- Lab result KAVITHAZAHRA ZAMUDIO Ángel 07/28 Referred for Appointment [employer](D over [facility] Team [place]) [employer]([facility] Team [place]) OUTPATIENT [id number] fever and ear infecti on ZAHRA WOLF 10/08 Sick at Home/Quarter s [employer](D over [facility] Team [place]) [facility] Team C) OUTPATIENT [id number] ear pain FILOMENA MALLOY 12/29 Released w/o Limitations [facility] Team C) [facility] Team C) OUTPATIENT [id number] left shoulde r FILOMENA Rodriguez 01/08 Released with Work/Duty Limitations [facility] Team C) [facility] Team C) OUTPATIENT [id number] Notes Entered by: Rob DICKSON 05 Feb 2013 1538 ------- ------- ------- ------- -- Medical Right Start SREE DICKSON 02/05 Released w/o Limitations [facility] Team C) [facility]) OUTPATIENT [id number] Notes Entered by: SARAH PALACIOS 16 Feb 2013 0930 ------- ------- ------- ------- -- INPROCE [facility] MEDICAL RECORD REVIEW SARAH PEREZ 02/16 Released w/o Limitations [facility] Public Health) [facility] Physical Therapy) OUTPATIENT [id number] SHMUEL SANCHEZ 03/11 Released w/o Limitations [facility] Physica l Therapy ) [facility] Physical Therapy) OUTPATIENT [id number] ESTRADA MCNAMARA Brionna 03/20 Released w/o Limitations [facility] Physica l Therapy ) [facility] Physical Therapy) OUTPATIENT [id number] LOGAN GARCIA Brionna 03/25 Released w/o Limitations [facility] Physica l Therapy ) [facility] ) TELE CONSULT [id number] Notes Entered by: SARAH PALACIOS 27 Apr 2013 0950 ------- ------- ------- ------- -- KATHARINE GERARDO 04/27 [facility]__ Clinic_ Team_B) [facility] Public Health) OUTPATIENT [id number] Notes Entered by: SARAH PALACIOS 13 May 2013 1156 ------- ------- ------- ------- -- SARAH ESPINAL 05/13 Released w/o Limitations [facility] Public Health) [facility] Team C) OUTPATIENT [id number] reprodu ctive organs questio FILOMENA Bernal 05/18 Released w/o Limitations [facility] Team C) [facility] Health Promotion ) OUTPATIENT [id number] Notes Entered by: RADHIKA MCKEON 18 Jun 2013 1453 ------- ------- ------- ------- -- RADHIKA Marinelli 06/18 Released w/o Limitations [facility] Health Promoti on) [facility] Team C) TELE CONSULT [id number] Notes Entered by: Ran MARTELL 10 Aug 2013 1254 ------- ------- ------- ------- -- DM followi ng for hyperli pidemia . Due labs. AMPARO VU 08/10 [facility] Team [facility]) [facility] Team C) TELE CONSULT [id number] Notes Entered by: Edgar COTTON 08 Sep 2013 1027 ------- ------- ------- ------- -- ER visit tick removal AMPARO VU 09/08 [facility] Team C) [facility]_Clin ic_Team_B ) TELE CONSULT [id number] Notes Entered by: RAJEEV SOW 09 Dec 2013 1018 ------- ------- ------- ------- -- Network results -Consul tation- 09/17 FILOMENA MALLOY 12/09 [facility]__ Clinic_ Team_B) [facility] Team C) OUTPATIENT [id number] FILOMENA Sanabria 12/31 Released w/o Limitations [facility] Team C) [facility] Team C) TELE CONSULT [id number] Notes Entered by: Keily MURGUIA 22 Jan 2014 0741 ------- ------- ------- ------- -- Naina/APMARO Hsieh 01/22 [facility] Team C) [facility] Team C) OUTPATIENT [id number] f/FILOMENA Irwin 01/22 Released w/o Limitations [facility] Team C) [facility] Physical Therapy) OUTPATIENT [id number] Joint pain, localiz ed in the shoulde r CECILIA PIZARRO 01/25 Released w/o Limitations [facility] Phys[facility] Therapy ) [facility] Team C) TELE CONSULT [id number] Notes Entered by: Keily MURGUIA U 27 Jan 2014 0946 ------- ------- ------- ------- -- Profile wording GAMA FILOMENA Tavarez 01/27 [facility] Team C) [facility] Team C) TELE CONSULT [id number] Notes Entered by: Keily MURGUIA U 01 Feb 2014 1325 ------- ------- ------- ------- -- Profile status - pt testing tomorro w ANNA MALLOYMarilynn Tavarez 02/01 [facility] Team C) [facility]) OUTPATIENT [id number] ABDIRAHMAN CALL 02/04 Released w/o Limitations [facility] Therapy ) [facility]) OUTPATIENT [id number] ESTRADA MCNAMARA 02/09 Released w/o Limitations [facility] Therapy ) [facility]) OUTPATIENT [id number] ABDIRAHMAN CALL 02/18 Released w/o Limitations [facility] Therapy ) [facility]) OUTPATIENT [id number] CECILIA PIZARRO 03/11 Released w/o Limitations [facility] Therapy ) [facility]_Clin ic_Team_B ) TELE CONSULT [id number] Notes Entered by: FABIO RUBI 23 Mar 2014 0804 ------- ------- ------- ------- -- Network Rust -Javier rge-01/02 4 FILOMENA MALLOY 03/23 [facility]__ Clinic_ Team_B) [facility] Optometry ) OUTPATIENT [id number] Notes Entered by: FRANKI DEAL 23 Apr 2014 1332 ------- ------- ------- ------- -- CADENCE MULLIGAN 04/23 Released w/o Limitations [facility] Optomet ry) [facility] Public Health) OUTPATIENT [id number] Notes Entered by: GISELL LEGGETT 24 May 2014 1617 ------- ------- ------- ------- -- PHA- ANNUAL VERONICA LEGGETT 05/24 Released w/o Limitations [facility] Public Health) [facility] Team C) OUTPATIENT [id number] BRIGIDA Gold 09/28 Released w/o Limitations [facility] Team C) [facility] Team C) OUTPATIENT [id number] BRIGIDA Delgadillo 02/18 Released w/o Limitations [facility] Team C) [facility] Public Health) OUTPATIENT [id number] Notes Entered by: Ángel CUELLAR 23 Jun 2015 0927 ------- ------- ------- ------- -- ANNUAL PAUL PARKINSON 06/23 Released w/o Limitations [facility] Public Health) [facility] Team C) OUTPATIENT [id number] neck pain BRIGIDA DONATO 08/23 Released w/o Limitations [facility] Team C) [facility] Team C) OUTPATIENT [id number] Notes Entered by: ROBYN WINTER I 06 Jan 2016 1318 ------- ------- ------- ------- -- strep test WYATT HYMAN 01/05 Released w/o Limitations [facility] Team C) [facility] __Clin ic_Team_B ) OUTPATIENT [id number] right eye cloudy/ swollen outside of eye MING LEONARD 01/29 Released w/o Limitations [facility]_ Clinic_ Team_B) [facility] Team C[facility] OUTPATIENT [id number] Sleep apnea discuss ion initial /PT Q coded BRIGIDA DONATO 02/08 Released w/o Limitations [facility] Team C) [facility] Sleep Clinic) OUTPATIENT [id number] Has appoint ment ZENIA ABDALLA 02/28 Released w/o Limitations [facility] Sleep Clinic) [facility] Sleep Clinic) OUTPATIENT [id number] sleep group ELAINE SMITH 04/10 Released w/o Limitations [facility] Sleep Clinic) [facility] Sleep Clinic) OUTPATIENT [id number] split night KEN ALONSO 04/10 Released w/o Limitations [facility] Sleep Clinic) [facility] Sleep Clinic) OUTPATIENT [id number] Provide r only psg interp YAEL LAUREANO 04/24 Released w/o Limitations [facility] Sleep Clinic) [facility] Sleep Clinic) OUTPATIENT [id number] PSG results ABILIO GAMINO 05/02 Released w/o Limitations [facility] Sleep Clinic) [facility] Team C) TELE CONSULT [id number] Notes Entered by: Edgar COTTON 03 May 2016 0832 ------- ------- ------- ------- -- Pass on info MELANY RADER Rob 05/03 [facility] Team C) [facility] Team C) TELE CONSULT [id number] Notes Entered by: LIGIA DIAZ 18 Jun 2016 1433 ------- ------- ------- ------- -- RESULTS OF Annual/ Initial JASVIR FOSTER 06/18 [facility] Team C) [facility] Sleep Clinic) OUTPATIENT [id number] cpap initial follow up ABILIO GAMINO 06/21 Released w/o Limitations [facility] Sleep Clinic) [facility] Public Health) OUTPATIENT [id number] Notes Entered by: SAMMI LÓPEZ 03 Jul 2016 1621 ------- ------- ------- ------- -- Annual PHA JESUS LÓPEZ 07/03 Released w/o Limitations [facility] Public Health) [facility] Hearing Conservat ion) OUTPATIENT [id number] Notes Entered by: WAYNE KINGSTON 20 Jul 2016 1049 ------- ------- ------- ------- -- Annual VERONICA Espinal am 07/20 Released w/o Limitations [facility] Hearing Conserv ation) [facility] Team C) TELE CONSULT [id number] Notes Entered by: CRISTINA RASMUSSEN 24 Sep 2016 1051 ------- ------- ------- ------- -- SAIGE Menjivar 09/24 [facility] FH [facility] Team C) [facility] In and Out Processin g) TELE CONSULT [id number] Notes Entered by: SARAH MENG 15 Nov 2016 1030 ------- ------- ------- ------- -- Medical Out Process ing SARAH MENG 11/15 [facility] In and Out Process ing) [facility] Team A) TELE CONSULT [id number] Notes Entered by: MELANY TORREZ 10 May 2017 0829 ------- ------- ------- ------- -- KISHOR Keys 05/10 [facility]) OUTPATIENT [id number] [facility]# [phone] GIANCARLO MERA 08/26 Released w/o Limitations [facility] Medical [facility](B ase Ops Med Clinic) [facility] Medical [facility](PHA Cell) OUTPATIENT [id number] Notes Entered by: ROSI FONTANA 04 Sep 2017 0918 ------- ------- ------- ------- -- [facility] GIANCARLO MAURER 09/04 Released w/o Limitations [facility](P LEAL Cell) [facility] Team A) TELE CONSULT [id number] Notes Entered by: Marilynn PASTOR 23 Sep 2017 0935 ------- ------- ------- ------- -- Pt needs MATTHEW BROOKS 09/23 Referred for Appointment [facility] Medical [facility] Team A) TELE CONSULT [id number] Notes Entered by: JORDON VELA 12 Dec 2017 1458 ------- ------- ------- ------- -- Sleep Study Referra edgar Request CAROLYN FRANCIS 12/12 [facility] Team A) [facility] Team A) TELE CONSULT [id number] Notes Entered by: Marilynn PASTOR 19 Dec 2017 1139 ------- ------- ------- ------- -- RAHUL for ARLEN MATTHEW FARIAS 12/19 Referred for Appointment [facility] Team A) [facility] Team A) TELE CONSULT [id number] Notes Entered by: LEELA NIELSEN 27 Dec 2017 1050 ------- ------- ------- ------- -- Referra l request MATTHEW FARIAS 12/27 Referred for Appointment [facility] Team A) [facility] Team A) OUTPATIENT [id number] Paperwo for Sleep study WHITNEY FERNANDEZ 12/31 Released w/o Limitations [facility] Team A) [facility] Team A) TELE CONSULT [id number] Notes Entered by: TAYA AGUIRRE 07 Apr 2018 0924 ------- ------- ------- ------- -- [facility] SINAI Arellano 04/07 Referred for Appointment [facility] Team A) [facility]) TELE CONSULT [id number] Notes Entered by: CLARE COVINGTON 28 Apr 201818 ------- ------- ------- ------- -- [facility] ROWAN COSTA 04/28 Other Not Elsewhere Classified [facility](F light Med Leal) [facility]) OUTPATIENT [id number] [phone] RICHAR DE DIOS 09/30 Released with Work/Duty Limitations [employer](B ase Ops Med Clinic) [employer]([facility] Team A) TELE CONSULT [id number] Notes Entered by: LASHONDA BADILLO 27 Nov 2018 1701 ------- ------- ------- ------- -- GSU- Profile request //BORIS Del Valle 11/27 Other Not Elsewhere Classified [facility] Team A) [facility] Team A) TELE CONSULT [id number] Notes Entered by: BONILLA IRENE 09 Dec 2018 0826 ------- ------- ------- ------- -- MiCamikhail/ /Profil e Update Request BONILLA SHIN 12/09 Other Not Elsewhere Classified [facility] Team A) [facility] Team A) TELE CONSULT [id number] Notes Entered by: MJ BENJAMIN 22 Jan 2019 1210 ------- ------- ------- ------- -- Micamikhail - Con- Leave Wilma vivas and Request ORIANA WOLF 01/22 Referred for Appointment [facility](Fli ght Med Leal) TELE CONSULT [id number] Notes Entered by: ANDREW ALBARADO 21 May 2019 1012 ------- ------- ------- ------- -- FL-4ROWAN Richardson 05/21 Other Not Elsewhere Classified [employer](F light Med Leal) [employer](Fli ght Med Leal) TELE CONSULT [id number] Notes Entered by: NEAL CASTILLO 16 Jun 2019 1623 ------- ------- ------- ------- -- [facility]: [facility] Profile request RODNEY LACY 06/16 [facility](F light Med Leal) [facility] Medical [facility](Bas [facility] Ops Med Clinic) TELE CONSULT [id number] Notes Entered by: Brionna COSTA 18 Jun 2019 0959 ------- ------- ------- ------- -- [facility] REQUEST AF 422 GEORGIE SIMON 06/18 [facility](B [facility] Ops Med Clinic) [facility](BHO P Clinic) OUTPATIENT [id number] AF [facility] PHA Priorit y TANIKA COBB 09/11 Released w/o Limitations [facility](B HOP Clinic) [facility]ps Med Clinic) OUTPATIENT [id number] Notes Entered by: NEAL CASTILLO 05 Oct 2019 1432 ------- ------- ------- ------- -- AF [facility] PHA([facility] )([facility] ed) RODNEY LACY 10/05 Released w/o Limitations [facility](B [facility]ps Med [facility]) [facility](Nmi ght Med ) TELE CONSULT [id number] Notes Entered by: NEAL CASTILLO 10 Dec 2019 1330 ------- ------- ------- ------- -- [facility]: [facility] 72hour quarter s request EDITH MONGE 12/10 Other Not Elsewhere Classified [facility](F light Med Leal) [facility](Fli ght Med Leal) TELE CONSULT [id number] Notes Entered by: JEWEL LACY 04 Apr 2020 1241 ------- ------- ------- ------- -- DQ Meds ADDIKOSTA Brionna 04/04 Other Not Elsewhere Classified [facility](F light Med Leal) [facility](Fli ght Med Leal) TELE CONSULT [id number] Notes Entered by: JEWEL LACY 04 Aug 2020 1927 ------- ------- ------- ------- -- REQUEST ING SPEC/REJI Tavarez NOTES JOSHUA CASTILLO 08/04 Other Not Elsewhere Classified [facility](F light Med Leal) [facility](Bas [facility] Ops Med Clinic) TELE CONSULT [id number] Notes Entered by: EDITH MONGE 17 Aug 2020 1239 ------- ------- ------- ------- -- RODNEY Aguilar 08/17 [facility](B ase Ops Med Clinic) [facility] Team A) TELE CONSULT [id number] Notes Entered by: AWYNE CARPENTER 11 Oct 2020 1431 ------- ------- ------- ------- -- [facility] PHA JOSHUA CASTILLO 10/11 Other Not Elsewhere Classified [facility](Fli ght Med Leal) TELE CONSULT [id number] Notes Entered by: NEAL CASTILLO 11 Oct 2020 1550 ------- ------- ------- ------- -- AMRO follow up JOSHUA CASTILLO 10/11 Other Not Elsewhere Classified [facility](F light Med Leal) [facility](Bas [facility] Ops Med Clinic) OUTPATIENT [id number] A -fml RICHAR DE DIOS 10/21 Released w/o Limitations [employer](B ase Ops Med Clinic) [facility](Bas [facility] Ops Med Clinic) OUTPATIENT [id number] AF [facility] PHA(A Complet ed)(U ) RICHAR DE DIOS 11/15 Released w/o Limitations [employer](B ase Ops Med Clinic) [employer](Bas [facility]ps Med Clinic) OUTPATIENT [id number] DAMIR RICHAR DE DIOS 10/23 Released w/o Limitations [facility](B ase Ops Med Clinic) [facility](Fli ght Med Leal) TELE CONSULT [id number] Notes Entered by: TYSON DE DIOS 24 Oct 2021 1521 ------- ------- ------- ------- -- GSU Remote Form JOSHUA CASTILLO 10/24 Other Not Elsewhere Classified [employer](F light Med Leal) [facility](Bas [facility] Ops Med Clinic) TELE CONSULT [id number] Notes Entered by: NEAL CASTILLO 07 Nov 2021 1627 ------- ------- ------- ------- -- ZAYRA/RICHAR Rodgers 11/07 [facility](B ase Ops Med Clinic) [employer]([facility]) OUTPATIENT [id number] EARS ANNUAL KOENIG-COLIN COFLAKITA 12/28 Released w/o Limitations [employer]([facility] e[facility]ion [facility]) [facility](39 ABW Clinic) OUTPATIENT [id number] Notes Entered by: Brionna BUTTERFIELD 25 Jan 2022 1029 ------- ------- ------- ------- -- ELAINE Bansal 01/25 Released w/o Limitations [employer](3 9 ABW Clinic) [employer]([facility] OUTPATIENT [id number] Notes Entered by: KISHOR KIM ON 26 Feb 2022 1145 ------- ------- ------- ------- -- BRUNO Rogers 02/26 Released w/o Limitations [employer](I ncirlik [facility] Med Team A) [employer](Bjorn scom [facility] Team A) TELE CONSULT [id number] Notes Entered by: HAROON PHILIPPE 19 Jul 2022 1244 ------- ------- ------- ------- -- IMR MARTY Mujica 07/19 Other Not Elsewhere Classified [facility](H anscom [facility] Team A) [facility](Fli ght Med Leal) TELE CONSULT [id number] Notes Entered by: HAROON PHILIPPE 21 Aug 2022 1427 ------- ------- ------- ------- -- ROWAN Manley 08/21 Other Not Elsewhere Classified [facility](F light Med Leal) [facility](Bas e Ops Med Clinic) TELE CONSULT [id number] Notes Entered by: TOSHIA DUNN 19 Sep 2022 1331 ------- ------- ------- ------- -- JOSHUA FRASER 09/19 Other Not Elsewhere Classified [facility](B ase Ops Med Clinic) [facility](Bas [facility] Ops Med Clinic) OUTPATIENT [id number] VALERI RICHAR DE DIOS 09/20 Released w/o Limitations [facility](B ase Ops Med Clinic) [facility](Bas [facility] Ops Med Clinic) OUTPATIENT [id number] AF PHA CBN:[id number] RICHAR DE DIOS 10/14 Released w/o Limitations [facility](B ase Ops Med Clinic) 0310C-AF- [facility] [employer] Between Visit [id number] 06/04 Discharge Disposition: Home or Self Care [id number] F-C-[facility] [employer] 0310C-AF- C[facility] [employer] Between Visit [id number] 12/31 Discharge Disposition: Home or Self Care -A F-Ct h [employer] [employer] [facility] [id number] [facility] er for adminis trative examina tions, unspeci fied MANUEL ELDAVALORIE 01/04 Discharge Disposition: Home or Self Care -A F-C h [employer] [employer] [facility] [employer] Between Visit [id number] 01/05 Discharge Disposition: Home or Self Care -A F-C h [employer] [employer] [facility] [id number] 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, 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, 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 JOSE Meier HEALTH ASSESSM ENT (PHA),O bstruct nallely sleep apnea (adult) (pediat sandra),Ni cotine depende nce, unspeci fied, uncompl icated, Hyperli pidemia , unspeci fied,Pa in in left shoulde r,Pain in left ankle,P lantar fascial fibroma tosis,O ther physica l and mental strain related to work RONEL BRYNN 01/13 Discharge Disposition: Home or Self Care -A - h [facility] [employer] Procedures Combined list of: 1) Procedures from Department of Veterans Affairs facilities [facility], not all VA non-surgical procedures are included; 2) All procedures 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 Procedure Procedure Type Code Date Perfomer Comments Laura e L Ankle surgery for pin/screw removal January 2019 [facility] [employer] HEART CATH THROUGH FEMORAL ARTERY February 2014 C [facility] [employer] Left Shoulder Laberal Tear February 2011 [facility] Left ankle surgery fracture repair March 2018 [facility] [employer] [id number] [facility] Raptr PURE TONE AUDIOMTRY THRESHOLD COMPUTER DEV AIR PURE TONE AUDIOMTRY THRESHOLD COMPUTER DEV AIR 0208T 0310C-AF- [facility] THERAPEUTIC PROCEDURE, 1 OR MORE AREAS, EACH 15 MINUTES; THERAPEUTIC EXERCISES TO DEVELOP STRENGTH AND ENDURANCE, RANGE OF MOTION AND FLEXIBILITY DoD BRIEF COMM TECH-BASE SERV,E.G. VIRT CHK-IN,BY [...] KNOW,ATTEN,LANG,MEM ,PLAN&PROB SOLV&VIS SPATIAL ABIL]),PHYS/OTH QUAL HCP,BOTH [id number] TIME W PT &TIME INTERP TST RES &PREP RPT;1ST HR DoD ADMINISTRATION OF PATIENT-FOCUSED HEALTH RISK ASSESSMENT [...] PROVIDE W/IN THE PREV 7 DAYS,USE THE Clinical Data/[employer] COMM NETWORK DoD BRIEF EMOTIONAL/BEHAVIORA L ASSESSMENT (EG, DEPRESSION INVENTORY, ATTENTION-DEFICIT/H YPERACTIVITY DISORDER [ADHD] SCALE), WITH SCORING AND DOCUMENTATION, PER STANDARDIZED INSTRUMENT DoD ONLINE ASSESS &MANAG SERV PROVIDE,A QUAL NONPHYS HCP TO AN ESTABLISHED PAT/GUARDIAN,NOT ORIGINAT FRM RELAT ASSESS &MANAG SERV PROVIDE W/IN THE PREV 7 DAYS,USE THE INTERNET/[employer] COMM NETWORK DoD ONLINE ASSESS &MANAG SERV PROVIDE,A QUAL NONPHYS HCP TO AN ESTABLISHED PAT/GUARDIAN,NOT ORIGINAT FRM RELAT ASSESS &MANAG SERV PROVIDE W/IN THE PREV 7 DAYS,USE THE INTERNET/SIMIL[employer] COMM NETWORK DoD ONLINE ASSESS &MANAG SERV PROVIDE,A QUAL NONPHYS HCP TO AN ESTABLISHED PAT/GUARDIAN,NOT ORIGINAT FRM RELAT ASSESS &MANAG SERV PROVIDE W/IN THE PREV 7 DAYS,USE THE Clinical Data/[employer] COMM NETWORK [facility] ADMINISTRATION OF PATIENT-FOCUSED HEALTH RISK ASSESSMENT INSTRUMENT (EG, HEALTH HAZARD APPRAISAL) WITH SCORING AND DOCUMENTATION, PER STANDARDIZED INSTRUMENT [facility] ADMINISTRATION OF PATIENT-FOCUSED HEALTH RISK ASSESSMENT INSTRUMENT (EG, HEALTH HAZARD APPRAISAL) WITH SCORING AND DOCUMENTATION, PER STANDARDIZED INSTRUMENT [facility] TELE ASSESS & MGT SRV PROV QUAL NONPHYS HLTH CARE PRO TO EST PAT,PARENT,GUARD NOT ORIG REL ASSESS & MGT SRV PROV W/IN PREV 7 DAYS NOR LEAD ASSESS & MGT SRV/PX W/IN NXT 24 HR/SOON APT;5-10 MIN MED DIS [facility] PURE TONE AUDIOMETRY (THRESHOLD), AUTOMATED; AIR ONLY [facility] POLYSOMNOGRAPHY; AGE 6 YEARS OR OLDER, SLEEP STAGING WITH 4 OR MORE ADDITIONAL PARAMETERS OF SLEEP, ATTENDED BY A TECHNOLOGIST [facility] POLYSOMNOGRAPHY; AGE 6 YEARS OR OLDER, SLEEP STAGING WITH 4 OR MORE ADDITIONAL PARAMETERS OF SLEEP, ATTENDED BY A TECHNOLOGIST [facility] OSTEOPATHIC MANIPULATIVE TREATMENT (OMT); 1-2 BODY REGIONS INVOLVED [facility] VIS FUNCT SCREEN,AUTOMAT/SEMI -AUTOMAT BILAT QUANT DETERM VISUAL ACUITY,OCULAR ALIGN,COLOR VISION,PSEUDOISOCHR OMAT PLATES,& FIELD VIS (MAY INC ALL/SOME SCRN DETERM FOR CONTRAST SENSITIV,VIS UND GLARE) [facility] PHYSICAL THERAPY RE-EVALUATION [facility] THERAPEUTIC PROCEDURE, 1 OR MORE AREAS, EACH 15 MINUTES; THERAPEUTIC EXERCISES TO DEVELOP STRENGTH AND ENDURANCE, RANGE OF MOTION AND FLEXIBILITY 04/17/2 014 DoD THERAPEUTIC PROCEDURE, 1 OR MORE AREAS, EACH 15 MINUTES; THERAPEUTIC EXERCISES TO DEVELOP STRENGTH AND ENDURANCE, RANGE OF MOTION AND FLEXIBILITY DoD THERAPEUTIC PROCEDURE,1 OR MORE AREAS,EACH 15 MINUTES;NEUROMUSCUL AR REEDUCATION OF MOVEMENT,BALANCE,CO ORDINATION,KINESTHE TIC SENSE,POSTURE,AND/O R PROPRIOCEPTION FOR SITTING AND/OR STANDING ACTIVITIES DoD THERAPEUTIC PROCEDURE, 1 OR MORE AREAS, EACH 15 MINUTES; THERAPEUTIC EXERCISES TO DEVELOP STRENGTH AND ENDURANCE, RANGE OF MOTION AND FLEXIBILITY DoD APPLICATION OF A MODALITY TO 1 OR MORE AREAS; IONTOPHORESIS, EACH 15 MINUTES DoD APPLICATION OF A MODALITY TO 1 OR MORE AREAS; IONTOPHORESIS, EACH 15 MINUTES [facility] PHYSICAL THERAPY EVALUATION DoD MANUAL THERAPY TECHNIQUES (EG, MOBILIZATION/ MANIPULATION, [...] MORE AREAS; HOT OR COLD PACKS DoD EXERCISE EQUIPMENT DoD NONINVASIVE EAR OR PULSE OXIMETRY FOR OXYGEN SATURATION; SINGLE DETERMINATION [facility] PHYSICAL THERAPY RE-EVALUATION DoD THERAPEUTIC PROCEDURE,1 OR MORE AREAS,EACH 15 MINUTES;NEUROMUSCUL AR REEDUCATION OF MOVEMENT,BALANCE,CO ORDINATION,KINESTHE TIC SENSE,POSTURE,AND/O R PROPRIOCEPTION FOR SITTING AND/OR STANDING ACTIVITIES DoD APPLICATION OF A MODALITY TO 1 OR MORE AREAS; ULTRASOUND, EACH 15 MINUTES 008 DoD THERAPEUTIC PROCEDURE, 1 OR MORE [...] AREAS; ULTRASOUND, EACH 15 MINUTES 008 DoD THERAPEUTIC PROCEDURE, 1 OR MORE [...] AREAS; HOT OR COLD PACKS 008 DoD THERAPEUTIC PROCEDURE, 1 OR MORE AREAS, EACH 15 MINUTES; THERAPEUTIC EXERCISES TO DEVELOP STRENGTH AND ENDURANCE, RANGE OF MOTION AND FLEXIBILITY DoD PHYSICAL THERAPY RE-EVALUATION 008 DoD THERAPEUTIC PROCEDURE, 1 OR MORE AREAS, EACH 15 MINUTES; THERAPEUTIC EXERCISES TO DEVELOP STRENGTH AND ENDURANCE, RANGE OF MOTION AND FLEXIBILITY 008 DoD THERAPEUTIC PROCEDURE, 1 OR MORE AREAS, EACH 15 MINUTES; THERAPEUTIC EXERCISES TO DEVELOP STRENGTH AND ENDURANCE, RANGE OF MOTION AND FLEXIBILITY DoD THERAPEUTIC PROCEDURE, 1 OR MORE AREAS, EACH 15 MINUTES; THERAPEUTIC EXERCISES TO DEVELOP STRENGTH AND ENDURANCE, RANGE OF MOTION AND FLEXIBILITY 008 DoD THERAPEUTIC PROCEDURE, 1 OR MORE AREAS, EACH 15 MINUTES; THERAPEUTIC EXERCISES TO DEVELOP STRENGTH AND ENDURANCE, RANGE OF MOTION AND FLEXIBILITY 008 DoD Modalities Cryotherapy Cold Packs Modalities Cryotherapy Cold Packs [id number] SIVAKUMAR HUTSON [facility] Physical Therapy Neuromuscular Re-education Physical Therapy Neuromuscular Re-education 97394 SIVAKUMAR HUTSON [facility] Physical Therapy: ___ Se ion Segments, 15 Minutes Each Physical Therapy: ___ Session Segments, 15 Minutes Each 10034 008 SIVAKUMAR MCHUGH [facility] Physical Medicine Physical Therapy Re-Evaluation Physical Medicine Physical Therapy Re-Evaluation 13165 008 GEORGIE ROWE [facility] Physical Therapy: ___ Se ion Segments, 15 Minutes Each Physical Therapy: ___ Session Segments, 15 Minutes Each 08837 008 DEANN LAW [facility] Physical Therapy: ___ Se ion Segments, 15 Minutes Each Physical Therapy: ___ Session Segments, 15 Minutes Each 53038 008 SIVAKUMAR MCHUGH [facility] Physical Therapy: ___ Se ion Segments, 15 Minutes Each Physical Therapy: ___ Session Segments, 15 Minutes Each 45279 008 GEORGIE ROWE [facility] Physical Medicine Physical Therapy Evaluation Physical Medicine Physical Therapy Evaluation 43365 008 GEORGIE ROWE [facility] Physical Therapy: ___ Se ion Segments, 15 Minutes Each Physical Therapy: ___ Session Segments, 15 Minutes Each 37024 008 GEORGIE ROWE Physical Medicine Physical Therapy Evaluation Physical Medicine Physical Therapy Evaluation 62007 008 GEORGIE ROWE [facility] Visual Function Screening Visual Function Screening 46065 006 RAUL DE LA PAZ [facility] Screening Test Of Visual Acuity, Quantitative, Bilateral Screening Test Of Visual Acuity, Quantitative, Bilateral 03265 006 RAUL DE LA PAZ [facility] Visual Function Screening Visual Function Screening 77229 006 RAUL DE LA PAZ [facility] Screening Test Of Visual Acuity, Quantitative, Bilateral Screening Test Of Visual Acuity, Quantitative, Bilateral 27406 006 RAUL DE LA PAZ [facility] Ophthalmological Prior Patient Start Intermediate Level Care Ophthalmological Prior Patient Start Intermediate Level Care 57412 006 DOROTHY SIERRA [facility] Visual Function Screening Visual Function Screening 00917 006 RAUL DE LA PAZ [facility] Screening Test Of Visual Acuity, Quantitative, Bilateral Screening Test Of Visual Acuity, Quantitative, Bilateral 67116 006 RAUL DE LA PAZ [facility] Visual Function Screening Visual Function Screening 81706 006 RAUL DE LA PAZ [facility] Screening Test Of Visual Acuity, Quantitative, Bilateral Screening Test Of Visual Acuity, Quantitative, Bilateral 47616 006 RAUL DE LA PAZ [facility] Internet Med Svc Qual Nonphys Healthcare Prof Estab Patient Internet Med Svc Qual Nonphys Healthcare Prof Estab Patient [phone] GEORGIE SIMON [facility] Internet Med Svc Qual Nonphys Healthcare Prof Estab Patient Internet Med Svc Qual Nonphys Healthcare Prof Estab Patient [phone] BONILLA SHIN [facility] Non-Physician Phone Call To Patient/Provider Brief (5-10min) Non-Physician Phone Call To Patient/Provider Brief (5-10min) [phone] BONILLA SHIN [facility] Internet Med Svc Qual Nonphys Healthcare Prof Estab Patient Internet Med Svc Qual Nonphys Healthcare Prof Estab Patient [phone] RICHAR DE DIOS [facility] Internet Med Svc Qual Nonphys Healthcare Prof Estab Patient Internet Med Svc Qual Nonphys Healthcare Prof Estab Patient [phone] [facility] Internet Med Svc Qual Nonphys Healthcare Prof Estab Patient Internet Med Svc Qual Nonphys Healthcare Prof Estab Patient [phone] GIANCARLO MERA [facility] Non-Physician Phone Call To Patient/Provider Brief (5-10min) Non-Physician Phone Call To Patient/Provider Brief (5-10min) [phone] SAIGE RASHEED [facility] Threshold Audiogram (Pure Tone) Automated Threshold Audiogram (Pure Tone) Automated 0208T 016 VERONICA LEGGETT [facility] Patient Counseling Medical Management Five To Eight Patients Patient Counseling Medical Management Five To Eight Patients [phone] ELAINE SMTIH [facility] Osteopathic Manip Treatment (OMT) 1-2 Body Regions Involved Osteopathic Manip Treatment (OMT) 1-2 Body Regions Involved 83207 015 BRIGIDA DONATO [facility] Visual Function Screening Visual Function Screening 61574 014 CADENCE COSTA [facility] Exercises A isted Exercises For ROM Exercises Assisted Exercises For ROM 63558 014 CECILIA PIZARRO [facility] Physical Medicine Physical Therapy Re-Evaluation Physical Medicine Physical Therapy Re-Evaluation 13314 014 CECILIA PIZARRO [facility] Physical Therapy: ___ Se ion Segments, 15 Minutes Each Physical Therapy: ___ Session Segments, 15 Minutes Each 27115 014 JAKUBABDIRAHMAN Rivas R [facility] Physical Therapy: ___ Se ion Segments, 15 Minutes Each Physical Therapy: ___ Session Segments, 15 Minutes Each 84949 014 ESTRADA MCNAMARA [facility] Physical Therapy Neuromuscular Re-education Physical Therapy Neuromuscular Re-education 08192 014 ABDIRAHMAN CALL R [facility] Physical Therapy: ___ Se ion Segments, 15 Minutes Each Physical Therapy: ___ Session Segments, 15 Minutes Each 31227 014 ABDIRAHMAN CALL R [facility] Exercises A isted Exercises For ROM Exercises Assisted Exercises For ROM 07964 014 CECILIA PIZARRO [facility] Physical Medicine Physical Therapy Evaluation Physical Medicine Physical Therapy Evaluation 67536 014 CECILIA PIZARRO [facility] Modalities Iontophoresis Modalities Iontophoresis 75087 013 LOGAN GARCIA [facility] Modalities Iontophoresis Modalities Iontophoresis 54904 013 ESTRADA MCNAMARA [facility] Physical Therapy: ___ Se ion Segments, 15 Minutes Each Physical Therapy: ___ Session Segments, 15 Minutes Each 73993 013 ESTRADA MCNAMARA [facility] Physical Medicine Physical Therapy Evaluation Physical Medicine Physical Therapy Evaluation 68889 013 SHMUEL SANCHEZ [facility] Modalities Cryotherapy Cold Packs Modalities Cryotherapy Cold Packs 20599 011 PORTILLO SHARPE [facility] Exercises A isted Exercises For ROM Exercises Assisted Exercises For ROM 59753 011 PORTILLO SHARPE [facility] Physical Therapy Mobilization Joint Physical Therapy Mobilization Joint 44488 011 PORTILLO SHARPE [facility] Physical Therapy Mobilization Joint Physical Therapy Mobilization Joint 97021 011 PORTILLO SHARPE [facility] Exercises A isted Exercises For ROM Exercises Assisted Exercises For ROM 45449 011 PORTILLO SHARPE [facility] Modalities Cryotherapy Cold Packs Modalities Cryotherapy Cold Packs 47822 011 PORTILLO SHARPE [facility] Modalities Cryotherapy Cold Packs Modalities Cryotherapy Cold Packs 10280 011 JUN PA [facility] Physical Therapy Mobilization Joint Physical Therapy Mobilization Joint 92669 011 JUN PA [facility] Exercises A isted Exercises For ROM Exercises Assisted Exercises For ROM 70278 011 JUN PA [facility] Physical Therapy Mobilization Joint Physical Therapy Mobilization Joint 04516 011 PORTILLO SHARPE [facility] Modalities Cryotherapy Cold Packs Modalities Cryotherapy Cold Packs 02196 011 ANNEMARIE PORTILLO Lazo [facility] Exercises A isted Exercises For ROM Exercises Assisted Exercises For ROM 14201 011 ANNEMARIE PORTILLO S [facility] Modalities Cryotherapy Cold Packs Modalities Cryotherapy Cold Packs 92304 011 ANNEMARIE PORTILLO Violet [facility] Physical Therapy Mobilization Joint Physical Therapy Mobilization Joint 29741 011 ANNEMARIEPORTILLO [facility] Exercises A isted Exercises For ROM Exercises Assisted Exercises For ROM 09892 011 ANNEMARIE PORTILLO S [facility] Exercises A isted Exercises For ROM Exercises Assisted Exercises For ROM 65684 011 ANNEMARIEPORTILLO [facility] Physical Therapy Mobilization Joint Physical Therapy Mobilization Joint 65735 011 ANNEMARIEPORTILLO [facility] Modalities Cryotherapy Cold Packs Modalities Cryotherapy Cold Packs 63555 011 PORTILLO SHARPE [facility] Modalities Cryotherapy Cold Packs Modalities Cryotherapy Cold Packs 16310 011 WARREN DOZIER [facility] Physical Therapy Mobilization Joint Physical Therapy Mobilization Joint 42810 011 WARREN DOZIER Exercises A isted Exercises For ROM Exercises Assisted Exercises For ROM [id number] 011 WARREN DOZIER [facility] Exercise equipment 011 NAYELI ANN [facility] Physical Therapy: ___ Se ion Segments, 15 Minutes Each Physical Therapy: ___ Session Segments, 15 Minutes Each 27006 011 NAYELI ANN [facility] Physical Medicine Physical Therapy Evaluation Physical Medicine Physical Therapy Evaluation 36312 011 NAYELI ANN Pulse Oximetry Pulse Oximetry 20157 010 ELAINA HAMILTON Albuterol, inhalation solution, FDA-approved final product, non-compounded, administered through DME, concentrated form, 1 mg 010 ELAINA HAMILTON Physical Medicine Physical Therapy Re-Evaluation Physical Medicine Physical Therapy Re-Evaluation 39487 008 DENNIS VARGAS [facility] Physical Therapy Neuromuscular Re-education Physical Therapy Neuromuscular Re-education 20211 008 DEANN LAW [facility] Physical Therapy: ___ Se ion Segments, 15 Minutes Each Physical Therapy: ___ Session Segments, 15 Minutes Each 22834 008 DEANN LAW [facility] Modalities Ultrasound Modalities Ultrasound 35903 008 ROSALIA COTTON [facility] Physical Therapy: ___ Se ion Segments, 15 Minutes Each Physical Therapy: ___ Session Segments, 15 Minutes Each 30957 008 ROSALIA COTTON [facility] Physical Therapy: ___ Se ion Segments, 15 Minutes Each Physical Therapy: ___ Session Segments, 15 Minutes Each 57951 008 ROSALIA COTTON [facility] Modalities Ultrasound Modalities Ultrasound 28935 008 DEANN LAW [facility] Modalities Ultrasound Modalities Ultrasound 51061 008 ROSALIA COTTON [facility] Physical Therapy: ___ Se ion Segments, 15 Minutes Each Physical Therapy: ___ Session Segments, 15 Minutes Each 45083 008 ROSALIA COTTON [facility] Modalities Ultrasound Modalities Ultrasound 18271 008 ROSALIA COTTON [facility] Physical Therapy: ___ Se ion Segments, 15 Minutes Each Physical Therapy: ___ Session Segments, 15 Minutes Each 91923 008 ROSALIA COTTON NMR x 4min [facility] Physical Therapy: ___ Se ion Segments, 15 Minutes Each Physical Therapy: ___ Session Segments, 15 Minutes Each 53549 008 DENNIS VARGAS [facility] Physical Medicine Physical Therapy Evaluation Physical Medicine Physical Therapy Evaluation 80305 008 DENNIS VARGAS [facility] Modalities Cryotherapy Cold Packs Modalities Cryotherapy Cold Packs 89302 008 DEANN LAW [facility] Physical Therapy Neuromuscular Re-education Physical Therapy Neuromuscular Re-education 92500 008 DEANN LAW Physical Therapy: ___ Se ion Segments, 15 Minutes Each Physical Therapy: ___ Session Segments, 15 Minutes Each 56914 008 DEANN LAW [facility] Physical Therapy Neuromuscular Re-education Physical Therapy Neuromuscular Re-education 30860 008 DEANN LAW [facility] Modalities Cryotherapy Cold Packs Modalities Cryotherapy Cold Packs 73997 008 DEANN LAW [facility] Physical Therapy: ___ Se ion Segments, 15 Minutes Each Physical Therapy: ___ Session Segments, 15 Minutes Each 57623 008 DEANN LAW [facility] Modalities Cryotherapy Cold Packs Modalities Cryotherapy Cold Packs 68195 008 SIVAKUMAR MCHUGH [facility] Physical Therapy Neuromuscular Re-education Physical Therapy Neuromuscular Re-education 02874 008 MCHUGH [facility] Physical Therapy: ___ Se ion Segments, 15 Minutes Each Physical Therapy: ___ Session Segments, 15 Minutes Each 49657 008 JEISON [facility] Modalities Cryotherapy Cold Packs Modalities Cryotherapy Cold Packs 02166 008 JEISON [facility] Physical Therapy Neuromuscular Re-education Physical Therapy Neuromuscular Re-education 25173 008 MCHUGH [facility] Physical Therapy: ___ Se ion Segments, 15 Minutes Each Physical Therapy: ___ Session Segments, 15 Minutes Each 62379 008 [facility] Med Svc Qual Nonphys Healthcare Prof Estab Patient Internet Med Svc Qual Nonphys Healthcare Prof Estab Patient 79652 TANIKA COBB Brief communication technology-based service, e.g. virtual check-in, by a physician or other qualified health care profivonne brooke who can report evaluation and management services, provided to an established patient, not originating from a related E/M service provided within the previous 7 days nor leading to an E/M service or procedure within the next 24 hours or soonest available appointment; 5-10 minutes of medical discu ion JOSHUA CASTILLO [facility] Brief communication technology-based service, e.g. virtual check-in, by a physician or other qualified health care profivonne brooke who can report evaluation and management services, provided to an established patient, not originating from a related E/M service provided within the previous 7 days nor leading to an E/M service or procedure within the next 24 hours or soonest available appointment; 5-10 minutes of medical discu ion RICHAR DE DIOS A Only telephonic assessment; visit lasted 20 minutes. [facility] Psychometric Neuropsych Testing Battery Admin By Computer Psychometric Neuropsych Testing Battery Admin By Computer 89750 SISSY BLAS [facility] Cognitive Mini-Mental Status Exam Cognitive Mini-Mental Status Exam 08866 SISSY BLAS [facility] Osteopathic Manip Treatment (OMT) 1-2 Body Regions Involved Osteopathic Manip Treatment (OMT) 1-2 Body Regions Involved 37932 ELAINE BUTTERFIELD [facility] Physical Therapy: ___ Se ion Segments, 15 Minutes Each Physical Therapy: ___ Session Segments, 15 Minutes Each 36958 ELAINE BUTTERFIELD [facility] Social History Combined list of available smoking, [...] Assessment and Plan Extracted from:Title : Annual [facility] MHA/PHA Author: RICHAR DE DIOS NP Date: 01/13/25 1.?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 SM instructed to report to ER or call suicide Hot line immediately for any thoughts or plans of harming self or others.? ? Richar De Dios CTR?CHILD SUPPORT CASE OFFICER-C [facility] Provider Flight Medicine? ?[employer] [place]??[address] [facility] [phone] ? Extracted from:Title: 469 Author: MANUEL MONCADA PA Date: 01/04/25 1.?Administrative reason for encounter 469 only given for 89 days (until the end of march) to allow for follow up w/specialists?and a more deceive?POC created.?? Major C. Bruno Moncada,?APA-C ? Aerospace Medicine Physician Fee Clerk/NETSUITE DEVELOPER ? [employer] ? Mara [place] ? ? ? 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 Richar De Dios CTR?CHILD SUPPORT CASE OFFICER-C [facility] Provider Flight Medicine? 66?[employer] [place]??[address] [facility] [phone] ? Extracted from:Title: [facility] DRHA4 Author: RICHAR DE DIOS NP Date: 02/01/23 1.?ASSESSMENT, POST DEPLOYMENT, DOCUMENTED ON HU6067 (A) This encounter contains a review of the SM's chronic and active medical conditions since the date of the last deployment on file. SM present for virtual encounter. ? DRHA4- Deployed to [employer] with forward deploying to [place] 21 Nov 2021 to 21 May 2022. SM denies any deployment related concerns. ? No profiles, no DLCs. I[employer] Green. ? ? 2.?Nicotine dependence Tobacco cessation highly encouraged/advised; F/U with PCM/BHOP?as needed. 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 03/09/2025 [id number], [facility] Functional Status Combined list of recent functional and cognitive assessments recorded at [facility] [employer] [facility] (VA).VA Functional [place]ford Measurement (FIM) Scale: 1 = Total Assistance (Subject = 0% +), 2 = Maximal Assistance (Subject = 25% +), 3 = Moderate Assistance (Subject = 50% +), 4 = Minimal Assistance (Subject = 75% +), 5 = Supervision, 6 = Modified Lyford (Device), 7 = Complete [place]ford (Timely, Safely). Assessment Date/Time Source Assessment Type Assessment Skill Assessment Score Assessment Details No data available for this section
--- OUTSIDE RECORDS SUMMARY | 2025-03-09 07:54 | XMS_ITS ---
Author Organization 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 Generated for Lului sina/Eva/eTransmitting on:?03/09/2025 07:53 AM EDT
--- OUTSIDE RECORDS SUMMARY | 2025-03-09 07:54 | XMS_ITS ---
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 Generated for Printi ng/Famontanag/eTransmitting on:?03/09/2025 07:54 AM EDT
[2025-03-09 08:04] VITALS: BP 118/76; PULSE 89; O2SAT 98; BMI 26.5
--- NOTE | 2025-03-09 08:04 | A.OFFPC_ITS ---
Vital Signs 03/09/25 08:04 Height 6 ft 6 in Weight 229 lb BMI 26.5 BP 118/76 Blood Pressure Location Lt brachial Position Sitting Pulse 89 Pulse Source Pulse Oximeter Pulse Oximetry (%) 98 Oxygen Delivery Method Room Air Intake Visit Reasons: PE Policy Value Calculator Required: No Accompanied by: Self / Same As Patient Allergies No Known Allergies Allergy (Verified 03/09/25 08:13) Medication List - Last Reconciled 03/09/25 by JULIANA Dobbins gabapentin 200 mg (2 x 100 mg) PO TID 30 days meloxicam 15 mg PO DAILY PRN 30 days Tobacco use date assessed: 03/09/25 Dental Screening Dental Screen Date: 03/09/25 Did you have a dental visit in the last 12 months?: Yes Did you have a dental problem in the last 6 months where you did not have access to dental care?: No Was dental information given to patient?: Patient has dentist HPI PE HPI Details History of Present Illness The patient is a 39-year-old male presenting with polyneuropathy. 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 The patient reports symptoms affecting his bilateral feet, necessitating continual management. Additionally, the patient has a history of fatty liver with elevated liver enzymes. 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 Despite a recent referral to a neurologist, the patient has not received any updates, prompting a re-submission of the referral. Encouraged pt to quit smoking Health Maintenance - Reinforcement of the importance of mod erating alcohol intake due to fatty liver diagnosis. - Continued monitoring of liver enzyme l evels. Social History - Reports previous counseling on alcohol intake management due to liver concerns. - Awaiting follow-up with neurology for further evaluation. Review of Systems - Constitutional: Denies fevers and chil ls. - Eyes: Denies blurry vision. - Respiratory: Denies shortness of breat h. - Cardiovascular: Denies chest pain. - Gastrointestinal: Denies any urinary i ssues, diarrhea, or constipation. - Neurological: Denies suicidal and homi cidal ideation but reports issues consistent with neuropathy. Physical Exam General: Cooperative, healthy appearing, comfortable, no acute distress and well developed Orientation: Patient oriented x3 Limitations: No limitations Head: Normal to inspection Ears: Hearing grossly normal bilaterally Nose: Normal external nose present Face and sinus: Normal facial exam Eyes: Appearance normal, both eyes and all related structures Neck: Normal visual inspection and Yes full ROM Respiratory: Normal respiratory effort and able to speak in complete sentences. Clear to auscultation bilaterally Cardiovascular: Regular rate and rhythm. Normal S1 and S2 GI: Normal to inspection. Soft to palpation and nontender Skin: No rashes or lesions noted Neuro: Patient oriented x3, Extremities: Normal to inspection Results - EMG/Nerve conduction study: Mild senso ry and motor axonal and demyelinating polyneuropathy. - Previous labs indicate elevated liver enzymes. Plan For the management of polyneuropathy, gabapentin will be increased to 200 mg three times daily. The patient has been re-referred to neurology, and a follow- up is expected by the end of the month. Regarding the fatty liver, the patient is advised to curtail alcohol intake to stabilize liver enzyme levels. Close monitoring of liver function will continue. Discussion Notes During the visit, I emphasized to the patient the importance of adhering to increased gabapentin dosage to manage polyneuropathy effectively. The necessity of reduced alcohol intake due to the impact on liver function was highlighted as a crucial lifestyle modification. We discussed resubmission of the neurologist referral and set expectations for follow-up communication. The patient understands the potential improvements and risks related to medication adjustments and lifestyle choices. Patient Instructions - Take gabapentin 200 mg three times a d ay as prescribed. - Limit alcohol intake to support liver health. - Monitor for any new symptoms and repor t immediately. - Notify if no neurologist follow-up is received by the end of the month. [facility] Medical History Sleep apnea Finger fracture, right Cubital tunnel syndrome on left Fatty liver Dyslipidemia Surgical History S/P cubital tunnel release History of ankle surgery History of wisdom tooth extraction History of shoulder surgery Family History Father Unknown family medical history Mother No problems noted. Paternal Uncle No problems noted. Social History Housing: House Alcohol intake: current Alcohol intake frequency: a few times a month Patient Tobacco Use Status: Current everyday Tobacco user Tobacco use type: Cigarette Cigarettes Per Day: 10 Years Smoked: 15 years e-Cigarette/Vaping Use: Currently Using Second Hand Smoke Exposure: Yes service: Yes Current occupational status: employed Current occupation: right hand dominant Cognitive needs: No Hearing needs: No Vision needs: No Questionnaire PHQ-9 Over the last 2 weeks, how often have you been bothered by any of the following problems? 1. Little interest or pleasure in doing things: not at all 2. Feeling down, depressed, or hopeless: not at all 3. Trouble falling or staying asleep, or sleeping too much: not at all 4. Feeling tired or having little energy: not at all 5. Poor appetite or overeating: not at all 6. Feeling bad about yourself - or that you are a failure or have let yourself or your family down: not at all 7. Trouble concentrating on things, such as reading the newspaper or watching television: not at all 8. Moving or speaking so slowly that other people could have noticed. Or the opposite - being so fidgety or restless that you have been moving around a lot more than usual: not at all 9. Thoughts that you would be better off or of hurting yourself in some way: not at all Total score: 0 Depression Screening Interpretation: Negative Depression Screening Done: Yes 35114 - PHQ-9 Billing: Yes Source: Developed by Drs. Rafael Kerr, Cassie Romano, Jass Haas and colleagues, with an educational trenton from [email or web address]. Thrive Questionnaire Date Thrive assessed: 03/09/25 I am a: Patient What is your living situation today?: I have a steady place to live Within the past 12 months, did the food you bought not last and you didn't have the money to get more?: Never true Within the past 12 months, did you worry whether your food would run out before you got money to buy more?: Never true Do you have trouble paying for medicines?: No Do you have trouble getting transportation to medical appointments?: No Do you have trouble paying your heating and electricity bill?: No Do you have trouble taking care of your child, family member or friend?: No Do you have trouble with day-to-day activities such as bathing, preparing meals, shopping, managing finances, etc.?: No Are you currently unemployed and looking for a job?: No Are you interested in more education?: No Please select the resources that you would like help with: None Currently or been in a relationship where the following occur: No concerns reported THRIVE Score: 0 AUDIT C Alcohol Use Questionnaire (AUDIT-C) 1. How often do you have a drink containing alcohol?: Monthly or less 2. How many drinks containing alcohol do you have on a typical day when you are drinking?: 1 or 2 3. How often do you have six or more drinks on one occasion?: Never Total Score: 1 Score Reviewed/Action Taken: Yes BECCA-7 AMB Questionnaire BECCA-7 Date BECCA - 7 assessed: 03/09/25 Feeling nervous, anxious, or on edge: 0 = Not at all Not being able to stop or control worryin = Not at all Worrying too much about different things: 0 = Not at all Trouble relaxin = Not at all Being so restless that it is hard to sit still: 0 = Not at all Becoming easily annoyed or irritable: 0 = Not at all Feeling afraid as if something awful might happen: 0 = Not at all Total BECCA-7 score (0-4 normal; 5-9 mild; 10-14 moderate; 15-21 severe): 0 Source: Developed by Drs. Rafael Kerr, Cassie Romano, Jass Haas and colleagues, with an educational trenton from [email or web address]. BECCA-7 Assessment Billing BECCA-7 Assessment Tool: BECCA-7 Assessment 50489 Physical exam (Primary Care) Vital Signs: Last Vital Signs Pulse 89 03/09/25 08:04 BP 118/76 03/09/25 08:04 Pulse Ox 98 03/09/25 08:04 Oxygen Delivery Method Room Air 03/09/25 08:04 BMI result Body Mass Index 26.5 Tobacco/Smoking Status: Tobacco use Status Tobacco use date assessed 03/09/25 03/09/25 08:07 Patient Tobacco Use Status Current everyday Tobacco 03/09/25 08:07 Tobacco use type Cigarette 03/09/25 08:07 e-Cigarette/Vaping Use Currently Using 03/09/25 08:07 PHQ-9: PHQ-9 Score PHQ-9: Total score 0 03/09/25 08:07 Depression Screening Interpretation: Negative Thrive Assessment: Date of Thrive Assessment Date Thrive assessed 03/09/25 03/09/25 08:07 Currently or been in a relationship where the following occur: No concerns reported Coding Level of Care Code Est Pt Prev Care 18-39y(14559) Diagnoses Physical exam Z00. MMSDN (multifocal motor sensory demyelinating neuropathy) G62.89 Smoker F17.200 Additional Codes BECCA-7 Assessment Billing - BECCA-7 Assessment Tool: BECCA-7 Assessment 10270 ([id number]) PHQ-9 - 60577 - PHQ-9 Billing: Yes ([id number]) Assessment & Plan Assessment & Plan (1) Physical exam: Code(s): Z00.00 - Encounter for general adult medical examination without abnormal findings Category: Medical (2) MMSDN (multifocal motor sensory demyelinating neuropathy): Code(s): G62.89 - Other specified polyneuropathies Category: Medical (3) Smoker: Code(s): F17.200 - Nicotine dependence, unspecified, uncomplicated Category: Social Hx Plan . Orders: Orders Complete Blood Count Auto Diff Today Z00.00 - Encounter for general adult medical examination without abnormal findings TSH reflex Free T4 Today Z00.00 - Encounter for general adult medical examination without abnormal findings UA CC w/rflx Micro + Cult Today Z00.00 - Encounter for general adult medical examination without abnormal findings Protein Electrophoresis, Serum Today G62.89 - Other specified polyneuropathies Tick-borne Disease Molecular Today G62.89 - Other specified polyneuropathies JEANA Reflex Titer and Pattern Today G62.89 - Other specified polyneuropathies Vitamin B6 Today G62.89 - Other specified polyneuropathies Immunofixation Pnl, Serum Today G62.89 - Other specified polyneuropathies Comprehensive [place]. Panel Fast Today Z00.00 - Encounter for general adult medical examination without abnormal findings Lipid Panel Today Z00.00 - Encounter for general adult medical examination without abnormal findings Lyme IgG/IgM w/reflex to WB Today G62.89 - Other specified polyneuropathies Sjogren's Antibodies Today G62.89 - Other specified polyneuropathies Medications: Changed From gabapentin day 1: take 1 tab once a day. day 2: take one tab bid Day 3: go up to one tab 3 times a day 100 mg PO TID 30 days 90 caps 1RF To gabapentin 200 mg (2 x 100 mg) PO TID 30 days 180 caps 1RF
== END 2025-03-09 08:33 | disposition home or self-care (01) ==
LOC: HO.HMCC 07:52
PROVIDERS: PCP Nurse Practitioner Family; Visit Provider Nurse Practitioner Family
DX: Z00.00 Encounter for general adult medical examination without abnormal findings (principal); G62.89 Other specified polyneuropathies; F17.200 Nicotine dependence, unspecified, uncomplicated

== ENCOUNTER → 2025-03-09 07:51 | Outpatient (BNVA) | payer OTHER, SELFPAY | PROVIDERS: PCP Nurse Practitioner Family; Visit Provider Nurse Practitioner Family | DX: Z00.00 Encounter for general adult medical examination without abnormal findings (principal); G62.89 Other specified polyneuropathies; F17.200 Nicotine dependence, unspecified, uncomplicated; Z71.6 Tobacco abuse counseling | CPT/HCPCS: 96127 ==

== ENCOUNTER 2025-03-25 09:00 | Outpatient (RCR) | payer OTHER, SELFPAY ==
--- NOTE | 2025-01-27 10:21 | MHC.PT.EP ---
[facility] [place] Office [place] Office [place] Office [address] [phone] F: [phone] F: [phone] F: [phone] F: [phone] Physical Therapy Plan of Care Date of Evaluation: 01/27/25 Date of Surgery: Diagnosis: Left shoulder pain Assessment: Patient is a 39 year old R handed male who presents with s/s consistent with L shoulder pain. He works with daily job demands including [employer]. Patient past medical history includes L shoulder surgery, L cubital tunnel release, L ankle surgery. Current impairments include pain, posture, ROM, strength, activity tolerance and functional mobility. Functional limitations include decreased ability to reach, dress, lift, carry, push and pull. Patient is motivated with good rehab potential. Skilled PT will address impairments and functional limitations in order to achieve goals. Frequency and Duration: The patient will be seen 2x/week for 5 weeks Short Term Goals: I with HEP - 2 weeks AROM full and pain free - 3 weeks Impingement cluster negative - 3 weeks Escalator Constructor Goals: Pain free sleep - 5 weeks SPADI 12/130 or less - 5 weeks Pain free return to all activities - 5 weeks strength 4+/5 grossly - 5 weeks Treatment Plan: Modalities to reduce pain, spasms and effusion. Manual therapy to restore motion and function. Therapeutic exercise to improve strength and flexibility. Neuromuscular re-education for posture and balance. Therapeutic activities to return to functional activities of daily living. Electronically signed by: Christoph Angulo PT Please sign and return to therapist. Thank you for your referral.
--- NOTE | 2025-05-25 13:20 | MHC.PT.DC ---
[facility] [place] Office [place] Office [place] Office [address] Mary Harmon [address] [phone] F: [phone] F: [phone] F: [phone] F: [phone] Physical Therapy Discharge Report Diagnosis: Left shoulder pain Date of Surgery: Date of Evaluation: 01/27/25 Date of Discharge: 03/31/25 Treatments to Date: 12 Cancellations to Date: No Shows to Date: Discharge Status: Improved Function Independent with HEP Discharge Summary: 03/25/25: Pt with full pain free AROM. SPADI 12/130. Strength 4+/5 and I with HEP. He has been motivated and compliant throughout his course of skilled PT. He is appropriate to d/c to HEP at this time. 03/02/25: progressing with higher level functional activities. minor soreness to finish. able to golf. continue to progress as tolerated. 02/26/25: pt has been feeling better overall. still with pain with ER and MCQUEEN. continue to progress strength, posture and function. 02/24/25: pt progressing with strength. minor soreness today. progress posture, strength and ROM intervention. IR symmetrical with slight ERP on L. 02/17/25: ROM full. some pain with ER/IR activities. pain with ER/IR rebounder toss. continue to progress as tolerated pain free. 02/11/25: progressed with resistance. less s/s last 2 appts. broke GTB with b/l ER. no adverse reactions. 02/09/25: IASTM done seated with ER therex after. assess response and progress as tolerated. 02/05/25: pt with increased pain and soreness today. held on some strength ex. added prone I T Y. soreness lingered throughout treatment. 02/03; Pt click reslved with compression. Applied KT over AC. Pt had click with UB adjusted seat and resolved. Pt sore with ER activities. we will reduce weight NV and continue. IASTM if applicable. Electronically signed by: Christoph Angulo, PT Please sign and return to therapist. Thank you for your referral.
== END 2025-05-25 13:21 | disposition home or self-care (01) ==
LOC: HO.PTCHIC 09:00
PROVIDERS: PCP Nurse Practitioner Family; Visit Provider Nurse Practitioner Family
DX: M25.512 Pain in left shoulder (principal)
CPT/HCPCS: 97110; 97140; 97162

== ENCOUNTER 2025-05-06 10:22 | Outpatient (AMB) | payer OTHER, SELFPAY ==
[2025-05-06 10:28] VITALS: BP 130/78; PULSE 78; TEMP 37; O2SAT 96; BMI 26.6
--- NOTE | 2025-05-06 10:28 | A.OFFPC_ITS ---
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 History of Present Illness The patient is a 39-year-old male presenting with anxiety related to work stress. He reports significant anxiety due to daily verbal confrontations at work with a colleague of the same rank. The patient denies any suicidal or homicidal ideation. Social History - Employment: Experiences significant st ress and anxiety related to work environment and interactions with a colleague. Health Maintenance Review of Systems - Psychiatric: Reports significant anxie ty related to work stress. Denies suicidal ideation or homicidal thoughts. Physical Exam General: Cooperative, healthy appearing, comfortable, no acute distress and well developed Orientation: Patient oriented x3 Limitations: No limitations Head: Normal to inspection Ears: Hearing grossly normal bilaterally Nose: Normal external nose present Face and sinus: Normal facial exam Eyes: Appearance normal, both eyes and all related structures Neck: Normal visual inspection and Yes full ROM Respiratory: Normal respiratory effort and able to speak in complete sentences. Clear to auscultation bilaterally Cardiovascular: Regular rate and rhythm. Normal S1 and S2 GI: Normal to inspection. Soft to palpation and nontender Skin: No rashes or lesions noted Neuro: Patient oriented x3 Extremities: Normal to inspection Results Plan The patient will be referred to a therapist for counseling to address his work- related anxiety. A behavioral health specialist, Marlys, will speak with him today to facilitate the therapy process. He will be started on a low dose of buspirone to manage his anxiety symptoms. Discussion Notes I discussed with the patient the importance of addressing his anxiety through therapy and medication. We agreed on starting a low dose of buspirone and arranging a session with a therapist. Patient Instructions - Follow up with the therapist as schedu led. - Take buspirone as prescribed. - Contact the clinic if symptoms worsen or if there are any concerns. [facility] Medical History Calcaneal spur of both feet Plantar fasciitis Tinea pedis Sleep apnea Finger fracture, right Cubital tunnel syndrome on left Fatty liver Dyslipidemia Surgical History S/P cubital tunnel release History of ankle surgery History of wisdom tooth extraction History of shoulder surgery Family History Father Unknown family medical history Mother No problems noted. Paternal Uncle No problems noted. Social History Housing: House Alcohol intake: current Alcohol intake frequency: a few times a month Patient Tobacco Use Status: Current everyday Tobacco user Tobacco use type: Cigarette Cigarettes Per Day: 10 Years Smoked: 15 years Packs per year/per ci.00 e-Cigarette/Vaping Use: Currently Using Second Hand Smoke Exposure: Yes service: Yes Current occupational status: employed Current occupation: right hand dominant Cognitive needs: No Hearing needs: No Vision needs: No Questionnaire Thrive Questionnaire Date Thrive assessed: 05/06/25 I am a: Patient What is your living situation today?: I have a steady place to live Within the past 12 months, did the food you bought not last and you didn't have the money to get more?: Never true Within the past 12 months, did you worry whether your food would run out before you got money to buy more?: Never true Do you have trouble paying for medicines?: No Do you have trouble getting transportation to medical appointments?: No Do you have trouble paying your heating and electricity bill?: No Do you have trouble taking care of your child, family member or friend?: No Do you have trouble with day-to-day activities such as bathing, preparing meals, shopping, managing finances, etc.?: No Are you currently unemployed and looking for a job?: No Are you interested in more education?: No Please select the resources that you would like help with: None Currently or been in a relationship where the following occur: No concerns reported THRIVE Score: 0 BECCA-7 AMB Questionnaire BECCA-7 Date BECCA - 7 assessed: 03/09/25 Source: Developed by Drs. Rafael Kerr, Cassie Romano, Jass Haas and colleagues, with an educational trenton from [employer]. Physical exam (Primary Care) Vital Signs: Last Vital Signs Temp 98.6 F 05/06/25 10:28 Pulse 78 05/06/25 10:28 BP 130/78 05/06/25 10:28 Pulse Ox 96 05/06/25 10:28 Oxygen Delivery Method Room Air 05/06/25 10:28 BMI result Body Mass Index 26.6 Tobacco/Smoking Status: Tobacco use Status Tobacco use date assessed 03/09/25 05/06/25 10:29 Patient Tobacco Use Status Current everyday Tobacco 05/06/25 10:29 Tobacco use type Cigarette 05/06/25 10:29 e-Cigarette/Vaping Use Currently Using 05/06/25 10:29 Thrive Assessment: Date of Thrive Assessment Date Thrive assessed 05/06/25 05/06/25 10:29 Currently or been in a relationship where the following occur: No concerns reported Coding Level of Care Code Est Pt Level 3 (79628) Diagnoses Stress at work Z56.6 Anxiety F41.9 Assessment & Plan Assessment & Plan (1) Stress at work: Code(s): Z56.6 - Other physical and mental strain related to work Category: Social Hx (2) Anxiety: Code(s): F41.9 - Anxiety disorder, unspecified Category: Medical Plan . Medications: New buspirone 5 mg PO BID 60 tabs 1RF 30 days
--- OUTSIDE RECORDS SUMMARY | 2025-05-06 11:06 | XMS_ITS | Patient Health Record ---
[facility] Sadaia Parrishley Address [address] [place] [address] Care Team Providers Care Needle Maker Name Role Phone Rayray Allen Primary Care Provider Unav ailable Carline Mohan Unavailable [phone] Allergies No Known Allergies Reason For Referral Reason Pain in foot Diagnosis 1 Pain of foot, unspec ified laterality (M79.673) Referring Provider First Name Rayray Referring Provider Last Name Ankita Referred Organization [facility] Juan Manuel Referred Provider Carline Mohan Referred Address [address] ,[place], [place],[address], Referred Provider Specialty Podiatry Referral Priority Routine Medications Medication SIG (Take, Route, Fr equency, Duration) Notes Start Date End Date Status Ketoconazole 2 % 1 application Apply a thin layer to externally to feet, even between toes Twice a day; Duration: 30 days Active predniSONE 5 MG (48) as directed Orally 04/01/2025 Active Gabapentin Active predniSONE 5 MG 1 tablet 4 times a d ay for 3 days, 1 tablet 3 times a day for 3 days, 1 tablet 2 times a day for 3 days, 1 tablet once a day for 3 days Orally; Duration: 12 days 04/01/2025 Active Meloxicam Active Social History Tobacco Use: Social History Observation [...] Never (0 point) Points 0 Interpretation Negative Problems Problem Type SNOMED Code ICD Code Onset Dates Problem Status W/U Status Risk Notes Problem Plantar fasciitis, bilateral (M72.2) Active confirmed Vital Signs Blood pressure diastolic 80 mm Hg 04/01/2025 Height 6 ft 6 in in 04/01/2025 Blood pressure systolic 120 mm Hg 04/01/2025 Weight 220 lbs 04/01/2025 BMI 25.42 kg/m2 04/01/2025 Encounters Encounter Location Date Provider Diagnosis [address] [address] 04/01/2025 Carline Mohan Pain in right foot M79.671 ; Plantar fasciitis, bilateral M72.2 ; Calcaneal spur, right foot M77.31 ; Other myositis of right foot M60.871 ; Bursitis of right foot M77.51 ; Pain in left foot M79.672 ; Calcaneal spur, left foot M77.32 ; Other myositis of left foot M60.872 ; Bursitis of left foot M77.52 and Tinea pedis of both feet B35.[address] [address] 04/02/2025 Carline Mohan [address] [address] 01/20/2025 Carline Mohan [address] [address] 03/03/2025 Carline Mohan [address] [address] 04/01/2025 Carline Mohan [address] [address] 04/01/2025 Carline Mohan Assessments Encounter Date Diagnosis (ICD Code) Assessment Notes Treatment Notes Treatment Clinical Notes Section Notes 04/01/2025 Pain in right foot (ICD-10 - M79.671) 04/01/2025 Plantar fasciitis, bilateral (ICD-10 - M72.2) Patient Educated with: HEEL CORD STRETCHES.pdf (HEEL CORD STRETCHES.pdf) Patient Educated with: RICE THERAPY.pdf (RICE THERAPY.pdf) 04/01/2025 Calcaneal spur, right foot (ICD-10 - M77.31) 04/01/2025 Other myositis of right foot (ICD-10 - M60.871) 04/01/2025 Bursitis of right foot (ICD-10 - M77.51) 04/01/2025 Pain in left foot (ICD-10 - M79.672) 04/01/2025 Calcaneal spur, left foot (ICD-10 - M77.32) 04/01/2025 Other myositis of left foot (ICD-10 - M60.872) 04/01/2025 Bursitis of left foot (ICD-10 - M77.52) 04/01/2025 Tinea pedis of both feet (ICD-10 - B35.3) Plan Of Treatment Pending Test Test Name Order Date X ray : Foot, left 3V 04/01/2025 X ray : Foot, right 3V 04/01/2025 Next Appt Details Provider Name:Carline Perales alvarez, 05/27/2025 09:00:00 AM, [address] [place], [address], Insurance Providers Payer Name Payer Address Payer Phone Subscriber Number Group Number Insured Name Patient Relationship to Insured Coverage Start Date Coverage End Date [facility] [address] [place] [address] [id number] Lloyd Mendez Self - patient is the insured Medical (General) History Medical History History ICD Code Anxiety Back,Hip,and Knee pain Broken bones covid-19 Depression Headaches/Migraines Numbness Poor circulation Stomach ulcer Chicken pox Surgical History Surgery Date(Month/Year) left shoulder 2009 left ulnar nerve 2023 left heel x2 2017,2018 wisdom tooth 2003
== END 2025-05-06 11:46 | disposition home or self-care (01) ==
LOC: HO.HMCC 10:23
PROVIDERS: PCP Nurse Practitioner Family; Visit Provider Nurse Practitioner Family
DX: Z56.6 Other physical and mental strain related to work (principal); F41.9 Anxiety disorder, unspecified

== ENCOUNTER → 2025-05-06 10:22 | Outpatient (BNVA) | payer OTHER, SELFPAY | PROVIDERS: PCP Nurse Practitioner Family; Visit Provider Nurse Practitioner Family | DX: F41.9 Anxiety disorder, unspecified (principal); Z56.6 Other physical and mental strain related to work; F17.210 Nicotine dependence, cigarettes, uncomplicated; Z71.6 Tobacco abuse counseling | CPT/HCPCS: 99212 ==

== ENCOUNTER 2025-05-10 10:38 | Outpatient (AMB) | payer OTHER, SELFPAY ==
[2025-05-10 10:50] VITALS: BP 120/74; PULSE 85; O2SAT 95; BMI 26.7
--- NOTE | 2025-05-10 10:50 | MHC.OFFVIS ---
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 He goes to sleep at 9pm and gets up at 5am for work he wakes up 2-3x a night for bathroom breaks. His c/o of his loud snoring, she has witnessed him gasp for air at night, and he has apneas. He had a sleep study completed in 2013, which showed moderate ARLEN, however no follow up since. He continues to be sluggish, and exhausted most days. Denies morning headaches. Denies bruxism. He sleep talks, and denies parasomnias. PLMD / RLS, he flails and kicks his feet, c/o tingling in l. ankle with numbness, sometimes has burning pain due to plantar fascitis r>l. Mood is stable, and memory is stable. Diet is poor. He walks and exercises 3-5x per week. He is a current smoker up to 15 cigarettes daily and drink alcohol socially. [facility] Medical History Excessive daytime sleepiness Calcaneal spur of both feet Plantar fasciitis Tinea pedis Sleep apnea Finger fracture, right Cubital tunnel syndrome on left Fatty liver Dyslipidemia Surgical History S/P cubital tunnel release History of ankle surgery History of wisdom tooth extraction History of shoulder surgery Family History Father Unknown family medical history Mother No problems noted. Paternal Uncle No problems noted. Social History Housing: House Alcohol intake: current Alcohol intake frequency: a few times a month Patient Tobacco Use Status: Current everyday Tobacco user Tobacco use type: Cigarette Cigarettes Per Day: 10 Years Smoked: 15 years e-Cigarette/Vaping Use: Currently Using Second Hand Smoke Exposure: Yes service: Yes Current occupational status: employed Current occupation: right hand dominant Cognitive needs: No Hearing needs: No Vision needs: No Physical Exam Vital Signs: Last Vital Signs Pulse 85 05/10/25 10:50 BP 120/74 05/10/25 10:50 Pulse Ox 95 05/10/25 10:50 Oxygen Delivery Method Room Air 05/10/25 10:50 BMI result Body Mass Index 26.7 Const General: cooperative, healthy appearing and no acute distress Nutritional Appearance: average body habitus Orientation/consciousness: patient oriented x3 HEENT Face and sinus: Yes face symmetric Teeth and gingiva: other (Mallampti score is 3) Eyes Pupils: Equal, round and reactive pupils present Neck Neck: Yes full ROM Resp Effort & Inspection: normal respiratory effort and able to speak in complete sentences Neuro General: patient oriented x3 and moves all extremities Cranial nerves: Yes Facial sensation intact/muscles of mastication intact, Yes Equal, round and reactive pupils present, Yes Normal accommodation reflex present, Yes Midline tongue present, Yes Ability to bilaterally rotate head present and Yes Ability to bilaterally elevate shoulders present Cognition (Neuro): normal cognition Gait exam (Neuro): Normal gait present Motor exam (neuro): 5/5 motor strength present throughout and Normal motor muscle tone present throughout Deep tendon reflexes (DTR's): Right triceps reflex intensity grade: 2+, Left triceps reflex intensity grade: 2+, Rt Biceps (C5, C6): 2+, Left biceps reflex intensity grade: 2+, Right brachioradialis reflex intensity grade: 2+, Left brachioradialis reflex intensity grade: 2+, Right patellar reflex intensity grade: 2+, Left patellar reflex intensity grade: 2+, Right ankle reflex intensity grade: 2+ and Left ankle reflex intensity grade: 2+ Coordination: [id number]-go-jivc test normal Psych Appearance: grossly normal Thought process: Normal thought process present Thought content: Normal thought content present Results Reviewed Results Reviewed: 01/2025 EMG/ NCS Bilateral tibial and peroneal motor studies were performed. Bilateral superficial peroneal and sural sensory studies were performed. Tibial H reflexes were obtained, and paraspinal muscles were tested with a needle. 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 Assessment & Plan Assessment & Plan (1) Excessive daytime sleepiness: Code(s): G47.19 - Other hypersomnia Category: Medical Plan PSG / To r/o ARLEN with limb movement disorder, kicking thrashing behavior. Labs to r/o nutritional deficiencies EMG/NCS study reviewbilataral axonal neuropathy continue gabapentin 200mg po TID Orders: Orders Homocysteine Today G47.19 - Other hypersomnia, G47.9 - Sleep disorder, unspecified, R53.83 - Other fatigue Methylmalonic Acid Today G47.19 - Other hypersomnia, G47.9 - Sleep disorder, unspecified, R53.83 - Other fatigue Vitamin B12 and Folate Today G47.19 - Other hypersomnia RT PSG in-lab sleep study Today G47.19 - Other hypersomnia Ferritin Today G47.19 - Other hypersomnia Hemoglobin A1c Today G47.19 - Other hypersomnia Vitamin D 25-OH Total Today G47.19 - Other hypersomnia TSH reflex Free T4 Today G47.19 - Other hypersomnia Medications: New mecobalamin (vitamin B12) place tablet under tongue and allow to dissolve for at least30 secs before swallowing 1,000 mcg sublingual BEDTIME 90 tabs 0RF neuropathy 3 months MDD 1000mcg G62.89 - Other specified polyneuropathies Patient Instructions: Sleep Hygiene provided: set a scheduled bedtime and wake time to help regulate the circadian rhythm and balance the release of pituitary hormones. Sleep in a dark room, temperatures below 68 degrees, and no devices n bed. Limit caffeinated products 6 hours prior to bed, and limit fluids 2-4 hours prior to bed. Gentle night yoga, diffusing essential oils, and playing soft music can be relaxing. Rest Leg Cream, Icy Hot, Magnilife top. Coding Level of Care Code New Pt Level 4 (92955) Diagnoses Excessive daytime sleepiness G47.19 Time Spent (min) 20 Comment Evaluation Sleep Questionnaire Difficulty falling asleep: No Difficulty staying asleep?: Yes Number of arousals: 3 Snoring: Yes Witnessed apneas: Yes Gasping arousals: Yes Nocturia: Yes GERD: Yes Vivid dreams: No Acting out dreams: No Abnormal behavior in sleep: Yes (talks in his sleep) Abnormal movements in sleep: Yes (kicking ) Morning headaches: No Excessive daytime sleepiness: Yes Daytime naps: No Restless legs: Yes (RLS? or PLMD) Hallucinations: No Sleep paralysis: No Drop attacks: No Sleep Study: Yes (in 2013 ) CPAP: Yes
== END 2025-05-10 11:52 | disposition home or self-care (01) ==
LOC: HO.HSMS 10:39
PROVIDERS: PCP Nurse Practitioner Family; Visit Provider Physician Assistant Medical
DX: G47.19 Other hypersomnia (principal)
CPT/HCPCS: 99204

== ENCOUNTER → 2025-05-10 10:38 | Outpatient (BNVA) | payer OTHER, SELFPAY | PROVIDERS: PCP Nurse Practitioner Family; Visit Provider Physician Assistant Medical | DX: G47.19 Other hypersomnia (principal) | CPT/HCPCS: 99202 ==

== ENCOUNTER → 2025-06-07 19:30 | Outpatient (REF) | payer OTHER, SELFPAY | LOC: HO.SL 19:30 | PROVIDERS: PCP Nurse Practitioner Family; Visit Provider Physician Assistant Medical | DX: G47.33 Obstructive sleep apnea (adult) (pediatric) (principal); G47.19 Other hypersomnia | CPT/HCPCS: 95810 ==

== ENCOUNTER → 2025-06-07 21:23 | Outpatient (BNV) | payer OTHER, SELFPAY | PROVIDERS: PCP Nurse Practitioner Family; Visit Provider Psychiatry & Neurology Neurology | DX: G47.33 Obstructive sleep apnea (adult) (pediatric) (principal); G47.19 Other hypersomnia | CPT/HCPCS: 95810 ==

== ENCOUNTER 2025-06-09 06:52 | Outpatient (AMB) | payer OTHER, SELFPAY ==
--- NOTE | 2025-06-09 08:11 | A.OFFPC_ITS ---
Intake Visit Reasons: 1m follow up Allergies No Known Allergies Allergy (Verified 06/09/25 08:14) Medication List - Last Reconciled 06/09/25 by RILEY Dobbins buspirone 5 mg PO BID 30 days gabapentin 200 mg (2 x 100 mg) PO TID 30 days mecobalamin (vitamin B12) 1,000 mcg sublingual BEDTIME 3 months MDD 1000mcg meloxicam 15 mg PO DAILY PRN 30 days Tobacco use date assessed: 03/09/25 Dental Screening Dental Screen Date: 03/09/25 HPI 1m follow up HPI Details History of Present Illness The patient is a 39-year-old male presenting for anxiety management and follow- up on elevated liver enzymes. The patient reports experiencing anxiety, which has been ongoing and is currently being managed with plans to contact a therapist in the near future. He mentions an improvement in his condition, attributed to a new job that he finds more enjoyable and less stressful compared to his previous employment. The patient has been advised to have his liver enzymes re-evaluated, as there were previous concerns regarding elevated levels. Review of Systems - Psychiatric: Reports anxiety. Denies s uicidal ideation or homicidal ideation. - Cardiovascular: Denies chest pain. - Respiratory: Denies shortness of breat h. - Gastrointestinal: Denies abdominal tia n. Plan The patient is encouraged to continue managing his anxiety by contacting a therapist, as he has the necessary contact information to do so. He is advised to maintain his current employment, which appears to be beneficial for his mental health due to reduced stress levels. Regarding his liver enzymes, the patient is advised to have his labs redrawn in the near future to monitor any changes or improvements. Discussion Notes I discussed with the patient the importance of managing his anxiety through therapy and maintaining a low-stress environment at work. We also talked about the need to monitor his liver enzymes and the importance of follow-up lab work to ensure his liver health is stable. Patient Instructions - Contact the therapist using the provid ed number to schedule an appointment. - Continue working at the current job if it remains a positive environment. - Schedule a follow-up appointment for edgar ornelas work to check liver enzymes. [facility] Medical History Excessive daytime sleepiness Calcaneal spur of both feet Plantar fasciitis Tinea pedis Sleep apnea Finger fracture, right Cubital tunnel syndrome on left Fatty liver Dyslipidemia Surgical History S/P cubital tunnel release History of ankle surgery History of wisdom tooth extraction History of shoulder surgery Family History Father Unknown family medical history Mother No problems noted. Paternal Uncle No problems noted. Social History Housing: House Alcohol intake: current Alcohol intake frequency: a few times a month Patient Tobacco Use Status: Current everyday Tobacco user Tobacco use type: Cigarette Cigarettes Per Day: 10 Years Smoked: 15 years e-Cigarette/Vaping Use: Currently Using Second Hand Smoke Exposure: Yes service: Yes Current occupational status: employed Current occupation: right hand dominant Cognitive needs: No Hearing needs: No Vision needs: No Questionnaire Thrive Questionnaire Date Thrive assessed: 12/30/24 I am a: Patient What is your living situation today?: I have a steady place to live Within the past 12 months, did the food you bought not last and you didn't have the money to get more?: Never true Within the past 12 months, did you worry whether your food would run out before you got money to buy more?: Never true Do you have trouble paying for medicines?: No Do you have trouble getting transportation to medical appointments?: No Do you have trouble paying your heating and electricity bill?: No Do you have trouble taking care of your child, family member or friend?: No Do you have trouble with day-to-day activities such as bathing, preparing meals, shopping, managing finances, etc.?: No Are you currently unemployed and looking for a job?: No Are you interested in more education?: No Please select the resources that you would like help with: None Currently or been in a relationship where the following occur: No concerns reported THRIVE Score: 0 BECCA-7 AMB Questionnaire BECCA-7 Date BECCA - 7 assessed: 03/09/25 Source: Developed by Drs. Rafael Kerr, Cassie Romano, Jass Haas and colleagues, with an educational trenton from [employer]. Physical exam (Primary Care) Tobacco/Smoking Status: Tobacco use Status Tobacco use date assessed 03/09/25 05/10/25 11:46 Patient Tobacco Use Status Current everyday Tobacco 05/10/25 11:46 Tobacco use type Cigarette 05/10/25 11:46 e-Cigarette/Vaping Use Currently Using 05/10/25 11:46 Thrive Assessment: Date of Thrive Assessment Date Thrive assessed 12/30/24 05/10/25 11:46 Currently or been in a relationship where the following occur: No concerns reported Telehealth Telehealth Telehealth Platform: [employer]ident [employer] Location of provider rendering services: practice address Location of patient: address on file Patient Identification confirmed using: Name, : Yes Telehealth method: video Patient verbally consented to treatment: Yes Patient verbally consented to billing insurance company: Yes Patient informed of any privacy concerns related to visit: Yes Minutes spent on Phone/Video with Pt.: 12 Coding Level of Care Code Tele Est Pt Level 3 (90829) Diagnoses Anxiety F41.9 Fatty liver K76.0 Elevated LFTs R79.89 Assessment & Plan Assessment & Plan (1) Anxiety: Code(s): F41.9 - Anxiety disorder, unspecified Category: Medical (2) Fatty liver: Code(s): K76.0 - Fatty (change of) liver, not elsewhere classified Category: Medical (3) Elevated LFTs: Code(s): R79.89 - Other specified abnormal findings of blood chemistry Category: Medical Plan .
== END 2025-06-09 07:24 | disposition home or self-care (01) ==
LOC: HO.HMCC 06:52
PROVIDERS: PCP Nurse Practitioner Family; Visit Provider Nurse Practitioner Family
DX: F41.9 Anxiety disorder, unspecified (principal); K76.0 Fatty (change of) liver, not elsewhere classified; R79.89 Other specified abnormal findings of blood chemistry

== ENCOUNTER 2025-06-21 08:40 | Outpatient (REF) | payer OTHER, SELFPAY ==
--- OUTSIDE RECORDS SUMMARY | 2025-06-21 09:01 | XMS_ITS | Patient Health Record ---
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 Name Role Phone Rayray Allen Primary Care Provider Unav ailable Carline Mohan Unavailable [phone] Allergies No Known Allergies Reason For Referral Reason Pain in foot Diagnosis 1 Pain of foot, unspec ified laterality (M79.673) Referring Provider First Name Rayray Referring Provider Last Name Ankita Referred Organization [facility] Juan Manuel Referred Provider Carline Mohan Referred Address [address] ,[place], [place],[address], Referred Provider Specialty Podiatry Referral Priority Routine Medications Medication SIG (Take, Route, Fr equency, Duration) Notes Start Date End Date Status Ketoconazole 2 % 1 application Apply a thin layer to externally to feet, even between toes Twice a day; Duration: 30 days Active predniSONE 5 MG 1 tablet 4 times a d ay for 3 days, 1 tablet 3 times a day for 3 days, 1 tablet 2 times a day for 3 days, 1 tablet once a day for 3 days Orally; Duration: 12 days 04/01/2025 Active predniSONE 5 MG (48) as directed Orally 04/01/2025 Active Meloxicam Active Gabapentin Active Immunizations Vaccine Route Administration Date Status Comme nts Influenza Unknown 08/04/2024 Administered Social History Tobacco Use: Social History Observation Description Date Details (start date - stop date) Current Smoker 05/06/2006 - NA Tobacco use other than smoking: Question Answer Notes Are you an other tobacco user? Yes Tobacco Control (Standard) Question Answer Notes Tobacco use: Current smoker When did you start smoking? 05/06/2006 How often do you smoke cigarettes? Every day How many cigarettes a day do you smoke? 6-10 How soon after you wake up d o you smoke your first cigarette? Within 5 minutes Are you interested in quitting? Thinking about q uitting Additional Findings: Tobacco user Modera te cigarette smoker (10-19 cigs/day) AUDIT-C (Standard) Question Answer Notes Did you [...] 04/01/2025 Height 6 ft 6 in in 05/27/2025 Blood pressure systolic 120 mm Hg 04/01/2025 Weight 225 lbs 05/27/2025 BMI 26 kg/m2 05/27/2025 Encounters Encounter Location Date Provider Diagnosis [facility] [address] [address] 04/01/2025 Carline Mohan Pain in right foot [...] and Tinea pedis of both feet B35.3 [facility] [address] [address] 05/27/2025 Carline Mohan Pain in right foot M79.671 ; Plantar fasciitis, bilateral M72.2 ; Calcaneal spur, right foot M77.31 ; Other myositis of right foot M60.871 ; Bursitis of right foot M77.51 ; Pain in left foot M79.672 ; Calcaneal spur, left foot M77.32 ; Other myositis of left foot M60.872 ; Bursitis of left foot M77.52 and Tinea pedis of both feet B35.[address] [facility] [address] 04/02/2025 Carline Mohan [facility] [address] 01/20/2025 [facility] [address] 03/03/2025 Carline Mohan [address] [address] 04/01/2025 Carline Mohan [address] [address] 04/01/2025 Carline Mohan Assessments Encounter Date Diagnosis (ICD Code) Assessment Notes Treatment Notes Treatment Clinical Notes Section Notes 04/01/2025 Pain in right foot (ICD-10 - M79.671) 05/27/2025 Pain in right foot (ICD-10 - M79.671) 05/27/2025 Plantar fasciitis, bilateral (ICD-10 - M72.2) Patient Educated with: HEEL CORD STRETCHES.pdf (HEEL CORD STRETCHES.pdf) Patient Educated with: RICE THERAPY.pdf (RICE THERAPY.pdf) 04/01/2025 Plantar fasciitis, bilateral (ICD-10 - M72.2) Patient Educated with: HEEL CORD STRETCHES.pdf (HEEL CORD STRETCHES.pdf) Patient Educated with: RICE THERAPY.pdf (RICE THERAPY.pdf) 05/27/2025 Calcaneal spur, right foot (ICD-10 - M77.31) 04/01/2025 Calcaneal spur, right foot (ICD-10 - M77.31) 04/01/2025 Other myositis of right foot (ICD-10 - M60.871) 05/27/2025 Other myositis of right foot (ICD-10 - M60.871) 05/27/2025 Bursitis of right foot (ICD-10 - M77.51) 04/01/2025 Bursitis of right foot (ICD-10 - M77.51) 04/01/2025 Pain in left foot (ICD-10 - M79.672) 05/27/2025 Pain in left foot (ICD-10 - M79.672) 04/01/2025 Calcaneal spur, left foot (ICD-10 - M77.32) 05/27/2025 Calcaneal spur, left foot (ICD-10 - M77.32) 04/01/2025 Other myositis of left foot (ICD-10 - M60.872) 05/27/2025 Other myositis of left foot (ICD-10 - M60.872) 05/27/2025 Bursitis of left foot (ICD-10 - M77.52) 04/01/2025 Bursitis of left foot (ICD-10 - M77.52) 04/01/2025 Tinea pedis of both feet (ICD-10 - B35.3) 05/27/2025 Tinea pedis of both feet (ICD-10 - B35.3) Plan Of Treatment Pending Test Test Name Order Date X ray : Foot, left 3V 04/01/2025 X ray : Foot, right 3V 04/01/2025 Next Appt Details Provider Name:Carline Perales alvarez, 08/26/2025 09:00:00 AM, [address] [place], [address], Insurance Providers Payer Name Payer Address Payer Phone Subscriber Number Group Number Insured Name Patient Relationship to Insured Coverage Start Date Coverage End Date [facility] [address] [place] [address] [id number] Lloyd Mendez Self - patient is the insured Medical (General) History Medical History History ICD Code Anxiety Back,Hip,and Knee pain Broken bones covid-19 Depression Headaches/Migraines Numbness Poor circulation Stomach ulcer Chicken pox Surgical History Surgery Date(Month/Year) left shoulder 2009 left ulnar nerve 2023 left heel x2 2017,2019 wisdom tooth 2003
== END 2025-06-21 08:41 | disposition home or self-care (01) ==
LOC: HO.SH 08:40
PROVIDERS: Visit Provider Nurse Practitioner Family
DX: Z01.118 Encounter for examination of ears and hearing with other abnormal findings (principal); H93.13 Tinnitus, bilateral; H91.93 Unspecified hearing loss, bilateral
CPT/HCPCS: 92557; 92567

== ENCOUNTER 2025-07-13 15:36 | Outpatient (AMB) | payer OTHER, SELFPAY ==
[2025-07-13 15:39] VITALS: BP 110/82; PULSE 82; RESP 16; O2SAT 98; BMI 26.5
--- NOTE | 2025-07-13 15:39 | MHC.PC.OV ---
Vital Signs 07/13/25 15:39 Height 6 ft 6 in Weight 229 lb BMI 26.5 BP 110/82 Blood Pressure Location Lt brachial Position Sitting Respiration 16 Pulse 82 Pulse Source Pulse Oximeter Pulse Oximetry (%) 98 Oxygen Delivery Method Room Air Intake Visit Reasons: RT knee paperwork Certified Scrum Master Required: No Accompanied by: Self / Same As Patient Allergies No Known Allergies Allergy (Verified 07/13/25 16:41) Medication List - Last Reconciled 07/13/25 by WARNER Dobbins- amoxicillin-pot clavulanate 875-125 mg 1 tab PO Q12H 10 days naproxen 500 mg PO BID PRN 30 days Tobacco use date assessed: 07/13/25 Dental Screening Dental Screen Date: 07/13/25 Did you have a dental visit in the last 12 months?: Yes Did you have a dental problem in the last 6 months where you did not have access to dental care?: No Was dental information given to patient?: Patient has dentist HPI RT knee paperwork HPI Details Chief Complaint The patient presents with right knee pain and a cyst on the medial left biceps. History of Present Illness The patient is a 39-year-old male presenting with right knee pain and a cyst on the medial left biceps. The right knee pain has persisted for about a month, primarily affecting the lateral side of the patella. Activities such as ascending stairs, weightbearing, and knee flexion exacerbate the pain. Intermittent swelling has been noted, though no active swelling is present currently. A positive Oziel's test on the lateral aspect of the right knee suggests a possible partial meniscal tear. The patient has a history of left ankle trauma with surgery, potentially leading to compensatory issues affecting the right knee. Additionally, plantar fasciitis in the bilat lower extremities may contribute to the knee pain. The patient also reports a cyst on the medial left biceps, present for about a month. The cyst measures approximately 2 cm in diameter, with slight induration, erythematous, and slight tenderness. The patient denies any fevers or chills associated with the cyst. Social History Health Maintenance Review of Systems - Musculoskeletal: Reports right knee pain exacerbated by stairs, weightbearing, and flexion. Denies active swelling. - Skin: Reports a cyst on the medial left biceps with tenderness and slight erythema. Denies fevers or chills. Physical Exam General: Cooperative, healthy appearing, comfortable, no acute distress and well developed Orientation: Patient oriented x3 Head: Normal to inspection Ears: Hearing grossly normal bilaterally Nose: Normal external nose present Face and sinus: Normal facial exam Eyes: Appearance normal, both eyes and all related structures Neck: Normal visual inspection and Yes full ROM Respiratory: Normal respiratory effort and able to speak in complete sentences. Clear to auscultation bilaterally Cardiovascular: Regular rate and rhythm. Normal S1 and S2 GI: Normal to inspection. Soft to palpation and nontender Skin: Cyst on medial left biceps, about 2 cm in diameter, with some induration, fluctuations, slight erythema, and tenderness. No rashes or other lesions noted Neuro: Patient oriented x3 Extremities: Tenderness noted to bilateral patellar region of the right knee with extension and mostly flexion. Positive Oziel's test on the right lateral side. Positive dorsalis pedis, crepitus noted with extension to flexion. No active erythema or warmth. Normal to inspection otherwise Results Plan Patient was informed and verbally consented to the use of an ambient scribe for clinic note documentation during this visit. 1. Right Knee Pain The patient will be referred to physical therapy to address the right knee pain, which is suspected to be due to a possible partial meniscal tear. The patient will continue taking Aleve (NSAIDs) for pain management, as it has provided slight relief. A profile with certain restrictions related to the knee will be provided. 2. Cyst On Medial Left Biceps The patient will be prescribed Augmentin to address the cyst on the medial left biceps. The patient is advised to report back if the cyst persists or enlarges. A profile with certain restrictions related to the cyst will be provided. Discussion Notes I discussed with the patient the possibility of a partial meniscal tear in the right knee and the plan to initiate physical therapy. We also discussed the use of Aleve for pain management and the need for a profile with restrictions. Regarding the cyst on the medial left biceps, I explained the prescription of Augmentin and the importance of monitoring its progression. Patient Instructions - Continue taking Aleve as directed for knee pain. - Attend physical therapy sessions as scheduled. - Take Augmentin as prescribed for the cyst. - Monitor the cyst for any changes in size or symptoms and report back if it persists or enlarges. - Follow the profile restrictions provided. [facility] Medical History Excessive daytime sleepiness Calcaneal spur of both feet Plantar fasciitis Tinea pedis Sleep apnea Finger fracture, right Cubital tunnel syndrome on left Fatty liver Dyslipidemia Surgical History S/P cubital tunnel release History of ankle surgery History of wisdom tooth extraction History of shoulder surgery Family History Father Unknown family medical history Mother No problems noted. Paternal Uncle No problems noted. Social History Housing: House Alcohol intake: current Alcohol intake frequency: a few times a month Patient Tobacco Use Status: Current everyday Tobacco user Tobacco use type: Cigarette Cigarettes Per Day: 10 Years Smoked: 15 years e-Cigarette/Vaping Use: Currently Using Second Hand Smoke Exposure: Yes service: Yes Current occupational status: employed Current occupation: right hand dominant Cognitive needs: No Hearing needs: No Vision needs: No Questionnaire Thrive Questionnaire Date Thrive assessed: 12/30/24 I am a: Patient What is your living situation today?: I have a steady place to live Within the past 12 months, did the food you bought not last and you didn't have the money to get more?: Never true Within the past 12 months, did you worry whether your food would run out before you got money to buy more?: Never true Do you have trouble paying for medicines?: No Do you have trouble getting transportation to medical appointments?: No Do you have trouble paying your heating and electricity bill?: No Do you have trouble taking care of your child, family member or friend?: No Do you have trouble with day-to-day activities such as bathing, preparing meals, shopping, managing finances, etc.?: No Are you currently unemployed and looking for a job?: No Are you interested in more education?: No Please select the resources that you would like help with: None Currently or been in a relationship where the following occur: No concerns reported THRIVE Score: 0 BECCA-7 AMB Questionnaire BECCA-7 Date BECCA - 7 assessed: 07/13/25 Feeling nervous, anxious, or on edge: 0 = Not at all Not being able to stop or control worryin = Not at all Worrying too much about different things: 0 = Not at all Trouble relaxin = Not at all Being so restless that it is hard to sit still: 0 = Not at all Becoming easily annoyed or irritable: 0 = Not at all Feeling afraid as if something awful might happen: 0 = Not at all Total BECCA-7 score (0-4 normal; 5-9 mild; 10-14 moderate; 15-21 severe): 0 Source: Developed by Drs. Rafael Kerr, Cassie Romano, Jass Haas and colleagues, with an educational trenton from [employer]. BECCA-7 Assessment Billing BECCA-7 Assessment Tool: BECCA-7 Assessment 69723 Physical exam (Primary Care) Vital Signs: Last Vital Signs Pulse 82 07/13/25 15:39 Resp 16 07/13/25 15:39 BP 110/82 07/13/25 15:39 Pulse Ox 98 07/13/25 15:39 Oxygen Delivery Method Room Air 07/13/25 15:39 BMI result Body Mass Index 26.5 Tobacco/Smoking Status: Tobacco use Status Tobacco use date assessed 07/13/25 07/13/25 15:46 Patient Tobacco Use Status Current everyday Tobacco 07/13/25 15:46 Tobacco use type Cigarette 07/13/25 15:46 e-Cigarette/Vaping Use Currently Using 07/13/25 15:46 Thrive Assessment: Date of Thrive Assessment Date Thrive assessed 12/30/24 07/13/25 15:46 Currently or been in a relationship where the following occur: No concerns reported Coding Level of Care Code Est Pt Level 3 (10174) Diagnoses Right knee pain M25.561 Acute knee pain M25.569 Cyst of skin L72.9 Additional Codes BECCA-7 Assessment Billing - BECCA-7 Assessment Tool: BECCA-7 Assessment 20553 ([id number]) Assessment & Plan Assessment & Plan (1) Right knee pain: Code(s): M25.561 - Pain in right knee Category: Medical (2) Acute knee pain: Code(s): M25.569 - Pain in unspecified knee Category: Medical (3) Cyst of skin: Code(s): L72.9 - Follicular cyst of the skin and subcutaneous tissue, unspecified Category: Medical Plan . Orders: Orders XR knee RT 2V Today M25.561 - Pain in right knee PT Evaluation and Treatment Today M25.569 - Pain in unspecified knee Medications: New amoxicillin-pot clavulanate 875-125 mg 1 tab PO Q12H 20 tabs 0RF 10 days naproxen 500 mg PO BID PRN 60 tabs 0RF pain 30 days
--- OUTSIDE RECORDS SUMMARY | 2025-07-13 17:43 | XMS_ITS | Patient Health Record ---
Author Organization [facility] Saadia Parrishley Address [address] [place] [address] Care Team Providers Care Sex Offender Treatment Professional Name Role Phone Rayray Allen Primary Care Provider Unav ailable Carline Mohan Unavailable [phone] Allergies No Known Allergies Reason For Referral Reason Pain in foot Diagnosis 1 Pain of foot, unspec ified laterality (M79.673) Referring Provider First Name Rayray Referring Provider Last Name Ankita Referred Organization [facility] Juan Manuel Referred Provider Carline Mohan Referred Address [address] ,[place], [place],[address], Referred Provider Specialty Podiatry Referral Priority Routine [...] Status W/U Status Risk Notes Problem Plantar fascial fibromatosis ([id number]) Plantar fasciitis, bilateral (M72.2) Active confirmed Vital Signs Blood pressure diastolic 80 mm Hg 04/01/2025 Height 6 ft 6 in in 05/27/2025 Blood pressure systolic 120 mm Hg 04/01/2025 Weight 225 lbs 05/27/2025 BMI 26 kg/m2 05/27/2025 Encounters Encounter Location Date Provider Diagnosis [facility] [address] [address] 04/01/2025 Carline Mohan Pain in right foot [...] and Tinea pedis of both feet B35.[address] [facility] [address] [address] 05/27/2025 Carline Mohan Pain in right foot [...] and Tinea pedis of both feet B35.3 [facility] [address] [place] [address] 01/20/2025 Carline Mohan [facility] [address] 03/03/2025 Carline Mohan [address] [address] 04/01/2025 Carline Mohan [address] [address] 04/01/2025 Carline Mohan [address] [address] 04/02/2025 Carline Moahn Assessments Encounter Date Diagnosis (ICD Code) Assessment [...] 3V 04/01/2025 Next Appt Details Provider Name:Carline pino, 08/26/2025 09:00:00 AM, [address] [place] [address], [phone], Insurance Providers Payer Name Payer Address Payer Phone Subscriber Number Group Number Insured Name Patient Relationship to Insured Coverage Start Date Coverage End Date [employer] [facility] [address] [place] [address] [phone] [id number] Lloyd Mendez Self - patient is the insured Medical (General) History Medical History History ICD Code Anxiety Back,Hip,and Knee pain Broken bones covid-19 Depression Headaches/Migraines Numbness Poor circulation Stomach ulcer Chicken pox Surgical History Surgery Date(Month/Year) left shoulder 2009 left ulnar nerve 2023 left heel x2 2017,2018 wisdom tooth 2002
== END 2025-07-13 16:33 | disposition home or self-care (01) ==
LOC: HO.HMCC 15:37
PROVIDERS: Visit Provider Nurse Practitioner Family
DX: M25.561 Pain in right knee (principal); M25.569 Pain in unspecified knee; L72.9 Follicular cyst of the skin and subcutaneous tissue, unspecified

== ENCOUNTER → 2025-07-13 15:36 | Outpatient (BNVA) | payer OTHER, SELFPAY | PROVIDERS: Visit Provider Nurse Practitioner Family | DX: M25.561 Pain in right knee (principal); L72.9 Follicular cyst of the skin and subcutaneous tissue, unspecified | CPT/HCPCS: 96127; 99212 ==

== ENCOUNTER 2025-07-14 10:57 | Outpatient (REF) | payer OTHER, SELFPAY ==
--- NOTE | ~2025-07-14 | XR_ITS ---
EXAMINATION: XR KNEE, RIGHT CLINICAL INFORMATION: M25.561 - Pain in right knee COMPARISON: None available. TECHNIQUE: AP and lateral views of the right knee. FINDINGS: No acute cortical disruption or malalignment. No lytic or blastic lesions. No suprapatellar bursa joint effusion. Mild joint space narrowing involving medial compartment. No calcifications in the soft tissues. No vascular calcifications. XR/XR knee RT 2V IMPRESSION: Mild medial compartmental osteoarthritis/osteoarthritis. Electronically signed by: Brian Garcia MD 07/14/2025 11:13 AM EDT
--- OUTSIDE RECORDS SUMMARY | 2025-07-14 13:57 | XMS_ITS | Patient Health Record ---
[facility] Organization [facility] Saadia Parrishley Address [address] [place] [address] Care Team Providers Care Security Operations Analyst Name Role Phone Rayray Allen Primary Care Provider Unav ailable Carline Mohan Unavailable [phone] Allergies No Known Allergies Reason For Referral Reason Pain in foot Diagnosis 1 Pain of foot, unspec ified laterality (M79.673) Referring Provider First Name Rayray Referring Provider Last Name Ankita Referred Organization [facility] Juan Manuel Referred Provider Carline Mohan Referred Address [address] ,[place], [place],[address], Referred Provider Specialty Podiatry Referral Priority Routine [...] Status Risk Notes Problem Plantar fascial fibromatosis (37001837) Plantar fasciitis, bilateral (M72.2) Active confirmed Vital Signs Blood pressure diastolic 80 mm Hg 04/01/2025 Height 6 ft 6 in in 05/27/2025 Blood pressure systolic 120 mm Hg 04/01/2025 Weight 225 lbs 05/27/2025 BMI 26 kg/m2 05/27/2025 Encounters Encounter Location Date Provider Diagnosis [facility] [address] [address] 04/01/2025 Carline Mohan Pain in right foot [...] and Tinea pedis of both feet B35.3 [facility] [address] [address] 05/27/2025 Carline Mohan Pain in right foot [...] and Tinea pedis of both feet B35.[facility] [address] [place] [address] 01/20/2025 Carline Mohan [facility] [address] 03/03/2025 Carline Mohan [address] [address] 04/01/2025 Carline Mohan [address] [address] 04/01/2025 Carline Mohan [address] [address] 04/02/2025 Carline Mohan Assessments Encounter Date Diagnosis (ICD [...] Details Provider Name:Carline pino, 08/26/2025 09:00:00 AM, [address] [place] [address], [phone], Insurance Providers Payer Name Payer Address Payer Phone Subscriber Number Group Number Insured Name Patient Relationship to Insured Coverage Start Date Coverage End Date [employer] [facility] [address] [place] [address] [id number] Lloyd Mendez Self - patient is the insured Medical (General) History Medical History History ICD Code Anxiety Back,Hip,and Knee pain Broken bones covid-19 Depression Headaches/Migraines Numbness Poor circulation Stomach ulcer Chicken pox Surgical History Surgery Date(Month/Year) left shoulder 2009 left ulnar nerve 2023 left heel x2 2017,2018 wisdom tooth 2002
== END 2025-07-14 10:58 | disposition home or self-care (01) ==
LOC: HO.HMGCX 10:57
PROVIDERS: PCP Nurse Practitioner Family; Visit Provider Nurse Practitioner Family
DX: M25.561 Pain in right knee (principal)
CPT/HCPCS: 73560

== ENCOUNTER → 2025-07-14 11:00 | Outpatient (BNV) | payer OTHER, SELFPAY | PROVIDERS: PCP Nurse Practitioner Family; Visit Provider Radiology Diagnostic Radiology | DX: M25.561 Pain in right knee (principal) | CPT/HCPCS: 73560 ==

== ENCOUNTER 2025-08-05 13:21 | Outpatient (AMB) | payer OTHER, SELFPAY ==
--- NOTE | 2025-08-05 13:33 | A.OFFVIS_ITS ---
Vital Signs 08/05/25 13:34 Height 6 ft 6 in Weight 236 lb 8 oz BMI 27.3 BP 122/78 Blood Pressure Location Rt brachial Pulse 62 Pulse Source Pulse Oximeter Pulse Oximetry (%) 98 Oxygen Delivery Method Room Air Intake Visit Reasons: 3mnth follow up Intake Note: Patient presents follow up ARLEN medication. PSG in chart(AHI-9, REM AHI-17, FRANCOISE-79%. APAP 5-20cm). Accompanied by: Self / Same As Patient Allergies No Known Allergies Allergy (Verified 08/05/25 13:37) HPI Comments Details: 39 year old male presents for a follow up visit and review of his sleep study results. 07/2025 PSG c/w mild degree of arlen AHI is 9 and REM AHI is 17, with O2 francoise to 79% and moderate snoring. 07/2025 NCS / EMG reviewed with pt. r. lateral plantar mixed nerve response had low amplitude with prolonged latency and the left is absent, he will f/u with his orthopedic surgeon per findings. 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 He is chronically fatigued. He goes to sleep at 9pm and gets up at 5am and has 2-3 bathroom breaks, this has been ongoing since childhood, he has urgency, denies frequency and will look at water running and have to go empty his bladder. He denies stress incontinence and BPH. His c/o of his loud snoring, she has witnessed him gasp for air at night. He had a sleep study completed in 2013, which showed moderate ARLEN, however no follow up since. He continues to be sluggish and exhausted most days. He denies morning headaches and bruxism. He talks in his sleep, and denies parasomnias. PLMD / RLS, his says he kicks his feet and flailing behavior. He c/o a burning sensation in l. ankle which waxes and wanes, with numbness, and irritation if grazed by the socks. He also has plantar fascitis r>l and wears good insoles in his shoes. He is seeing an orthopedic surgeon, since fracturing his ankle. Mood and memory is stable. Diet is poor. He walks and exercises 3-5x per week as tolerable. He is a current smoker up to 15 cigarettes daily due to work related stress, and drinks alcohol socially. [facility] Medical History Osteoarthritis of right knee Excessive daytime sleepiness Calcaneal spur of both feet Plantar fasciitis Tinea pedis Sleep apnea Finger fracture, right Cubital tunnel syndrome on left Fatty liver Dyslipidemia Surgical History S/P cubital tunnel release History of ankle surgery History of wisdom tooth extraction History of shoulder surgery Family History Father Unknown family medical history Mother No problems noted. Paternal Uncle No problems noted. Social History Housing: House Alcohol intake: current Alcohol intake frequency: a few times a month Patient Tobacco Use Status: Current everyday Tobacco user Tobacco use type: Cigarette Cigarettes Per Day: 10 Years Smoked: 15 years e-Cigarette/Vaping Use: Currently Using Second Hand Smoke Exposure: Yes service: Yes Current occupational status: employed Current occupation: right hand dominant Cognitive needs: No Hearing needs: No Vision needs: No Physical Exam Vital Signs: Last Vital Signs Pulse 62 08/05/25 13:34 BP 122/78 08/05/25 13:34 Pulse Ox 98 08/05/25 13:34 Oxygen Delivery Method Room Air 08/05/25 13:34 BMI result Body Mass Index 27.3 Const General: cooperative, healthy appearing and no acute distress Nutritional Appearance: average body habitus Orientation/consciousness: patient oriented x3 HEENT Face and sinus: Yes face symmetric Teeth and gingiva: other (M[place]ampti score is 3) Eyes Pupils: Equal, round and reactive pupils present Neck Neck: Yes full ROM Resp Effort & Inspection: normal respiratory effort and able to speak in complete sentences Neuro General: patient oriented x3 and moves all extremities Cranial nerves: Yes Facial sensation intact/muscles of mastication intact, Yes Equal, round and reactive pupils present, Yes Normal accommodation reflex present, Yes Midline tongue present, Yes Ability to bilaterally rotate head present and Yes Ability to bilaterally elevate shoulders present Cognition (Neuro): normal cognition Gait exam (Neuro): Normal gait present Motor exam (neuro): 5/5 motor strength present throughout and Normal motor muscle tone present throughout Psych Appearance: grossly normal Thought process: Normal thought process present Thought content: Normal thought content present Insight: Good insight present (Psych) Results Reviewed Results Reviewed: 07/2025 HST c/w mild degree of arlen AHI is 9 and REM AHI is 17, with O2 francoise to 79% and moderate snoring. 07/2025 [place] - NCS / EMG reviewed with pt. r. lateral plantar mixed nerve response had low amplitude with prolonged latency and the left is absent, he will f/u with his orthopedic surgeon per findings. Assessment & Plan Assessment & Plan (1) ARLEN on CPAP: Code(s): G47.33 - Obstructive sleep apnea (adult) (pediatric) Category: Medical (2) Excessive daytime sleepiness: Code(s): G47.19 - Other hypersomnia Category: Medical Plan PSG c/w mild ARLEN and moderate during REM, will start him on cpap therapy and mask fitting, reviewed compliance of >4 hours daily. Labs to r/o nutritional deficiencies EMG/NCS study reviewbilataral axonal neuropathy continue gabapentin 200mg po TID Will f/u in 3 months Patient Instructions: Please complete the following fasting labs to rule out deficiencies. CBC/CMP/ B12/ Vit D/ TSH/ Homocysteine and MMA/ Ferritin. Coding Level of Care Code Est Pt Level 4 (34723) Diagnoses ARLEN on CPAP G47.33 Excessive daytime sleepiness G47.19
[2025-08-05 13:34] VITALS: BP 122/78; PULSE 62; O2SAT 98; BMI 27.3
--- OUTSIDE RECORDS SUMMARY | 2025-08-05 14:51 | XMS_ITS | Patient Health Record ---
Author Organization [facility] Saadia Parrishley Address [address] [place] [address] Care Team Providers Care Wool Washer Name Role Phone Rayray Allen Primary Care Provider Unav ailable Carline Mohan Unavailable [phone] Allergies No Known Allergies Reason For Referral Reason Pain in foot Diagnosis 1 Pain of foot, unspec ified laterality (M79.673) Referring Provider First Name Rayray Referring Provider Last Name Ankita Referred Organization [facility] Juan Manuel Referred Provider Carline Mohan Referred Address [address] ,[place], [place],[address], Referred Provider Specialty Podiatry Referral Priority Routine [...] Status Risk Notes Problem Plantar fascial fibromatosis (30520259) Plantar fasciitis, bilateral (M72.2) Active confirmed Vital Signs Blood pressure diastolic 80 mm Hg 04/01/2025 Height 6 ft 6 in in 05/27/2025 Blood pressure systolic 120 mm Hg 04/01/2025 Weight 225 lbs 05/27/2025 BMI 26 kg/m2 05/27/2025 Encounters Encounter Location Date Provider Diagnosis [facility] [address] [address] 04/01/2025 Carline Mohan Pain in right foot [...] and Tinea pedis of both feet B35.3 [facility] [address] [address] 05/27/2025 Carline Mohan Pain in right foot [...] and Tinea pedis of both feet B35.3 [facility] [address] [place] [address] 01/20/2025 Carline Mohan [facility] [address] 03/03/2025 Carline Mohan [address] [address] 04/01/2025 Carline Mohan [address] [address] 04/01/2025 Carline Mohan [address] [address] 04/02/2025 Carline Mohan Assessments Encounter Date Diagnosis [...] Details Provider Name:Carline pino, 08/26/2025 09:00:00 AM, [address] [place] [address], [phone], Insurance Providers Payer Name Payer Address Payer Phone Subscriber Number Group Number Insured Name Patient Relationship to Insured Coverage Start Date Coverage End Date [facility] [address] [place] [address] [id number] Lloyd Mendez Self - patient is the insured Medical (General) History Medical History History ICD Code Anxiety Back,Hip,and Knee pain Broken bones covid-19 Depression Headaches/Migraines Numbness Poor circulation Stomach ulcer Chicken pox Surgical History Surgery Date(Month/Year) left shoulder 2009 left ulnar nerve 2023 left heel x2 2017,2018 wisdom tooth 2002
== END 2025-08-05 14:32 | disposition home or self-care (01) ==
LOC: HO.HSMS 13:22
PROVIDERS: PCP Nurse Practitioner Family; Visit Provider Physician Assistant Medical
DX: G47.33 Obstructive sleep apnea (adult) (pediatric) (principal); G47.19 Other hypersomnia
CPT/HCPCS: 99214

== ENCOUNTER → 2025-08-05 13:21 | Outpatient (BNVA) | payer OTHER, SELFPAY | PROVIDERS: PCP Nurse Practitioner Family; Visit Provider Physician Assistant Medical | DX: G47.33 Obstructive sleep apnea (adult) (pediatric) (principal); G47.19 Other hypersomnia | CPT/HCPCS: 99212 ==

== ENCOUNTER 2025-09-13 09:52 | Outpatient (AMB) | payer OTHER, SELFPAY ==
--- NOTE | 2025-09-13 10:03 | A.OFFPC_ITS ---
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 History of Present Illness The patient is a 40 year old male presenting for a follow-up for ongoing right knee pain. The pain is localized to the lateral aspect of the knee mostly. He has not yet started physical therapy due to insurance issues. Social History - The patient has been unable to begin p hysical therapy due to insurance issues. Health Maintenance Review of Systems - Musculoskeletal: Reports ongoing right knee pain, located on the lateral aspect. - Denies any current swelling. Physical Exam General: Cooperative, healthy appearing, comfortable, no acute distress and well developed Orientation: Patient oriented x3 Limitations: No limitations Head: Normal to inspection Ears: Hearing grossly normal bilaterally Nose: Normal external nose present Face and sinus: Normal facial exam Eyes: Appearance normal, both eyes and all related structures Neck: Normal visual inspection and Yes full ROM Respiratory: Normal respiratory effort and able to speak in complete sentences. Clear to auscultation bilaterally Cardiovascular: Regular rate and rhythm. Normal S1 and S2 GI: Normal to inspection. Soft to palpation and nontender Skin: No rashes or lesions noted Neuro: Patient oriented x3 Extremities: Right knee pain, mostly lateral aspect, no current swelling. Positive Oziel's test, negative Jyotsna's test. Crepitus noted with extension or flexion. Results Plan 1. Pain In Right Knee Assessment is based on today's finding of a positive Oziel's test and the extent of the patient's pain. Discussion Notes Patient Instructions [facility] Medical History Osteoarthritis of right knee Excessive daytime sleepiness Calcaneal spur of both feet Plantar fasciitis Tinea pedis Sleep apnea Finger fracture, right Cubital tunnel syndrome on left Fatty liver Dyslipidemia Surgical History S/P cubital tunnel release History of ankle surgery History of wisdom tooth extraction History of shoulder surgery Family History Father Unknown family medical history Mother No problems noted. Paternal Uncle No problems noted. Social History Housing: House Alcohol intake: current Alcohol intake frequency: a few times a month Patient Tobacco Use Status: Current everyday Tobacco user Tobacco use type: Cigarette Cigarettes Per Day: 10 Years Smoked: 15 years e-Cigarette/Vaping Use: Currently Using Second Hand Smoke Exposure: Yes service: Yes Current occupational status: employed Current occupation: right hand dominant Cognitive needs: No Hearing needs: No Vision needs: No Questionnaire PHQ-9 Over the last 2 weeks, how often have you been bothered by any of the following problems? 1. Little interest or pleasure in doing things: not at all 2. Feeling down, depressed, or hopeless: not at all 3. Trouble falling or staying asleep, or sleeping too much: not at all 4. Feeling tired or having little energy: not at all 5. Poor appetite or overeating: not at all 6. Feeling bad about yourself - or that you are a failure or have let yourself or your family down: not at all 7. Trouble concentrating on things, such as reading the newspaper or watching television: not at all 8. Moving or speaking so slowly that other people could have noticed. Or the opposite - being so fidgety or restless that you have been moving around a lot more than usual: not at all 9. Thoughts that you would be better off or of hurting yourself in some way: not at all Total score: 0 Depression Screening Interpretation: Negative Depression Screening Done: Yes 13220 - PHQ-9 Billing: Patient declined-do not bill Source: Developed by Drs. Rafael Kerr, Cassie Romano, Jass Haas and colleagues, with an educational trenton from [employer]. Thrive Questionnaire Date Thrive assessed: 12/30/24 I am a: Patient What is your living situation today?: I have a steady place to live Within the past 12 months, did the food you bought not last and you didn't have the money to get more?: Never true Within the past 12 months, did you worry whether your food would run out before you got money to buy more?: Never true Do you have trouble paying for medicines?: No Do you have trouble getting transportation to medical appointments?: No Do you have trouble paying your heating and electricity bill?: No Do you have trouble taking care of your child, family member or friend?: No Do you have trouble with day-to-day activities such as bathing, preparing meals, shopping, managing finances, etc.?: No Are you currently unemployed and looking for a job?: No Are you interested in more education?: No Please select the resources that you would like help with: None Currently or been in a relationship where the following occur: No concerns reported THRIVE Score: 0 BECCA-7 AMB Questionnaire BECCA-7 Date BECCA - 7 assessed: 09/13/25 Feeling nervous, anxious, or on edge: 0 = Not at all Not being able to stop or control worryin = Not at all Worrying too much about different things: 0 = Not at all Trouble relaxin = Not at all Being so restless that it is hard to sit still: 0 = Not at all Becoming easily annoyed or irritable: 0 = Not at all Feeling afraid as if something awful might happen: 0 = Not at all Total BECCA-7 score (0-4 normal; 5-9 mild; 10-14 moderate; 15-21 severe): 0 Source: Developed by Drs. Rafael Kerr, Cassie Romano, Jass Haas and colleagues, with an educational trenton from [employer]. BECCA-7 Assessment Billing BECCA-7 Assessment Tool: BECCA-7 Assessment 43108 Physical exam (Primary Care) Vital Signs: Last Vital Signs Temp 98.4 F 09/13/25 10:04 Pulse 86 09/13/25 10:04 Resp 16 09/13/25 10:04 BP 112/76 09/13/25 10:04 Pulse Ox 99 09/13/25 10:04 BMI result Body Mass Index 26.7 Tobacco/Smoking Status: Tobacco use Status Tobacco use date assessed 09/13/25 09/13/25 10:09 Patient Tobacco Use Status Current everyday Tobacco 09/13/25 10:09 Tobacco use type Cigarette 09/13/25 10:09 e-Cigarette/Vaping Use Currently Using 09/13/25 10:09 PHQ-9: PHQ-9 Score PHQ-9: Total score 0 09/13/25 10:09 Depression Screening Interpretation: Negative Thrive Assessment: Date of Thrive Assessment Date Thrive assessed 12/30/24 09/13/25 10:09 Currently or been in a relationship where the following occur: No concerns reported Office Procedures Flu Questionnaire Does the patient have a severe egg allergy?: No Does the patient have severe life threatening allergies?: No Does the patient have a fever or illness today?: No Has the patient ever had Guillain-Perry Syndrome?: No Has the patient ever had any past reaction to a flu shot?: No Immunizations Fluarix [id number] (PF) 45 mcg (15 mcg x 3)/0.5 mL IM syringe Performing Provider: RILEY Dobbins Performing Location: [facility] Administered by: Susan Feliciano MA on 09/13/25 10:10 Dose Route Admin Location Dispensed Lot Number Expiration Date [facility] [employer] 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 Orders: Orders MR knee RT wo con Today M25.561 - Pain in right knee Influenza Immunization Today Z23 - Encounter for immunization PT Evaluation and Treatment Today M25.561 - Pain in right knee
[2025-09-13 10:04] VITALS: BP 112/76; PULSE 86; RESP 16; TEMP 36.9; O2SAT 99; BMI 26.7
== END 2025-09-13 11:34 | disposition home or self-care (01) ==
LOC: HO.HMCC 09:53
PROVIDERS: PCP Nurse Practitioner Family; Visit Provider Nurse Practitioner Family
DX: Z23 Encounter for immunization (principal); M25.561 Pain in right knee

== ENCOUNTER → 2025-09-13 09:52 | Outpatient (BNVA) | payer OTHER, SELFPAY | PROVIDERS: PCP Nurse Practitioner Family; Visit Provider Nurse Practitioner Family | DX: M25.561 Pain in right knee (principal); Z13.39 Encounter for screening examination for other mental health and behavioral disorders; Z23 Encounter for immunization | CPT/HCPCS: 90471; 90656; 96127; 99212 ==